=== PATIENT | male | born 1985 | race Caucasian/White ===

== ENCOUNTER 2018-04-07 15:52 | Emergency (ER) | payer BC, SELFPAY ==
[2018-04-07 15:53] VITALS: BP 144/89; PULSE 98; RESP 18; TEMP 36.7; O2SAT 99; BMI 44.6
--- NOTE | 2018-04-07 16:26 | ED.DCSUM_ITS ---
- ER Visit Summary Date of Service: 04/07/18 Chief Complaint: Right ear abscess History of Present Illness: The patient is a 32 M who has an abscess behind the right ear. Is been there for 4 days. 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 He denies fevers. He has no history of this in the past. Physical Examination: Vital signs reviewed. HEENT exam reveals a 1 cm abscess behind the top of the right ear. He has no mastoid tenderness. There is fluctuance with this abscess. The pinna itself is normal. Test Results: None performed Emergency Department Course and Treatment: She had incision and drainage. 2 cc of lidocaine was used to anesthetize the area. A cruciate incision was made over the dome of the abscess. He had a small amount of purulence. I did probe for loculations. I will place him on antibiotics and he will follow-up with his PCP. Treatment Plan: [] Disposition: Discharge Impression: Right ear abscess Incision and drainage by ED physician This note was generated with [employer] dictation software. It may contain incorrect words, spelling, and punctuation that were not noted in review of the chart prior to signing ED Disposition - Plan for ED Patient: Chief Complaint: Abscess Referrals: Care Physician,No Primary [Primary Care Provider] -
--- NOTE | 2018-04-07 16:29 | ED.DEP ---
ED Disposition - Plan for ED Patient: Disposition: Home or Assisted Living Chief Complaint: Abscess Instructions: ED Abscess IandD Prescriptions: Smz/Tmp Ds [Bactrim Ds] 1 tab PO BID #14 tab Referrals: Care Physician,No Primary [Primary Care Provider] -
[2018-04-07] MEDS: Smz/Tmp Ds Tablet 1 TABLET PO (16:52)
[2018-04-07 17:01] VITALS: BP 137/66; PULSE 71; RESP 15; O2SAT 98
--- OUTSIDE RECORDS SUMMARY | 2018-07-12 07:24 | XMS RPT_ITS ---
:1985 Author Organization [facility] Care Team Providers Name Role Phone Primay Care Physicia, No Primary Care Unavailable Gama You Attending Unavailable CINDY, DAYAN MOHAMUD Attending Unavailable CINDY, DAYAN Attending Unavailable PROBLEMS PROBLEMS DATE TYPE CONDITION / ATTENDING STATUS SOURCE CODE 04/10/2018 Active Cutaneous CINDY, Active [facility] abscess of head [facility] (any part, Repository except face) / L02.811(ICD-10) 04/10/2018 Admitting Unknown / CINDY, Active [place] [facility] diagnosis UNK(Unknown) [facility] Repository PROCEDURES PROCEDURES No Procedure Records FoundRESULTS RESULTS ED PROV NOTE Observed: 04/10/2018 Status: COMPLETED Source: [place] 5:03 AM [facility] OTHER CAMPUS REPOSITORY HNO ID: [id number] Author: Dayan White DO Service: Emergency Medicine Author Type: Physician Type: ED Provider Notes Filed: 04/10/2018 5:56 AM Note Text: ED Provider Note Patient Name: Malorie Foreman SERVICE DATE: 04/10/18 History Patient presents with: Cyst: behind the right ear since Tuesday. Tuesday went to ED for I AND D. placed on antibiotic but states it is not working HPI Patient is a 32 yo male complaining of an abscess behind his R ear x 1 week. He states he sometimes get these, but it progressed throughout the week, saw someone at [facility] who did and IANDD and placed patient on bactrim 2 days ago. Patient states the pain is worse, swelling worse and that he feels like the abscess has returned. Pain is a constant throbbing, worse with palpation. He denies fever/chills, neck pain, RICHARDSON or other complaints. 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 - Psoriasis 06-16-12 on top of head and face PAST SURGICAL HISTORY Procedure Laterality Date - HERNIA REPAIR HX x2 (abdominal) FAMILY HISTORY Problem Relation Age of Onset - Hypertension Maternal Grandmother - Macular Degen Maternal Grandmother - Hypertension Maternal Grandfather - Macular Degen Maternal Grandfather - Cancer Maternal Grandfather - Cataract Paternal Grandmother - Diabetes Paternal Grandmother - Hypertension Paternal Grandmother - Diabetes Paternal Grandfather - Hypertension Paternal Grandfather - Cancer Paternal Grandfather - Strabismus Brother Social History Social History Main Topics - Smoking status: Never Smoker - Smokeless tobacco: Not on file - Alcohol use Yes Comment: 3x yearly - Drug use: Unknown - Sexual activity: Not on file ALLERGIES Allergen Reactions - Adhesive Tape (Rea* Unknown Review of Systems Constitutional: Negative for chills and fever. HENT: Negative for congestion, ear pain, nosebleeds, sore throat, trouble swallowing and voice change. Eyes: Negative for pain, redness and visual disturbance. Respiratory: Negative for cough and shortness of breath. Cardiovascular: Negative for chest pain and palpitations. Gastrointestinal: Negative for abdominal distention, abdominal pain, diarrhea, nausea and vomiting. Genitourinary: Negative for dysuria and hematuria. Musculoskeletal: Negative for back pain and neck pain. Skin: Negative for rash. Neurological: Negative for syncope and headaches. Hematological: Does not bruise/bleed easily. All other systems reviewed and are negative. Physical Exam BP 147/98 Pulse 104 Temp (Src) 96.4 (Temporal Artery) Resp 18 Ht 6' 6 (1.98m) Wt 380 lb (172.4kg) SpO2 98% BMI 43.92 kg/(m2). Physical Exam Constitutional: He is oriented to person, place, and time. He appears well-nourished. No distress. HENT: Head: Normocephalic and atraumatic. Right Ear: External ear normal. Left Ear: External ear normal. Nose: Nose normal. Mouth/Throat: Oropharynx is clear and moist. Eyes: Pupils are equal, round, and reactive to light. Conjunctivae and EOM are normal. Neck: Normal range of motion. Neck supple. No JVD present. No tracheal deviation present. Cardiovascular: Normal rate, regular rhythm, normal heart sounds and intact distal pulses. Exam reveals no gallop and no friction rub. No murmur heard. Pulmonary/Chest: Effort normal and breath sounds normal. No respiratory distress. He has no wheezes. He has no rales. Musculoskeletal: Normal range of motion. He exhibits no edema. Lymphadenopathy: He has no cervical adenopathy. Neurological: He is alert and oriented to person, place, and time. No cranial nerve deficit or sensory deficit. Skin: Skin is warm and dry. Capillary refill takes less than 2 seconds. No rash noted. He is not diaphoretic. There is erythema. There is a 1 cm abscess on the posterior superior auricular area with minimal surrounding cellulitis and induration. No streaking. Nursing note and vitals reviewed. Diagnostic Testing ED Labs Ordered and Reviewed - No data to display INCISION/DRAINAGE Date/Time: 04/10/2018 5:06 AM Performed by: DAYAN WHITE Authorized by: DAYAN WHITE Consent: Consent obtained: Verbal Consent given by: Patient Risks discussed: Bleeding, incomplete drainage, damage to other organs, infection and pain Alternatives discussed: No treatment and delayed treatment Location: Type: Abscess Size: 1 Location: Head Head location: Scalp Pre-procedure details: Skin preparation: Betadine Anesthesia (see MAR for exact dosages): Anesthesia method: Local infiltration Local anesthetic: Lidocaine 1% WITH epi Procedure type: Complexity: Simple Procedure details: Needle aspiration: no Incision types: Stab incision Incision depth: Submucosal Scalpel blade: 11 Wound management: Probed and deloculated, irrigated with saline and extensive cleaning Drainage: Purulent Drainage amount: Scant Wound treatment: Wound left open Packing materials: None Post-procedure details: Patient tolerance of procedure: Tolerated well, no immediate complications ED Course / Clinical Impression Clinical Impressions as of Apr 10 503 Cutaneous abscess of head excluding face Patient in no distress, nontoxic appearing. Treated with doxycycline for better coverage and motrin for pain. IANDD without complication with return of pus. Too small for packing, but thoroughly irrigated. We will switch him to doxycycline and instructed him to take motrin as directed and f/u with pcp in a few days. Advised to return to the ED for anything new or worse. MDM / Disposition / Plan MDM The patient was DISCHARGED: Counseled patient regarding suspected diagnosis AND need for follow-up. Discharged home with verbal and written instructions. They were instructed to return as needed for persistent or worsening symptoms or any new concerns. Condition at time of disposition: stable SIGNATURE: DO Dayan Rizo DO 04/10/18 0556 EMERGENCY DEPARTMENT Observed: 04/07/2018 Status: F Source: [place] SUMMARY 4:30 PM REPOSITORY [facility] [place] Medical Records Department [address] [place] [address] Emergency Department Summary 04/07/18 1625 MR#: [id number] Acct: [id number] Name: MALORIE FOREMAN II Rep #: [id number] : 1985 32 From: Gama You MD PCP: Care Physician, No Primary Status: PRE ER ADDENDUM by Gama You MD on 04/07/18 at 1630 I do not feel this represents mastoiditis as he has no tenderness over the mastoid area. This abscess is more superior to this area. 04/07/18 1630 Date Gama You MD cc: No Primary Care Physician * Signed - ER Visit Summary Date of Service: 04/07/18 Chief Complaint: Right ear abscess History of Present Illness: The patient is a 32 M who has an abscess behind the right ear. Is been there for 4 days. He squeezed some pus out of it 2 days ago but it [employer]. He denies fevers. He has no history of this in the past. Physical Examination: Vital signs reviewed. HEENT exam reveals a 1 cm abscess behind the top of the right ear. He has no mastoid tenderness. There is fluctuance with this abscess. The pinna itself is normal. Test Results: None performed Emergency Department Course and Treatment: She had incision and drainage. 2 cc of lidocaine was used to anesthetize the area. A cruciate incision was made over the dome of the abscess. He had a small amount of purulence. I did probe for loculations. I will place him on antibiotics and he will follow-up with his PCP. Treatment Plan: [] Disposition: Discharge Impression: Right ear abscess Incision and drainage by ED physician This note was generated with [employer] dictation software. It may contain incorrect words, spelling, and punctuation that were not noted in review of the chart prior to signing ED Disposition - Plan for ED Patient: Chief Complaint: Abscess Referrals: Care Physician,No Primary [Primary Care Provider] - What to do if you have Problems For any increased pain, shortness of breath, bleeding, nausea or vomiting, chest pain, or any unexpected problems, contact your Primary Care Provider. Call [facility] ([phone]) or report to the closest Emergency Room. Call 911 if necessary. 04/07/18 1626 <Electronically signed by Gama You MD> Date Gama You MD Cosigner Signature (If Indicated): Date CC: No Primary Care Physician DISCHARGE INSTRUCTION Observed: 04/07/2018 Status: F Source: [place] 4:29 PM REPOSITORY [facility] Medical Records Department [address] [place] [address] Discharge Instruction 04/07/18 1629 MR#: [id number] Acct: [id number] Name: MALORIE FOREMAN II Rep #: [id number] : 1985 32 From: Gama You MD PCP: Antonio Physician, No Primary Status: PRE ER ED Disposition - Plan for ED Patient: Disposition: Home or Assisted Living Chief Complaint: Abscess Instructions: ED Abscess IandD Prescriptions: Smz/Tmp Ds [Bactrim Ds] 1 tab PO BID #14 tab Referrals: Care Physician,No Primary [Primary Care Provider] - What to do if you have Problems For any increased pain, shortness of breath, bleeding, nausea or vomiting, chest pain, or any unexpected problems, contact your Primary Care Provider. Call [facility] ([phone]) or report to the closest Emergency Room. Call 911 if necessary. 04/07/18 1629 <Electronically signed by Gama You MD> Date Gama You MD Cosigner Signature (If Indicated): Date CC: No Primary Care Physician ALLERGIES ALLERGIES DATE TYPE / CODE NAME / CODE REACTION SEVERITY SOURCE 04/07/2018 Drug adhesive/[id number] Unknown Unknown [facility] Allergy/416 3245(RXNORM) [facility] 196195(SNOM Repository ED CT) 03/16/2011 Chemical/42 ADHESIVE TAPE UNKNOWN [facility] [id number]([facility]) Repository /[id number] ADHESIVE TAPE [place] [address]ository ENCOUNTERS ENCOUNTERS ADMIT/DISCHARGE ACCOUNT NUMBER ADMITTING ENCOUNTER LOCATION SOURCE CLASS 04/10/2018/04/10/20 [id number] Emergency [address] Repository 04/10/2018/04/10/20 [id number] [address] g:AKEDBRoom: EDBed: 03 04/07/2018/04/07/20 [id number] Emergency [address] ing:ED Repository PAYERS PAYERS ENCOUNTER GUARANTOR PAYER SUBSCRIBER SOURCE 04/10/2018 MAL[place]IE [place] Primary [facility] [place] [facility]:BLUE CARD FEKETEDOB: [facility] [id number] S PPOPolicy Number: [id number] [address] [id number] [address], Date: [place] [address]Taw: () 04/07/2018 MALORIE FOREMAN Primary MALORIE FOREMAN [facility] [id number] [facility] Insurance:ANTHEMPolic IIDOB: [facility] ROWENA y Number: [id number] [address], [id number] Repository [place] [address]Lje: Date:[id number] [id number], [place] () [address]JD: 04/07/2018 Secondary NOT GIVENUNK Leonardo Insurance:SELF PAY Community [facility] Number: Effective Repository Date:2018-04-07
== END 2018-04-07 17:02 | disposition home or self-care (01) ==
LOC: ED 16:56
PROVIDERS: Emergency Provider Emergency Medicine
DX: H60.01 Abscess of right external ear (principal)
CPT/HCPCS: 69000; 99284

== ENCOUNTER 2018-07-14 09:56 | Emergency (ER) | payer OTHER, SELFPAY ==
[2018-07-14 09:57] VITALS: BP 144/88; PULSE 100; RESP 18; TEMP 36.6; O2SAT 97; BMI 45.2
--- NOTE | 2018-07-14 10:10 | RAD_ITS ---
STUDY: X-RAY - LEFT ELBOW REASON FOR EXAM: Male, 32 years old. Trauma. Elbow pain TECHNIQUE: 3 view(s) of the elbow. COMPARISON: None. FINDINGS: Normal visualized humerus, radius and ulna. Normal radiocapitellar and ulnotrochlear articulations. The soft tissue structures are unremarkable. RAD/Elbow min 3 Views IMPRESSION: Normal x-ray examination of the elbow. Electronically Signed: Bro Oreilly, at 10:43 EDT Tel , Service support ,
--- NOTE | 2018-07-14 10:10 | ED.VISSUMM ---
- ER Visit Summary Date of Service: 07/14/18 Chief Complaint: Left elbow pain History of Present Illness: The patient is a 32 M [id number] presents for evaluation left elbow pain occurred while at work yesterday at 1:30 PM. 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 Pain worse with movement. Tingling mid forearm last night Tylenol was taken with last dose at midnight. No previous similar symptoms. No history of gastric ulcers or kidney problems. There is no direct falls or injuries. Sent by work for evaluation. Physical Examination: General: Alert and oriented ?3, no acute distress HEENT: Normocephalic, atraumatic. Moist mucosa membranes Neck: supple, nontender. Cardiovascular: Regular rate and rhythm, no murmurs Respiratory: Normal breath sounds, symmetric, no distress Abdomen: Soft, nontender, nondistended Extremities: Left upper extremity: No shoulder pain. There is tenderness elbow at the radial head, patient can extend to approximately 150 degrees before pain. There is no swelling of the joint. No deformities. No wrist tenderness. Neurovascular intact distally. Neuro: no focal neurological deficits. Test Results: Left elbow: No acute process Emergency Department Course and Treatment: Patient exam with his placement of elbow and cannot fully extend with pain at rehab concerns for nursemaid's elbow however mechanism was not similar. I discussed with patient reduction of bedside C there is improvement range of motion, he verbally consent. This was performed there was a pop noted at the radial head during the extension mechanism. He did have improved range of motion. He is sent for x-rays reviewed by myself shows no dislocation or fractures. Motrin ice was given. Reevaluation range of motion improve however still had tenderness over the radial head. Discussed nursemaid's elbow with tendinitis, symptoms nearly 24 hours with likely inflammation. He is given appropriate work restrictions and follow-up with [facility] [employer]. He will continue Motrin [id number] for the next 2 days. Alex wrap provided. Rice therapy. All questions answered. Treatment Plan: [] Disposition: Discharge Impression: 1. Left nursemaid's elbow 2. Left elbow tendinitis This note was generated with [employer] software. It may contain incorrect words, spelling, and punctuation that were not noted in review of the chart prior to signing ED Disposition - Plan for ED Patient: Disposition: Home or Assisted Living Diagnosis: Nursemaid's elbow, left elbow, initial encounter, Elbow tendinitis Instructions: ED Subluxation Radial Head Referrals: Care Physician,No Primary [Primary Care Provider] - Corporate,Care [GROUP OF PHYSICIANS] - 3-5 Days
[2018-07-14] MEDS: Ibuprofen 600 MG Tablet PO (10:22)
== END 2018-07-14 11:19 | disposition home or self-care (01) ==
PROVIDERS: Emergency Provider Emergency Medicine
DX: S53.032A Nursemaid's elbow, left elbow, initial encounter (principal); M77.9 Enthesopathy, unspecified; X50.0XXA Overexertion from strenuous movement or load, initial encounter; Y93.89 Activity, other specified; Y92.89 Other specified places as the place of occurrence of the external cause; Y99.0 Civilian activity done for income or pay
CPT/HCPCS: 24600; 73080; 99282

== ENCOUNTER → 2023-01-21 | Outpatient (CLI) | payer OTHER, SELFPAY ==
[2023-01-21 13:29] LABS: Squamous Epithelial Cells - UA 0 SEEN /hpf (0-5)
[2023-01-21 15:07] LABS: Absolute Lymphocyte Count 1.87 X10^3/uL (0.83-4.51); Absolute Neutrophil Count 4.4 X10^3/uL (2.0-7.7); Basophil# 0.03 X10^3/uL; Basophil% 0.4 % (0-1); Eosinophil# 0.11 X10^3/uL; Eosinophils% 1.6 % (0-5); Hematocrit 44.9 % (40-54); Hemoglobin 14.8 g/dL (13.0-16.5); Lymphocyte # 1.87 X10^3/ul (0.83-4.51); Lymphocyte % 27.5 % (19-41); Mean Corpuscular Hgb 27.5 pg (27.0-32.0); Mean Corpuscular Volume 83.5 fL (80-94); Mean Platelet Vol. 9.2 fl (6.2-12.0); Monocyte# 0.34 X10^3/uL; NRBC Flagged by Analyzer 0 % (0-5); Neutrophil # 4.43 X10^3/uL (2.7-7.7); Neutrophil % 65.1 % (47-70); Platelet Count 185 K/mm3 (150-450); RBC Distribution Width CV 12.6 % (11.6-14.6); RBC Distribution Width SD 37.7 fl (35.1-43.9); Red Blood Count 5.38 M/mm3 (4.6-6.2); White Blood Count 6.8 K/mm3 (4.4-11.0)
[2023-01-21 15:16] LABS: Color, Urine Yellow (Yellow); Glucose, Dipstick Normal (Normal); Ketone-Dipstick 5 mg/dl (Negative); Leukocyte Esterase-Dipstick 100 /ul (Negative); Nitrite-Dipstick Negative (Negative); Occult Blood-Urine Negative /ul (Negative); Protein-Dipstick Negative (Negative); Specific Gravity, Urine 1.025 (1.002-1.030); Urine Bilirubin Dipstick Negative (Negative); Urine Clarity Sl. Cloudy (Clear); Urine Urobilinogen Normal (Normal)
[2023-01-21 15:32] LABS: Vitamin B12 654 pg/mL (211-911)
[2023-01-21 15:39] LABS: Hemoglobin A1c 7.3 % (3.8-5.6)
[2023-01-21 15:46] LABS: Bacteria RARE /hpf (None Seen); Mucous, Urine RARE /hpf (<or=2+); Red Blood Cells-Urine 0-5 SEEN /hpf (0-5); White Blood Cells 25-50 SEEN /hpf (0-5)
[2023-01-21 15:47] LABS: ALB/GLOB Ratio 1.2 RATIO (0.9-2.4); AST(SGOT) 36 U/L (15-37); Alanine Aminotransfer ALT/SGPT 90 U/L (16-61); Albumin, Serum 3.8 g/dL (3.2-5.0); Alkaline Phosphatase 109 U/L (45-117); Anion Gap 4 (5-15); BUN 12 mg/dL (7-18); BUN/Creat Ratio 13.5 RATIO (10-20); Calcium,Total 8.8 mg/dL (8.5-10.1); Chloride 107 mmol/L (98-107); Cholesterol 130 mg/dL (200); Creatinine, Serum 0.89 mg/dL (0.70-1.30); EST Glomerular Filtration Rate 103 mL/min (>60); Est Glom Filt Rate - Afr Amer 125 mL/min (>60); Globulin 3.3 g/dL (2.2-4.2); Glucose 133 mg/dL (74-106); High Density Lipoprotein 36 mg/dL; Magnesium 2.4 mg/dL (1.6-2.6); Potassium 3.7 mmol/L (3.5-5.1); Protein, Total 7.1 g/dL (6.4-8.2); Sodium Level 138 mmol/L (136-145); Thyroid Stim Hormone (TSH) 1.59 uIU/mL (0.358-3.74); Triglycerides 124 mg/dL; Very Low Density Lipoprotein 25 mg/dL (5-40)
[2023-01-26 17:07] LABS: VITAMIN B6 4.3 ug/L (3.4-65.2); Vitamin B1, Thiamine 147.3 nmol/L (66.5-200.0)
== END | disposition home or self-care (01) ==
PROVIDERS: PCP Family Medicine; Referring Provider Family Medicine; Visit Provider Family Medicine
DX: R03.0 Elevated blood-pressure reading, without diagnosis of hypertension (principal); E66.01 Morbid (severe) obesity due to excess calories; R63.1 Polydipsia
CPT/HCPCS: 80053; 80061; 81001; 82607; 83036; 83735; 84207; 84425; 84443; 85025

== ENCOUNTER → 2023-04-28 | Outpatient (CLI) | payer OTHER, SELFPAY ==
--- OUTSIDE RECORDS SUMMARY | 2023-04-28 17:21 | XMS RPT_ITS | CCD ---
Author Name Unknown Address [address] [place] [address] Organization [facility] Care Team Providers Care Dials Inspector Name Role Phone Ryder Garcia Unavailable Unavailable Unavailable [facility] Primary Care Provider Unav ailable MARLENE CUADRA Attending Unavailable [facility], [employer] Primary Care Unavailable MARLENE CUADRA Attending Unavailable Allergies Allergy Classification Reported Allergen(s) Allergy Type Date of Onset Reaction(s) Facility (2 sources) Adhesive Tape Drug Intolerance 1 Hives Rash [facility] (1 source) Adhesive Tape; Translations: [ADHESIVE TAPE (ROSINS)] Propensity to adverse reactions (disorder) 1 [facility] Other [facility] Medications Current Medications Medication Drug Class(es) Dates Sig (Normalized) Sig (Original) azithromycin 250 mg oral tablet (2 sources) Macrolide Antimicrobial Start: 08-24-2022 End: 08-29-2022 take 1 tablet by mouth once daily azithromycin (Zithromax Z-Tom) 250 MG tablet Indications: Upper respiratory tract infection, unspecified type Take 1 tablet (250 mg) by mouth daily for 5 days. 5 tablet 0 08/24/2022 08/29/2022 Active Completed/Discontinued Medications Medication Drug Class(es) Dates Sig (Normalized) Sig (Original) 1 ml dexamethasone phosphate 4 mg/ml injection (2 sources) Corticosteroid Start: 12-14-2022 End: 12-14-2022 dexAMETHasone (Decadron) injection 10 mg Pseudoephedrine-APAP- DM (DAYQUIL PO) (1 source) End: 12-14-2022 Pseudoephedrine-APAP -DM (DAYQUIL PO) Take by mouth. 0 12/14/2022 Discontinued (Ineffective) Problems Active Problems Problem Classification Problem Date Documented Da te Episodic/Chronic Immunizations and screening for infectious disease (1 source) Contact with or exposure to other viral diseases; Translations: [Close exposure to COVID-19 virus] 12-14-2022 Episodic Other upper respiratory infections (4 sources) Upper respiratory infection; Translations: [Acute upper respiratory infection, unspecified] Onset: 12-14-2022 Episodic Unclassified (1 source) Contact with and (suspected) exposure to covid-19; Translations: [Contact with and (suspected) exposure to covid-19] Onset: 12-14-2022 Past or Other Problems Problem Classification Problem Date Documented Da te Episodic/Chronic Unclassified (1 source) Contact with and (suspected) exposure to covid-19; Translations: [Contact with and (suspected) exposure to covid-19] Onset: 12-14-2022 Results Test Name Value Interpretation Reference Range Facil ity Vital Signs Date Time Vital Sign Value Performing Clinician Faci lity 12-14-2022 11:19-0400 Body height 195.6 cm [employer]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 Phone: [employer] 12-14-2022 11:19-0400 Body mass index (BMI) [Ratio] 46.48 kg/m2 MarleneTrot Phone: [employer] 12-14-2022 11:19-0400 Body temperature 97.81 [degF] MarleneTrot Phone: [employer] 12-14-2022 11:19-0400 Body weight 177.81 kg MarleneTrot Phone: [employer] 12-14-2022 11:19-0400 Diastolic blood pressure 88 mm[Hg] MarleneTrot Phone: [employer] 12-14-2022 11:19-0400 Heart rate 107 /min MarleneTrot Phone: [employer] 12-14-2022 11:19-0400 SaO2% (BldA) [Mass fraction] 98 % [employer] Phone: [employer] 12-14-2022 11:19-0400 Systolic blood pressure 129 mm[Hg] MarleneeHarmony DO Work Phone: [employer] 08-24-2022 14:18-0400 Body height 190.5 cm MarleneeHarmony DO Work Phone: [employer] 08-24-2022 14:18-0400 Body temperature 98.1 [degF] MarleneeHarmony DO Work Phone: [employer] 08-24-2022 14:18-0400 Diastolic blood pressure 87 mm[Hg] MarleneeHarmony DO Work Phone: [employer] 08-24-2022 14:18-0400 Heart rate 102 /min MarleneeHarmony DO Work Phone: [employer] 08-24-2022 14:18-0400 Respiratory rate 18 /min MarleneeHarmony DO Work Phone: [employer] 08-24-2022 14:18-0400 SaO2% (BldA) [Mass fraction] 98 % MarleneeHarmony DO Work Phone: [employer] 08-24-2022 14:18-0400 Systolic blood pressure 145 mm[Hg] MarleneeHarmony DO [facility] Encounters Encounter Date Encounter Type Care Provider Facility Start: 03-15-2023 Emergency department patient visit Facility:[facility] Start: 12-14-2022 End: 12-14-2022 ambulatory [facility] Start: 12-14-2022 End: 12-14-2022 Office outpatient visit 15 minutes [employer] DO Work Phone: [facility] Procedures Date Procedure Procedure Detail Performing Clinician Start: 12-14-2022 Iaadiadoo streptococ cus group a [employer] DO Work Phone: Start: 08-24-2022 Iaadiadoo streptococ cus group a [employer] DO Work Phone: Start: 05-24-2019 Throat culture Plan of Treatment Date Care Activity Detail Author Start: 11-10-2037 Zoster Vaccines (1 of 2) Zoster Vacc dre (1 of 2) [facility] Start: 12-24-2022 Influenza vaccination [facility] Start: 11-10-2006 DTaP/Tdap/Td Vaccine s (1 - Tdap) DTaP/Tdap/Td Vaccines (1 - Tdap) [facility] Start: 11-10-2005 Hepatitis C screening Hepatitis C Sc reening [facility] Start: 1999 Depression Screening Depression Scre ening [facility] Start: 11-10-1988 MMR Vaccines (1 of 1 - Standard series) MMR Vaccines (1 of 1 - Standard series) [facility] Start: 11-10-1988 Varicella vaccination Varicell a Vaccines (1 of 2 - 2-dose childhood series) [facility] Start: 05-13-1988 COVID-19 Vaccine (#1) COVID-19 Vacci ne (#1) [facility] Start: 1987 Hepatitis B Vaccines (1 of 3 - 3-dose series) Hepatitis B Vaccines (1 of 3 - 3-dose series) [facility] Start: 1987 HIV screening HIV Screening [facility] Start: 1987 Lipid panel Lipid Panel [facility] SARS-CoV-2, Flu A/B, and RSV Combo SARS-CoV-2, Flu A/B, and RSV Combo Microbiology Routine URI with cough and congestion Ordered: 12/14/2022 [facility] Work Phone: Immunizations Immunization Date Immunization Notes Care Provider Gaurang moseley 05-24-2012 influenza virus vacc ine, unspecified formulation Marlene Cuadra DO Work Phone: [facility] Payers Date Payer Category Payer Private Health Insurance [id number] 2020 Private Health Insurance KORY CORDERO [id number] 2020-Present [address] [place] [id number] Commercial [id number] 2020 Private Health Insurance [id number] 2019 Unknown [id number] Self-pay Social History Date Type Detail Facility Start: 08-24-2022 [facility] Start: 08-24-2022 Tobacco use and exposure Smokeless tobacco non-user [facility] Start: 08-24-2022 End: 12-14-2022 Alcohol intake Current drinker of alcohol (finding) [facility] Start: 1987 Sex Assigned At Not on file [facility] Start: 08-14-2022 End: 12-14-2022 Exposure to SARS-CoV-2 (event) Not sure [facility] Start: 12-14-2022 History of Social function [facility] Start: 12-14-2022 Tobacco use panel [facility] NEGATED: Highlighted rowStart: NINF History of tobacco use Passive smoker [facility] Clinical Notes 03-03-2021 to 12-14-2022 Marlene Cuadra, - 12/14/2022 11:40 AM EDTPatient InstructionsAttachmentsAddendum Note - Marlene Cuadra DO - 12/14/2022 11:40 AM EDSelvin Kwok MA - 08/24/2022 1:50 PM EDTAttachments Note Date & Type Note Facility 12-14-2022 History of Presen t illness Narrative Chief Complaint Patient presents with URI Last Tuesday started to have itchy throat, was sluggish, reports that sat was burning up no temp taken, chills last night, upper chest congestion, nasal congestion, trouble sleeping due to symptoms . At home covid test sat was negative No LMP for male patient. 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 SURGERY Right 01/2013 [employer] FOREIGN BODY REMOVAL Right 3rd Digit - beebee Family History Problem Relation Name Age of Onset Lung cancer Maternal Grandfather Cancer Paternal Grandmother Social History Socioeconomic History Marital status: Single Tobacco Use Smoking status: Never Passive exposure: Never Smokeless tobacco: Never Vaping Use Vaping Use: Never used Substance and Sexual Activity Alcohol use: Yes Drug use: Never Allergies: Allergies Allergen Reactions Adhesive [Tape] Hives and Rash No Plastic tape -Removes his skin Medications: Current Outpatient Medications on File Prior to Visit Medication Sig Dispense Refill [DISCONTINUED] [id number] (DAYQUIL PO) Take by mouth. No current facility-administered medications on file prior to visit. HPI: URI Presenting symptoms: congestion, cough, fever, rhinorrhea and sore throat Not feeling well x1 week Started with a scratchy throat - thought it was from the grass Tuesday cousin told patient that he was sick Got fever on Tuesday Nasty cough, not able to sleep Nose started to drain Throat feels like it has glass in it Nausea but no vomiting or diarrhea Took dayquil yesterday Did home covid test on Tuesday - neg ROS: Review of Systems Constitutional: Positive for chills and fever. HENT: Positive for congestion, rhinorrhea and sore throat. Respiratory: Positive for cough. Gastrointestinal: Positive for nausea. exam: BP 129/88 Pulse 107 Temp 36.6 C (97.8 F) (Infrared) Ht 6' 5 (1.956 m) Wt (!) 392 lb (178 kg) SpO2 98% BMI 46.48 kg/m Physical Exam Vitals reviewed. Constitutional: General: He is not in acute distress. Appearance: Normal appearance. He is not ill-appearing, toxic-appearing or diaphoretic. HENT: Head: Normocephalic and atraumatic. Right Ear: Tympanic membrane and ear canal normal. Left Ear: Tympanic membrane and ear canal normal. Nose: Congestion and rhinorrhea present. Mouth/Throat: Mouth: Mucous membranes are moist. Pharynx: Oropharynx is clear. No oropharyngeal exudate or posterior oropharyngeal erythema. Eyes: Conjunctiva/sclera: Conjunctivae normal. Cardiovascular: Rate and Rhythm: Normal rate and regular rhythm. Pulses: Normal pulses. Heart sounds: Normal heart sounds. No murmur heard. No friction rub. No gallop. Pulmonary: Effort: No respiratory distress. Breath sounds: Normal breath sounds. No wheezing, rhonchi or rales. Comments: Good air movement throughout all lung reyes Able to speak clearly and in complete sentences without evidence of distress or dyspnea Frequent dry cough noted throughout encounter Musculoskeletal: Cervical back: Normal range of motion and neck supple. Skin: General: Skin is warm. Capillary Refill: Capillary refill takes less than 2 seconds. Neurological: Mental Status: He is alert and oriented to person, place, and time. Assessment and Plan: Malorie was seen today for uri. Diagnoses and all orders for this visit: URI with cough and congestion (Primary) - brompheniramine-pseudoephedrine- DM 30-2-10 MG/5ML syrup; Take 5 mL by mouth 3 times daily as needed for cough or congestion for up to 10 days. - fluticasone (Flonase) 50 MCG/ACT nasal spray; Administer 1 spray into each nostril daily for 14 days. Shake gently. Before first use, prime pump. After use, clean tip and replace cap. - AMB POC RAPID STREP A - SARS-CoV-2, Flu A/B, and RSV Combo - dexAMETHasone (Decadron) injection 10 mg - Streptococcus, Group A Culture ([facility]) Close exposure to COVID-19 virus Patient with URI symptoms that started 7 days ago. Patient with known exposure to COVID from a family member. Rapid strep neg. Culture sent. Discussed with patient that symptoms are likely attributed to a viral URI -likely COVID given exposure. Viral swab collected today for flu/COVID/RSV. Encouraged supportive treatment including increased hydration, cough drops, honey, tea, warm salt water gargles, and tylenol or motrin as needed. CDC quarantine guidelines discussed with patient. Patient to follow up with PCP if symptoms do not improve. Discussed with patient should he develop chest pain, shortness of breath or difficulty breathing, unable to drink fluids and maintain oral hydration, or increasing fatigue or lethargy - please be evaluated in the emergency room as soon as possible -patient voiced understanding and is agreeable. documented in this encounter [facility] 12-14-2022 Instructions Marlene Cuadra DO - 12/14/2022 11:40 AM EDT If you develop chest pain, shortness of breath or difficulty breathing, unable to drink fluids and maintain oral hydration, or increasing fatigue or lethargy - please be evaluated in the emergency room as soon as possible Discussed with patient that symptoms are likely attributed to a viral URI - possibly covid. Encouraged supportive treatment including increased hydration, cough drops, honey, tea, warm salt water gargles, and tylenol or motrin as needed. Patient to follow up with PCP if symptoms do not improve. In the event that your covid testing is positive - please quarantine according to CDC guidelines. At lease 5 days until you are fever free without medications. Wear mask for an additional 5 days. The following attachments cannot be sent through Care Everywhere.Viral Upper Respiratory Infection Discharge Instructions, Adult ([place])documented in this encounter [facility] 12-14-2022 Miscellaneous Notes Addended by: MARLENE CUADRA on: 12/14/2022 01:21 PM Modules accepted: Orders documented in this encounter [facility] 12-14-2022 Note Addended by: MARLENE PEREZ on: 12/14/2022 01:21 PM Modules accepted: Orders [facility] 08-24-2022 History of Presen t illness Narrative c Chief Complaint Patient presents with Sore Throat Pt here today w/complaints of pharyngitis x 4 days. Pt has productive cough w/green sputum. Pt has increased chest congestion/head congestion with complaints of a headache. No LMP for male patient. 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 No current facility-administered medications on file prior to visit. HPI: Sore Throat Associated symptoms include coughing. Pertinent negatives include no congestion. Last Tuesday, daughter had softball practice Last Tuesday started to get a sore throat Worse on Seemed to be going away Tuesday woke up with cough and dry throat Coughs up mucus first thing in the morning but not rest of day Clearing throat a lot Coughing so hard that he threw up Has a slight headache Not runny Throat hurt with coughing Had asthma as a kid, has not needed inhaler for many years Having a lot of post nasal drainage ROS: Review of Systems Constitutional: Negative for chills, fatigue and fever. HENT: Positive for sore throat. Negative for congestion, rhinorrhea, sinus pressure and sinus pain. Respiratory: Positive for cough. Negative for wheezing. exam: BP (!) 145/87 Pulse 102 Temp 36.7 C (98.1 F) (Tympanic) Resp 18 Ht 6' 3 (1.905 m) SpO2 98% Physical Exam Vitals reviewed. Constitutional: General: He is not in acute distress. Appearance: Normal appearance. He is not ill-appearing, toxic-appearing or diaphoretic. HENT: Head: Normocephalic and atraumatic. Right Ear: Tympanic membrane and ear canal normal. Left Ear: Tympanic membrane and ear canal normal. Nose: Congestion and rhinorrhea present. Mouth/Throat: Mouth: Mucous membranes are moist. Pharynx: Oropharynx is clear. No oropharyngeal exudate or posterior oropharyngeal erythema. Eyes: Conjunctiva/sclera: Conjunctivae normal. Cardiovascular: Rate and Rhythm: Normal rate and regular rhythm. Pulses: Normal pulses. Heart sounds: Normal heart sounds. No murmur heard. No friction rub. No gallop. Pulmonary: Effort: No respiratory distress. Breath sounds: Normal breath sounds. No wheezing, rhonchi or rales. Comments: Clear lung sounds throughout all lung reyes with good air movement Speaking clearly and in complete sentences without evidence of distress or dyspnea Frequent cough noted during encounter Musculoskeletal: Cervical back: Normal range of motion and neck supple. Skin: General: Skin is warm. Capillary Refill: Capillary refill takes less than 2 seconds. Neurological: Mental Status: He is alert and oriented to person, place, and time. Assessment and Plan: Malorie was seen today for sore throat. Diagnoses and all orders for this visit: Upper respiratory tract infection, unspecified type (Primary) - Streptococcus, Group A Culture ([facility]) - AMB POC RAPID STREP A - brompheniramine-pseudoephedrine- DM 30-2-10 MG/5ML syrup; Take 5 mL by mouth 3 times daily as needed for cough or congestion for up to 10 days. - Discontinue: azithromycin (Zithromax) 500 MG tablet; Take 1 tablet (500 mg) by mouth daily for 5 days. - azithromycin (Zithromax Z-Tom) 250 MG tablet; Take 1 tablet (250 mg) by mouth daily for 5 days. Patient presents for URI symptoms x7 days -most notable sore throat and cough. Patient reports green phlegm first thing in the morning. He denies any associated congestion, SOB or difficulty breathing. Rapid strep neg. Throat exam neg for tonsillar redness, swelling or erythema. Will send strep culture. Lung sounds clear with good air movement. Will cover patient with azithromycin for atypical infection. Rx also sent for Bromfed. encouraged supportive treatment including increased hydration, cough drops, honey, tea, warm salt water gargles, and tylenol or motrin as needed. Discussed with patient that should he develop chest pain, shortness of breath or difficulty breathing, unable to drink fluids and maintain oral hydration, or increasing fatigue or lethargy - please be evaluated in the emergency room as soon as possible - patient voiced understanding and is agreeable documented in this encounter [facility] 08-24-2022 Instructions Marlene Cuadra DO - 08/24/2022 1:50 PM EDT Encouraged supportive treatment including increased hydration, cough drops, honey, tea, warm salt water gargles, and tylenol or motrin as needed. Patient to follow up with PCP if symptoms do not improve. If you develop chest pain, shortness of breath or difficulty breathing, unable to drink fluids and maintain oral hydration, or increasing fatigue or lethargy - please be evaluated in the emergency room as soon as possible The following attachments cannot be sent through Care Everywhere.Bacterial Upper Respiratory Infection Discharge Instructions, Adult ([place])documented in this encounter [facility] 04-30-2021 Note HNO ID: [id number] Author: CECELIA Cruz Service: ? Author Type: Occupational Therapist Type: Progress Notes Filed: 08/13/2021 1:54 PM Note Text: 08/13/2021 REHABILITATION AND SPORTS THERAPY OCCUPATIONAL THERAPY DISCONTINUANCE OF CARE Plan of Care Period: Start of Care Date: 04/30/21 Last Visit Date: 04/30/2021 Therapy Program: Patient did not return for follow up care as planned. Please refer to last visit note for interventions provided for this episode of care. Assessment: Unable to formally assess goal achievement. Reason for Discontinuation of Care: Patient has not returned to therapy or scheduled additional follow-up appointments. CECELIA Cruz Episode Visit Count: 1 Therapist That Will Oversee The Plan Of Care: Kayode Anderson Start of Care Date: 04/30/21 Onset Date: 02/18/21 Patient Identified by Name and Date of : Yes [facility] REHABILITATION AND SPORTS THERAPY OCCUPATIONAL THERAPY EVALUATION PLAN OF CARE: Assessment: Malorie Foreman presents with the diagnosis of s/p crush injury. He presents with impairments of motion scar and edema. He may benefit from skilled occupational therapy services to improve function. Prognosis: Good Good due to: current objective clinical presentation Goals for Episode of Care created on 04/30/21 through 07/03/21 Patient will report a good understanding of diagnosis and OT recommendations for progression of program. Patient will demonstrate independence with ongoing home recommendations/exercise program throughout therapy plan of care. Patient will increase AROM of Left finger to DIP flexion to WNL in order to be able to improve function for moderate to heavy functional tasks and work tasks. Patient will increase Left music librarian strength by 15#, so that patient will be able to improve function for moderate to heavy functional tasks and work tasks. Patient will report a good understanding of edema control, scar / wound management throughout therapy plan of care to promote non-adherent / non-tender soft tissue. Patient Goals: to increase motion and strength Planned Interventions, Frequency, and Duration: Current Frequency: 1x every other week Duration: 8 weeks Total Number of Visits Planned: 4 Planned Treatment Interventions: Therapeutic exercise (58025);Manual therapy (80999);Self-group home management ([id number]);Fluidotherapy (14752) PLAN FOR NEXT VISIT: assess motion add strengthening Patient demonstrates good understanding of plan of care and treatment. The above goals and plan of care were discussed and agreed upon by patient/family. 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 5 points is clinically meaningfully difference Percentiles provide an indication of how the patient's score ranks in relation to the general population. Higher percentile rankings indicate better function/quality of life. 50th percentile is the average of the general population and indicates half of respondents had a worse score. T-scores: mean of general population = 50. 5 points is clinically meaningfully difference Percentiles provide an indication of how the patient's score ranks in relation to the general population. Higher percentile rankings indicate better function/quality of life. 50th percentile is the average of the general population and indicates half of respondents had a worse score. OBJECTIVE MEASURES WITH LEVEL OF FUNCTION: Hand Skin / Wound: Scar Scar: Non-tender;Mild adherance Edema Location: left finger Edema Description: Mild Edema Measurements: Digits Edema - Digits: Middle Finger R Middle Finger P2 (cm): 6.9 cm R Middle Finger DIP Joint (cm): 6.2 cm R Middle Finger P3 (cm): 5.5 cm L Middle Finger P2 (cm): 6.7 cm L Middle Finger DIP Joint (cm): 6.2 cm L Middle Finger P3 (cm): 6 cm Left Hand AROM: Middle Finger Strength: Medical Educator Position 2;Pinch Meter Sensation: Denies tingling or numbness Hand Strength R Medical Educator Position 2 (lbs): 123 lbs L Medical Educator Position 2 (lbs): 88 lbs R Lateral Pinch (lbs): 25 lbs (more content not included)... [facility] 03-03-2021 Note HNO ID: [id number] Author: Angie Ann PA-C Service: ? Author Type: Physician Channel Lip Stiffener Insoles Type: Progress Notes Filed: 03/03/2021 10:29 AM Note Text: Angie Ann PA-C Department of Orthopaedics [facility] [address] [address] Dept: [phone] March 03, 2021 CHIEF COMPLAINT: New, Pain, and Swelling of the Left Hand Mr. Malorie Foreman is a 35 year old male who presents with pain and swelling of his left middle finger after his hand was crushed by a large steel bar at work. Injury occurred on February 18. Patient states he was moving a bar of metal when another bar slipped crushing the digit. Pain today is a 3 out of 10 aching especially along the ulnar border of the digit. He is having a lot of stiffness in the digit and some difficulty with making a fist. 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 This is [facility]. ASSESSMENT: S67.10XD Crushing injury of finger, subsequent encounter (primary encounter diagnosis) PLAN: He has a tuft fracture and is subungual hematoma. We discussed that he can continue working on gentle range of motion of the digit. Offered to get him into some occupational therapy if he continues to struggle with motion. Mr. Malorie Foreman was advised as to contrast therapies and/or to take analgesics/anti-inflammatories as needed and all contraindications were reviewed. OBJECTIVE: Mr. Malorie Foreman is a pleasant 35 year old in no apparent distress. Gen:There were no vitals taken for this visit. nl development, obese, no deformities ENT: Normocephalic, normal hearing, moist mucosa CV: Pulses:Radial= 2+ and symmetric, capillary refill < 2 secs, no peripheral edema/varicosities Skin: no rash, bruising or lesions. Good turgor. Psych: cooperative and appropriate, alert and oriented x 3, good mood and affect. Musculoskeletal: Left middle digit with tenderness to palpation, there is sensitivity to light touch over the ulnar border of the digit. Mild but appropriate edema of the digit. Patient has a resolving subungual hematoma, nail is not lifted from the nail bed. Patient has full and active range of motion at the MCP, PIP and DIP joint with subjective stiffness. Hypersensitivity along the ulnar border of the digit, sensation is intact. Imaging: * * *Final Report* * * ? DATE OF EXAM: Mar 03 2021 8:23AM ? BRANDON [id number] - XR DIGIT 3V FRONTAL/LAT/OBL LT / ? PROCEDURE REASON: M79.645-Pain in finger of left hand * * * * Physician Interpretation * * * * ? LEFT third digit ? EXAM DATE/TIME: 03/03/2021 8:23 AM ? HISTORY: 35 years old Clinical information: Pain in finger of left hand FOLLOW UP FRACTURE TECHNIQUE: Images: XR DIGIT 3V FRONTAL/LAT/OBL LT Comparison: 02/18/2021 ? RESULT: ? Findings: There is been noted be a fracture of the distal end of the distal phalanx third digit. Similar appearance to previous study. IMPRESSION IMPRESSION: Fracture distal end distal phalanx third digit is again noted ? Sales Service Coordinator: JOSE Transcribe Date/Time: Mar 03 2021 9:24A ? Dictated by : SILVIO JEAN DO ? This examination was interpreted and the report reviewed and electronically signed by: SILVIO JEAN DO on Mar 03 2021 9:26AM EST ? ? Supporting Subjective Information Below: Past Surgical History: PAST SURGICAL HISTORY Procedure Laterality Date - HERNIA REPAIR HX x2 (abdominal) Medications: Current Outpatient Medications Medication Sig - lactobacillus rhamnosus (CULTURELLE) 10 billion cell capsule TAKE 1 CAPSULE BY MOUTH THREE TIMES DAILY WITH MEALS FOR 13 DAYS. No current facility-administered medications for this visit. Allergies: Adhesive Tape (Rosins) ROS: General (negative for fatigue, malaise, weight loss/gain) HEENT (negative for headache, earache, recent vision changes, sinus pain, sore throat) Respiratory (no recent shortness of breath, hemoptysis) CV (negative for chest tightness, palpitations) Musculoskeletal (see HPI) Psych (no depression, anxiety) This note was partially generated using [employer] voice recognition system, and there may be some incorrect words, spellings, and punctuation that were not noted in checking the note before saving. Angie Ann PA-C [facility] 03-03-2021 Note HNO ID: [id number] Author: ELIGIO Perdue Service: Radiology Author Type: Technologist Type: Progress Notes Filed: 03/03/2021 8:28 AM Note Text: Radiology Service Progress Note PATIENT NAME: Malorie Foreman DATE OF SERVICE: March 03, 2021 TIME: 8:28 AM PATIENT IDENTITY VERIFICATION COMPLETED USING TWO (2) IDENTIFIERS: Name and Date of confirmed by patient verbally. FALL SCREENING: Has the patient had 2 falls in the last year or 1 fall with injury or currently using an Ambulatory Assistive Device (Walker, Cane, Wheelchair, Crutches, etc.)? No PATIENT GENDER DATA: Male PATIENT RELEVANT IMPLANT DATA REVIEWED: Not Applicable RADIOLOGY DEPARTMENT: General X-ray: Exam(s) Completed: Upper Extremity X-Ray(s): Fingers/Thumb, left PERIPHERAL IV DATA: Not applicable SIGNED BY: ELIGIO Perdue March 03, 2021 8:28 AM [facility] URI with cough and congestion- Primary Close exposure to COVID-19 virus documented in this encounter [facility] Summary Purpose Family History No Family History Records FoundNo Family History Records FoundNo Family History Records FoundNo Family History Records FoundNo Family History Records FoundNo Family History Records Found Advance Directives No Advanced Directives Records FoundNo Advanced Directives Records FoundNo Advanced Directives Records FoundNo Advanced Directives Records FoundNo Advanced Directives Records FoundNo Advanced Directives Records Found Additional Source Comments (unrecognized sect ion and content) No Status Records FoundNo Status Records FoundNo Status Records FoundNo Status Records FoundNo Status Records FoundNo Status Records Found INFORMATION SOURCE (unrecogn ized section and content) DATE CREATED AUTHOR AUTHOR'S ORGANIZ ATION 01/20/2020 [facility] DATE CREATED AUTHOR AUTHOR'S ORGANIZ ATION 06/03/2021 [facility] DATE CREATED AUTHOR AUTHOR'S ORGANIZ ATION 08/15/2021 [facility] DATE CREATED AUTHOR AUTHOR'S ORGANIZ ATION 12/15/2022 [facility] DATE CREATED AUTHOR AUTHOR'S ORGANIZ ATION 03/16/2023 [facility] Reason for Visit (unrecogniz ed section and content) Reason Comments URI Last Tuesday started to have itchy throat, was sluggish, reports that sat was burning up no temp taken, chills last night, upper chest congestion, nasal congestion, trouble sleeping due to symptoms . At home covid test sat was negative Care Teams (unrecognized sec tion and content) FOR RECORDS PERTAINING TO PATIENTS WHO ARE OR HAVE BEEN ENROLLED IN A CHEMICAL DEPENDENCY/SUBSTANCEABUSE PROGRAM, SOME INFORMATION MAY BE OMITTED. This clinical summary was aggregated from multiple sources. Caution should be exercised in using it in the provision of clinical care. This summary normalizes information from multiple sources, and as a consequence, information in this document may materially change the coding, format and clinical context of patient data. In addition, data may be omitted in some cases. CLINICAL DECISIONS SHOULD BE BASED ON THE PRIMARY CLINICAL RECORDS. [employer] provides no warranty or guarantee of the accuracy or completeness of information in this document.
[2023-04-28 17:46] LABS: Absolute Neutrophil Count 4.4 X10^3/uL (2.0-7.7); Basophil# 0.04 X10^3/uL; Basophil% 0.6 % (0-1); Eosinophil# 0.15 X10^3/uL; Eosinophils% 2.3 % (0-5); Hematocrit 50.1 % (40-54); Hemoglobin 15.9 g/dL (13.0-16.5); Lymphocyte % 23.3 % (19-41); Mean Corp Hgb Conc 31.7 g/dL (32-36); Mean Corpuscular Hgb 26.7 pg (27.0-32.0); Mean Corpuscular Volume 84.1 fL (80-94); Mean Platelet Vol. 9.2 fl (6.2-12.0); Monocyte# 0.36 X10^3/uL; Monocyte% 5.6 % (0-10); NRBC Flagged by Analyzer 0 % (0-5); Neutrophil # 4.35 X10^3/uL (2.7-7.7); Neutrophil % 67.7 % (47-70); Platelet Count 213 K/mm3 (150-450); RBC Distribution Width CV 12.6 % (11.6-14.6); RBC Distribution Width SD 38.4 fl (35.1-43.9); Red Blood Count 5.96 M/mm3 (4.6-6.2); White Blood Count 6.4 K/mm3 (4.4-11.0)
[2023-04-28 18:11] LABS: Microalbumin,Random Urine 8.9 mg/L (NO RANGE EST.); Microalbumin:Creatinine Ratio 8.4 mg/g CRE (<30 mg/g CRE)
[2023-04-28 18:25] LABS: AST(SGOT) 26 U/L (15-37); Alanine Aminotransfer ALT/SGPT 60 U/L (16-61); Albumin, Serum 3.8 g/dL (3.2-5.0); Alkaline Phosphatase 85 U/L (45-117); Anion Gap 5 (5-15); BUN 13 mg/dL (7-18); BUN/Creat Ratio 16.8 RATIO (10-20); Calcium,Total 8.9 mg/dL (8.5-10.1); Chloride 108 mmol/L (98-107); Creatinine, Serum 0.77 mg/dL (0.70-1.30); EST Glomerular Filtration Rate 122 mL/min (>60); Est Glom Filt Rate - Afr Amer 147 mL/min (>60); Globulin 3.7 g/dL (2.2-4.2); Glucose 106 mg/dL (74-106); Potassium 4.1 mmol/L (3.5-5.1); Protein, Total 7.5 g/dL (6.4-8.2); Sodium Level 138 mmol/L (136-145)
== END | disposition home or self-care (01) ==
LOC: MFPLAB 14:10
PROVIDERS: PCP Family Medicine; Visit Provider Family Medicine
DX: E11.9 Type 2 diabetes mellitus without complications (principal)
CPT/HCPCS: 36415; 80053; 82043; 82570; 83036; 85025

== ENCOUNTER → 2023-06-24 | Outpatient (CLI) | payer OTHER, SELFPAY ==
--- NOTE | 2023-06-24 15:51 | RAD_ITS ---
INDICATION: infection- evaluate for osteo EXAMINATION/TECHNIQUE: X-RAY - LEFT FOOT XR Toes Min 2 Views COMPARISON: None. FINDINGS: No acute fracture or malalignment. No blastic or lytic lesions. No degenerative changes are seen. The soft tissues are unremarkable. RAD/Toe(s) Min 2 Views IMPRESSION: No erosive changes to suggest osteomyelitis. If high clinical concern, recommend three phase nuclear medicine bone scan. Electronically Signed: Napoleon Diaz MD at 16:46 EST ,
== END | disposition home or self-care (01) ==
LOC: MTRAD 15:51
PROVIDERS: PCP Family Medicine; Referring Provider Family Medicine; Visit Provider Family Medicine
DX: L03.039 Cellulitis of unspecified toe (principal)
CPT/HCPCS: 73660

== ENCOUNTER → 2024-06-12 | Outpatient (CLI) | payer BC, SELFPAY ==
[2024-06-12 18:20] LABS: Absolute Lymphocyte Count 2.33 X10^3/uL (0.83-4.51); Absolute Neutrophil Count 5.1 X10^3/uL (2.0-7.7); Basophil# 0.05 X10^3/uL; Basophil% 0.6 % (0-1); Eosinophil# 0.11 X10^3/uL; Eosinophils% 1.4 % (0-5); Hematocrit 45.9 % (40-54); Hemoglobin 15.2 g/dL (13.0-16.5); Lymphocyte # 2.33 X10^3/ul (0.83-4.51); Lymphocyte % 29.2 % (19-41); Mean Corp Hgb Conc 33.1 g/dL (32-36); Mean Corpuscular Hgb 27.5 pg (27.0-32.0); Mean Corpuscular Volume 83.2 fL (80-94); Mean Platelet Vol. 8.9 fl (6.2-12.0); Monocyte# 0.39 X10^3/uL; Monocyte% 4.9 % (0-10); NRBC Flagged by Analyzer 0 % (0-5); Neutrophil # 5.06 X10^3/uL (2.7-7.7); Neutrophil % 63.4 % (47-70); Platelet Count 247 K/mm3 (150-450); RBC Distribution Width CV 13.2 % (11.6-14.6); RBC Distribution Width SD 39.3 fl (35.1-43.9); Red Blood Count 5.52 M/mm3 (4.6-6.2)
[2024-06-12 18:57] LABS: ALB/GLOB Ratio 1.1 RATIO (0.9-2.4); AST(SGOT) 24 U/L (15-37); Alanine Aminotransfer ALT/SGPT 57 U/L (16-61); Albumin, Serum 3.8 g/dL (3.2-5.0); Alkaline Phosphatase 95 U/L (45-117); Anion Gap 9 (5-15); BUN 19 mg/dL (7-18); Calcium,Total 9.2 mg/dL (8.5-10.1); Chloride 106 mmol/L (98-107); Cholesterol 132 mg/dL (200); EST Glomerular Filtration Rate 101 mL/min (>60); Est Glom Filt Rate - Afr Amer 122 mL/min (>60); Globulin 3.5 g/dL (2.2-4.2); Glucose 104 mg/dL (74-106); High Density Lipoprotein 38 mg/dL; Potassium 3.9 mmol/L (3.5-5.1); Protein, Total 7.3 g/dL (6.4-8.2); Sodium Level 139 mmol/L (136-145); Triglycerides 157 mg/dL; Very Low Density Lipoprotein 31 mg/dL (5-40)
== END | disposition home or self-care (01) ==
LOC: MFPLAB 16:35
PROVIDERS: PCP Family Medicine; Referring Provider Family Medicine; Visit Provider Family Medicine
DX: E11.9 Type 2 diabetes mellitus without complications (principal)
CPT/HCPCS: 36415; 80053; 80061; 83036; 84443; 85025

== ENCOUNTER → 2024-08-07 | Outpatient (CLI) | payer BC, SELFPAY ==
--- NOTE | 2024-08-07 07:47 | ART_ITS ---
Reason For Study Reason For Study: PVD / Cold Feet Procedure A bilateral lower extremity continuous wave Doppler with analog waveform analysis,segmental pressures,and ankle brachial indexes with exercise. Left Segmental Pressures Left brachial= 138mmHg. Left posterior tibial artery = 181mmHg. Left dorsalis pedis artery = 180mmHg. Left digit = 143 mmHg. The left posterior tibial artery waveforms are triphasic. The left dorsalis pedis waveforms are triphasic. Right Segmental Pressures Right brachial= 142mmHg. Right posterior tibial artery = 170mmHg. Right dorsalis pedis artery = 166mmHg. Right digit = 159 mmHg. The right posterior tibial artery waveforms are triphasic. The right dorsalis pedis waveforms are triphasic. Indices The right ankle brachial index by the posterior tibial artery is 1.20. The right ankle brachial index by the dorsalis pedis is 1.17. The right digital-brachial index is 1.12. The right post exercise ankle brachial index is 1.26. The left ankle brachial index by the posterior tibial artery is 1.27. The left ankle brachial index by the dorsalis pedis is 1.27. The left digital-brachial index is 1.01. The left post exercise ankle brachial index is 1.15. VL/Lower Ext Art Exam w/ Exercise Interpretation Summary Right GRETCHEN 1.2, normal. TBI and Doppler/PVR waveforms of the right leg normal at rest. Right lower extremity exhibits normal response to exercise. Left GRETCHEN 1.27, normal. TBI and Doppler/PVR waveforms of the left leg normal at rest. Left lower extremity exhibits normal response to exercise. Ordering Physician: Rupesh Obando Referring Physician: RUPESH OBANDO MD Performed By: Hector Carrillo RVT
== END | disposition home or self-care (01) ==
LOC: CVS 07:44
PROVIDERS: PCP Family Medicine; Referring Provider Family Medicine; Visit Provider Family Medicine
DX: R20.8 Other disturbances of skin sensation (principal)
CPT/HCPCS: 93924

== ENCOUNTER → 2024-08-10 | Outpatient (CLI) | payer BC, SELFPAY ==
[2024-08-10 18:29] LABS: ALB/GLOB Ratio 1.6 RATIO (0.9-2.4); AST(SGOT) 31 U/L (<=37); Alanine Aminotransfer ALT/SGPT 53 U/L (<=46); Albumin, Serum 4.2 g/dL (3.5-5.0); Alkaline Phosphatase 104 U/L (40-129); Anion Gap 13 (5-15); BUN 13 mg/dL (4-19); BUN/Creat Ratio 11.9 RATIO (10-20); Carbon Dioxide 20.7 mmol/L (21.0-32.0); Chloride 104 mmol/L (98-108); Cholesterol 144 mg/dL (<=200); Creatinine, Serum 1.09 mg/dL (0.70-1.20); EST Glomerular Filtration Rate 90 (>60); Globulin 2.7 g/dL (2.2-4.2); Glucose 177 mg/dL (70-99); High Density Lipoprotein 31 mg/dL; Low Density Lipoprotein Calc. 67 mg/dL; Potassium 4.2 mmol/L (3.3-5.1); Protein, Total 6.9 g/dL (5.9-8.4); Sodium Level 138 mmol/L (133-145); Total Bilirubin 0.47 mg/dL (0.00-1.30); Triglycerides 234 mg/dL; Very Low Density Lipoprotein 47 mg/dL (5-40); cholesterol:hdl ratio screen 4.69
[2024-08-10 19:08] LABS: Hemoglobin A1c 6.7 % (<=5.6)
[2024-08-10 20:15] LABS: Microalbumin,Random Urine < 12.0 mg/L (NO RANGE EST.); Microalbumin:Creatinine Ratio UNABLE TO CALCULATE mg/g CRE
== END | disposition home or self-care (01) ==
LOC: MFPLAB 15:14
PROVIDERS: PCP Family Medicine; Referring Provider Family Medicine; Visit Provider Family Medicine
DX: E11.9 Type 2 diabetes mellitus without complications (principal)
CPT/HCPCS: 36415; 80053; 80061; 82043; 82570; 83036

== ENCOUNTER → 2024-11-16 | Outpatient (CLI) | payer BC, SELFPAY ==
[2024-11-16 12:35] LABS: Hematocrit 43.7 % (40-54); Hemoglobin 14.7 g/dL (13.0-16.5); Immature Granulocytes Count 0.030 X10^3/uL (0.0-0.0); Mean Corp Hgb Conc 33.6 g/dL (32-36); Mean Corpuscular Volume 81.5 fL (80-94); Mean Platelet Vol. 9.0 fl (6.2-12.0); NRBC Flagged by Analyzer 0 % (0-5); Platelet Count 189 K/mm3 (150-450); RBC Distribution Width CV 13.6 % (11.6-14.6); RBC Distribution Width SD 40.1 fl (35.1-43.9); Red Blood Count 5.36 M/mm3 (4.6-6.2); White Blood Count 5.1 K/mm3 (4.4-11.0)
[2024-11-16 13:26] LABS: AST(SGOT) 26 U/L (<=37); Alanine Aminotransfer ALT/SGPT 50 U/L (<=46); Albumin, Serum 4.2 g/dL (3.5-5.0); Alkaline Phosphatase 79 U/L (40-129); Anion Gap 12 (5-15); BUN 14 mg/dL (4-19); BUN/Creat Ratio 15.6 RATIO (10-20); Calcium,Total 9.0 mg/dL (7.6-11.0); Carbon Dioxide 21.0 mmol/L (21.0-32.0); Chloride 106 mmol/L (98-108); Cholesterol 111 mg/dL (<=200); Globulin 2.5 g/dL (2.2-4.2); Glucose 133 mg/dL (70-99); Low Density Lipoprotein Calc. 59 mg/dL; Potassium 3.9 mmol/L (3.3-5.1); Triglycerides 76 mg/dL; Very Low Density Lipoprotein 15 mg/dL (5-40); cholesterol:hdl ratio screen 3.05
--- OUTSIDE RECORDS SUMMARY | 2024-11-16 18:02 | XMS RPT_ITS | CCD ---
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 Role Phone Ryder Garcia Unavailable Unavailable Unavailable [facility] Primary Care Provider Unav ailable [facility], [facility] Primary Care Unavailable RIO MAJANO Attending Unavailable Rupesh Obando MD Primary Care Provider RUPESH OBANDO Primary Care Unavailable SUNDAY CRANE Referring Unavailable RUPESH OBANDO Primary Care Unavailable SUNDAY CRANE Referring Unavailable KADEEM SHAH Attending Unavailable KADEEM SHAH Admitting Unavailable RUPESH OBANDO Primary Care Unavailable RUPESH OBANDO Primary Care Unavailable DENISA AMEZCUA Attending UnavailRUPESH Dowd Primary Care Unavailable RUPESH OBANDO Primary Care Unavailable MELISSA JACOME Attending Unavailable Topher AMIN, Dr. Rupesh Rodriguez Primary Care Provider [phone] Dr. Rupesh Obando MD Attending Provider [phone] Dr. Rupesh Obando MD Referring Provider [phone] Dr. Tyrese Griffith MD Attending Provider [phone] Rupesh Obando Attending Unavailable Rupesh Obando Primary Care Unavailable Rupesh Obando Referring Unavailable Rupesh Obando Referring Unavailable Rupesh Obando Attending Unavailable Rupesh Obando Primary Care Unavailable Rupesh Obando Referring Unavailable Rupesh Obando Attending Unavailable Rupesh Obando Primary Care Unavailable Rupesh Obando Referring Unavailable Tyrese Griffith Attending Unavailable Rupesh Obando Primary Care Unavailable KADEEM SHAH Attending Unavailable RUPESH OBANDO Referring Unavailable RUPESH OBANDO Primary Care Unavailable PATRICIA PETERS Attending Unavailable RUPESH OBANDO Primary Care Unavailable KADEEM SHAH Referring Unavailable RUPESH OBANDO Primary Care Unavailable Allergies Allergy Classification Reported Allergen(s) Allergy Type Date of Onset Reaction(s) Facility (3 sources) Adhesive Tape Drug Intolerance 1 Hives, Rash [facility] (1 source) Wound Dressing Adhesive Drug Allergy 9 [facility] (3 sources) Adhesive Tape; Translations: [ADHESIVE TAPE (ROSINS)] Propensity to adverse reactions (disorder) 1 [facility] Other [facility] (1 source) Adhesive agent Drug allergy (disorder) 9 [facility] Medications Current Medications Medication Drug Class(es) Dates Sig (Normalized) Sig (Original) azithromycin 250 mg oral tablet (2 sources) Macrolide Antimicrobial Start: 08-24-2022 End: 08-29-2022 take 1 tablet by mouth once daily azithromycin (Zithromax Z-Tom) 250 MG tablet Indications: Upper respiratory tract infection, unspecified type Take 1 tablet (250 mg) by mouth daily for 5 days. 5 tablet 0 08/24/2022 08/29/2022 Active Start: 08-24-2022 End: 08-24-2022 take 1 tablet by mouth once daily azithromycin (Zithromax) 500 MG tablet Indications: Upper respiratory tract infection, unspecified type Take 1 tablet (500 mg) by mouth daily for 5 days. 5 tablet 0 08/24/2022 08/24/2022 Discontinued brompheniramine maleate 0.4 mg/ml / dextromethorphan hydrobromide 2 mg/ml / pseudoephedrine hydrochloride 6 mg/ml oral solution (2 sources) alpha-Adrenergic Agonist, Uncompetitive A-aosbqf-X-aspartate Receptor Antagonist, Sigma-1 Agonist Start: 12-14-2022 End: 12-24-2022 take 5 mL by mouth three times daily as needed for cough lncpospxaxyeqbu-pimaafgpbomkzdh-KC 30-2-10 MG/5ML syrup Indications: URI with cough and congestion Take 5 mL by mouth 3 times daily as needed for cough or congestion for up to 10 days. 150 mL 0 12/14/2022 12/24/2022 Active Start: 08-24-2022 End: 09-03-2022 take 5 mL by mouth three times daily as needed for cough bbqnctqkgluijae-dpwexlefylqpnia-DO 30-2- 10 MG/5ML syrup Indications: Upper respiratory tract infection, unspecified type Take 5 mL by mouth 3 times daily as needed for cough or congestion for up to 10 days. 150 mL 0 08/24/2022 09/03/2022 Active fluticasone propionate 0.05 mg/actuat metered dose nasal spray (2 sources) Corticosteroid Start: 12-14-2022 End: 12-28-2022 take 1 spray(s) nasal route once daily fluticasone (Flonase) 50 MCG/ACT nasal spray Indications: URI with cough and congestion Administer 1 spray into each nostril daily for 14 days. Shake gently. Before first use, prime pump. After use, clean tip and replace cap. 16 mL 12/14/2022 Active ibuprofen 600 mg oral tablet (1 source) Nonsteroidal Anti-inflammatory Drug Start: 11-17-2023 ibuprofen 600 MG tablet TAKE 1 TABLET EVERY 6 HOURS NEEDED FOR MILD TO MODERATE DISCOMFORT OR SWELLING 11/17/2023 Active lactobacillus rhamnosus gg [id number] unt oral capsule (4 sources) Start: 06-21-2019 take 1 capsule by mouth three times daily at mealtime lactobacillus rhamnosus (CULTURELLE) 10 billion cell capsule TAKE 1 CAPSULE BY MOUTH THREE TIMES DAILY WITH MEALS FOR 13 DAYS. 39 capsule 06/21/2019 Active metFORMIN hydrochloride 500 mg oral tablet (6 sources) Biguanide Start: 02-22-2023 take 2 tablets by mouth every twelve hours metFORMIN (GLUCOPHAGE) 500 mg tablet Take 2 tablets by mouth every 12 hours. 02/22/2023 Active Start: 02-22-2023 take 2 tablets by mo [facility] twice daily metFORMIN (Glucophage) 500 MG tablet Take 2 tablets by mouth 2 times daily. 02/22/2023 Active omeprazole 20 mg delayed release oral capsule (5 sources) Proton Pump Inhibitor Start: 06-12-2024 take 1 capsule by mouth once daily omeprazole (PRILOSEC) 20 mg capsule Take 20 mg by mouth once daily. 06/12/2024 Active sulfamethoxazole 800 mg / trimethoprim 160 mg oral tablet (3 sources) Dihydrofolate Reductase Inhibitor Antibacterial, Sulfonamide Antimicrobial Start: 04-07-2018 Sulfamethoxazol e-Trimethoprim 1 TABLET tablet Active 1 {tbl} PO TWICE A DAY April 07, 2018 1:00am Start: 04-07-2018 take 1 tablet by lamonte th twice daily Sulfamethoxazole-Trimethoprim Active 1 T ABLET PO TWICE A DAY April 07, 2018 12:00am Completed/Discontinued Medications Medication Drug Class(es) Dates Sig (Normalized) Sig (Original) 1 ml dexamethasone phosphate 4 mg/ml injection (2 sources) Corticosteroid Start: 12-14-2022 End: 12-14-2022 dexAMETHasone (Decadron) injection 10 mg Pseudoephedrine-APAP- DM (DAYQUIL PO) (1 source) End: 12-14-2022 Pseudoephedrine-APAP -DM (DAYQUIL PO) Take by mouth. 0 12/14/2022 Discontinued (Ineffective) Problems Active Problems Problem Classification Problem Date Documented Da te Episodic/Chronic Diabetes mellitus without complication (9 sources) Type 2 diabetes mellitus without complication; Translations: [Type 2 diabetes mellitus without complications] Onset: 5 06-21-2024 Chronic Esophageal disorders (8 sources) Gastroesophageal reflux disease; Translations: [Gastro-esophageal reflux disease without esophagitis] Onset: 5 06-21-2024 Chronic Immunity disorders (9 sources) Sarcoidosis; Translations: [Sarcoidosis, unspecified] Onset: 3 06-06-2024 Chronic Immunizations and screening for infectious disease (1 source) Contact with or exposure to other viral diseases; Translations: [Close exposure to COVID-19 virus] 12-14-2022 Episodic Joint disorders and dislocations; trauma-related (7 sources) Nursemaid's elbow, left elbow, initial encounter; Translations: [Nursemaid's elbow of left upper extremity, initial encounter] Onset: 5 07-17-2018 Episodic Nausea and vomiting (4 sources) Nausea and vomiting; Translations: [Nausea with vomiting, unspecified] Onset: 5 06-06-2024 Episodic Open wounds of extremities (1 source) Laceration without foreign body of right hand, initial encounter; Translations: [Laceration of right hand without foreign body, initial encounter] Onset: 5 Episodic Other connective tissue disease (4 sources) Tendinitis of elbow or forearm; Translations: [Other enthesopathies, not elsewhere classified] Onset: 5 07-15-2018 Episodic Other gastrointestinal disorders (1 source) Diarrhea, unspecified; Translations: [Nausea vomiting and diarrhea] Onset: 5 Episodic Other liver diseases (7 sources) Steatosis of liver; Translations: [Fatty (change of) liver, not elsewhere classified] Onset: 5 06-21-2024 Chronic Other liver diseases (2 sources) Fatty (change of) liver, not elsewhere classified; Translations: [Fatty liver] Onset: 5 Chronic Other lower respiratory disease (7 sources) H/O: asthma; Translations: [Personal history of other diseases of the respiratory system] Onset: 5 06-21-2024 Episodic Other lower respiratory disease (1 source) Personal history of other diseases of the respiratory system; Translations: [History of asthma] Onset: 5 Episodic Other nervous system disorders (1 source) Other disturbances of skin sensation; Translations: [Other disturbances of skin sensation] Onset: 5 Episodic Other nutritional; endocrine; and metabolic disorders (8 sources) Body mass index 40+ - severely obese; Translations: [Morbid (severe) obesity due to excess calories] Onset: 0 06-06-2024 Chronic Other nutritional; endocrine; and metabolic disorders (1 source) Morbid (severe) obesity due to excess calories; Translations: [Obesity, Class III, BMI 40-49.9 (morbid obesity) (HCC)] Onset: 0 Chronic Other upper respiratory infections (2 sources) Upper respiratory infection; Translations: [Acute upper respiratory infection, unspecified] Episodic Unclassified (1 source) Preprocedural examination done 06-21-2024 Past or Other Problems Problem Classification Problem Date Documented Date Episodic/Chronic Abdominal pain (13 sources) Abdominal pain; Translations: [Unspecified abdominal pain] Onset: 06-18-2019 06-06-2024 Episodic Biliary tract disease (10 sources) Biliary calculus; Translations: [Calculus of gallbladder without cholecystitis without obstruction] Onset: 06-21-2019 06-06-2024 Episodic Inflammation; infection of eye (except that caused by tuberculosis or sexually transmitteddisease) (12 sources) Iridocyclitis of left eye; Translations: [Unspecified iridocyclitis] Onset: 04-19-2012 06-06-2024 Episodic Intestinal infection (9 sources) Viral gastroenteritis; Translations: [Viral intestinal infection, unspecified] Onset: 06-21-2019 06-06-2024 Episodic Skin and subcutaneous tissue infections (1 source) Cellulitis of back [any part except buttock]; Translations: [Cellulitis of back except buttock] Onset: 10-13-2023 Episodic Results Test Name Value Interpretation Reference Range Facility Albumin DL <= 20 mg/L (U) [M ass/Vol]Ordered By: Rupesh Obando on 08-10-2024 Urine Random Microalbumin < 12.0 mg/L NO RANGE EST. [facility] Anion gap in Serum or Plasma Ordered By: Rupesh Obando on 08-10-2024 Anion gap [Moles/Vol] 13 mmol/L 5- [facility] BUN/creatinine ratioOrdered By: Rupesh Obando on 08-10-2024 Urea nitrogen/Creatinine [Mass ratio] 11.9 mg/mg - [facility] Bilirubin, totalOrdered By: Rupesh Obando on 08-10-2024 Bilirubin [Mass/Vol] 0.47 mg/dL 0.00-1.30 [facility] Calculated very low density lipoprotein (VLDL) cholesterol measurementOrdered By: Rupesh Obando on 08-10-2024 VLDL Cholesterol 47 mg/dL High 5-40 [facility] Carbon dioxide, total [Moles /volume] in Central venous bloodOrdered By: Rupesh Obando on 08-10-2024 CO2 [Moles/Vol] 20.7 mmol/L Low 21.0-32.0 [facility] Chloride assayOrdered By: Genie Obando on 08-10-2024 Chloride [Moles/Vol] 104 mmol/L 98-108 [facility] Comprehensive Metabolic Prof ilon 08-10-2024 Albumin [Mass/Vol] 4.2 g/dL Normal 3.5-5.0 [facility] Comment on above: Order Comment: Order Date: 08/10/24 Order Info: [id number] - CMP Order Info: [id number] - LIPID Performed By: #### L 500.5944, L501.9999, [id number] #### [facility] [address] [place], [address] Albumin/Globulin [Mass ratio] 1.6 {ratio} Normal 0.9-2.4 [facility] Comment on above: Order Comment: Order Date: 08/10/24 Order Info: [id number] - CMP Order Info: [id number] - LIPID Performed By: #### L 500.4100, [id number], [id number] #### [facility] [address] [place], [address] ALK PHOS 104 U/L Normal 40-129 [facility] Comment on above: Order Comment: Order Date: 08/10/24 Order Info: [id number] - CMP Order Info: [id number] - LIPID Performed By: #### L 500.4100, [id number], [id number] #### [facility] [address] [place], [address] ALT [Catalytic activity/Vol] 53 U/L High <=46 [facility] Comment on above: Order Comment: Order Date: 08/10/24 Order Info: [id number]- - CMP Order Info: [id number] - LIPID Performed By: #### L 500.4100, [id number], [id number] #### [facility] [address] [place], [address] AST [Catalytic activity/Vol] 31 U/L Normal <=37 [facility] Comment on above: Order Comment: Order Date: 08/10/24 Order Info: [id number] - CMP Order Info: [id number] - LIPID Performed By: #### L 500.4100, [id number], [id number] #### [facility] [address] [place], [address] Bilirubin [Mass/Vol] 0.47 mg/dL Normal 0.00-1.30 [facility] Comment on above: Order Comment: Order Date: 08/10/24 Order Info: [id number] - CMP Order Info: [id number] - LIPID Performed By: #### L 500.4100, [id number], [id number] #### [facility] [address] [place], [address] BUN/CRE 11.9 RATIO Normal 10-20 [facility] Comment on above: Order Comment: Order Date: 08/10/24 Order Info: [id number] - CMP Order Info: [id number] - LIPID Performed By: #### L 500.4100, [id number], [id number] #### [facility] [address] [place], [address] Calcium [Mass/Vol] 9.0 mg/dL Normal 7.6-11.0 [facility] Comment on above: Order Comment: Order Date: 08/10/24 Order Info: [id number]- - CMP Order Info: [id number] - LIPID Performed By: #### L 500.4100, [id number], [id number] #### [facility] [address] [place], [address] Chloride [Moles/Vol] 104 mmol/L Normal 98-108 [facility] Comment on above: Order Comment: Order Date: 08/10/24 Order Info: [id number] - CMP Order Info: [id number] - LIPID Performed By: #### L 500.4100, [id number], [id number] #### [facility] [address] [place], [address] CO2 [Moles/Vol] 20.7 mmol/L Low 21.0-32.0 [facility] Comment on above: Order Comment: Order Date: 08/10/24 Order Info: [id number] - CMP Order Info: [id number] - LIPID Performed By: #### L 500.4100, [id number], [id number] #### [facility] [address] [place], [address] Creatinine [Mass/Vol] 1.09 mg/dL Normal 0.70-1.20 [facility] Comment on above: Order Comment: Order Date: 08/10/24 Order Info: [id number] - CMP Order Info: [id number] - LIPID Performed By: #### L 500.4100, [id number], [id number] #### [facility] [address] [place], [address] GAP 13 Normal 5-15 [facility] Comment on above: Order Comment: Order Date: 08/10/24 Order Info: 07 - CMP Order Info: [id number] - LIPID Performed By: #### L 500.4100, [id number], [id number] #### [facility] [address] [place], [address] GFR/1.73 sq M.predicted among non-blacks MDRD (S/P/Bld) [Vol rate/Area] 90 mL/min/{1.73_m2} Normal >60 [facility] Comment on above: Order Comment: Order Date: 08/10/24 Order Info: 0786 - CMP Order Info: [id number] - LIPID Result Comment: mL/m in/1.73m2 CKD-EPI Creatinine Equation (2020) Performed By: #### L 500.4100, [id number], [id number] #### [facility] [address] [place], [address] Globulin (S) [Mass/Vol] 2.7 g/dL Normal 2.2-4.2 [facility] Comment on above: Order Comment: Order Date: 08/10/24 Order Info: 0786- - CMP Order Info: [id number] - LIPID Performed By: #### L 500.4100, [id number], [id number] #### [facility] [address] [place], [address] Glucose [Mass/Vol] 177 mg/dL High 70-99 [facility] Comment on above: Order Comment: Order Date: 08/10/24 Order Info: [id number] - CMP Order Info: [id number] - LIPID Performed By: #### L 500.4100, [id number], [id number] #### [facility] [address] [place], [address] Potassium [Moles/Vol] 4.2 mmol/L Normal 3.3-5.1 [facility] Comment on above: Order Comment: Order Date: 08/10/24 Order Info: 0786- - CMP Order Info: [id number] - LIPID Performed By: #### L 500.4100, [id number], [id number] #### [facility] [address] [place], [address] Sodium [Moles/Vol] 138 mmol/L Normal 133-145 [facility] Comment on above: Order Comment: Order Date: 08/10/24 Order Info: 0786- - CMP Order Info: [id number] - LIPID Performed By: #### L 500.4100, [id number], [id number] #### [facility] [address] [place], [address] T PROT 6.9 g/dL Normal 5.9-8.4 [facility] Comment on above: Order Comment: Order Date: 08/10/24 Order Info: [id number] - CMP Order Info: [id number] - LIPID Performed By: #### L 500.4100, [id number], [id number] #### [facility] [address] [place], [address] Urea nitrogen [Mass/Vol] 13 mg/dL Normal 4-19 [facility] Comment on above: Order Comment: Order Date: 08/10/24 Order Info: [id number] - CMP Order Info: [id number] - LIPID Performed By: #### L 500.4100, [id number], [id number] #### [facility] [address] [place], [address] Creatinine Unsp time (U) [Ma ss/Vol]Ordered By: Rupesh Obando on 08-10-2024 Creatinine (U) [Mass/Vol] 226.00 mg/dL 39.00-259.00 [facility] GFR/1.73 sq M.predicted nga g non-blacks MDRD (S/P/Bld) [Vol rate/Area]Ordered By: Rupesh Obando on 08-10-2024 Estimated GFR (MDRD) Non-Af Amer 90 >60 [facility] Comment on above: mL/min/1.73m2 CKD-EP I Creatinine Equation (2020) Hemoglobin A1con 08-10-2024 HbA1c (Bld) [Mass fraction] 6.7 % High <=5.6 [facility] Comment on above: Order Comment: Order Date: 08/10/24 Order Info: [id number] - A1C Result Comment: Norm al < 5.7 % Prediabetic 5.7 - 6.4 % Diabetic >or= 6.5 % Please note range changes. Performed By: #### L 500.4100, [id number], [id number] #### [facility] [address] [place], [place], [address] Hemoglobin A1c percentageOrd ered By: Rupesh Obando on 08-10-2024 HbA1c (Bld) [Mass fraction] 6.7 % High <5.7 [facility] Comment on above: Normal < 5.7 % Predi abetic 5.7 - 6.4 % Diabetic >or= 6.5 % Please note range changes. LDL calc ser/plasOrdered By: Rupesh Obando on 08-10-2024 LDL Cholesterol, Calculated 67 mg/dL [facility] Comment on above: Rfkjcxqvjj=743-993 m g/dL & Higher Ygbb=627 mg/dL or greater Laboratory - Chemistry and C hemistry - challengeOrdered By: Rupesh Obando on 08-10-2024 AST [Catalytic activity/Vol] 31 U/L <38 [facility] Lipid Profileon 08-10-2024 CHOL:HDL 4.69 Normal [facility] Comment on above: Order Comment: Order Date: 08/10/24 Order Info: [id number] - CMP Order Info: [id number] - LIPID Performed By: #### L 500.4100, [id number], [id number] #### [facility] [address] [place], [address] Cholesterol [Mass/Vol] 144 mg/dL Normal <=200 [facility] Comment on above: Order Comment: Order Date: 08/10/24 Order Info: [id number]- - CMP Order Info: [id number] - LIPID Result Comment: Chol esterol level, Desirable <200 mg/dL Borderline high cholesterol 200-239 mg/dL High cholesterol >=240 mg/dL Recommendations of the NCEP Adult Treatment Panel for the following risk-cutoff thresholds for the [place] population. Performed By: #### L 500.4100, L501.9985, [id number] #### [facility] [address] [place], [address] Cholesterol in HDL [Mass/Vol] 31 mg/dL Low [facility] Comment on above: Order Comment: Order Date: 08/10/24 Order Info: 0786- - [facility] Order Info: [id number] - LIPID Result Comment: Honey onal Cholesterol Education Program (NCEP) guidelines: <40 mg/dL: Low HDL-cholesterol (major risk factor for CHD) >= 60 mg/dL: High HDL-cholesterol (negative risk factor for CHD) HDL-cholesterol is affected by a number of factors, e.g. smoking, exercise, hormones, sex and age. Performed By: #### L 500.4100, L501.9985, [id number] #### [facility] [address] [place], [address] Cholesterol in LDL [Mass/Vol] 67 mg/dL Normal [facility] Comment on above: Order Comment: Order Date: 08/10/24 Order Info: [id number] - CMP Order Info: [id number] - LIPID Result Comment: Bord kpgxuc=338-757 mg/dL Higher Tbxt=974 mg/dL or greater Performed By: #### L 500.4100, L501.9985, [id number] #### [facility] [address] [place], [address] Cholesterol in VLDL [Mass/Vol] 47 mg/dL High 5-40 [facility] Comment on above: Order Comment: Order Date: 08/10/24 Order Info: [id number] - CMP Order Info: [id number] - LIPID Performed By: #### L 500.4100, [id number], [id number] #### [facility] [address] [place], [address] Triglyceride [Mass/Vol] 234 mg/dL High [facility] Comment on above: Order Comment: Order Date: 08/10/24 Order Info: [id number] - CMP Order Info: [id number] - LIPID Result Comment: The drugs N-Acetylcysteine and Metamizole may falsely depress this assay. Normal range: <150 mg/dL Borderline High: 150-199 mg/dL High: 200-499 mg/dL Very High: >500 mg/dL Performed By: #### L 500.4100, L501.9985, L500.4050 #### [facility] [address] [place], [address] Microalb:Creat Ratio,Random URon 08-10-2024 Creatinine [Mass/Vol] 226.00 mg/dL Normal 39.00-259.00 [facility] Comment on above: Order Comment: Order Date: 06/12/24 Order Info: [id number] - MIACRE Performed By: #### L 502.0250 #### [facility] [address] [place], [address] MALB:CREAT UNABLE TO CALCULATE Normal [facility] Comment on above: Order Comment: Order Date: 06/12/24 Order Info: [id number] - MIACRE Performed By: #### L 502.0250 #### [facility] [address] [place], [address] MICROALBUMIN,UR < 12.0 Normal NO RANGE EST. [facility] Comment on above: Order Comment: Order Date: 06/12/24 Order Info: [id number] - MIACRE Performed By: #### L 502.0250 #### [facility] [address] [place], [address] Microalbumin/creat ratio urO rdered By: Rupesh Obando on 08-10-2024 Urine Microalbumin/Creatinine Ratio UNABLE TO CALCULATE mg/g CRE [facility] Potassium (Unsp spec) [Mass/ Vol]Ordered By: Rupesh Obando on 08-10-2024 Potassium [Moles/Vol] 4.2 mmol/L 3.3-5.1 [facility] Screening total cholesterol/ high density lipoprotein (HDL) cholesterol ratioOrdered By: Rupesh Obando on 08-10-2024 Cholesterol.total/Genny sterol in HDL [Mass ratio] 4.69 {ratio} [facility] Serum creatinine measurement (mass/volume)Ordered By: Rupesh Obando on 08-10-2024 Creatinine [Mass/Vol] 1.09 mg/dL 0.70-1.20 [facility] Serum globulin measurementOr dered By: Rupesh Obando on 08-10-2024 Globulin (S) [Mass/Vol] 2.7 g/dL 2.2-4.2 [facility] Serum glucose measurement (m ass/volume)Ordered By: Rupesh Obando on 08-10-2024 Glucose [Mass/Vol] 177 mg/dL High 70-99 [facility] Serum or plasma alanine jiang otransferase (ALT) measurementOrdered By: Rupesh Obando on 08-10-2024 ALT [Catalytic activity/Vol] 53 U/L High <47 [facility] Serum or plasma albumin tamara urement (mass/volume)Ordered By: Rupesh Obando on 08-10-2024 Albumin [Mass/Vol] 4.2 g/dL 3.5-5.0 [facility] Serum or plasma albumin/glob ulin mass ratioOrdered By: Rupesh Obando on 08-10-2024 Albumin/Globulin [Mass ratio] 1.6 {ratio} 0.9-2.4 [facility] Serum or plasma alkaline aniket sphatase measurementOrdered By: Rupesh Obando on 08-10-2024 ALP [Catalytic activity/Vol] 104 U/L 40-129 [facility] Serum or plasma calcium tamara urement (mass/volume)Ordered By: Rupesh Obando on 08-10-2024 Calcium [Mass/Vol] 9.0 mg/dL 7.6-11.0 [facility] Serum or plasma cholesterol in HDL measurement (mass/volume)Ordered By: Rupesh Obando on 08-10-2024 Cholesterol in HDL [Mass/Vol] 31 mg/dL Low >40 [facility] Comment on above: National Cholesterol Education Program (NCEP) guidelines:<40 mg/dL: Low HDL-cholesterol (major risk factor for CHD)>= 60 mg/dL: High HDL-cholesterol (negative risk factor for CHD)HDL-cholesterol is affected by a number of factors, e.g. smoking, exercise, hormones, sex and age. Serum or plasma cholesterol measurement (mass/volume)Ordered By: Rupesh Obando on 08-10-2024 Cholesterol [Mass/Vol] 144 mg/dL <201 [facility] Comment on above: Cholesterol level, D esirable <200 mg/dLBorderline high cholesterol 200-239 mg/dLHigh cholesterol >=240 mg/dLRecommendations of the NCEP Adult Treatment Panel for the following risk-cutoff thresholds for the [place] population. Serum or plasma urea nitroge n measurement (mass/volume)Ordered By: Rupesh Obando on 08-10-2024 Urea nitrogen [Mass/Vol] 13 mg/dL 4-19 [facility] Sodium levelOrdered By: Rupesh Obando on 08-10-2024 Sodium [Moles/Vol] 138 mmol/L 133-145 [facility] Total proteinOrdered By: Johnny Obando on 08-10-2024 Protein [Mass/Vol] 6.9 g/dL 5.9-8.4 [facility] Triglycerides measurementOrd ered By: Rupesh Obando on 08-10-2024 Triglyceride [Mass/Vol] 234 mg/dL High <199 [facility] Comment on above: The drugs N-Acetylcy steine and Metamizole may falsely depress this assay. Normal range: <150 mg/dLBorderline High: 150-199 mg/dLHigh: 200-499 mg/dLVery High: >500 mg/dL Arterial study reportOrdered By: Tyrese Griffith on 08-07-2024 Noninvasive arteriosclerosis study report [facility] [address] [place] [address] Lower Ext Art Exam w/ Exercise 08/07/24 0803 MR#: [id number] Acct: [id number] Name: MALORIE FOLEY II Rep #:[id number] : 1985 38 From: Tyrese Stuart Attending Dr: Dr. Rupesh Obando MD Status: REG CLI Ordering Dr: Rupesh Obando MD Date: 08/07/24 Location: [facility] Sex: M C Admitted: Reason For Study Reason For Study: PVD / Cold Feet Procedure A bilateral lower extremity continuous wave Doppler with analog waveform analysis,segmental pressures,and ankle brachial indexes with exercise. Left Segmental Pressures Left brachial= 138mmHg. Left posterior tibial artery = 181mmHg. Left dorsalis pedis artery = 180mmHg. Left digit = 143 mmHg. The left posterior tibial artery waveforms are triphasic. The left dorsalis pedis waveforms are triphasic. Right Segmental Pressures Right brachial= 142mmHg. Right posterior tibial artery = 170mmHg. Right dorsalispedis artery = 166mmHg. Right digit = 159 mmHg. The right posterior tibial artery waveforms are triphasic. The right dorsalis pedis waveforms are triphasic. Indices The right ankle brachial index by the posterior tibial artery is 1.20. The rightankle brachial index by the dorsalis pedis is 1.17. The right digital-brachial index is 1.12. The right post exerciseankle brachial index is 1.26. The left ankle brachial index by the posterior tibial artery is 1.27. The left ankle brachial index by the dorsalis pedis is 1.27. The left digital-brachial index is 1.01. The left post exercise ankle brachial index is 1.15. VL/Lower Ext Art Exam w/ Exercise Interpretation Summary Right GRETCHEN 1.2, normal. TBI and Doppler/PVR waveforms of the right leg normal at rest. Right lower extremity exhibits normal response to exercise. Left GRETCHEN 1.27, normal. TBI and Doppler/PVR waveforms of the left leg normal at rest. Left lower extremity exhibits normal response to exercise. Ordering Physician: Rupesh Obando Referring Physician: RUPESH OBANDO MD Performed By: Hector Carrillo, T 08/07/241646 Date _ Tyrese Griffith MD CC: Dr. Rupesh Obando MD ~ Date Dictated: 08/07/24802 Date Transcribed: 08/07/241646 Bee Breeder: Signed [facility] Work Phone: Lower Ext Art Exam w/ Exerci sebastián 08-07-2024 Lower Ext Art Exam w/ Exercise [facility] [address] [place] [address]. [place] [address] Lower Ext Art Exam w/ Exercise 08/07/24802 MR#: [id number] Acct: [id number] Name: MALORIE FOLEY II Rep #: [id number] : 1985 38 From: Tyrese Griffith MD Attending Dr: Dr. Rupesh Obando MD Status[facility]: Rupesh Obando MD Date: 08/07/24 Location: [facility] Sex: M C Admitted: Reason For Study Reason For Study: PVD / Cold Feet Procedure A bilateral lower extremity continuous wave Doppler with analog waveform analysis,segmental pressures,and ankle brachial indexes with exercise. Left Segmental Pressures Left brachial= 138mmHg. Left posterior tibial artery = 181mmHg. Left dorsalis pedis artery = 180mmHg. Left digit = 143 mmHg. The left posterior tibial artery waveforms are triphasic. The left dorsalis pedis waveforms are triphasic. Right Segmental Pressures Right brachial= 142mmHg. Right posterior tibial artery = 170mmHg. Right dorsalis pedis artery = 166mmHg. Right digit = 159 mmHg. The right posterior tibial artery waveforms are triphasic. The right dorsalis pedis waveforms are triphasic. Indices The right ankle brachial index by the posterior tibial artery is 1.20. The right ankle brachial index by the dorsalis pedis is 1.17. The right digital-brachial index is 1.12. The right post exercise ankle brachial index is 1.26. The left ankle brachial index by the posterior tibial artery is 1.27. The left ankle brachial index by the dorsalis pedis is 1.27. The left digital-brachial index is 1.01. The left post exercise ankle brachial index is 1.15. VL/Lower Ext Art Exam w/ Exercise Interpretation Summary Right GRETCHEN 1.2, normal. TBI and Doppler/PVR waveforms of the right leg normal at rest. Right lower extremity exhibits normal response to exercise. Left GRETCHEN 1.27, normal. TBI and Doppler/PVR waveforms of the left leg normal at rest. Left lower extremity exhibits normal response to exercise. Ordering Physician: Rupesh Obando Referring Physician: RUPESH OBANDO MD Performed By: Hector Carrillo, T 08/07/241646 Date Tyrese Griffith MD CC: Dr. Rupesh Obando MD Date Dictated: 08/07/24802 Date Transcribed: 08/07/241646 Bee Breeder: Signed [facility] ED NOTEon 07-28-2024 ED NOTE HNO ID: [id number] Author: LULÚ MATOS RN Service: Emergency Medicine Author Type: Registered Nurse Type: ED Notes Filed: 07/28/2024 00:07 Note Text: Pt d/c home by staff - wound dressed and wrapped - pt and family states understanding of d/c, f/u and wound care instructions - nausea has improved - pt ambulatory without difficulty - no s/sx of distress noted [facility] ALLIED HEALTHon 07-27-2024 ALLIED HEALTH HNO ID: [id number] Author: VALERIY PALACIOS RT(R) Service: ? Author Type: Technologist Type: Allied Health Filed: 07/27/2024 20:51 Note Text: Radiology Service Progress Note PATIENT NAME: Malorie Foley DATE OF SERVICE: July 27, 2024 TIME: 8:51 PM PATIENT IDENTITY VERIFICATION COMPLETED USING TWO (2) IDENTIFIERS: Name and Date of confirmed by patient verbally. FALL SCREENING: Has the patient had 2 falls in the last year or 1 fall with injury or currently using an Ambulatory Assistive Device (Walker, Cane, Wheelchair, Crutches, etc.)? No PATIENT GENDER DATA: Assigned male at PATIENT RELEVANT IMPLANT DATA REVIEWED: Not Applicable PATIENT PRESENTS WITH AN IMPLANTABLE OR ATTACHED BIOCHEMICAL DEVELOPMENT ENGINEER: No RADIOLOGY DEPARTMENT: General X-ray: Exam(s) Completed: Upper Extremity X-Ray(s): Hand, right PERIPHERAL IV DATA: Not applicable SIGNED BY: RT Edu(R) July 27, 2024 8:51 PM [facility] ED NOTEon 07-27-2024 ED NOTE HNO ID: [id number] Author: LUTHER MCKEON RN Service: Emergency Medicine Author Type: Registered Nurse Type: ED Notes Filed: 07/27/2024 21:12 Note Text: Cut palm of right hand on metal appliance, dressed in triage, bleeding controlled, [facility] ED PROV NOTEon 07-27-2024 ED PROV NOTE HNO ID: [id number] Author: MELISSA JACOME MD Service: Emergency Medicine Author Type: Physician Type: ED Provider Notes Filed: 07/28/2024 00:09 Note Text: Attending Note CC: laceration HPI:38 year old right-handed male presents to the emergency department for right hand laceration. He reports about 7:30 PM this evening he was helping to move a dryer and he cut his right hand on a piece of tin. Denies any numbness tingling or weakness of the extremity. No other injuries. Last tetanus vaccine was May 2023 History obtained from Patient, chart review Physical Exam General appearance: Well-developed male lying in bed in no acute distress. Psychiatric: Alert and Oriented x 3, conversational. Affect : normal Skin: Warm, dry, laceration over the palmar surface of the right hand at the base of the third digit. There is some exposed fat, no tendons or bones visualized. Bleeding is controlled Upper extremities: Distal pulses 2/4. Capillary refills less than 5 seconds. No edema, cyanosis, or clubbing. There is a laceration on the palmar surface of the right hand at the base of the third digit. Bleeding is controlled. FDS FDP were isolated and intact to the third digit. Extensor tendon is intact to the third digit. Neurological: Cranial nerves II through XII grossly intact, moves all extremities equally. Sensation is equal intact to all digits of the right hand. Motor is equal and intact to all digits of the right hand. ED course: I personally performed a history and physical examination the patient and discussed management with the resident physician/PA/TAPE LIBRARIAN. I reviewed the resident/PA/TAPE LIBRARIAN's note and agree with documented findings and plan of care, unless otherwise listed above. I supervised procedures performed by resident physician/PA/TAPE LIBRARIAN. X-ray of the right hand was obtained reveals no evidence of foreign body, no fracture or dislocation. Laceration was repaired with sutures. Hand was visibly soiled, we did attempt to clean hand but will place patient on prophylactic antibiotics. His tetanus vaccine is up-to-date. His hand is neurovascularly intact. Given follow-up with PCP, as well as hand surgery if needed. Did discuss possibility of retained foreign body. MELISSA JACOME 07/28/24 0009 [facility] ED PROV NOTE HNO ID: [id number] Author: MELISSA JACOME MD Service: Emergency Medicine Author Type: Physician Type: ED Provider Notes Filed: 08/01/2024 12:26 Note Text: ED Provider Note Patient Name: Malorie Foley : 1985 SERVICE DATE: 07/27/24 History HPI The patient is a 38-year-old male who presents to the ED with complaint of right hand laceration. Patient reports around 730 he was moving a dryer and he cut his hand on a piece of tin. Denies any numbness, paresthesias, or weakness to the extremity. No other injuries. His last tetanus was last year in May. Not on any blood thinners or antiplatelets. 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 Psoriasis 06/16/2012 on top of head and face PAST SURGICAL HISTORY Procedure Laterality Date HERNIA REPAIR HX x2 (abdominal) 2008 AND 2010 PAST SURGICAL HISTORY OF wisdom teeth removal REMOVAL GALLBLADDER 06/29/2024 FAMILY HISTORY Problem Relation Age of Onset Hypertension Father Ischemic Heart Disease Father Obesity Father Strabismus Brother Hypertension Maternal Grandmother Macular Degen Maternal Grandmother DVT Maternal Grandmother Hypertension Maternal Grandfather Macular Degen Maternal Grandfather Cancer Maternal Grandfather states blood clot traveled to brain Cataract Paternal Grandmother Diabetes Paternal Grandmother Hypertension Paternal Grandmother Diabetes Paternal Grandfather Hypertension Paternal Grandfather Cancer Paternal Grandfather Anesthesia Problems No Family History Clotting Disorder No Family History Social History Tobacco Use Smoking status: Never Smokeless tobacco: Never Vaping Use Vaping status: Never Used Substance and Sexual Activity Alcohol use: Yes Comment: Occasional, Maybe 6 beers in 6 months Drug use: Never Sexual activity: Yes ALLERGIES Allergen Reactions Adhesive Tape (Rea* Unknown Review of Systems All other systems reviewed and are negative. Physical Exam Vitals [07/27/241999] BP Pulse Temp Temp src Resp SpO2 Weight Height 148/95 86 36.4 ?C (97.5 ?F) -- 14 98 % (!) 172.4 kg (380 lb) 1.981 m (6' 6") Physical Exam: Gen: Alert, well developed, well nourished, not in acute distress Cardiovascular: RRR, no MRG, 2+ radial/DP/PT pulses Respiratory: Clear to auscultation bilaterally Abdomen: Soft, non tender, no guarding or rebound, good bowel sounds in all 4 quadrants Neuro: AxOX4, no focal neurological deficits, sensation intact to all digits of the right hand, motor is equal and intact all digits of the right hand Musculoskeletal: Right hand-there is a laceration on the palmar surface around the TP joint extending into the third digit approximately, bleeding is controlled, FDS and FDP were isolated intact to 3rdDigit. Extensor tendon is intact third digit. Diagnostic Testing ED Labs Ordered and Reviewed - No data to display LAC REPAIR Date/Time: 07/28/2024 12:17 AM Performed by: Reginald Velasco DO Authorized by: Melissa Jacome MD Risks discussed: Infection, need for additional repair and poor wound healing Laceration details: Location: Hand Hand location: R palm Length (cm): 4 Repair type: Repair type: Simple Pre-procedure details: Preparation: Imaging obtained to evaluate for foreign bodies Exploration: Hemostasis achieved with: Direct pressure Wound exploration: wound explored through full range of motion and entire depth of wound probed and visualized Contaminated: yes Treatment: Area cleansed with: Saline Amount of cleaning: Standard Irrigation solution: Sterile saline Irrigation method: Pressure wash Skin repair: Repair method: Sutures Suture size: 4-0 Suture material: Nylon Suture technique: Simple interrupted Number of sutures: 10 Approximation: Approximation: Close Post-procedure details: Dressing: Antibiotic ointment and bulky dressing Patient tolerance of procedure: Tolerated well, no immediate complications ED Course / Clinical Impression Clinical Impressions as of 07/28/24 0011 Laceration of right hand without foreign body, initial encounter MDM / Disposition / Plan This is a 38-year-old male who presented to the ED with complaint of right hand laceration. X-ray of the hand was obtained, there were no evidence of foreign body, no fracture or dislocation. Laceration was repaired with sutures, see procedure note above. Hand was very startled, we attempted to clean the hand well and thoroughly irrigated the wound, but we will place patient on prophylactic antibiotics. Patient given prescription of Keflex. His tetanus is up-to-date. His hand is neurovascularly intact. PCP follow-up and hand surgery follow-up provided. Advised that patient needs to have his sutures removed in 10 to 14 days. Suture precautions discussed. Strict retu (more content not included)... [facility] XR HAND 3V PA/LAT/OBL RTon 0 4-04-2025 XR HAND 3V PA/LAT/OBL RT * * *Final Report* * * DATE OF EXAM: Jul 27 2024 9:14PM [id number] [id number] - XR HAND 3V PA/LAT/OBL RT / PROCEDURE REASON: Trauma * * * * Physician Interpretation * * * * EXAMINATION: XR HAND 3V PA/LAT/OBL RT CLINICAL HISTORY: Trauma Technique: XR HAND 3V PA/LAT/OBL RT -- RIGHT with 3 views on 3 images Comparison: 05/26/2023 RESULT: No acute fracture or osseous lesions are identified. The joint spaces are preserved. There is diffuse soft tissue swelling predominantly overlying the index, long and ring fingers. There is associated soft tissue gas compatible with patient's history of laceration. Punctate radiopaque density along the radial aspect of the index metacarpal head is unchanged since prior study likely at the level of the skin. IMPRESSION: Soft tissue swelling and gas compatible with patient's history of laceration. Bee Breeder: PSCB Transcribe Date/Time: Jul 27 2024 10:31P Dictated by : KYLER RAUSCH MD This examination was interpreted and the report reviewed and electronically signed by: KYLER RAUSCH MD on Jul 27 2024 10:35PM EST [id number] [facility] CNOVon 07-13-2024 CNOV Office Visit (GENSWS ) MALORIE FOLEY ([id number]) 1985 M Date Time Provider Department 07/13/24 3:30 PM PATRICIA PETERS GENALS During your visit today, we recorded the following information about you: Temperature 97.9 degrees Patricia Peters APRN.GENESIS 07/13/2024 3:39 PM Signed SUBJECTIVE: Malorie Foley presents for follow up of his laparoscopic cholecystectomy on 06/29/24. He tolerated the procedure well and was discharged home. Patient complaints: incisional pain -pain at the umbilical incision with bending over or sitting up right in a chair -notes his stools have changed from multiple soft stools a day >4 to 2 softer stools a day He denies abdominal pain, nausea, vomiting, diarrhea, fever, chills, jaundice , and dark urine He denies food intolerance. -notes he is eating what he used to but in smaller portions- not hamburgers though which are his favorite. PHYSICAL EXAMINATION: Temp 36.6 ?C (97.9 ?F) (Temporal) General Appearance: Well developed, No acute distress Patient does not appear icteric. Abdomen: Abdomen soft, non-distended Incision: no drainage, no erythema, no swelling, no ecchymosis, and no tenderness IMPRESSION: Post op course: Normal PLAN: Post-op patient instructions were reviewed with the patient. Low fat diet encouraged. I have explained to Mr. Malorie Foley that he may return to normal activity with the following restrictions: no lifting, pushing, pulling > 20lbs for 2 more weeks. I have encouraged him to contact me at any time with any questions or concerns that may arise. Follow up: PRN- If continued incisional pain should follow up with Dr. Shah. Patricia Peters APRN.CONDUIT REAMER OPERATOR Allergies As of Date: 07/13/2024 Noted Allergy Reaction ADHESIVE TAPE (ROSINS) 03/16/2011 16 - Unknown Date Reviewed: 07/13/2024 Reviewed by: Patricia Peters APRN.CONDUIT REAMER OPERATOR - Fully Assessed Reason for Visit: Follow Up [171] Primary Visit Diagnosis:Calculus of gallbladder with cholecystitis without biliary obstruction, unspecified cholecystitis acuity [K80.10] Prescriptions as of 07/13/2024 - omeprazole (PRILOSEC) 20 mg capsule Take 20 mg by mouth once daily. - metFORMIN (GLUCOPHAGE) 500 mg tablet Take 2 tablets by mouth every 12 hours. - lactobacillus rhamnosus (CULTURELLE) 10 billion cell capsule TAKE 1 CAPSULE BY MOUTH THREE TIMES DAILY WITH MEALS FOR 13 DAYS. 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 Uveitis [H20.9] 04/19/2012 Sarcoidosis [D86.9] 04/28/2012 Right upper quadrant abdominal pain [R10.11] 06/18/2019 Abdominal pain [R10.9] 06/18/2019 Obesity, Class III, BMI >= 40 [E66.01] 06/19/2019 Clostridium difficile colitis [A04.72] 06/21/2019 Cholelithiasis [K80.20] 06/21/2019 GERD (gastroesophageal reflux disease) [K21.9] 06/21/2024 Fatty liver [K76.0] 06/21/2024 History of asthma [Z87.09] 06/21/2024 Type 2 diabetes mellitus without complication, *06/21/2024 Encounter Status:Closed by PATRICIA PETERS on 07/13/24 [facility] ANES POSTPROC EVALon 025 ANES POSTPROC EVAL HNO ID: [id number] Author: LISSY FRANKLIN MD Service: Anesthesiology Author Type: Anesthesiologist Type: Anesthesia Postprocedure Evaluation Filed: 06/29/2024 13:40 Note Text: POST ANESTHESIA EVALUATION NOTE : 1985 Procedure Summary Date: 06/29/24 [facility] / [facility] Anesthesia Start: 1103 Anesthesia Stop: 1308 Procedure: LAPAROSCOPIC CHOLECYSTECTOMY POSSIBLE OPEN (Abdomen) Diagnosis: Calculus of gallbladder with cholecystitis without biliary obstruction, unspecified cholecystitis acuity (Calculus of gallbladder with cholecystitis without biliary obstruction, unspecified cholecystitis acuity [K80.10]) Surgeons: Kadeem Shah MD Responsible Provider: Lissy Franklin MD Anesthesia Type: general ASA Status: 3 Anesthesia Type: general Airway Type: ETT Last Vitals Vitals Value Taken Time BP 127/82 06/29/24 1330 Temp 36.2 ?C (97.2 ?F) 06/29/24 1305 Pulse 91 06/29/24 1338 Resp 18 06/29/24 1338 SpO2 95 % 06/29/24 1338 Vitals shown include unfiled device data. Post Anesthesia Patient Status Patient Evaluation: PACU. PACU/ICU Patient Condition: stable. Anticipated Disposition: phase 2 then home. Neurological Status: sleepy but arousable. Pulmonary Status: breathing comfortably on room air Airway Control: returned to baseline unsupported. Cardiovascular Status: stable. Pain Management: clinically adequate - multimodal analgesia pain management approach Postoperative Hydration: acceptable. Intraoperative Events: no significant anesthesia events Post Operative Nausea/Vomiting Status: no significant post operative nausea or vomiting Recommendation: continue current plan of care. Anesthesia Observations No Documentation SIGNATURE: Lissy Franklin MD PATIENT NAME: Malorie Foley DATE: June 29, 2024 TIME: 1:40 PM CSN: [id number] [facility] ANES PRE-OPon 06-29-2024 ANES PRE-OP HNO ID: [id number] Author: LISSY FRANKLIN MD Service: Anesthesiology Author Type: Anesthesiologist Type: Anesthesia Preprocedure Evaluation Filed: 06/29/2024 10:28 Note Text: ANESTHESIOLOGY DAY OF SURGERY NOTE : 1985 Procedure Information Date/Time: 06/29/24 1130 Procedure: LAPAROSCOPIC CHOLECYSTECTOMY POSSIBLE OPEN (Abdomen) [facility]: [facility] Surgeons: Kadeem Shah MD Estimated body mass index is 44.95 kg/m? as calculated from the following: Height as of this encounter: 198.1 cm (6' 6"). Weight as of this encounter: 176.4 kg (389 lb). Most recent hematocrit and potassium results: Hematocrit 47.7 06/06/2024 Potassium 4.0 06/06/2024 Relevant Problems ENDO (+) Type 2 diabetes mellitus without complication, without long-term current use of insulin (HCC) GI (+) GERD (gastroesophageal reflux disease) -RENAL (+) Fatty liver NEURO-PSYCH (+) History of asthma I - PHYSICAL EVALUATION AIRWAY Patient intubated: No. Tracheostomy tube not present Mallampati: II. TM distance: >3 FB. Neck ROM: full ROM without neurological symptoms. Mouth opening: adequate. Short neck: no. Thick neck: no Gaspar present: yes DENTAL Dental findings: teeth intact. Additional exam findings: yes. CARDIOVASCULAR Rhythm: regular Rate: normal PULMONARY Breath sounds clear to auscultation. ABDOMINAL Obese: obesity present. II - ANESTHESIA PLAN ASA Score: 3 Anesthetic Plan: general Airway type: ETT The patient is not a current smoker. NPO Status: adequate Beta Alla Monitoring Plan Monitoring plan: Standard ASA. Post Procedure Analgesic Plan Postoperative analgesic plan: parenteral or oral opioids and multimodal analgesia. Informed Consent Anesthetic risks, benefits, alternatives, personnel and consent discussed: yes. Patient / Responsible Alliance Party agrees to proceed: yes Patient / Surrogate agrees to blood products: yes DNR status not reviewed with patient and/or family prior to surgery. Significant changes in the patient condition since the History and Physical, not otherwise documented in primary service progress note: no. Potential Anesthesia issues that may suggest increased risk of complications or contraindication to planned procedure: none. Vitals Value Taken Time BP 137/82 06/29/24 1009 Pulse 80 06/29/24 1009 Resp 20 06/29/24 1009 Temp 36.5 ?C (97.7 ?F) 06/29/24 1009 SpO2 98 % 06/29/24 1009 Facility-Administered Medications as of 06/29/2024 Medication Dose Route Frequency lidocaine (PF) 10 mg/mL (1 %) 1-2 mg injection (XYLOCAINE) 0.1-0.2 mL INTRADERMAL PRN lactated ringers iv infusion 5-30 mL/hr INTRAVENOUS CONTINUOUS NaCl 0.9% iv flush bag 20 mL INTRAVENOUS PRN ceFAZolin 3 g in D5W 100 mL (ANCEF) 3 g INTRAVENOUS Pre-Op Once [COMPLETED] acetaminophen 1,000 mg tab(s) (TYLENOL) 1,000 mg ORAL Pre-Op Once [COMPLETED] famotidine 20 mg injection (PEPCID) 20 mg INTRAVENOUS ONCE [COMPLETED] promethazine 12.5 mg tab(s) (PHENERGAN) 12.5 mg ORAL Pre-Op Once scopolamine (delivers 1 mg over 3 days) 1 Patch (TRANSDERM-SCOP) 1 Patch TRANSDERMAL q 72 HR And [START ON 07/02/2024] scopolamine - REMOVE PATCH OTHER q 72 HR And scopolamine - VERIFY patch OTHER q 8 H lactated ringers iv infusion 5-30 mL/hr INTRAVENOUS CONTINUOUS ipratropium-albuterol 3 mL nebulizer solution (DUONEB) 3 mL INHALATION ONCE Outpatient Medications as of 06/29/2024 Medication Sig omeprazole (PRILOSEC) 20 mg capsule Take 20 mg by mouth once daily. metFORMIN (GLUCOPHAGE) 500 mg tablet Take 2 tablets by mouth every 12 hours. lactobacillus rhamnosus (CULTURELLE) 10 billion cell capsule TAKE 1 CAPSULE BY MOUTH THREE TIMES DAILY WITH MEALS FOR 13 DAYS. I have interviewed and examined the patient. I have reviewed the medical record and/or the pre-anesthesia evaluation, pertinent labs, and test results. This contains updated information obtained within 48 hours of Surgery/Procedure. SIGNATURE: Lissy Franklin MD PATIENT NAME: Malorie Foley DATE: June 29, 2024 TIME: 10:27 AM CSN: [id number] [facility] HISTORY PHYSICALon HISTORY PHYSICAL HNO ID: [id number] Author: KADEEM SHAH MD Service: General Surgery Author Type: Physician Type: H&P Filed: 06/29/2024 10:09 Note Text: HISTORY AND PHYSICAL Malorie Foley 1985 REFERRING PHYSICIAN: Rupesh Obando MD CHIEF COMPLAINT: Consult (Gall bladder) HPI: Malorie is a 38 year old male with a complaint of right upper quadrant pain. The patient has had symptoms of right upper quadrant pain for few weeks. The symptoms have maintained, over the past few weeks. The pain does radiate to the back. Food does aggravate his symptoms. Alleviating factors include: none. The patient was seen by the emergency room physician ago. Malorie underwent an ultrasound. These tests demonstrated cholelithiasis. The patient is referred for evaluation and treatment. The patient is being seen by me today at the request of Dr. Rupesh Obando MD, MD for my opinion and advice regarding Calculus of gallbladder with cholecystitis without biliary obstruction, unspecified cholecystitis acuity (primary encounter diagnosis). 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 metFORMIN (GLUCOPHAGE) 500 mg tablet Take 2 tablets by mouth every 12 hours. lactobacillus rhamnosus (CULTURELLE) 10 billion cell capsule TAKE 1 CAPSULE BY MOUTH THREE TIMES DAILY WITH MEALS FOR 13 DAYS. 39 capsule 0 No current facility-administered medications for this visit. ALLERGIES: Adhesive Tape (Rosins) PERSONAL HISTORY: SOCIAL HISTORY Social History Tobacco Use Smoking status: Never Smokeless tobacco: Never Vaping Use Vaping status: Never Used Substance Use Topics Alcohol use: Yes Comment: Occasional, Maybe 6 beers in 6 months Drug use: Never FAMILY HISTORY: FAMILY HISTORY FAMILY HISTORY Problem Relation Age of Onset Hypertension Father Ischemic Heart Disease Father Obesity Father Strabismus Brother Hypertension Maternal Grandmother Macular Degen Maternal Grandmother DVT Maternal Grandmother Hypertension Maternal Grandfather Macular Degen Maternal Grandfather Cancer Maternal Grandfather states blood clot traveled to brain Cataract Paternal Grandmother Diabetes Paternal Grandmother Hypertension Paternal Grandmother Diabetes Paternal Grandfather Hypertension Paternal Grandfather Cancer Paternal Grandfather Anesthesia Problems No Family History Clotting Disorder No Family History REVIEW OF SYMPTOMS: The review of systems data was entered by the nurse and reviewed by me There are no exam notes on file for this visit. PHYSICAL EXAMINATION: General: The patient is 38 year old male, well nourished, well hydrated in no acute distress. The patient is oriented to time, place, and person. VITALS: Blood pressure 130/84, pulse 113, temperature 36.1 ?C (97 ?F), height 198.1 cm (6' 6"), weight (!) 176.6 kg (389 lb 6.4 oz), SpO2 97%. Body mass index is 45 kg/m?. HEENT: Normal cephalic, ataumatic, pupils are equally round, sclera are anicteric, mucous membranes are moist, oropharynx is clear. Neck has no masses, asymmetry or lymphadenopathy. Thyroid is unremarkable. Respiratory: Clear to auscultation and percussion. Normal respiratory excursion and pattern. Cardiac: Examination is regular rate and rhythm. Abdominal exam: Normoactive bowel sounds, Soft, tender in the right upper quadrant negative Celeste's sign, with no palpable masses. No hepatosplenomegaly. No palpable hernias. Rectal exam: exam deferred Extremities: no clubbing, cyanosis or edema. No adenopathy. Other: LABORATORY VALUES: As Noted RADIOLOGIC STUDIES: As Noted Above Assessment IMPRESSION: Calculus of gallbladder with cholecystitis without biliary obstruction, unspecified cholecystitis acuity (primary encounter diagnosis) PLAN: My plan is to perform a laparoscopic cholecystectomy with intraoperative choleangiogram. The planned surgical procedure was discussed extensively with the patient. The risks, benefits, anticipated outcomes and possible complications were mentioned. My staff has also explained the procedure in understandable terms and the patient was given the option to take printed material concerning the planned procedure. The patient had the opportunity to ask questions concerning the planned procedure. The patient freely consents to the planned procedure. Planned Procedure: LAPAROSCOPIC CHOLECYSTECTOMY WITHOU (more content not included)... [facility] OPERATIVE NOon 06-29-2024 OPERATIVE NO HNO ID: [id number] Author: KADEEM SHAH MD Service: General Surgery Author Type: Physician Type: Operative Report Filed: 06/29/2024 12:57 Note Text: OPERATIVE/PROCEDURE REPORT LOG ID: [id number] SURGERY/PROCEDURE DATE: 06/29/2024 INCISION/PROCEDURE START TIME: 11:29 AM INCISION CLOSE/PROCEDURE END TIME: 12:47 PM SURGEON(S)/PROCEDURALIS T(S) AND TIMBER MANAGEMENT ASSISTANT(S): Surgeons and Role: * Kadeem Shah MD - Primary Physician Chief Unit Forester: Nasrin Jaime PA-C SURGERY/PROCEDURE(S): Laparoscopic cholecystectomy ANESTHESIA: General SURGERY/PROCEDURE DETAILS: Patient brought in the operating room. Placed in supine position. Under excellent general anesthetic the abdomen was sterilely prepped and draped in usual fashion. Local was injected in the right upper quadrant. Incision was made Visiport was used to gain access to the intra-abdominal cavity which was able to be done without injury to underlying structures. Inferior to this 1 I placed another #5 trocar I then used the son incision and took down significant amount of adhesions from the anterior abdominal wall. I then placed the patient in the head up and rotated to the left position a subxiphoid #5 trocars placed inferior to this another #5 trocar was placed and then inferior and slightly to the right side a 10/12 trocar was placed. All these under direct visualization without injury to underlying structures. Fundus of the gallbladder was grasped retracted in cephalad direction infundibulum was grasped and retracted laterally. I dissected out the cystic duct placed hemoclips proximally and distally and ligated the duct. Identified the cystic artery placed hemoclips proximally and distally and ligated the artery. I deliver the gallbladder from the gallbladder bed with use of electrocautery I had good my stasis. Placed a specimen a specimen bag and delivered it through the 10/12 trocar without difficulty. I reinflated the abdomen I used electrocautery on the liver bed for good my stasis. I placed powdered Surgicel into the liver bed good and the stasis was noted. I remove the trocars under direct visualization good my stasis was noted. I closed the fascia of the 10/12 trocar with 3 interrupted sutures of 0 Vicryl. Skin incisions were closed with subtalar stitches of 4-0 Monocryl. Dermabond was applied sterile dressings were applied and the patient tolerated the procedure well. Nasrin Jaime PA-C was my assistant professor of history. She assisted with retraction, visualization and performed skin closure. No additional surgeons or qualified residents were available. PRE-OP/PRE-PROCEDURE DIAGNOSIS: Calculus of the gallbladder with right upper quadrant abdominal pain POST-OP/POST-PROCEDURE DIAGNOSIS: Same as Preop ESTIMATED BLOOD LOSS: < 20 mls SPECIMENS: Gallbladder IMPLANTABLE DEVICES: NONE DRAINS: None COMPLICATIONS: None CLOSURE TECHNIQUE: Primary PARTICIPATION IN SURGERY/PROCEDURE: I/primary surgeon/proceduralist performed the procedure with assistance. SIGNATURE: Kadeem Shah III, MD PATIENT NAME: Malorie Foley DATE: June 29, 2024 TIME: 12:29 PM [facility] Pathology biopsy report Mervin (Tiss)on 06-29-2024 AP DISCLAIMER [facility] Comment on above: Order Comment: Speci men Type: TISSUE SPECIMEN Ordering Facility: [facility] Address: [address] [place], [place] [address] Result Comment: Marisol Caicedo Test (LDT) Disclaimer: Performance characteristics of immunohistochemical, immunofluorescent, and chromogenic in-situ hybridization tests have been determined by the performing laboratory within [facility]'s Malorie Vasquez Pathology and Laboratory Medicine Department ([facility], [facility], [facility], [facility], [facility], [facility], or [facility]) in a manner consistent with CLIA requirements. One or more of these tests may not have been cleared or approved by the FDA. [facility] is regulated under CLIA as qualified to perform high-complexity testing. These tests are used for clinical purposes. These should not be regarded as investigational or for research. Positive and negative controls stain appropriately. Performed By: #### 6 6121-5 #### [facility] CLIA [id number] [address] [place] [address] [place] CASE REPORT Normal [facility] Comment on above: Order Comment: Speci men Type: TISSUE SPECIMEN Ordering Facility: [facility] Address: [address] [place] [address] Result Comment: Surg ical Pathology Report Case: [id number] Authorizing Provider: Kadeem Shah MD Collected: 06/29/2024 11:20 AM Ordering Location: [facility] Surgery Received: 06/29/2024 01:55 PM Pathologist: Maikel Crowell MD Specimen: Gallbladder Performed By: #### 6 6121-5 #### [facility] CLIA [id number] [address] [place] [address] [place] CLINICAL HISTORY [facility] Comment on above: Order Comment: Speci men Type: TISSUE SPECIMEN Ordering Facility: [facility] Address: [address] [place] [address] Result Comment: Pre- op diagnosis: Calculus of gallbladder with cholecystitis without biliary obstruction, unspecified cholecystitis acuity [K80.10] Performed By: #### 6 6121-5 #### [facility] CLIA [id number] [address] [place] [address] [place] FINAL DIAGNOSIS [facility] Comment on above: Order Comment: Speci men Type: TISSUE SPECIMEN Ordering Facility: [facility] Address: [address] [place] [address] Result Comment: A. G allbladder, cholecystectomy: - Chronic cholecystitis with cholelithiasis. at 1120 EDT Performed By: #### 6 6121-5 #### [facility] CLIA [id number] [address] [place] [address] [place] FINAL PERFORMING LAB Normal [facility] Comment on above: Order Comment: Speci men Type: TISSUE SPECIMEN Ordering Facility: [facility] Address: [address] [place] [address] Result Comment: Diag nostic interpretation performed at: [facility], [address] [place] [address], [place] [address] CLIA# [id number] [employer] Supervisor: Al Leyva MD Performed By: #### 6 6121-5 #### [facility] CLIA [id number] [address] [place] [address] STATES OF [facility] GROSS DESCRIPTION A. Gallbladder Normal [facility] Comment on above: Order Comment: Speci men Type: TISSUE SPECIMEN Ordering Facility: [facility] Address: [address] [place] [address] Result Comment: Rece ived in formalin labeled "gallbladder" is a 10.1 x 5.8 x 4.2 cm intact gallbladder with a yellow-owens serosa. The average wall thickness is 0.2 cm. The lumen contains yellow-green bile and multiple green choleliths measuring up to 2.4 cm. The mucosa is owens, granular with diffuse yellow stippling. The cystic duct margin is patent. No periductal lymph node is identified. Care Assistant sections submitted labeled A1. LG June 29, 2024 4:31 PM Gross examination performed at [facility], [address] [place] [address] Performed By: #### 6 6121-5 #### [facility] CLIA [id number] [address] [place] [address] OF [facility] [place] 06-27-2024 GENESISN Telephone (LOLIS) MALORIE FOLEY ([id number]) 1985 M Date Time Provider Department 06/27/24 KADEEM SHAH During your visit today, we recorded the following information about you: Charity Conner RN 06/27/2024 11:52 AM Addendum FMLA paper work received from [employer] Filled out and signed by Provider. Reviewed with patient. He said DR Shah told him there is a chance his surgery may have to be open due to his H/O multiple hernia repairs. he was advised to be out after surgery for 2 to 8 weeks. Malorie does a lot of heavy work and lifting on his job. RTW without restrictions 08/27/24. Patient would like this completed and sent to his employer today. Helped him make a post op appt with Ivory Peters for 07/13/24. If his RTW dates change we agreed to adjust his FMLA as needed if he is cleared to return to work sooner. Faxed to [employer]. Confirmation received. Records sent to be scanned to chart. Encounter closed. Allergies As of Date: 06/27/2024 Noted Allergy Reaction ADHESIVE TAPE (ROSINS) 03/16/2011 16 - Unknown Date Reviewed: 06/25/2024 Reviewed by: Jerilyn Madrid RN - Fully Assessed Reason for Visit: FMLA Paperwork [6035] Prescriptions as of 06/28/2024 - omeprazole (PRILOSEC) 20 mg capsule Take 20 mg by mouth once daily. - metFORMIN (GLUCOPHAGE) 500 mg tablet Take 2 tablets by mouth every 12 hours. - lactobacillus rhamnosus (CULTURELLE) 10 billion cell capsule TAKE 1 CAPSULE BY MOUTH THREE TIMES DAILY WITH MEALS FOR 13 DAYS. 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 Uveitis [H20.9] 04/19/2012 Sarcoidosis [D86.9] 04/28/2012 Right upper quadrant abdominal pain [R10.11] 06/18/2019 Abdominal pain [R10.9] 06/18/2019 Obesity, Class III, BMI >= 40 [E66.01] 06/19/2019 Clostridium difficile colitis [A04.72] 06/21/2019 Cholelithiasis [K80.20] 06/21/2019 GERD (gastroesophageal reflux disease) [K21.9] 06/21/2024 Fatty liver [K76.0] 06/21/2024 History of asthma [Z87.09] 06/21/2024 Type 2 diabetes mellitus without complication, *06/21/2024 Encounter Status:Closed by CHARITY CONNER on 06/28/24 [facility] CONFIRM BLOOD TYPEon 025 ABO O [facility] Comment on above: Order Comment: Ayde byers Type: BLOOD SPECIMEN Ordering Facility: [facility] Address: [address] [place] [address] Performed By: #### C ONABO #### [facility] CLIA [id number] [address] OF [facility] Rh Nom (Bld) Positive [facility] Comment on above: Order Comment: Ayde byers Type: BLOOD SPECIMEN Ordering Facility: [facility] Address: [address] [place] [address] Performed By: #### C ONABO #### [facility] CLIA [id number] [address] ECG COMPLETEon 06-22-2024 ECG COMPLETE Ventricular Rate : 8 8 BPM Atrial Rate : 88 BPM P-R Interval : 154 ms QRS Duration : 80 ms Q-T Interval : 368 ms QTC Calculation(Bazett) : 445 ms Calculated P [place] : 51 degrees Calculated R [place] : 29 degrees Calculated T [place] : 39 degrees NORMAL SINUS RHYTHM NORMAL ECG NO PREVIOUS ECGS AVAILABLE Confirmed by SHEILA REYES MD ([id number]) on 06/22/2024 3:03:17 PM NAME : MALORIE FOLEY PID : [id number] : 1985 Gender : Male Race : ORD : [id number] Procedure Date : Jun 22 2024 13:18:48 Edit Date : Jun 22 2024 15:03:20 Diagnosis: NORMAL SINUS RHYTHM NORMAL ECG NO PREVIOUS ECGS AVAILABLE Confirmed by SHEILA REYES MD ([id number]) on 06/22/2024 3:03:17 PM Test Reason : HCS Location : 10 : [facility]/ Overread By : SEHILA REYES MD Edited By : SHEILA REYES MD Referred By : SUNDAY CRANE Acquired by : KORY [facility] HbA1c (Bld)on 06-22-2024 Average glucose Estimated from glycated hemoglobin (Bld) [Mass/Vol] 151 mg/dL [facility] Comment on above: Order Comment: Speci men Type: BLOOD SPECIMEN Ordering Facility: [facility] Address: [address] [place] [address] Result Comment: eAG: (Estimated average glucose) is a calculated value from HgbA1c and is senior outside sales representative of the average blood glucose level in the last 2-3 month period. Performed By: #### 5 5454-3 #### [facility] CLIA [id number] [address] [place] [address] [place] HbA1c (Bld) [Mass fraction] 6.9 % High 4.3-5.[address] [facility] Comment on above: Order Comment: Speci men Type: BLOOD SPECIMEN Ordering Facility: [facility] Address: [address] [place] [address] Result Comment: Amer [place] Diabetes Association guidelines indicate that patients with HgbA1c in the range 5.7-6.4% are at increased risk for development of diabetes, and intervention by lifestyle modification may be beneficial. HgbA1c greater or equal to 6.5% is considered diagnostic of diabetes. Performed By: #### 5 5454-3 #### [facility] CLIA [id number] [address] [place] [address] [place] TYPE AND SCREEN,30 DAYon ABO O [facility] Comment on above: Order Comment: Speci men Type: BLOOD SPECIMEN Ordering Facility: [facility] Address: [address] [place] [address] Performed By: #### T SCR30 #### [facility] CLIA [id number] [address] [place] Rh Nom (Bld) Positive [facility] Comment on above: Order Comment: Speci men Type: BLOOD SPECIMEN Ordering Facility: [facility] Address: [address] [place] [address] Performed By: #### T SCR30 #### [facility] CLIA [id number] [address] [place] [address] [place] HISTORY PHYSICALon HISTORY PHYSICAL HNO ID: [id number] Author: SUNDAY CRANE PA-C Service: ? Author Type: Physician Chief Unit Forester Type: H&P Filed: 06/25/2024 12:35 Note Text: [facility] HISTORY AND PHYSICAL EXAMINATION SERVICE DATE: 06/21/2024 SERVICE TIME: 12:35 PM PRIMARY CARE PHYSICIAN: Rupesh Obando MD, MD Assessment Patient has the following medical conditions which may affect jack-operative course: GERD (gastroesophageal reflux disease) Assessment: States is well controlled with omeprazole and denies any recent exacerbations Follows with PCP Fatty liver Assessment: Following with PCP Most recent LFTs from 06/06/2024: Alk phos [address] 34 ALT 58 (H) Denies any ascites or jaundice History of asthma Assessment: as a child and young adult No need for inhaler in recent years Denies any exacerbations Type 2 diabetes mellitus without complication, without long-term current use of insulin (HCC) Assessment: Follows with PCP Is on metformin Most recent A1c was "just under 7" per pt on Tuesday Obesity, Class III, BMI >= 40 Assessment: Body mass index is 44.95 kg/m?. Sarcoidosis Assessment: states affected his eyes; almost lost complete vision; was placed on Humira, had 3 doses and woke up one morning and complete vision returned, no limitations or need for medication since Denies any other known organ involvement MET level of 8.0 ANESTHESIA FINDINGS: Intubation History: No history of difficult intubation. No abnormal airway history Significant Anesthesia Considerations: none Airway History: No prior airway or anesthetic complication noted upon chart review. Maternal grandmother had a DVT. Patient denies prior recommendation to be tested for a predisposition to a bleeding or clotting disorder. has been difficult to sedate in the past. took 3 doses of medications for him to count backwards from 10-0 and finally was sedated with the third injection of medication. Denied any delayed emergence. No history of difficult airway No abnormal airway history Daniels Activity Status Index: METS: Walk indoors, such as around the house (1.75 METs) Do light work around the house, such as dusting or washing dishes (2.70 METs) Take care of self; that is eating, dressing, bathing, using the toilet (2.75 METs) Walk a block or two on level ground (2.75 METs) Do moderate work around the house, such as vacuuming, sweeping floors, or carrying in groceries (3.50 METs) Do yardwork, such as raking leaves, weeding, or pushing a power mower (4.50 METs) Have sexual relations (5.25 METs) Climb a flight of stairs or walk up a hill (5.50 METs) Participate in moderate recreational activites, such as golf, bowling, dancing, doubles tennis, or throwing a baseball or football (6.00 METs) Participate in strenuous sport, such as swimming, singles tennis, football, basketball, or skiing (7.50 METs) Do heavy work around the house, such as scrubbing floors, lifting or moving heavy furniture (8.00 METs) 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 Clinical Frailty Scale: 2. Well STOP-Bang Score: BMI greater than 35 kg/m2 Has a large neck Male patient Denies snoring loudly Denies feeling tired, fatigued, or sleepy during the daytime Has not been observed to stop breathing or choking/gasping during sleep Denies having high blood pressure Patient 50 years old or younger STOP-Bang Score: 3 [id number] Score: Age: <65 Sex: male CHF history: No Hypertension history: No Stroke/TIA/thromboembol ism history: No Vascular disease history: No Diabetes history: Yes [id number] Score: 1 I - PHYSICAL EVALUATION AIRWAY Patient intubated: No. Tracheostomy tube not present Mallampati: I. TM distance: >3 FB. Neck ROM: full ROM without neurological symptoms. Mouth opening: adequate. Short neck: no. Thick neck: no Gaspar present: yes Lip Bite Test: I Microretrognathia/Micro nagthia/Recessed Chin: No DENTAL Dental findings: teeth intact. Additional comments: Denies any chipped or broken teeth. Denies any dental pain or infections. . II - ANESTHESIA PLAN Anesthetic Plan: other Anesthetic plan additional comments: *PACC/TCI - anesthesia choice. Beta Alla Monitoring Plan Post Procedure Analgesic Plan Prepared for Surgery: optimally prepared for surgery. Labs and EKG - to be completed at [place] on 06/22 ADDENDUM: June 25, 2024 : 12:34 PM Labs and final EKG reviewed. A1c is 6.9. CONSULTS: Patient does not require consults for optimization at this time Planned Anesthetic: other anesthesia choice The Following Tests/Procedures Have Been Initiated: Orders Placed This Encounter Hemoglobin A1C Standing Status: Future Number of Occurrences: 1 Expected Date: 06/21/2024 Expiration Date: 09/20/2024 (more content not included)... Normal [facility] CNPNon 06-20-2024 CNPN Telephone ([employer]) MALORIE FOLEY ([id number]) 1985 M Date Time Provider Department 06/20/24 KADEEM SHAH GENALS During your visit today, we recorded the following information about you: Mamadou Headley 06/20/2024 12:43 PM Signed 06-29-2024 Lap [place]enny with double time and visiport Mamadou Headley Allergies As of Date: 06/20/2024 Noted Allergy Reaction ADHESIVE TAPE (ROSINS) 03/16/2011 16 - Unknown Date Reviewed: 06/19/2024 Reviewed by: Kiana Baker, DARLEEN - Fully Assessed Reason for Visit: 06-29-2024 Lap [place]enny [Other] Prescriptions as of 07/18/2024 - omeprazole (PRILOSEC) 20 mg capsule Take 20 mg by mouth once daily. - metFORMIN (GLUCOPHAGE) 500 mg tablet Take 2 tablets by mouth every 12 hours. - lactobacillus rhamnosus (CULTURELLE) 10 billion cell capsule TAKE 1 CAPSULE BY MOUTH THREE TIMES DAILY WITH MEALS FOR 13 DAYS. 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 Uveitis [H20.9] 04/19/2012 Sarcoidosis [D86.9] 04/28/2012 Right upper quadrant abdominal pain [R10.11] 06/18/2019 Abdominal pain [R10.9] 06/18/2019 Obesity, Class III, BMI >= 40 [E66.01] 06/19/2019 Clostridium difficile colitis [A04.72] 06/21/2019 Cholelithiasis [K80.20] 06/21/2019 Encounter Status:Closed by MAMADOU HEADLEY on 07/18/24 [facility] CNOVon 06-19-2024 CNOV Office Visit (GENSWS ) OGMALORIE ([id number]) 1985 Date Time Provider Department 06/19/24 4:00 PM KADEEM SHAH During your visit today, we recorded the following information about you: Temperature Pulse Blood pressure Weight 97 degrees 113/minute 130/84 176.6 kg Height 1.981 m Kadeem Shah MD 06/26/2024 12:22 PM Signed HISTORY AND PHYSICAL Malorie Madrid Og 1985 REFERRING PHYSICIAN: Rupesh Obando MD CHIEF COMPLAINT: Consult (Gall bladder) HPI: Malorie is a 38 year old male with a complaint of right upper quadrant pain. The patient has had symptoms of right upper quadrant pain for few weeks. The symptoms have maintained, over the past few weeks. The pain does radiate to the back. Food does aggravate his symptoms. Alleviating factors include: none. The patient was seen by the emergency room physician ago. Malorie underwent an ultrasound. These tests demonstrated cholelithiasis. The patient is referred for evaluation and treatment. The patient is being seen by me today at the request of Dr. Rupesh Obando MD, MD for my opinion and advice regarding Calculus of gallbladder with cholecystitis without biliary obstruction, unspecified cholecystitis acuity (primary encounter diagnosis). 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 metFORMIN (GLUCOPHAGE) 500 mg tablet Take 2 tablets by mouth every 12 hours. lactobacillus rhamnosus (CULTURELLE) 10 billion cell capsule TAKE 1 CAPSULE BY MOUTH THREE TIMES DAILY WITH MEALS FOR 13 DAYS. 39 capsule 0 No current facility-administered medications for this visit. ALLERGIES: Adhesive Tape (Rosins) PERSONAL HISTORY: Social History Tobacco Use Smoking status: Never Smokeless tobacco: Never Vaping Use Vaping status: Never Used Substance Use Topics Alcohol use: Yes Comment: Occasional, Maybe 6 beers in 6 months Drug use: Never FAMILY HISTORY: FAMILY HISTORY Problem Relation Age of Onset Hypertension Father Ischemic Heart Disease Father Obesity Father Strabismus Brother Hypertension Maternal Grandmother Macular Degen Maternal Grandmother DVT Maternal Grandmother Hypertension Maternal Grandfather Macular Degen Maternal Grandfather Cancer Maternal Grandfather states blood clot traveled to brain Cataract Paternal Grandmother Diabetes Paternal Grandmother Hypertension Paternal Grandmother Diabetes Paternal Grandfather Hypertension Paternal Grandfather Cancer Paternal Grandfather Anesthesia Problems No Family History Clotting Disorder No Family History REVIEW OF SYMPTOMS: The review of systems data was entered by the nurse and reviewed by me There are no exam notes on file for this visit. PHYSICAL EXAMINATION: General: The patient is 38 year old male, well nourished, well hydrated in no acute distress. The patient is oriented to time, place, and person. VITALS: Blood pressure 130/84, pulse 113, temperature 36.1 ?C (97 ?F), height 198.1 cm (6' 6"), weight (!) 176.6 kg (389 lb 6.4 oz), SpO2 97%. Body mass index is 45 kg/m?. HEENT: Normal cephalic, ataumatic, pupils are equally round, sclera are anicteric, mucous membranes are moist, oropharynx is clear. Neck has no masses, asymmetry or lymphadenopathy. Thyroid is unremarkable. Respiratory: Clear to auscultation and percussion. Normal respiratory excursion and pattern. Cardiac: Examination is regular rate and rhythm. Abdominal exam: Normoactive bowel sounds, Soft, tender in the right upper quadrant negative Celeste's sign, with no palpable masses. No hepatosplenomegaly. No palpable hernias. Rectal exam: exam deferred Extremities: no clubbing, cyanosis or edema. No adenopathy. Other: LABORATORY VALUES: As Noted RADIOLOGIC STUDIES: As Noted Above Assessment IMPRESSION: Calculus of gallbladder with cholecystitis without biliary obstruction, unspecified cholecystitis acuity (primary encounter diagnosis) PLAN: My plan is to perform a laparoscopic cholecystectomy with intraoperative choleangiogram. The planned surgical procedure was discussed extensively with the patient. The risks, benefits, anticipated outcomes and possible complications were mentioned. My staff has also explained the procedure in understandable terms and the patient was given the option to take printed material concerning the planned procedure. The p (more content not included)... Normal [facility] Absolute neutrophil countOrd ered By: Rupesh Obando on 06-12-2024 Neutrophils (Bld) [#/Vol] 5.1 10*3/uL 2.0-7.7 [facility] Albumin to globulin ratioOrd ered By: Rupesh Obando on 06-12-2024 Albumin/Globulin [Mass ratio] 1.1 {ratio} 0.9-2.4 [facility] Basophil percentageOrdered B y: Rupesh Obando on 06-12-2024 Basophils/100 WBC (Bld) 0.6 % 0-1 [facility] Bilirubin, totalOrdered By: Rupesh Obando on 06-12-2024 Bilirubin [Mass/Vol] 0.40 mg/dL 0.20-1.00 [facility] Comment on above: For patients on eltr ombopag therapy, use of Dimension [place] TBIL is not recommended. Blood urea nitrogen (BUN)/cr eatinine ratioOrdered By: Rupesh Obando on 06-12-2024 Urea nitrogen/Creatinine [Mass ratio] 21.0 mg/mg High 10-20 [facility] CBC W/Diff, Automatedon 05-26 Absolute Lymph 2.33 X10 3/uL Normal 0.83-4.51 [facility] Comment on above: Order Comment: Order Date: 06/12/24 Order Info: 0184-1 - CBCD Performed By: #### L 500.4100, L100.0100, L501.9520, L501.9985, L500.4050 #### [facility] [address] [place], [address] Absolute Neut 5.1 X10 3/uL Normal 2.0-7.7 [facility] Comment on above: Order Comment: Order Date: 06/12/24 Order Info: 018- - CBCD Performed By: #### L 500.4100, L100.0100, L501.9520, L501.9985, L500.4050 #### [facility] [address] [place], [address] Basophils/100 WBC (Bld) 0.6 % Normal 0-1 [facility] Comment on above: Order Comment: Order Date: 06/12/24 Order Info: 018- - CBCD Performed By: #### L 500.4100, L100.0100, L501.9520, L501.9985, L500.4050 #### [facility] [address] [place], [address] Eosinophils/100 WBC (Bld) 1.4 % Normal 0-5 [facility] Comment on above: Order Comment: Order Date: 06/12/24 Order Info: 018- - CBCD Performed By: #### L 500.4100, L100.0100, L501.9520, L501.9985, L500.4050 #### [facility] [address] [place], [address] Erythrocyte distribution width (RBC) [Ratio] 13.2 % Normal 11.6-14.6 [facility] Comment on above: Order Comment: Order Date: 06/12/24 Order Info: 018- - CBCD Performed By: #### L 500.4100, L100.0100, L501.9520, L501.9985, L500.4050 #### [facility] [address] [place], [address] Hematocrit (Bld) [Volume fraction] 45.9 % Normal 40-54 [facility] Comment on above: Order Comment: Order Date: 06/12/24 Order Info: 0184-1 - CBCD Performed By: #### L 500.4100, L100.0100, L501.9520, L501.9985, L500.4050 #### [facility] [address] [place], [address] Hemoglobin (Bld) [Mass/Vol] 15.2 g/dL Normal 13.0-16.5 [facility] Comment on above: Order Comment: Order Date: 06/12/24 Order Info: 0184-1 - CBCD Performed By: #### L 500.4100, L100.0100, L501.9520, L501.9985, L500.4050 #### [facility] [address] [place], [address] IG% 0.500 Normal 0.0-0.9 [facility] Comment on above: Order Comment: Order Date: 06/12/24 Order Info: 0184-1 - CBCD Result Comment: IG% - Immature Granulocytes (promyelocytes, myelocytes and metamyelocytes) > 1% indicates that a LEFT SHIFT is Present. Performed By: #### L 500.4100, L100.0100, L501.9520, L501.9985, L500.4050 #### [facility] [address] [place], [address] Lymphocytes/100 WBC (Bld) 29.2 % Normal 19-41 [facility] Comment on above: Order Comment: Order Date: 06/12/24 Order Info: 0184-1 - CBCD Performed By: #### L 500.4100, L100.0100, L501.9520, L501.9985, L500.4050 #### [facility] [address] [place], [address] MCH (RBC) [Entitic mass] 27.5 pg Normal 27.0-32.0 [facility] Comment on above: Order Comment: Order Date: 06/12/24 Order Info: 0184-1 - CBCD Performed By: #### L 500.4100, L100.0100, L501.9520, L501.9985, L500.4050 #### [facility] [address] [place], [address] MCHC (RBC) [Mass/Vol] 33.1 g/dL Normal 32-36 [facility] Comment on above: Order Comment: Order Date: 06/12/24 Order Info: 0184-1 - CBCD Performed By: #### L 500.4100, L100.0100, L501.9520, L501.9985, L500.4050 #### [facility] [address] [place], [address] MCV (RBC) [Entitic vol] 83.2 fL Normal 80-94 [facility] Comment on above: Order Comment: Order Date: 06/12/24 Order Info: 018- - CBCD Performed By: #### L 500.4100, L100.0100, L501.9520, L501.9985, L500.4050 #### [facility] [address] [facility] [address] [place], [address] Monocytes/100 WBC (Bld) 4.9 % Normal 0-10 [facility] Comment on above: Order Comment: Order Date: 06/12/24 Order Info: 0184-1 - CBCD Performed By: #### L 500.4100, L100.0100, L501.9520, L501.9985, L500.4050 #### [facility] [address] [place], [address] Neutrophils/100 WBC (Bld) 63.4 % Normal 47-70 [facility] Comment on above: Order Comment: Order Date: 06/12/24 Order Info: 0184-1 - CBCD Performed By: #### L 500.4100, L100.0100, L501.9520, L501.9985, L500.4050 #### [facility] [address] [place], [address] Nucleated RBC (Bld) [#/Vol] 0 10*3/uL Normal 0-5 [facility] Comment on above: Order Comment: Order Date: 06/12/24 Order Info: 0184- - CBCD Performed By: #### L 500.4100, L100.0100, L501.9520, L501.9985, L500.4050 #### [facility] [address] [place], [address] Platelet mean volume (Bld) [Entitic vol] 8.9 fL Normal 6.2-12.0 [facility] Comment on above: Order Comment: Order Date: 06/12/24 Order Info: 0184- - CBCD Performed By: #### L 500.4100, L100.0100, L501.9520, L501.9985, L500.4050 #### [facility] [address] [place], [address] Platelets (Bld) [#/Vol] 247 10*3/uL Normal 150-450 [facility] Comment on above: Order Comment: Order Date: 06/12/24 Order Info: 0184- - CBCD Performed By: #### L 500.4100, L100.0100, L501.9520, L501.9985, L500.4050 #### [facility] [address] [place], [address] RBC (Bld) [#/Vol] 5.52 10*6/uL Normal 4.6-6.2 [facility] Comment on above: Order Comment: Order Date: 06/12/24 Order Info: 0184- - CBCD Performed By: #### L 500.4100, L100.0100, L501.9520, L501.9985, L500.4050 #### [facility] [address] [place], [address] RDW SD 39.3 fl Normal 35.1-43.9 [facility] Comment on above: Order Comment: Order Date: 06/12/24 Order Info: 0184-1 - CBCD Performed By: #### L 500.4100, L100.0100, L501.9520, L501.9985, L500.4050 #### [facility] [address] [place], [address] WBC (Bld) [#/Vol] 8.0 10*3/uL Normal 4.4-11.0 [facility] Comment on above: Order Comment: Order Date: 06/12/24 Order Info: 0184-1 - CBCD Performed By: #### L 500.4100, L100.0100, L501.9520, L501.9985, L500.4050 #### [facility] [address] [place], [address] Carbon dioxide measurementOr dered By: Rupesh Obando on 06-12-2024 CO2 [Moles/Vol] 24.0 mmol/L 21.0-32.0 [facility] Chloride measurementOrdered By: Rupesh Obando on 06-12-2024 Chloride [Moles/Vol] 106 mmol/L 98-107 [facility] Comprehensive Metabolic Prof ilon 06-12-2024 Albumin [Mass/Vol] 3.8 g/dL Normal 3.2-5.0 [facility] Comment on above: Order Comment: Order Date: 06/12/24 Order Info: 0786-1 - CMP Order Info: [id number] - LIPID Order Info: 3016-3 - TSH Performed By: #### L 500.4100, L100.0100, L501.9520, L501.9985, L500.4050 #### [facility] [address] [place], [address] Albumin/Globulin [Mass ratio] 1.1 {ratio} Normal 0.9-2.4 [facility] Comment on above: Order Comment: Order Date: 06/12/24 Order Info: 785-04 - CMP Order Info: - LIPID Order Info: 3015-06 - TSH Performed By: #### L 500.4100, L100.0100, L501.9520, L501.9985, L500.4050 #### [facility] [address] [place], [address] ALK P 95 U/L Normal 45-117 [facility] Comment on above: Order Comment: Order Date: 06/12/24 Order Info: 785-04 - CMP Order Info: - LIPID Order Info: 3015-06 - TSH Performed By: #### L 500.4100, L100.0100, L501.9520, L501.9985, L500.4050 #### [facility] [address] [place], [address] ALT [Catalytic activity/Vol] 57 U/L Normal 16-61 [facility] Comment on above: Order Comment: Order Date: 06/12/24 Order Info: 785-04 - CMP Order Info: - LIPID Order Info: 3015-06 - TSH Performed By: #### L 500.4100, L100.0100, L501.9520, L501.9985, L500.4050 #### [facility] [address] [place], [address] AST [Catalytic activity/Vol] 24 U/L Normal 15-37 [facility] Comment on above: Order Comment: Order Date: 06/12/24 Order Info: 0786 - CMP Order Info: [id number] - LIPID Order Info: 3015-06 - TSH Performed By: #### L 500.4100, L100.0100, L501.9520, L501.9985, L500.4050 #### [facility] [address] [place], [address] Bilirubin [Mass/Vol] 0.40 mg/dL Normal 0.20-1.00 [facility] Comment on above: Order Comment: Order Date: 06/12/24 Order Info: 785- - CMP Order Info: - LIPID Order Info: 3015-06 - TSH Result Comment: For patients on eltrombopag therapy, use of Dimension [place] TBIL is not recommended. Performed By: #### L 500.4100, L100.0100, L501.9520, L501.9985, L500.4050 #### [facility] [address] [place], [address] BUN/CRE 21.0 RATIO High 10-20 [facility] Comment on above: Order Comment: Order Date: 06/12/24 Order Info: 785-04 - CMP Order Info: - LIPID Order Info: 3015-06 - TSH Performed By: #### L 500.4100, L100.0100, L501.9520, L501.9985, L500.4050 #### [facility] [address] [place], [address] CA,Total 9.2 mg/dL Normal 8.5-10.1 [facility] Comment on above: Order Comment: Order Date: 06/12/24 Order Info: 07 - CMP Order Info: - LIPID Order Info: 3015-06 - TSH Performed By: #### L 500.4100, L100.0100, L501.9520, L501.9985, L500.4050 #### [facility] [address] [place], [address] Chloride [Moles/Vol] 106 mmol/L Normal 98-107 [facility] Comment on above: Order Comment: Order Date: 06/12/24 Order Info: 0786 - CMP Order Info: [id number] - LIPID Order Info: 3015-06 - TSH Performed By: #### L 500.4100, L100.0100, L501.9520, L501.9985, L500.4050 #### [facility] [address] [place], [address] CO2 [Moles/Vol] 24.0 mmol/L Normal 21.0-32.0 [facility] Comment on above: Order Comment: Order Date: 06/12/24 Order Info: 86-1 - CMP Order Info: [id number] - LIPID Order Info: 3015-3 - TSH Performed By: #### L 500.4100, L100.0100, L501.9520, L501.9985, L500.4050 #### [facility] [address] [place], [address] Creatinine [Mass/Vol] 0.90 mg/dL Normal 0.70-1.30 [facility] Comment on above: Order Comment: Order Date: 06/12/24 Order Info: 785-04 - CMP Order Info: - LIPID Order Info: 3 - TSH Result Comment: The validity of the calculated GFR GFRAA in patients over 70 years has not been determined. Clinical correlation is essential. Performed By: #### L 500.4100, L100.0100, L501.9520, L501.9985, L500.4050 #### [facility] [address] [place], [address] EST GFR - AA 122 mL/min Normal >60 [facility] Comment on above: Order Comment: Order Date: 06/12/24 Order Info: 785- - CMP Order Info: [id number] - LIPID Order Info: 3016-3 - TSH Result Comment: Afri can Israeli GFR Calc Performed By: #### L 500.4100, L100.0100, L501.9520, L501.9985, L500.4050 #### [facility] [address] [place], [address] GAP 9 Normal 5-15 [facility] Comment on above: Order Comment: Order Date: 06/12/24 Order Info: 785- - CMP Order Info: [id number] - LIPID Order Info: 3015-06 - TSH Performed By: #### L 500.4100, L100.0100, L501.9520, L501.9985, L500.4050 #### [facility] [address] [place], [address] GFR/1.73 sq M.predicted among non-blacks MDRD (S/P/Bld) [Vol rate/Area] 101 mL/min/{1.73_m2} Normal >60 [facility] Comment on above: Order Comment: Order Date: 06/12/24 Order Info: 07 - CMP Order Info: - LIPID Order Info: [id number] - TSH Result Comment: Non- GFR Calc Performed By: #### L 500.4100, L100.0100, L501.9520, L501.9985, L500.4050 #### [facility] [address] [place], [address] Globulin (S) [Mass/Vol] 3.5 g/dL Normal 2.2-4.2 [facility] Comment on above: Order Comment: Order Date: 06/12/24 Order Info: 0786 - CMP Order Info: - LIPID Order Info: 3015-06 - TSH Performed By: #### L 500.4100, L100.0100, L501.9520, L501.9985, L500.4050 #### [facility] [address] [place], [address] Glucose [Mass/Vol] 104 mg/dL Normal 74-106 [facility] Comment on above: Order Comment: Order Date: 06/12/24 Order Info: 0786 - CMP Order Info: - LIPID Order Info: 3015-06 - TSH Result Comment: Fast ing Glucose result from 100 to 125 mg/dL suggests IMPAIRED HOMEOSTASIS per A.D.A. criteria. Performed By: #### L 500.4100, L100.0100, L501.9520, L501.9985, L500.4050 #### [facility] [address] [place], [address] Potassium [Moles/Vol] 3.9 mmol/L Normal 3.5-5.1 [facility] Comment on above: Order Comment: Order Date: 06/12/24 Order Info: 785- - CMP Order Info: - LIPID Order Info: 3 - TSH Performed By: #### L 500.4100, L100.0100, L501.9520, L501.9985, L500.4050 #### [facility] [address] [place], [address] Sodium [Moles/Vol] 139 mmol/L Normal 136-145 [facility] Comment on above: Order Comment: Order Date: 06/12/24 Order Info: 785-04 - CMP Order Info: - LIPID Order Info: 3 - TSH Performed By: #### L 500.4100, L100.0100, L501.9520, L501.9985, L500.4050 #### [facility] [address] [place], [address] T PROT 7.3 g/dL Normal 6.4-8.2 [facility] Comment on above: Order Comment: Order Date: 06/12/24 Order Info: 785-04 - CMP Order Info: - LIPID Order Info: 3 - TSH Performed By: #### L 500.4100, L100.0100, L501.9520, L501.9985, L500.4050 #### [facility] [address] [place], [address] Urea nitrogen [Mass/Vol] 19 mg/dL High 7-18 [facility] Comment on above: Order Comment: Order Date: 06/12/24 Order Info: 785-04 - CMP Order Info: - LIPID Order Info: 3 - TSH Performed By: #### L 500.4100, L100.0100, L501.9513, L501.9901, L500.4050 #### [facility] [place], [address] Eosinophil percentageOrdered By: Rupesh Obando on 06-12-2024 Eosinophils/100 WBC (Bld) 1.4 % 0-5 [facility] Erythrocyte distribution wid th (RBC) [Ratio]Ordered By: Rupesh Obando on 06-12-2024 Erythrocyte distribution width (RBC) [Entitic vol] 39.3 fL 35.1-43.9 [facility] Erythrocyte distribution wid th ratioOrdered By: Rupesh Obando on 06-12-2024 Erythrocyte distribution width (RBC) [Ratio] 13.2 % 11.6-14.6 [facility] Estimated glomerular filtrat ion rate (GFR) AmericanOrdered By: Rupesh Obando on 06-12-2024 Estimated GFR (MDRD) Amer 122 mL/min >60 [facility] Comment on above: GFR Calc Glomerular filtration rate ( GFR) estimationOrdered By: Rupesh Obando on 06-12-2024 Estimated GFR (MDRD) Non-Af Amer 101 mL/min >60 [facility] Comment on above: Non- GFR Calc Glucose measurementOrdered B y: Rupesh Obando on 06-12-2024 Glucose [Mass/Vol] 104 mg/dL 74-106 [facility] Comment on above: Fasting Glucose resu lt from 100 to 125 mg/dL suggests IMPAIRED HOMEOSTASIS per A.D.A. criteria. Hematocrit Auto (Bld) [Volum e fraction]Ordered By: Rupesh Obando on 06-12-2024 Hematocrit (Bld) [Volume fraction] 45.9 % 40-54 [facility] Hemoglobin A1con 06-12-2024 HbA1c (Bld) [Mass fraction] 7.0 % High 3.8-5.6 [facility] Comment on above: Order Comment: Order Date: 06/12/24 Order Info: [id number] - A1C Result Comment: Norm al < 5.7 % Prediabetic 5.7 - 6.4 % Diabetic >or= 6.5 % Please note range changes. Performed By: #### L 500.4100, L100.0100, L501.9595, L501.9951, L500.4050 #### [facility] [address], [address] Hemoglobin A1c percentageOrd ered By: Rupesh Obando on 06-12-2024 HbA1c (Bld) [Mass fraction] 7.0 % High 3.8-5.6 [facility] Comment on above: Normal < 5.7 % Predi abetic 5.7 - 6.4 % Diabetic >or= 6.5 % Please note range changes. Hemoglobin measurementOrdere d By: Rupesh Obando on 06-12-2024 Hemoglobin (Bld) [Mass/Vol] 15.2 g/dL 13.0-16.5 [facility] High density lipoprotein (HD L) measurementOrdered By: Rupesh Obando on 06-12-2024 Cholesterol in HDL [Mass/Vol] 38 mg/dL Low >40 [facility] Comment on above: The drugs N-Acetylcy steine and Metamizole may falsely depress this assay. Reference Range HDL <40 mg/dL Low HDL Cholesterol HDL >or= 60 mg/dL High HDL Cholesterol Immature granulocytes/100 WB C Auto (Bld)Ordered By: Rupesh Obando on 06-12-2024 Immature granulocytes/100 WBC (Bld) 0.500 % 0.0-0.9 [facility] Comment on above: IG% - Immature Granu locytes (promyelocytes, myelocytes and metamyelocytes) > 1% indicates that a LEFT SHIFT is Present. Laboratory - Chemistry and C hemistry - challengeOrdered By: Rupesh Obando on 06-12-2024 AST [Catalytic activity/Vol] 24 U/L 15-37 [facility] Lipid Profileon 06-12-2024 Cholesterol [Mass/Vol] 132 mg/dL Normal 200 [facility] Comment on above: Order Comment: Order Date: 06/12/24 Order Info: 0786-1 - CMP Order Info: [id number] - LIPID Order Info: [id number] - TSH Result Comment: <200 mg/dL Desirable 200-240 mg/dL Borderline >240 mg/dL High Risk Performed By: #### L 500.4100, L100.0100, L501.9520, L501.9985, L500.4050 #### [facility] [address] [place], [address] Cholesterol in HDL [Mass/Vol] 38 mg/dL Low [facility] Comment on above: Order Comment: Order Date: 06/12/24 Order Info: 0786-1 - CMP Order Info: [id number] - LIPID Order Info: [id number] - TSH Result Comment: The drugs N-Acetylcysteine and Metamizole may falsely depress this assay. Reference Range HDL <40 mg/dL Low HDL Cholesterol HDL >or= 60 mg/dL High HDL Cholesterol Performed By: #### L 500.4100, L100.0100, L501.9520, L501.9985, L500.4050 #### [facility] [address] [place], [address] Cholesterol in LDL [Mass/Vol] 63 mg/dL Normal 0-130 [facility] Comment on above: Order Comment: Order Date: 06/12/24 Order Info: 07 - CMP Order Info: [id number] - LIPID Order Info: 3 - TSH Performed By: #### L 500.4100, L100.0100, L501.9520, L501.9985, L500.4050 #### [facility] [address] [place], [address] Cholesterol in VLDL [Mass/Vol] 31 mg/dL Normal 5-40 [facility] Comment on above: Order Comment: Order Date: 06/12/24 Order Info: 0786 - CMP Order Info: [id number] - LIPID Order Info: [id number] - TSH Performed By: #### L 500.4100, L100.0100, L501.9520, L501.9985, L500.4050 #### [facility] [address] [place], [address] Triglyceride [Mass/Vol] 157 mg/dL Normal [facility] Comment on above: Order Comment: Order Date: 06/12/24 Order Info: 0786-1 - CMP Order Info: [id number] - LIPID Order Info: [id number] - TSH Result Comment: The drugs N-Acetylcysteine and Metamizole may falsely depress this assay. Serum Triglycerides Reference Interval Normal <150 mg/dL Borderline high 150 - 199 mg/dL High 200 - 499 mg/dL Very High > or = 500 mg/dL Performed By: #### L 500.4100, L100.0100, L501.9520, L501.9985, L500.4050 #### [facility] [address] [place], [place], [id number] Low density lipoprotein (LDL ) cholesterol measurementOrdered By: Rupesh Obando on 06-12-2024 Cholesterol in LDL [Mass/Vol] 63 mg/dL 0-130 [facility] Lymphocytes Auto (Unsp spec) [#/Vol]Ordered By: Rupesh Obando on 06-12-2024 Lymphocytes (Bld) [#/Vol] 2.33 10*3/uL 0.83-4.51 [facility] Lymphocytes/100 WBC Auto (Un sp spec)Ordered By: Rupesh Obando on 06-12-2024 Lymphocytes/100 WBC (Bld) 29.2 % 19-41 [facility] MCV (mean corpuscular volume ) determinationOrdered By: Rupesh Obando on 06-12-2024 MCV (RBC) [Entitic vol] 83.2 fL 80-94 [facility] Mean corpuscular hemoglobin (MCH) determinationOrdered By: Rupesh Obando on 06-12-2024 MCH (RBC) [Entitic mass] 27.5 pg 27.0-32.0 [facility] Mean corpuscular hemoglobin concentration (MCHC) determinationOrdered By: Rupesh Obando on 06-12-2024 MCHC (RBC) [Mass/Vol] 33.1 g/dL 32-36 [facility] Mean platelet volume determi nationOrdered By: Rupesh Obando on 06-12-2024 Platelet mean volume (Bld) [Entitic vol] 8.9 fL 6.2-12.0 [facility] Monocyte percentageOrdered B y: Rupesh Obando on 06-12-2024 Monocytes/100 WBC (Bld) 4.9 % 0-10 [facility] Neutrophil percentageOrdered By: Rupesh Obando on 06-12-2024 Neutrophils/100 WBC (Bld) 63.4 % 47-70 [facility] Nucleated red blood cell per centageOrdered By: Rupesh Obando on 06-12-2024 Nucleated RBC/100 WBC (Bld) [Ratio] 0 % 0-5 [facility] Platelet countOrdered By: Genie Obando on 06-12-2024 Platelets (Bld) [#/Vol] 247 10*3/uL 150-450 [facility] Potassium measurementOrdered By: Rupesh Obando on 06-12-2024 Potassium [Moles/Vol] 3.9 mmol/L 3.5-5.1 [facility] RBC Auto (Bld) [#/Vol]Ordere d By: Rupesh Obando on 06-12-2024 RBC (Bld) [#/Vol] 5.52 10*6/uL 4.6-6.2 [facility] Serum anion gap measurementO rdered By: Rupesh Obando on 06-12-2024 Anion gap [Moles/Vol] 9 mmol/L 5-15 [facility] Serum globulin measurementOr dered By: Rupesh Obando on 06-12-2024 Globulin (S) [Mass/Vol] 3.5 g/dL 2.2-4.2 [facility] Serum or plasma alanine jiang otransferase (ALT) measurementOrdered By: Rupesh Obando on 06-12-2024 ALT [Catalytic activity/Vol] 57 U/L 16-61 [facility] Serum or plasma albumin tamara urement (mass/volume)Ordered By: Rupesh Obando on 06-12-2024 Albumin [Mass/Vol] 3.8 g/dL 3.2-5.0 [facility] Serum or plasma alkaline naiket sphatase measurementOrdered By: Rupesh Obando on 06-12-2024 ALP [Catalytic activity/Vol] 95 U/L 45-117 [facility] Serum or plasma calcium tamara urement (mass/volume)Ordered By: Rupesh Obando on 06-12-2024 Calcium [Mass/Vol] 9.2 mg/dL 8.5-10.1 [facility] Serum or plasma cholesterol measurement (mass/volume)Ordered By: Rupesh Obando on 06-12-2024 Cholesterol [Mass/Vol] 132 mg/dL <200 [facility] Comment on above: <200 mg/dL Desirable 200-240 mg/dL Borderline >240 mg/dL High Risk Serum or plasma creatinine m easurement (mass/volume)Ordered By: Rupesh Obando on 06-12-2024 Creatinine [Mass/Vol] 0.90 mg/dL 0.70-1.30 [facility] Comment on above: The validity of the calculated GFR & GFRAA in patients over 70 years has not been determined. Clinical correlation is essential. Serum or plasma urea nitroge n measurement (mass/volume)Ordered By: Rupesh Obando on 06-12-2024 Urea nitrogen [Mass/Vol] 19 mg/dL High 7-18 [facility] Sodium levelOrdered By: Rupesh Obando on 06-12-2024 Sodium [Moles/Vol] 139 mmol/L 136-145 [facility] TSH QnOrdered By: Rupesh bryan on 06-12-2024 Thyroid Stimulating Hormone (TSH) 3.490 uIU/mL 0.358-3.740 [facility] Thyroid Stim Hormone (TSH)on 06-12-2024 TSH 3.490 uIU/mL Normal 0.358-3.740 [facility] Comment on above: Order Comment: Order Date: 06/12/24 Order Info: 0786-1 - CMP Order Info: [id number] - LIPID Order Info: [id number] - TSH Performed By: #### L 500.4100, L100.0100, L501.9583, L501.9974, L500.4050 #### [facility] [address] [place], [address] Total proteinOrdered By: Johnny Obando on 06-12-2024 Protein [Mass/Vol] 7.3 g/dL 6.4-8.2 [facility] Triglycerides measurementOrd ered By: Rupesh Obando on 06-12-2024 Triglyceride [Mass/Vol] 157 mg/dL <199 [facility] Comment on above: The drugs N-Acetylcy steine and Metamizole may falsely depress this assay.Serum Triglycerides Reference Interval Normal <150 mg/dL Borderline high 150 - 199 mg/dL High 200 - 499 mg/dL Very High > or = 500 mg/dL Very low density lipoprotein (VLDL) cholesterol measurementOrdered By: Rupesh Obando on 06-12-2024 VLDL Cholesterol 31 mg/dL 5-40 [facility] White blood cell (WBC) count Ordered By: Rupesh Obando on 06-12-2024 WBC (Bld) [#/Vol] 8.0 10*3/uL 4.4-11.0 [facility] ALLIED HEALTHon 06-06-2024 ALLIED HEALTH HNO ID: [id number] Author: FLORENCE MACKENZIE RT(R) Service: Radiology Author Type: Technologist Type: [facility] Filed: 06/06/2024 13:54 Note Text: Radiology Service Progress Note PATIENT NAME: Malorie Foley DATE OF SERVICE: June 06, 2024 TIME: 1:54 PM PATIENT IDENTITY VERIFICATION COMPLETED USING TWO (2) IDENTIFIERS: Name and Date of confirmed by patient verbally. FALL SCREENING: Has the patient had 2 falls in the last year or 1 fall with injury or currently using an Ambulatory Assistive Device (Walker, Cane, Wheelchair, Crutches, etc.)? Emergency Room Patient: Screened in ED PATIENT GENDER DATA: Assigned male at PATIENT RELEVANT IMPLANT DATA REVIEWED: Not Applicable PATIENT PRESENTS WITH AN IMPLANTABLE OR ATTACHED BIOCHEMICAL DEVELOPMENT ENGINEER: No RADIOLOGY DEPARTMENT: Ultrasound PERIPHERAL IV DATA: Not applicable SIGNED BY: RT Galina(R) June 06, 2024 1:54 PM Normal [facility] ALLIED HEALTH HNO ID: [id number] Author: JOSE MADRID RT(R) Service: Radiology Author Type: Technologist Type: [facility] Filed: 06/06/2024 13:04 Note Text: Radiology Service Progress Note DATE OF SERVICE: June 06, 2024 TIME: 1:03 PM PATIENT IDENTITY VERIFICATION COMPLETED USING TWO (2) STANDARD IDENTIFIERS: Name and Date of confirmed by patient verbally and Name and Date of confirmed by identification band. FALL SCREENING: Has the patient had 2 falls in the last year or 1 fall with injury or currently using an Ambulatory Assistive Device (Walker, Cane, Wheelchair, Crutches, etc.)? Emergency Room Patient: Screened in ED PATIENT GENDER DATA: Assigned male at PATIENT RELEVANT IMPLANT DATA REVIEWED: Not Applicable PATIENT PRESENTS WITH AN IMPLANTABLE OR ATTACHED BIOCHEMICAL DEVELOPMENT ENGINEER: No ALLERGIES: Reviewed and unchanged CONTRAST ALLERGY: NO. EXAM: CT -CONTRAST INDUCED NEPHROPATHY RISK FACTORS: Diabetic: No and Yes. Current medication(s): Metformin. Patient currently has insulin pump?: No. CREATININE: Creatinine Date Value Ref Range Status 06/06/2024 0.92 0.73 - 1.22 mg/dL Final Comment: Use of this assay is not recommended for patients undergoing treatment with phenindione, due to the potential for falsely depressed results. 06/21/2019 0.80 0.73 - 1.22 mg/dL Final 06/20/2019 0.85 0.73 - 1.22 mg/dL Final Estimated Glomerular Filtration Rate Date Value Ref Range Status 06/06/2024 111 >=60 mL/min/1.73m? Final Comment: Estimated Glomerular Filtration Rate (eGFR) is calculated using the 2020 CKD-EPI creatinine equation. This equation utilizes serum creatinine, sex, and age as parameters. The creatinine assay has traceable calibration to isotope dilution-mass spectrometry. Refer to KDIGO guidelines for clinical interpretation. In patients with unstable renal function, e.g. those with acute kidney injury, the eGFR may not accurately reflect actual GFR. eGFR- Date Value Ref Range Status 06/21/2019 >60 Final P.O.C.T. RESULTS: POC done: Yes, See Lab Tab June 06, 2024 TREATMENT: N/A PERIPHERAL IV DATA: Inpatient - refer to [facility] documentation RADIOLOGY DEPARTMENT: CT; Exam(s) Completed: Abdomen/Pelvis SIGNATURE: RT Samson(R) PATIENT NAME: Mlaorie Foley DATE: June 06, 2024 TIME: 1:03 PM Normal [facility] AMB POC COVID-19 COVon 06-06 Interpretation and review of laboratory results Normal [facility] SARS-CoV-2 (COVID-19) RNA WENDY+non-probe Ql (Nph) Negative Negative [facility] AMB POC RAPID INFLUENZA DNA/ RNAon 06-06-2024 Inflenza A Ag Negative [facility] h Influenza B Ag Negative [facility] th Interpretation and review of laboratory results Normal [facility] CBC W Auto Differential pane l (Bld)on 06-06-2024 Basophils (Bld) [#/Vol] 10*3/uL Normal <0.11 [facility] Comment on above: Order Comment: Speci men Type: BLOOD SPECIMENOrdering Facility: [facility] Address: [address] [place] [address] Performed By: #### 5 7021-8 ####[facility] LABCLIA [id number] [place] [address] [place] Basophils/100 WBC (Bld) 0.5 % Normal A [facility] Comment on above: Order Comment: Speci men Type: BLOOD SPECIMENOrdering Facility: [facility] Address: [address] [place] [address] Performed By: #### 5 7021-8 ####[facility] LABCLIA [id number] [place] [address] [facility] [place] Differential cell count method Nom (Bld) Auto Normal [facility] Comment on above: Order Comment: Speci men Type: BLOOD SPECIMENOrdering Facility: [facility] Address: [address] [place] [address] Performed By: #### 5 7021-8 ####[facility] LABCLIA [id number] [place] [address] [place] Eosinophils (Bld) [#/Vol] 0.06 10*3/uL Normal <0.46 [facility] Comment on above: Order Comment: Speci men Type: BLOOD SPECIMENOrdering Facility: [facility] Address: [address] [place] [address] Performed By: #### 5 7021-8 ####[facility] LABCLIA [id number] [place] [address] [place] Eosinophils/100 WBC (Bld) 1.5 % Normal [facility] Comment on above: Order Comment: Speci men Type: BLOOD SPECIMENOrdering Facility: [facility] Address: [address] [place] [address] Performed By: #### 5 7021-8 ####[facility] LABCLIA [id number] [place] [address] [place] Erythrocyte distribution width (RBC) [Ratio] 12.8 % Normal 11.5-15.0 [facility] Comment on above: Order Comment: Speci men Type: BLOOD SPECIMENOrdering Facility: [facility] Address: [address] [place] [address] Performed By: #### 5 7021-8 ####[facility] LABCLIA [id number] [place] [address] [place] Hematocrit (Bld) [Volume fraction] 47.7 % Normal 39.0-51.0 [facility] Comment on above: Order Comment: Speci men Type: BLOOD SPECIMENOrdering Facility: [facility] Address: [address] [place] [address] Performed By: #### 5 7021-8 ####[facility] LABCLIA [id number] [place] [address] [place] Hemoglobin (Bld) [Mass/Vol] 16.0 g/dL Normal 13.0-17.0 [facility] Comment on above: Order Comment: Speci men Type: BLOOD SPECIMENOrdering Facility: [facility] Address: [address] [place] [address] Performed By: #### 5 7021-8 ####[facility]CLIA [id number] [place] [address] [place] Immature granulocytes (Bld) [#/Vol] 10*3/uL Normal <0.10 [facility] Comment on above: Order Comment: Speci men Type: BLOOD SPECIMENOrdering Facility: [facility] Address: [address] [place] [address] Performed By: #### 5 7021-8 ####[facility]CLIA [id number] [place] [address] [place] Immature granulocytes/100 WBC (Bld) 0.5 % Normal [facility] Comment on above: Order Comment: Speci men Type: BLOOD SPECIMENOrdering Facility: [facility] Address: [address] [place] [address] Performed By: #### 5 7021-8 ####[facility] LABCLIA [id number] [place] [address] [place] Lymphocytes (Bld) [#/Vol] 1.04 10*3/uL Normal 1.00-4.00 [facility] Comment on above: Order Comment: Speci men Type: BLOOD SPECIMENOrdering Facility: [facility] Address: [address] [place] [address] Performed By: #### 5 7021-8 ####[facility] LABCLIA [id number] [place] [address] [facility] [place] Lymphocytes/100 WBC (Bld) 26.5 % Normal [facility] Comment on above: Order Comment: Speci men Type: BLOOD SPECIMENOrdering Facility: [facility] Address: [address] [place] [address] Performed By: #### 5 7021-8 ####[facility] LABCLIA [id number] [place] [address] [place] MCH (RBC) [Entitic mass] 27.8 pg Normal 26.0-34.0 [facility] Comment on above: Order Comment: Speci men Type: BLOOD SPECIMENOrdering Facility: [facility] Address: [address] [place] [address] Performed By: #### 5 7021-8 ####[facility] LABCLIA [id number] [place] [address] [place] MCHC (RBC) [Mass/Vol] 33.5 g/dL Normal 30.5-36.0 [facility] Comment on above: Order Comment: Speci men Type: BLOOD SPECIMENOrdering Facility: [facility] Address: [address] [place] [address] Performed By: #### 5 7021-8 ####[facility] LABCLIA [id number] [place] [address] [place] MCV (RBC) [Entitic vol] 82.8 fL Normal 80.0-100.0 A [facility] Comment on above: Order Comment: Speci men Type: BLOOD SPECIMENOrdering Facility: [facility] Address: [address] [place] [address] Performed By: #### 5 7021-8 ####[facility] LABCLIA [id number] [place] [address] [place] Monocytes (Bld) [#/Vol] 0.42 10*3/uL Normal <0.87 [facility] Comment on above: Order Comment: Speci men Type: BLOOD SPECIMENOrdering Facility: [facility] Address: [address] [place] [address] Performed By: #### 5 7021-8 ####[facility] LABCLIA [id number] [place] [address] [place] Monocytes/100 WBC (Bld) 10.7 % Normal A [facility] Comment on above: Order Comment: Speci men Type: BLOOD SPECIMENOrdering Facility: [facility] Address: [address] [place] [address] Performed By: #### 5 7021-8 ####[facility] LABCLIA [id number] [place] [address] [place] Neutrophils (Bld) [#/Vol] 2.36 10*3/uL Normal 1.45-7.50 [facility] Comment on above: Order Comment: Speci men Type: BLOOD SPECIMENOrdering Facility: [facility] Address: [address] [place] [address] Performed By: #### 5 7021-8 ####[facility] LABCLIA [id number] [place] [address] [place] Neutrophils/100 WBC (Bld) 60.3 % Normal [facility] Comment on above: Order Comment: Speci men Type: BLOOD SPECIMENOrdering Facility: [facility] Address: [address] [place] [address] Performed By: #### 5 7021-8 ####[facility] LABCLIA [id number] [place] [address] [place] Nucleated RBC (Bld) [#/Vol] Normal [facility] Comment on above: Order Comment: Speci men Type: BLOOD SPECIMENOrdering Facility: [facility] Address: [address] [place] [address] Performed By: #### 5 7021-8 ####[facility] LABCLIA [id number] [place] [address] [place] Nucleated RBC/100 WBC (Bld) [Ratio] Normal [facility] Comment on above: Order Comment: Speci men Type: BLOOD SPECIMENOrdering Facility: [facility] Address: [address] [place] [address] Performed By: #### 5 7021-8 ####[facility] LABCLIA [id number] [place] [address] [place] Platelet mean volume (Bld) [Entitic vol] 8.1 fL Low 9.0-12.7 [facility] Comment on above: Order Comment: Speci men Type: BLOOD SPECIMENOrdering Facility: [facility] Address: [address] [place] [address] Performed By: #### 5 7021-8 ####[facility] LABCLIA [id number] [place] [address] [place] Platelets (Bld) [#/Vol] 141 10*3/uL Low 150-400 [facility] Comment on above: Order Comment: Speci men Type: BLOOD SPECIMENOrdering Facility: [facility] Address: [address] [place] [address] Performed By: #### 5 7021-8 ####[facility] LABCLIA [id number] [place] [address] [place] RBC (Bld) [#/Vol] 5.76 10*6/uL Normal 4.20-6.00 [facility] Comment on above: Order Comment: Speci men Type: BLOOD SPECIMENOrdering Facility: [facility] Address: [address] [place], [place] [address] Performed By: #### 5 7021-8 ####[facility] LABCLIA [id number] [place] [address] [place] WBC (Bld) [#/Vol] 3.92 10*3/uL Normal 3.70-11.00 [facility] Comment on above: Order Comment: Speci men Type: BLOOD SPECIMENOrdering Facility: [facility] Address: [address] [place], [place] [address] Performed By: #### 5 7021-8 ####[facility] LABCLIA [id number] [place] [address] [place] ABD/PEL W IVCONon 025 CT ABD/PEL W IVCON * * *Final Report* * * DATE OF EXAM: Jun 06 2024 1:05PM [facility] 0530 - CT ABD/PEL W IVCON / PROCEDURE REASON: Abdominal pain, acute, nonlocalized * * * * Physician Interpretation * * * * EXAMINATION: CT ABDOMEN AND PELVIS WITH IV CONTRAST CLINICAL HISTORY: Right-sided abdominal pain TECHNIQUE: CT of the abdomen and pelvis was performed using standard technique, scanning from just above the dome of the diaphragm to the symphysis pubis. MQ: CTAP_3 Contrast: IV: 100 ml of Omnipaque 350 CT Radiation dose: Integrated Dose-length product (DLP) for this visit = 2405 mGy*cm. CT Dose Reduction Employed: Automated exposure control (AEC) COMPARISON: 06/15/2019 RESULT: Liver: Hepatic steatosis. No mass. Biliary: No bile duct dilation. Cholelithiasis. Spleen: Stable splenomegaly measuring up to 15.5 cm. No mass. Pancreas: No mass or duct dilation. Adrenals: No mass. Kidneys: There are 3 small approximately 3 mm nonobstructing calculi lower pole left kidney. Subcentimeter hypodensity lateral mid left kidney is too small to characterize but unchanged and likely benign. No hydronephrosis. GI tract: No dilation or wall thickening. Normal appendix. Lymph nodes: No abdominal or pelvic lymphadenopathy. Mesentery/Peritoneum: No ascites or mass. Retroperitoneum: No mass. Vasculature: - Abdominal aorta and iliac arteries: No aneurysm. - Celiac and SMA: Patent without stenosis. - Portal venous system (SMV, splenic vein, portal vein and branches): Patent. - Hepatic veins: Patent. Pelvis: No mass, ascites or fluid collection. Bones/Soft Tissues: There has been prior ventral hernia repair with mesh. Lower thorax: Unremarkable. Localizer images: No additional findings. IMPRESSION: 1. Hepatic steatosis. 2. Cholelithiasis without CT evidence of acute cholecystitis. 3. Stable splenomegaly. 4. Left-sided nephrolithiasis. No hydronephrosis. 5. Normal appendix. Bee Breeder: PSCB Transcribe Date/Time: Jun 06 2024 1:11P Dictated by : TYREE HARMON MD This examination was interpreted and the report reviewed and electronically signed by: TYREE HARMON MD on Jun 06 2024 1:23PM EST [id number] Normal [facility] Comprehensive metabolic 2000 panelon 06-06-2024 Albumin [Mass/Vol] 4.4 g/dL Normal 3.9-4.9 [facility] Comment on above: Order Comment: Speci men Type: BLOOD SPECIMENOrdering Facility: [facility] Address: [address] [place] [address] Performed By: #### 2 4323-8, 3040-3 ####[facility] LABCLIA [id number] [place] [address] [place] ALP [Catalytic activity/Vol] 78 U/L Normal 38-113 [facility] Comment on above: Order Comment: Speci men Type: BLOOD SPECIMENOrdering Facility: [facility] Address: [address] [place] [address] Performed By: #### 2 4323-8, 3040-3 ####[facility] LABCLIA [id number] [place] [address] [place] ALT [Catalytic activity/Vol] 58 U/L High 10-54 [facility] Comment on above: Order Comment: Speci men Type: BLOOD SPECIMENOrdering Facility: [facility] Address: [address] [place] [address] Performed By: #### 2 4323-8, 0-3 ####[facility] LABCLIA [id number] [place] [address] [place] Anion gap [Moles/Vol] 8 mmol/L Normal 8-15 [facility] Comment on above: Order Comment: Speci men Type: BLOOD SPECIMENOrdering Facility: [facility] Address: [address] [place] [address] Performed By: #### 2 4323-8, 3039-3 ####[facility] LABCLIA [id number] [place] [address] [place] AST [Catalytic activity/Vol] 34 U/L Normal 14-40 [facility] Comment on above: Order Comment: Speci men Type: BLOOD SPECIMENOrdering Facility: [facility] Address: [address] [place] [address] Performed By: #### 2 43238, 3039-3 ####[facility] LABCLIA [id number] [place] [address] [place] Bilirubin [Mass/Vol] 0.9 mg/dL Normal 0.2-1.3 [facility] Comment on above: Order Comment: Speci men Type: BLOOD SPECIMENOrdering Facility: [facility] Address: [address] [place] [address] Result Comment: Use of this assay is not recommended for patients undergoing treatment with eltrombopag due to the potential for falsely elevated results. Performed By: #### 2 4323-8, 3039-3 ####[facility] LABCLIA [id number] [place] [address] [place] Calcium [Mass/Vol] 9.1 mg/dL Normal 8.5-10.2 [facility] Comment on above: Order Comment: Speci men Type: BLOOD SPECIMENOrdering Facility: [facility] Address: [facility] [place] [id number] Performed By: #### 2 4323-8, 3039-3 ####[facility] LABCLIA [id number] [place] [address] [place] Chloride [Moles/Vol] 106 mmol/L Normal 98-107 [facility] Comment on above: Order Comment: Speci men Type: BLOOD SPECIMENOrdering Facility: [facility] Address: [address] [place] [address] Performed By: #### 2 4323-8, 3040-3 ####[facility] LABCLIA [id number] [place] [address] [place] [facility] CO2 [Moles/Vol] 25 mmol/L Normal 22-30 [facility] Comment on above: Order Comment: Speci men Type: BLOOD SPECIMENOrdering Facility: [facility] Address: [address] [place] [address] Performed By: #### 2 4323-8, 3040-3 ####[facility] LABCLIA [id number] [place] [address] [facility] Creatinine [Mass/Vol] 0.92 mg/dL Normal 0.73-1.22 [facility] Comment on above: Order Comment: Speci men Type: BLOOD SPECIMENOrdering Facility: [facility] Address: [address] [place] [address] Result Comment: Use of this assay is not recommended for patients undergoing treatment with phenindione, due to the potential for falsely depressed results. Performed By: #### 2 4323-8, 3040-3 ####[facility] LABCLIA [id number] [place] [address] [facility] Creatinine and Glomerular filtration rate.predicted panel (S/P/Bld) 111 mL/min/1.73m??? Normal >=60 [facility] Comment on above: Order Comment: Speci men Type: BLOOD SPECIMENOrdering Facility: [facility] Address: [address] [place] [address] Result Comment: Maria A mated Glomerular Filtration Rate (eGFR) is calculated using the 2020 CKD-EPI creatinine equation. This equation utilizes serum creatinine, sex, and age as parameters. The creatinine assay has traceable calibration to isotope dilution-mass spectrometry. Refer to KDIGO guidelines for clinical interpretation. In patients with unstable renal function, e.g. those with acute kidney injury, the eGFR may not accurately reflect actual GFR. Performed By: #### 2 4323-8, 3039-3 ####[facility] LABCLIA [id number] [place] [address] [place] Glucose [Mass/Vol] 121 mg/dL High 74-99 [facility] Comment on above: Order Comment: Ayde byers Type: BLOOD SPECIMENOrdering Facility: [facility] Address: [address] [place] [address] Result Comment: The [place] Diabetes Association (ADA) provides guidance for cutoff values for fasting glucose and random glucose. The ADA defines fasting as no caloric intake for at least 8 hours. Fasting plasma glucose results between 100 to 125 mg/dL indicate increased risk for diabetes (prediabetes). Fasting plasma glucose results greater than or equal to 126 mg/dL meet the criteria for diagnosis of diabetes. In the absence of unequivocal hyperglycemia, results should be confirmed by repeat testing. In a patient with classic symptoms of hyperglycemia or hyperglycemic crisis, random plasma glucose results greater than or equal to 200 mg/dL meet the criteria for diagnosis of diabetes. Reference: Standards of Medical Care in Diabetes 2016, [place] Diabetes Association. Diabetes Care. 2016.39(Suppl 1). Performed By: #### 2 4323-8, 3 ####[facility] LABCLIA [id number] [place] [address] [place] Potassium [Moles/Vol] 4.0 mmol/L Normal 3.7-5.1 [facility] Comment on above: Order Comment: Ayde byers Type: BLOOD SPECIMENOrdering Facility: [facility] Address: [address] [place] [address] Performed By: #### 2 4323-8, 3039-3 ####[facility] LABCLIA [id number] [place] [address] [place] Protein [Mass/Vol] 7.1 g/dL Normal 6.3-8.0 [facility] Comment on above: Order Comment: Ayde byers Type: BLOOD SPECIMENOrdering Facility: [facility] Address: [address] [place], [place] [address] Performed By: #### 2 4323-8, 3040-3 ####[facility] LABCLIA [id number] [place] [address] [place] Sodium [Moles/Vol] 139 mmol/L Normal 136-144 [facility] Comment on above: Order Comment: Speci men Type: BLOOD SPECIMENOrdering Facility: [facility] Address: [address] [place] [address] Performed By: #### 2 4323-8, 3040-3 ####[facility] LABCLIA [id number] [place] [address] [place] Urea nitrogen [Mass/Vol] 11 mg/dL Normal 9-24 [facility] Comment on above: Order Comment: Speci men Type: BLOOD SPECIMENOrdering Facility: [facility] Address: [address] [place] [address] Performed By: #### 2 4323-8, 3040-3 ####[facility] LABCLIA [id number] [place] [address] [place] ED NOTEon 06-06-2024 ED NOTE HNO ID: [id number] Author: TORI ZAVALA RN Service: Emergency Medicine Author Type: Registered Nurse Type: ED Notes Filed: 06/06/2024 15:52 Note Text: Pt discharged from ED. Rn reviewed discharge, follow up instructions, and when to return to ED. Pt verbalizes understanding and denies any further questions or concerns. [facility] ED NOTE HNO ID: [id number] Author: TORI ZAVALA RN Service: Emergency Medicine Author Type: Registered Nurse Type: ED Notes Filed: 06/06/2024 14:36 Note Text: Pt provided with clemente namrata, crackers, and pretzels for PO challenge. [facility] ED NOTE HNO ID: [id number] Author: LENNIE HOWE RN Service: Nursing Author Type: Registered Nurse Type: ED Notes Filed: 06/06/2024 11:27 Note Text: Patient presents to the ED that started with N/V on Tuesday. He has had a fever and now progressed with diarrhea too. He c/o right sided abd pain. He was sent from [facility] and was tested for COVID19 and influenza, for which he is negative. Normal [facility] ED PROV NOTEon 06-06-2024 ED PROV NOTE HNO ID: [id number] Author: DENISA AMEZCUA MD Service: Emergency Medicine Author Type: Physician Type: ED Provider Notes Filed: 06/06/2024 16:06 Note Text: Attending Note I have personally performed a face to face assessment of the patient and have reviewed the SHANTELL note. I performed a substantive portion of the visit including all aspects of the following. My alatorre findings include: HPI: 38 year old MALE past medical history of C. difficile and gallstones presents for right upper quadrant pain. Said this feels different from C. difficile. He reports diarrhea he said his pain is worse with eating. Denies any shortness of breath no chest pain. Symptoms started on Tuesday when he ate Chipotle and was vomiting after that. Denies any recent antibiotics no recent travel. Vitals BP 139/96 Pulse (!) 92 Temp 36 ?C (96.8 ?F) (Temporal) Resp 18 Wt (!) 173.3 kg (382 lb) SpO2 99% BMI 43.03 kg/m? Gen NAD Calm verbal obese Neuro NCAT PERRLA no focal neuro deficits GARCÍA CVS RRR Pulm CTAB Abd Soft right upper quadrant tenderness without rebound or guarding negative Celeste sign ND +BS Ext no c/e Medical decision making: Vomiting diarrhea and abdominal pain. C. difficile history in 2019. I did a chart review. He was admitted for abdominal pain gallstones and had persistent diarrhea and had stool studies came back positive for C. difficile. Unclear with that etiology was. This time no recent antibiotics. Denisa Amezcua MD 12:45 PM June 06, 2024 Right upper quadrant pain he had a CT scan of the abdomen and pelvis and then we added on the right upper quadrant ultrasound that shows cholelithiasis without evidence of cholecystitis. Therefore biliary colic. Counseled the patient on diet changes. Outpatient surgery referral. DENISA AMEZCUA 06/06/24 1606 Normal [facility] ED PROV NOTE HNO ID: [id number] Author: DENISA AMEZCUA MD Service: Emergency Medicine Author Type: Physician Type: ED Provider Notes Filed: 06/09/2024 15:21 Note Text: ED Provider Note Patient Name: Malorie Foley : 1985 SERVICE DATE: 06/06/24 History Patient presents with: Nausea AND Vomiting Diarrhea Abdominal Pain Fever HPI 38-year-old presents for nausea vomiting diarrhea abdominal pain and fever. Went to the urgent care sent him over for further evaluation does have a history of C. difficile. Concern for the possibility of C. difficile has not been on any new antibiotics no recent travel. He did have chipotle few days ago. Ended up eating chicken noodle soup and since that time started having diarrhea symptoms. Denies any chest pain shortness of breath no other concerns. 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 Psoriasis 06/16/2012 on top of head and face PAST SURGICAL HISTORY Procedure Laterality Date HERNIA REPAIR HX x2 (abdominal) FAMILY HISTORY Problem Relation Age of Onset Hypertension Maternal Grandmother Macular Degen Maternal Grandmother DVT Maternal Grandmother Hypertension Maternal Grandfather Macular Degen Maternal Grandfather Cancer Maternal Grandfather Cataract Paternal Grandmother Diabetes Paternal Grandmother Hypertension Paternal Grandmother Diabetes Paternal Grandfather Hypertension Paternal Grandfather Cancer Paternal Grandfather Strabismus Brother Social History Tobacco Use Smoking status: Never Smokeless tobacco: Never Vaping Use Vaping status: Never Used Substance and Sexual Activity Alcohol use: Yes Comment: 3x yearly Drug use: Never Sexual activity: Yes ALLERGIES Allergen Reactions Adhesive Tape (Rea* Unknown Review of Systems Physical Exam Vitals [06/06/24 1127] BP Pulse Temp Temp src Resp SpO2 Weight Height 132/90 (!) 95 36 ?C (96.8 ?F) Temporal 16 98 % (!) 173.3 kg (382 lb) -- Physical Exam Vitals and nursing note reviewed. Constitutional: General: He is not in acute distress. Appearance: He is normal weight. He is not ill-appearing or toxic-appearing. HENT: Head: Normocephalic. Nose: Nose normal. Mouth/Throat: Mouth: Mucous membranes are moist. Eyes: Pupils: Pupils are equal, round, and reactive to light. Cardiovascular: Rate and Rhythm: Normal rate and regular rhythm. Heart sounds: Normal heart sounds. Pulmonary: Effort: Pulmonary effort is normal. No respiratory distress. Breath sounds: No wheezing, rhonchi or rales. Abdominal: General: Abdomen is flat. Bowel sounds are normal. There is no distension. Palpations: Abdomen is soft. There is no mass. Tenderness: There is abdominal tenderness in the right upper quadrant, epigastric area and periumbilical area. There is no guarding or rebound. Negative signs include Celeste's sign and McBurney's sign. Musculoskeletal: General: No deformity. Normal range of motion. Cervical back: Normal range of motion. No rigidity or tenderness. Skin: General: Skin is warm and dry. Capillary Refill: Capillary refill takes less than 2 seconds. Neurological: General: No focal deficit present. Mental Status: He is alert and oriented to person, place, and time. Cranial Nerves: No cranial nerve deficit. Psychiatric: Mood and Affect: Mood normal. Diagnostic Testing ED Labs Ordered and Reviewed - No data to display Procedures ED Course / Clinical Impression ED Course as of 06/07/24 0949 Trip Rangel's Documentation TueJun 06, 2024 1542 Passed po challenge no bowel movements follow up with surgery return for worsening symptoms. Others' Documentation TueJun 06, 2024 1243 Saw patient. RUQ ttp. Hx gallstones. Labs mild elev ast. Plan for CT then maybe RUQ US [MS] 1359 CT ABD/PEL W IVCON gallstones [MS] 1415 US ABD RIGHT UPPER QUADRANT gallstones [MS] ED Course User Index [MS] Denisa Amezcua MD Clinical Impressions as of 06/07/24 0949 Fatty liver Calculus of gallbladder without cholecystitis without obstruction Generalized abdominal pain Nausea vomiting and diarrhea MDM / Disposition / Plan Differential Diagnoses - biliary colic is more likely for the following reason(s): cholelithiasis noted, consistent with imaging - gastroenteritis - pancreatitis is less likely for the following reason(s): lacking evidence on imaging and blood work, no evidence on imaging and laboratory studies not suggestive - cholecystitis is less likely for the following reason(s): not evident on imaging, no evidence on imaging - colitis is less likely for the following reason(s): no evidence on imaging and laboratory studies not suggestive - obstruction is less likely for the following reason(s): no evidence on imaging Management Radiology Reports US ABD RIGHT UPPER QUADRANT Final Result IMPRESSION: 1. Cholelithiasis without so (more content not included)... Normal [facility] Lipase SerPl-cCncon 06-06-19 25 Lipase [Catalytic activity/Vol] 7 U/L Low 16-61 [facility] Comment on above: Order Comment: Speci men Type: BLOOD SPECIMENOrdering Facility: [facility] Address: [facility] [place] [address] Performed By: #### 2 4323-8, 3040-3 ####[facility] LABCLIA [id number] [place] [address] [facility] Office Visiton 06-06-2024 Follow-up visit [id number] Nikolas Foley rt 1985 M Date Provider Department Center 06/06/2024 [id number] MAJANO [facility] None Family History Problem Relation Age of Onset Lung cancer Maternal Grandfather Cancer Paternal Grandmother Family Status - Relation Status Age at Mother Father Alive Brother Alive Maternal Grandmother Maternal Grandfather Paternal Grandmother Paternal Grandfather Daughter Alive Level of Service:35172 SD OFFICE/OUTPATIENT ESTABLISHED MDM 10 MIN Reason for Visit and Comments: URI [115] - Fever Tuesday night /vomiting Tuesday /diarrhea since Tuesday night not been able to eat anything Normal [facility] Progress Noteon 06-06-2024 Progress Note Subjective: Patient: Malorie Foley is a 38 y.o. male Patient presents urgent care today with concerns for decreased appetite, fatigue, fever, chills, abdominal pain, nausea, vomiting, diarrhea, headaches x 4 days. Patient states he ate Chipotle on Tuesday and then began getting sick. Patient states family ate chipotle as well and nobody else at home is sick. Patient declines any recent antibiotic use or recent out of the country travel. Patient declines any blood in stool or emesis. Patient complaining of central and right upper quadrant abdominal pain 6 out of 10 and cramping. Patient states symptoms are worse after eating. Patient vital signs within normal limits. Patient is able to speak in full complete sentences today in office and manage secretions appropriately. Patient is not in acute distress. Review of Systems Constitutional: Positive for appetite change, fatigue and fever. Negative for chills. HENT: Negative for congestion, ear discharge, ear pain, rhinorrhea, sinus pressure, sinus pain, sore throat and trouble swallowing. Respiratory: Negative for cough, choking, shortness of breath and wheezing. Cardiovascular: Negative for chest pain and palpitations. Gastrointestinal: Positive for abdominal pain, diarrhea, nausea and vomiting. Negative for abdominal distention and blood in stool. Neurological: Positive for headaches. Negative for dizziness, syncope, weakness and light-headedness. Allergies Allergen Reactions Adhesive [Tape] Hives and Rash No Plastic tape -Removes his skin Wound Dressing Adhesive Current Outpatient Medications on File Prior to Visit Medication Sig Dispense Refill ibuprofen 600 MG tablet TAKE 1 TABLET EVERY 6 HOURS NEEDED FOR MILD TO MODERATE DISCOMFORT OR SWELLING metFORMIN (Glucophage) 500 MG tablet Take 2 tablets by mouth 2 times daily. OneTouch Ultra Test test strip 1 (ONE) STRIP DAILY EVERY MORNING, TEST BLOOD SUGAR EVERY MORNING VIA FINGERSTICK fluticasone (Flonase) 50 MCG/ACT nasal spray Administer 1 spray into each nostril daily for 14 days. Shake gently. Before first use, prime pump. After use, clean tip and replace cap. 16 mL 0 No current facility-administered medications on file prior to visit. Past Medical History: Diagnosis Date Hx of Clostridium difficile infection Social History Tobacco Use Smoking status: Never Passive exposure: Never Smokeless tobacco: Never Substance Use Topics Alcohol use: Yes Objective: BP 121/88 Pulse 92 Temp 36.6 ?C (97.9 ?F) Resp 18 Ht 6' 5" (1.956 m) Wt (!) 392 lb (178 kg) SpO2 97% BMI 46.48 kg/m? Physical Exam Vitals and nursing note reviewed. Constitutional: General: He is awake. He is not in acute distress. Appearance: Normal appearance. He is normal weight. He is not ill-appearing or toxic-appearing. Cardiovascular: Rate and Rhythm: Normal rate and regular rhythm. Pulmonary: Effort: Pulmonary effort is normal. Breath sounds: Normal breath sounds. Abdominal: General: Abdomen is flat. Bowel sounds are normal. There is no distension. Palpations: Abdomen is soft. There is no mass. Tenderness: There is abdominal tenderness in the right upper quadrant and epigastric area. There is no guarding or rebound. Negative signs include Celeste's sign, Rovsing's sign, McBurney's sign, psoas sign and obturator sign. Hernia: No hernia is present. Musculoskeletal: General: Normal range of motion. Skin: General: Skin is warm and dry. Neurological: General: No focal deficit present. Mental Status: He is alert and oriented to person, place, and time. Mental status is at baseline. Psychiatric: Mood and Affect: Mood normal. Behavior: Behavior normal. Behavior is cooperative. Thought Content: Thought content normal. Judgment: Judgment normal. Assessment 1. Nausea and vomiting, unspecified vomiting type 2. Viral gastroenteritis Plan Diagnoses and all orders for this visit: Nausea and vomiting, unspecified vomiting type - AMB POC COVID-19 COV - AMB POC RAPID INFLUENZA DNA/RNA Viral gastroenteritis Due to patient symptoms and clinical evaluation of COVID influenza test was performed in office. COVID and influenza test negative. Educated patient that due to right upper quadrant pain and not able to keep any foods or liquids down over the past 4 days I believe patient would be better evaluated in the emergency room. Educated patient differentials include viral gastroenteritis versus norovirus force cholecystitis first appendicitis. Patient states they will proceed to [facility]. Patient would like to drive private vehicle which I believe is reasonable and appropriate at this time as patient is not in acute distress. I educated patient to side puller and call 911 if symptoms worsen in route to the ER. Patient understands and agreeable to treatment plan. Rio Majano NP 06/06/24 11:27 AM If symptoms do not improve, worsen, or new sym (more content not included)... Normal [facility] Progress Note Patient/Parent consented to all provider testing [facility] US ABD RIGHT UPPER QUADRANTo n 06-06-2024 US ABD RIGHT UPPER QUADRANT * * *Final Report* * * DATE OF EXAM: Jun 06 2024 1:53PM AWU 1032 - US ABD RIGHT UPPER QUADRANT / PROCEDURE REASON: Abn liver function tests (LFTs) * * * * Physician Interpretation * * * * EXAMINATION: RIGHT UPPER QUADRANT ULTRASOUND CLINICAL HISTORY: Abnormal liver function tests TECHNIQUE: Sonography of the right upper quadrant was performed. Images were obtained and stored in a permanent archive. MQ: [id number] COMPARISON: CT abdomen/pelvis 06/06/2024 RESULT: Pancreas: Normal sonographic appearance. Portions obscured: tail Liver: Echotexture: Normal, homogeneous. Echogenicity: Increased Surface contour: Smooth Lesions: None. Biliary: No intrahepatic biliary duct dilation. CBD: 0.6 cm at the hilum. Gallbladder: Normal caliber -Contents: Cholelithiasis -Wall: Normal -Other: No pericholecystic fluid. Right Kidney: No hydronephrosis. Ascites: None. IMPRESSION: 1. Cholelithiasis without sonographic evidence of acute cholecystitis. No biliary dilation. 2. Hepatic steatosis. Bee Breeder: PSCPTS Physicians Transcribe Date/Time: Jun 06 2024 2:00P Dictated by : TYREE HARMON MD This examination was interpreted and the report reviewed and electronically signed by: TYREE HARMON MD on Jun 06 2024 2:05PM EST [id number] Normal [facility] Urinalysis complete panel (U )on 06-06-2024 Bilirubin Ql (U) Negative Normal Negative [facility] Comment on above: Order Comment: Speci men Type: URINE SPECIMENOrdering Facility: [facility] Address: [address] [place] [address] Performed By: #### 2 4356-8 ####[facility] LABCLIA [id number] [place] [address] [place] Clarity (Unsp spec) Clear Normal Clear [facility] Comment on above: Order Comment: Speci men Type: URINE SPECIMENOrdering Facility: [facility] Address: [address] [place] [address] Performed By: #### 2 4356-8 ####[facility] LABCLIA [id number] [place] [address] [place] Color (U) Yellow Normal Yellow [facility] Comment on above: Order Comment: Speci men Type: URINE SPECIMENOrdering Facility: [facility] Address: [address] [place] [address] Performed By: #### 2 4356-8 ####[facility] LABCLIA [id number] [place] [address] [place] Epithelial cells LM.HPF (Urine sed) [#/Area] Moderate Normal [facility] Comment on above: Order Comment: Speci men Type: URINE SPECIMENOrdering Facility: [facility] Address: [address] [place] [address] Performed By: #### 2 4356-8 ####[facility] LABCLIA [id number] [place] [address] [place] Glucose Test strip (U) [Mass/Vol] Negative Normal Negative [facility] Comment on above: Order Comment: Speci men Type: URINE SPECIMENOrdering Facility: [facility] Address: [address] [place] [address] Performed By: #### 2 4356-8 ####[facility] LABCLIA [id number] [place] [address] [place] Hemoglobin Ql (U) Negative Normal Negative [facility] Comment on above: Order Comment: Speci men Type: URINE SPECIMENOrdering Facility: [facility] Address: [address] [place] [address] Performed By: #### 2 4356-8 ####[facility] LABCLIA [id number] [place] [address] [place] Ketones Ql (U) Negative Normal Negative [facility] Comment on above: Order Comment: Speci men Type: URINE SPECIMENOrdering Facility: [facility] Address: [address] [place] [address] Performed By: #### 2 4356-8 ####[facility] LABCLIA [id number] [place] [address] [place] Leukocyte esterase Test strip Ql (U) Trace Abnormal Negative [facility] Comment on above: Order Comment: Speci men Type: URINE SPECIMENOrdering Facility: [facility] Address: [address] [place] [address] Performed By: #### 2 4356-8 ####[facility] LABCLIA [id number] [place] [address] [place] Nitrite Ql (U) Negative Normal Negative [facility] Comment on above: Order Comment: Speci men Type: URINE SPECIMENOrdering Facility: [facility] Address: [address] [place] [address] Performed By: #### 2 4356-8 ####[facility] LABCLIA [id number] [place] [address] [place] pH (U) 6.0 [pH] Normal 5.0-8.0 [facility] Comment on above: Order Comment: Speci men Type: URINE SPECIMENOrdering Facility: [facility] Address: [address] [place] [address] Performed By: #### 2 4356-8 ####[facility] LABCLIA [id number] [place] [address] [place] Protein (U) [Mass/Vol] Trace Abnormal Negative [facility] Comment on above: Order Comment: Speci men Type: URINE SPECIMENOrdering Facility: [facility] Address: [address] [place] [address] Performed By: #### 2 4356-8 ####[facility] LABCLIA [id number] [place] [address] [place] RBC LM.HPF (Urine sed) [#/Area] 3-5 /HPF Abnormal 0-3 /HPF [facility] Comment on above: Order Comment: Speci men Type: URINE SPECIMENOrdering Facility: [facility] Address: [address] [place] [address] Performed By: #### 2 4356-8 ####[facility] LABCLIA [id number] [place] [address] [place] Specific gravity (U) [Rel density] >=1.030 High 1.005-1.030 [facility] Comment on above: Order Comment: Speci men Type: URINE SPECIMENOrdering Facility: [facility] Address: [address] [place] [address] Performed By: #### 2 4356-8 ####[facility] LABCLIA [id number] [place] [address] [facility] Urobilinogen Ql (U) 1.0 EU/dL Normal 0.2-1.0 EU/dL [facility] Comment on above: Order Comment: Speci men Type: URINE SPECIMENOrdering Facility: [facility] Address: [address] [place] [address] Performed By: #### 2 4356-8 ####[facility] LABCLIA [id number] [place] [id number] [facility] WBC LM.HPF (Urine sed) [#/Area] 6-10 /HPF Abnormal 0-5 /HPF [facility] Comment on above: Order Comment: Speci men Type: URINE SPECIMENOrdering Facility: [facility] Address: [address] [place] [address] Performed By: #### 2 4356-8 ####[facility] LABCLIA [id number] [place] [address] [facility] ED NOTEon 10-13-2023 ED NOTE HNO ID: [id number] Author: SARAH DAO, DARLEEN Service: Emergency Medicine Author Type: Registered Nurse Type: ED Notes Filed: 10/13/2023 17:58 Note Text: Discharge and follow up instructions given. Return precautions reviewed. Patient verbalized understanding. Patient denies need for wc. Patient ambulated out of the ER at this time in no distress. Normal [facility] ED PROV NOTEon 10-13-2023 ED PROV NOTE HNO ID: [id number] Author: KADEN SON PA-C Service: Emergency Medicine Author Type: Physician Chief Unit Forester Type: ED Provider Notes Filed: 10/13/2023 18:00 Note Text: ED Provider Note Patient Name: Malorie Foley : 1985 SERVICE DATE: 10/13/23 History Patient presents with: Abscess Cellulitis: Patient ambulatory to triage with complaints of abscess on upper back for 9 days. Concerns for bug bite. Endorses green drainage. Denies fevers chills nausea vomiting Patient is a 37-year-old male with history of diabetes coming in today with concerns for wound to his back which he first noticed a little over a week ago. Denies known bite. Patient states he did scratch/pick it and since then developed a scab with a small amount of redness around it. He had his significant other tried to squeeze it and she was able to express some green discharge from it. He denies any fever, chills, nausea, vomiting. He overall feels well. States he went to urgent care who directed him here for concerns with brown recluse bite. 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 Psoriasis 06/16/2012 on top of head and face PAST SURGICAL HISTORY Procedure Laterality Date HERNIA REPAIR HX x2 (abdominal) FAMILY HISTORY Problem Relation Age of Onset Hypertension Maternal Grandmother Macular Degen Maternal Grandmother DVT Maternal Grandmother Hypertension Maternal Grandfather Macular Degen Maternal Grandfather Cancer Maternal Grandfather Cataract Paternal Grandmother Diabetes Paternal Grandmother Hypertension Paternal Grandmother Diabetes Paternal Grandfather Hypertension Paternal Grandfather Cancer Paternal Grandfather Strabismus Brother Social History Tobacco Use Smoking status: Never Smokeless tobacco: Never Vaping Use Vaping Use: Never used Substance and Sexual Activity Alcohol use: Yes Comment: 3x yearly Drug use: Never Sexual activity: Yes ALLERGIES Allergen Reactions Adhesive Tape (Rea* Unknown Review of Systems Constitutional: Negative for appetite change, chills, fatigue and fever. HENT: Negative. Eyes: Negative. Respiratory: Negative for shortness of breath. Cardiovascular: Negative for chest pain. Gastrointestinal: Negative for nausea and vomiting. Endocrine: Negative. Genitourinary: Negative. Musculoskeletal: Negative for arthralgias and myalgias. Skin: Positive for wound. Negative for color change and pallor. Allergic/Immunologic: Negative for immunocompromised state. Neurological: Negative for weakness and numbness. Hematological: Does not bruise/bleed easily. Psychiatric/Behavioral: Negative for agitation and confusion. The patient is not nervous/anxious. Physical Exam Vitals [10/13/23 1703] BP Pulse Temp Temp src Resp SpO2 Weight Height 152/94 86 36.4 ?C (97.6 ?F) -- 16 98 % (!) 169.6 kg (374 lb) -- Physical Exam Vitals and nursing note reviewed. Constitutional: General: He is not in acute distress. Appearance: Normal appearance. He is not ill-appearing or diaphoretic. HENT: Head: Normocephalic and atraumatic. Eyes: Extraocular Movements: Extraocular movements intact. Pupils: Pupils are equal, round, and reactive to light. Cardiovascular: Rate and Rhythm: Normal rate and regular rhythm. Pulmonary: Effort: Pulmonary effort is normal. No respiratory distress. Breath sounds: Normal breath sounds. No wheezing or rhonchi. Skin: General: Skin is warm and dry. Capillary Refill: Capillary refill takes less than 2 seconds. Neurological: General: No focal deficit present. Mental Status: He is alert and oriented to person, place, and time. Psychiatric: Mood and Affect: Mood normal. Behavior: Behavior normal. Diagnostic Testing ED Labs Ordered and Reviewed - No data to display Procedures ED Course / Clinical Impression Clinical Impressions as of 10/13/23 1748 Cellulitis of back except buttock MDM / Disposition / Plan Vital signs, triage records and medical records were reviewed. Nursing notes were reviewed and incorporated. ED Course: Pt presents with concerns for wound to his upper back. Upon arrival, patient's vital signs are stable. He is afebrile. He is ambulatory. On exam, he is well-appearing in no acute distress. Heart with regular rate and rhythm. Lungs clear to auscultation bilaterally. Skin exam reveals a wound to the upper back. There is no fluctuance or active drainage. I do not see any indications of abscess to warrant incision and drainage. There is no necrosis. There is no streaking or crepitus to suggest lymphangitis or necrotizing fasciitis. There is small amount of surrounding erythema consistent with probable cellulitis. Donot see any signs or symptoms concerning for brown recluse bite. He has no systemic symptoms. There is no ulceration or necrosis noted to the wound. We will start doxycycline as well as Keflex. F (more content not included)... Normal [facility] Absolute lymphocyte countOrd ered By: Rupesh Obando on 04-28-2023 Lymphocytes Auto (Unsp spec) [#/Vol] 1.50 10*3/uL 0.83-4.51 [facility] Basophil percentageOrdered B y: Rupesh De Leonconstanza on 04-28-2023 Basophils/100 WBC (Bld) 0.6 % 0-1 [facility] Bilirubin [Mass/Vol] 0.80 mg/dL 0.20-1.00 [facility] Comment on above: For patients on eltr ombopag therapy, use of Dimension [place] TBIL is not recommended. Chloride [Moles/Vol] 108 mmol/L 98-107 [facility] Eosinophils/100 WBC (Bld) 2.3 % 0-5 [facility] Glucose [Mass/Vol] 106 mg/dL 74-106 [facility] Comment on above: Fasting Glucose resu lt from 100 to 125 mg/dL suggests IMPAIRED HOMEOSTASIS per A.D.A. criteria. Neutrophils (Bld) [#/Vol] 4.4 10*3/uL 2.0-7.7 [facility] Neutrophils/100 WBC (Bld) 67.7 % 47-70 [facility] Potassium [Moles/Vol] 4.1 mmol/L 3.5-5.1 [facility] Protein [Mass/Vol] 7.5 g/dL 6.4-8.2 [facility] Sodium [Moles/Vol] 138 mmol/L 136-145 [facility] WBC (Bld) [#/Vol] 6.4 10*3/uL 4.4-11.0 [facility] Blood erythrocytes count (nu mber/volume)Ordered By: Rupesh Obando on 04-28-2023 RBC (Bld) [#/Vol] 5.96 10*6/uL 4.6-6.2 [facility] Blood hemoglobin measurement (mass/volume)Ordered By: Rupesh Obando on 04-28-2023 Hemoglobin (Bld) [Mass/Vol] 15.9 g/dL 13.0-16.5 [facility] Blood lymphocytes/100 leukoc ytesOrdered By: Rupesh Obando on 04-28-2023 Lymphocytes/100 WBC (Bld) 23.3 % 19-41 [facility] Blood monocytes/100 leukocyt esOrdered By: Rupesh Obando on 04-28-2023 Monocytes/100 WBC (Bld) 5.6 % 0-10 [facility] Blood platelet mean volumeOr dered By: Rupesh Obando on 04-28-2023 Platelet mean volume (Bld) [Entitic vol] 9.2 fL 6.2-12.0 [facility] Determination of erythrocyte mean corpuscular volume (MCV)Ordered By: Rupesh Obando on 04-28-2023 MCV (RBC) [Entitic vol] 84.1 fL 80-94 [facility] Hematocrit Auto (Bld) [Volum e fraction]Ordered By: Rupesh Obando on 04-28-2023 Hematocrit (Bld) [Volume fraction] 50.1 % 40-54 [facility] - Chemistry and C hemistry - challengeOrdered By: Rupesh Obando on 04-28-2023 ALP [Catalytic activity/Vol] 85 U/L 45-117 [facility] ALT [Catalytic activity/Vol] 60 U/L 16-61 [facility] CO2 [Moles/Vol] 25.0 mmol/L 21.0-32.0 [facility] Globulin (S) [Mass/Vol] 3.7 g/dL 2.2-4.2 [facility] Urea nitrogen/Creatinine [Mass ratio] 16.8 mg/mg 10-20 [facility] - Hematology and Cell countsOrdered By: Rupesh Obando on 04-28-2023 Erythrocyte distribution width (RBC) [Entitic vol] 38.4 fL 35.1-43.9 [facility] Erythrocyte distribution width (RBC) [Ratio] 12.6 % 11.6-14.6 [facility] Immature granulocytes/100 WBC (Bld) 0.500 % 0.0-0.9 [facility] Comment on above: IG% - Immature Granu locytes (promyelocytes, myelocytes and metamyelocytes) > 1% indicates that a LEFT SHIFT is Present. MCH (RBC) [Entitic mass] 26.7 pg 27.0-32.0 [facility] Nucleated RBC/100 WBC (Bld) [Ratio] 0 % 0-5 [facility] MCHC Auto (RBC) [Mass/Vol]Or dered By: Rupesh Obando on 04-28-2023 MCHC (RBC) [Mass/Vol] 31.7 g/dL 32-36 [facility] No Panel InformationOrdered By: Rupesh Obando on 04-28-2023 Estimated GFR (MDRD) Amer 147 mL/min >60 [facility] Comment on above: GFR Calc Estimated GFR (MDRD) Non-Af Amer 122 mL/min >60 [facility] Comment on above: Non- GFR Calc Urine Microalbumin/Creatinine Ratio 8.4 mg/g CRE <30 [facility] Platelets bldOrdered By: Johnny Obando on 04-28-2023 Platelets (Bld) [#/Vol] 213 10*3/uL 150-450 [facility] Serum or plasma albumin tamara urement (mass/volume)Ordered By: Rupesh Obando on 04-28-2023 Albumin [Mass/Vol] 3.8 g/dL 3.2-5.0 [facility] Serum or plasma albumin/glob ulin mass ratioOrdered By: Rupesh Obando on 04-28-2023 Albumin/Globulin [Mass ratio] 1.0 {ratio} 0.9-2.4 [facility] Serum or plasma calcium tamara urement (mass/volume)Ordered By: Rupesh Obando on 04-28-2023 Calcium [Mass/Vol] 8.9 mg/dL 8.5-10.1 [facility] Serum or plasma creatinine m easurement (mass/volume)Ordered By: Rupesh Obando on 04-28-2023 Creatinine [Mass/Vol] 0.77 mg/dL 0.70-1.30 [facility] Comment on above: The validity of the calculated GFR & GFRAA in patients over 70 years has not been determined. Clinical correlation is essential. Serum or plasma urea nitroge n measurement (mass/volume)Ordered By: Rupesh Obando on 04-28-2023 Urea nitrogen [Mass/Vol] 13 mg/dL 7-18 [facility] Thin prep Papanicolaou smear with manual screeningOrdered By: Rupesh Obando on 04-28-2023 Thin prep Papanicolaou smear with manual screening 26 U/L 15-37 [facility] Thin prep Papanicolaou smear with manual screening 5 5-15 [facility] Thin prep Papanicolaou smear with manual screening 8.9 mg/L NO RANGE EST. [facility] Urine creatinine measurement (mass/volume)Ordered By: Rupesh Obando on 04-28-2023 Creatinine (U) [Mass/Vol] 105.00 mg/dL NO RANGE EST. [facility] Whole blood hemoglobin A1c/t otal hemoglobin ratio (mass fraction)Ordered By: Rupesh Obando on 04-28-2023 HbA1c (Bld) [Mass fraction] 6.0 % 3.8-5.6 [facility] Comment on above: Normal < 5.7 % Predi abetic 5.7 - 6.4 % Diabetic >or= 6.5 % Please note range changes. Absolute lymphocyte countOrd ered By: Rupesh Obando on 01-21-2023 Lymphocytes Auto (Unsp spec) [#/Vol] 1.87 10*3/uL 0.83-4.51 [facility] Basophil percentageOrdered B y: Rupesh Obando on 01-21-2023 Basophil percentage 25-50 SEEN /hpf 0-5 [facility] Basophils/100 WBC (Bld) 0.4 % 0-1 [facility] Bilirubin [Mass/Vol] 0.90 mg/dL 0.20-1.00 [facility] Comment on above: For patients on eltr ombopag therapy, use of Dimension [place] TBIL is not recommended. Chloride [Moles/Vol] 107 mmol/L 98-107 [facility] Cholesterol [Mass/Vol] 130 mg/dL <200 [facility] Comment on above: <200 mg/dL Desirable 200-240 mg/dL Borderline >240 mg/dL High Risk Eosinophils/100 WBC (Bld) 1.6 % 0-5 [facility] Glucose [Mass/Vol] 133 mg/dL 74-106 [facility] Comment on above: Fasting Glucose resu lt greater than or equal to 126 mg/dL suggests DIABETES MELLITUS per A.D.A. criteria. Neutrophils (Bld) [#/Vol] 4.4 10*3/uL 2.0-7.7 [facility] Neutrophils/100 WBC (Bld) 65.1 % 47-70 [facility] Potassium [Moles/Vol] 3.7 mmol/L 3.5-5.1 [facility] Protein [Mass/Vol] 7.1 g/dL 6.4-8.2 [facility] Sodium [Moles/Vol] 138 mmol/L 136-145 [facility] Triglyceride [Mass/Vol] 124 mg/dL <199 [facility] Comment on above: The drugs N-Acetylcy steine and Metamizole may falsely depress this assay.Serum Triglycerides Reference Interval Normal <150 mg/dL Borderline high 150 - 199 mg/dL High 200 - 499 mg/dL Very High > or = 500 mg/dL WBC (Bld) [#/Vol] 6.8 10*3/uL 4.4-11.0 [facility] Bilirubin Test strip Ql (U)O rdered By: Rupesh Obando on 01-21-2023 Bilirubin Ql (U) Negative Negative [facility] Blood erythrocytes count (nu mber/volume)Ordered By: Rupesh Obando on 01-21-2023 RBC (Bld) [#/Vol] 5.38 10*6/uL 4.6-6.2 [facility] Blood hemoglobin measurement (mass/volume)Ordered By: Rupesh Obando on 01-21-2023 Hemoglobin (Bld) [Mass/Vol] 14.8 g/dL 13.0-16.5 [facility] Blood lymphocytes/100 leukoc ytesOrdered By: Rupesh Obando on 01-21-2023 Lymphocytes/100 WBC (Bld) 27.5 % 19-41 [facility] Blood monocytes/100 leukocyt esOrdered By: Rupesh Obando on 01-21-2023 Monocytes/100 WBC (Bld) 5.0 % 0-10 [facility] Blood platelet mean volumeOr dered By: Rupesh Obando on 01-21-2023 Platelet mean volume (Bld) [Entitic vol] 9.2 fL 6.2-12.0 [facility] Determination of erythrocyte mean corpuscular volume (MCV)Ordered By: Rupesh Obando on 01-21-2023 MCV (RBC) [Entitic vol] 83.5 fL 80-94 [facility] Hematocrit Auto (Bld) [Volum e fraction]Ordered By: Rupesh Obando on 01-21-2023 Hematocrit (Bld) [Volume fraction] 44.9 % 40-54 [facility] Ketones Test strip Ql (U)Ord ered By: Rupesh Obando on 01-21-2023 Ketones Ql (U) 5 mg/dl Negative [facility] - Chemistry and C hemistry - challengeOrdered By: Rupesh Obando on 01-21-2023 ALP [Catalytic activity/Vol] 109 U/L 45-117 [facility] ALT [Catalytic activity/Vol] 90 U/L 16-61 [facility] CO2 [Moles/Vol] 27.0 mmol/L 21.0-32.0 [facility] Cobalamin (Vitamin B12) [Mass/Vol] 654 pg/mL 211-911 [facility] Globulin (S) [Mass/Vol] 3.3 g/dL 2.2-4.2 [facility] Magnesium [Mass/Vol] 2.4 mg/dL 1.6-2.6 [facility] Urea nitrogen/Creatinine [Mass ratio] 13.5 mg/mg 10-20 [facility] - Hematology and Cell countsOrdered By: Rupesh Obando on 01-21-2023 Erythrocyte distribution width (RBC) [Entitic vol] 37.7 fL 35.1-43.9 [facility] Erythrocyte distribution width (RBC) [Ratio] 12.6 % 11.6-14.6 [facility] Immature granulocytes/100 WBC (Bld) 0.400 % 0.0-0.9 [facility] Comment on above: IG% - Immature Granu locytes (promyelocytes, myelocytes and metamyelocytes) > 1% indicates that a LEFT SHIFT is Present. MCH (RBC) [Entitic mass] 27.5 pg 27.0-32.0 [facility] Nucleated RBC/100 WBC (Bld) [Ratio] 0 % 0-5 [facility] MCHC Auto (RBC) [Mass/Vol]Or dered By: Rupesh Obando on 01-21-2023 MCHC (RBC) [Mass/Vol] 33.0 g/dL 32-36 [facility] Mucus LM Ql (Urine sed)Order ed By: Rupesh Obando on 01-21-2023 Mucus Ql (Urine sed) RARE /hpf [facility] Nitrite Test strip Ql (U)Ord ered By: Rupesh Obando on 01-21-2023 Nitrite Ql (U) Negative Negative [facility] No Panel InformationOrdered By: Rupesh Obando on 01-21-2023 Estimated GFR (MDRD) Amer 125 mL/min >60 [facility] Comment on above: GFR Calc Estimated GFR (MDRD) Non-Af Amer 103 mL/min >60 [facility] Comment on above: Non- GFR Calc Thyroid Stimulating Hormone (TSH) 1.59 uIU/mL 0.358-3.74 [facility] Vitamin B6 Level 4.3 ug/L 3.4-65.2 [facility] Comment on above: Deficiency: <3.4 Mar ginal: 3.4 - 5.1 Adequate: >5.1 Whole Blood Vitamin B1 Level 147.3 nmol/L 66.5-200.0 [facility] Comment on above: Performed at: - [facility] [address] [id number] Director: Amanda Gonzales MD, Phone: [phone] Platelets bldOrdered By: Johnny Obando on 01-21-2023 Platelets (Bld) [#/Vol] 185 10*3/uL 150-450 [facility] Protein Test strip Ql (U)Ord ered By: Rupesh Obando on 01-21-2023 Protein Ql (U) Negative Negative [facility] Serum or plasma albumin tamara urement (mass/volume)Ordered By: Rupesh Obando on 01-21-2023 Albumin [Mass/Vol] 3.8 g/dL 3.2-5.0 [facility] Serum or plasma albumin/glob ulin mass ratioOrdered By: Rupesh Obando on 01-21-2023 Albumin/Globulin [Mass ratio] 1.2 {ratio} 0.9-2.4 [facility] Serum or plasma calcium tamara urement (mass/volume)Ordered By: Rupesh Obando on 01-21-2023 Calcium [Mass/Vol] 8.8 mg/dL 8.5-10.1 [facility] Serum or plasma cholesterol in HDL measurement (mass/volume)Ordered By: Rupesh Obando on 01-21-2023 Cholesterol in HDL [Mass/Vol] 36 mg/dL >40 [facility] Comment on above: The drugs N-Acetylcy steine and Metamizole may falsely depress this assay. Reference Range HDL <40 mg/dL Low HDL Cholesterol HDL >or= 60 mg/dL High HDL Cholesterol Serum or plasma cholesterol in VLDL measurement (mass/volume)Ordered By: Rupesh Obando on 01-21-2023 Cholesterol in VLDL [Mass/Vol] 25 mg/dL 5-40 [facility] Serum or plasma creatinine m easurement (mass/volume)Ordered By: Rupesh Obando on 01-21-2023 Creatinine [Mass/Vol] 0.89 mg/dL 0.70-1.30 [facility] Comment on above: The validity of the calculated GFR & GFRAA in patients over 70 years has not been determined. Clinical correlation is essential. Serum or plasma low density lipoprotein (LDL) cholesterol measurement (mass/volume)Ordered By: Rupesh Obando on 01-21-2023 Cholesterol in LDL [Mass/Vol] 69 mg/dL 0-130 [facility] Serum or plasma urea nitroge n measurement (mass/volume)Ordered By: Rupesh Obando on 01-21-2023 Urea nitrogen [Mass/Vol] 12 mg/dL 7-18 [facility] Squamous epithelial cells de tection in urine sediment by light microscopyOrdered By: Rupesh Obando on 01-21-2023 Epithelial cells.squamous LM Ql (Urine sed) 0 SEEN /hpf 0-5 [facility] Thin prep Papanicolaou smear with manual screeningOrdered By: Rupesh Obando on 01-21-2023 Thin prep Papanicolaou smear with manual screening 36 U/L 15-37 [facility] Thin prep Papanicolaou smear with manual screening 4 5-15 [facility] Urine blood detectionOrdered By: Rupesh Obando on 01-21-2023 RBC Ql (U) Negative Negative [facility] RBC Ql (U) 0-5 SEEN /hpf 0-5 [facility] Urine clarityOrdered By: Johnny Obando on 01-21-2023 Clarity (U) Sl. Cloudy Clear [facility] Urine color determinationOrd ered By: Rupesh Obando on 01-21-2023 Color (U) Yellow Yellow [facility] Urine glucose detectionOrder ed By: Rupesh Obando on 01-21-2023 Glucose Ql (U) Normal mg/dl Normal [facility] Urine leukocyte esterase det ection by dipstickOrdered By: Rupesh Obando on 01-21-2023 Leukocyte esterase Test strip Ql (U) 100 /ul Negative [facility] Urine pHOrdered By: Rupesh apodaca on 01-21-2023 pH (U) 5.0 [pH] 5.0 - 8.0 [facility] Urine sediment bacteria coun t by microscopy (number/high power field)Ordered By: Rupesh Obando on 01-21-2023 Bacteria LM.HPF (Urine sed) [#/Area] RARE /hpf None Seen [facility] Urine specific gravity measu rementOrdered By: Rupesh Obando on 01-21-2023 Specific gravity (U) [Rel density] 1.025 1.002-1.030 [facility] Urobilinogen Auto test strip Ql (U)Ordered By: Rupesh Obando on 01-21-2023 Urobilinogen Ql (U) Normal mg/dl Normal [facility] Whole blood hemoglobin A1c/t otal hemoglobin ratio (mass fraction)Ordered By: Rupesh Obando on 01-21-2023 HbA1c (Bld) [Mass fraction] 7.3 % 3.8-5.6 [facility] Comment on above: Normal < 5.7 % Predi abetic 5.7 - 6.4 % Diabetic >or= 6.5 % Please note range changes. AMB POC RAPID STREP AOrdered By: Holly Vásquez on 12-14-2022 S. pyogenes Ag Ql (Throat) Negative Negative, None Detected [facility] AMB POC RAPID STREP Aon 05-0 Interpretation and review of laboratory results Normal [facility] S. pyogenes Ag Ql (Throat) Negative Negative, None Detected [facility] CT ABD/PEL W IVCONon 020 CT ABD/PEL W IVCON * * *Final Report* * * DATE OF EXAM: Jun 15 2019 7:30PM [facility] 0530 - CT ABD/PEL W IVCON / PROCEDURE REASON: Abd pain, unspecified * * * * Physician Interpretation * * * * EXAM TITLE:CT ABD/PEL W IVCON DATE:06/15/2019 COMPARISON: Right upper quadrant ultrasound performed earlier today, prior CT abdomen and pelvis dated 02/24/2011 CLINICAL INDICATION/HISTORY: Right upper quadrant pain and diarrhea. TECHNIQUE: CT examination of the abdomen and pelvis performed with IV contrast. Sagittal and coronal reconstruction images were generated. CT Radiation dose: Integrated Dose-length product (DLP) for this visit = 3032 mGy*cm. CT Dose Reduction Employed: Automated exposure control (AEC) IV contrast: 150 mL Omnipaque 300 FINDINGS: ABDOMINAL FINDINGS: Minor regions of linear scarring or atelectasis at the lung bases. Moderate fatty infiltration of the liver. Biliary ductal dilatation. As seen on the ultrasound examination, there are multiple layering gallstones within the dependent gallbladder. The spleen is enlarged, extending over a craniocaudal length of 15.5 cm. Normal pancreas. The adrenal glands appear normal as does the right kidney. There is a couple of tiny calculi at the left lower pole in addition to a nonspecific 4 mm hypodensity at the lateral mid kidney on axial image 60 of series 2. The appendix is normal. There is no bowel dilatation or wall thickening. The abdominal vasculature is patent. There are small lymph nodes along the gastrohepatic ligament and peripancreatic regions. Numerous small retroperitoneal nodes are unchanged. There are also numerous small mesenteric nodes identified, most pronounced within the right lower quadrant. Here, there is also very slight fat stranding and the findings could be indicative of mesenteric adenitis. No acute bony abnormality. PELVIC FINDINGS: No pelvic mass, free fluid or lymphadenopathy. There are a couple of small nonspecific pelvic nodes. No acute bony abnormality. IMPRESSION: 1. Very minimal fat stranding with adjacent small nodes are present within the right lower quadrant as can be seen with a mild mesenteric adenitis. 2. Cholelithiasis without findings of acute cholecystitis. 3. Fatty liver. 4. Splenomegaly. 5. There are a couple of tiny left lower pole renal calculi in addition to a nonspecific 4 mm hypodensity at the mid kidney. Bee Breeder: [facility] Transcribe Date/Time: Jun 15 2019 7:55P Dictated by : JUSTICE CLEMENTE MD This examination was interpreted and the report reviewed and electronically signed by: JUSTICE CLEMENTE MD on Jun 15 2019 8:10PM EST Normal [facility] Comprehensive Panelon 2019 Albumin [Mass/Vol] 3.7 g/dL Normal 3.4-5.0 [facility] Comment on above: Performed By: #### M P14 #### [address] [address] ALP [Catalytic activity/Vol] 69 U/L Normal 46-116 [facility] Comment on above: Performed By: #### M P14 #### [facility] [address] [place] [address] ALT-SGPT Blood 53 U/L Normal 12-78 [facility] Comment on above: Performed By: #### M P14 #### [facility] [address] [place] [address] Anion gap [Moles/Vol] 16 mmol/L Normal 8-16 [facility] Comment on above: Performed By: #### M P14 #### [facility] [address] [place] [address] AST-SGOT Blood 23 U/L Normal 15-46 [facility] Comment on above: Performed By: #### M P14 #### [facility] [address] [place] [address] Bilirubin Ql (U) 0.7 mg/dL Normal 0.2-1.0 [facility] Comment on above: Performed By: #### M P14 #### [place] [address] Calcium [Mass/Vol] 8.9 mg/dL Normal 8.5-10.1 [facility] Comment on above: Performed By: #### M P14 #### [facility] [address] [place] [address] Chloride [Moles/Vol] 104 mmol/L Normal 98-107 [facility] Comment on above: Performed By: #### M P14 #### [place] [address] CO2 Blood 28 mEq/L Normal 21-32 [facility] Comment on above: Performed By: #### M P14 #### [facility] [address] [place] [address] Creatinine [Mass/Vol] 0.93 mg/dL Normal 0.67-1.17 [facility] Comment on above: Result Comment: Use of this assay is not recommended for patients undergoing treatment with phenindione, due to the potential for falsely depressed results. Performed By: #### M P14 #### [place] [address] Glucose [Mass/Vol] 96 mg/dL Normal 70-99 [facility] Comment on above: Performed By: #### M P14 #### [facility] [address] [place] [address] Potassium [Moles/Vol] 3.6 mmol/L Normal 3.5-5.1 [facility] Comment on above: Performed By: #### M P14 #### [facility] [address] [place] [address] Protein [Mass/Vol] 7.3 g/dL Normal 6.4-8.2 [facility] Comment on above: Performed By: #### M P14 #### [facility] [address] [place] [address] Sodium [Moles/Vol] 144 mmol/L Normal 136-145 [facility] Comment on above: Performed By: #### M P14 #### [place] [address] Urea nitrogen [Mass/Vol] 12 mg/dL Normal 7-18 [facility] Comment on above: Performed By: #### M P14 #### [facility] [address] [place] [address] Hemogram/Diffon 06-15-2019 Abs. Baso 0.02 thou/cmm Normal 0.00-0.08 [facility] Comment on above: Performed By: #### N CBCD #### [place] [address] Abs. Dimmit 0.55 thou/cmm Normal 0.19-0.80 [facility] Comment on above: Performed By: #### N CBCD #### [place] [address] Abs. Neut (ANC) 6.79 thou/cmm Normal 1.35-7.21 [facility] Comment on above: Performed By: #### N CBCD #### [place] [address] Basophils/100 WBC (Bld) 0.2 % Normal [facility] Comment on above: Performed By: #### N CBCD #### [place] [address] Eosinophils (Bld) [#/Vol] 0.12 thou/cmm Normal 0.00-0.36 [facility] Comment on above: Performed By: #### N CBCD #### [facility] [address] [place], [place] [address] Eosinophils/100 WBC (Bld) 1.4 % Normal [facility] Comment on above: Performed By: #### N CBCD #### [facility] [address] [place] [address] Erythrocyte distribution width (RBC) [Ratio] 13.4 % Normal 11.8-14.5 [facility] Comment on above: Performed By: #### N CBCD #### [facility] [address] [place] [address] Hematocrit (Bld) [Volume fraction] 46.1 % Normal 39.6-50.7 [facility] Comment on above: Performed By: #### N CBCD #### [place] [address] Hemoglobin (Bld) [Mass/Vol] 15.7 g/dL Normal 13.2-17.4 [facility] Comment on above: Performed By: #### N CBCD #### [place] [address] Lymphocytes (Bld) [#/Vol] 1.39 thou/cmm Normal 0.68-2.93 [facility] Comment on above: Performed By: #### N CBCD #### [place] [address] Lymphocytes/100 WBC (Bld) 15.6 % Normal [facility] Comment on above: Performed By: #### N CBCD #### [place] [address] MCH (RBC) [Entitic mass] 27.8 pg Normal 27.4-32.8 [facility] Comment on above: Performed By: #### N CBCD #### [place] [address] MCHC (RBC) [Mass/Vol] 34.1 % Normal 31.9-35.6 [facility] Comment on above: Performed By: #### N CBCD #### [facility] [address] [place] [address] MCV (RBC) [Entitic vol] 81.7 fL Low 81.8-95.6 [facility] Comment on above: Performed By: #### N CBCD #### [facility] [address] [place] [address] Monocytes/100 WBC (Bld) 6.2 % Normal A [facility] Comment on above: Performed By: #### N CBCD #### [facility] [address] [place] [address] Platelet mean volume (Bld) [Entitic vol] 8.6 fL Low 8.8-12.1 [facility] Comment on above: Performed By: #### N CBCD #### [place] [address] Platelets (Bld) [#/Vol] 246 thou/cmm Normal 150-370 [facility] Comment on above: Performed By: #### N CBCD #### [place] [address] RBC (Bld) [#/Vol] 5.64 mil/cmm Normal 4.22-5.80 [facility] Comment on above: Performed By: #### N CBCD #### [place] [address] Seg Neutrophil 76.6 % Normal [facility] Comment on above: Performed By: #### N CBCD #### [place] [address] WBC (Bld) [#/Vol] 8.9 thou/cmm Normal 4.4-9.7 [facility] Comment on above: Performed By: #### N CBCD #### [place] [address] Lipase Bloodon 06-15-2019 Lipase Blood 59 U/L Low 73-393 [facility] Comment on above: Performed By: #### M FLU #### [place] [id number] MDRD eGFRon 06-15-2019 GFR/1.73 sq M predicted among non-blacks MDRD (S/P/Bld) [Vol rate/Area] mL/min/{1.73_m2} Normal >60mL/min/1. 73m2 [facility] Comment on above: Result Comment: If t he patient is , multiply the result by 1.210. Performed By: #### M GFR #### [facility] [address] [place], [place] [address] US ABD RIGHT UPPER QUADRANTo n 06-15-2019 US ABD RIGHT UPPER QUADRANT * * *Final Report* * * DATE OF EXAM: Jun 15 2019 6:02PM AWU 1032 - US ABD RIGHT UPPER QUADRANT / PROCEDURE REASON: RUQ abdominal pain * * * * Physician Interpretation * * * * EXAMINATION: RIGHT UPPER QUADRANT ULTRASOUND CLINICAL HISTORY: Abdominal pain, vomiting TECHNIQUE: Sonography of the right upper quadrant was performed. Images were obtained and stored in a permanent archive. MQ: URUQ_2 COMPARISON: None. RESULT: Pancreas: Obscured by bowel gas. Portions obscured: Entire pancreas Liver: Echotexture: Normal, homogeneous. Echogenicity: Increased and difficult to penetrate. Surface contour: Smooth. The liver appears enlarged, measuring approximately 28 x 17 cm. Lesions: None. Biliary: No intrahepatic biliary duct dilation. CBD: 0.5 cm at the hilum. Gallbladder: Numerous shadowing layering gallstones. No sonographic Celeste sign, although the patient is medicated. No bladder wall thickening. Right Kidney: No hydronephrosis. Ascites: None. IMPRESSION: 1. Cholelithiasis. 2. Enlarged, fatty infiltrated liver is difficult to penetrate. 3. Nonvisualization of the pancreas. Bee Breeder: [facility] Transcribe Date/Time: Jun 15 2019 6:15P Dictated by : JUSTICE CLEMENTE MD This examination was interpreted and the report reviewed and electronically signed by: JUSTICE CLEMENTE MD on Jun 15 2019 6:17PM EST Normal [facility] Urinalysis Routineon 020 Appearance (U) CLEAR Normal [facility] Comment on above: Performed By: #### M FLU #### [facility] [address] [place] [address] Color (U) YELLOW Normal [facility] Comment on above: Performed By: #### M FLU #### [facility] [address] [place] [address] Ep Cells Urine 2-5 Normal 0-5 [facility] Comment on above: Performed By: #### M FLU #### [place] [address] RBC LM.HPF (Urine sed) [#/Area] 0-3 Normal 0-3 [facility] Comment on above: Performed By: #### M FLU #### [facility] [address] [place] [address] WBC LM.HPF (Urine sed) [#/Area] 2-5 Normal 0-5 [facility] Comment on above: Performed By: #### M FLU #### [place] [address] Bilirubin Urine Negative Normal Negative [facility] Comment on above: Performed By: #### M FLU #### [place] [address] Glucose Ql (U) Negative Normal Negative [facility] Comment on above: Performed By: #### M FLU #### [place] [address] Hemoglobin,Urine Negative Normal Negative [facility] Comment on above: Performed By: #### M FLU #### [place] [address] Ketone Urine 40 mg/dL Abnormal Negative [facility] Comment on above: Performed By: #### M FLU #### [place] [address] Leukocytes Esterase Negative Normal Negative [facility] Comment on above: Performed By: #### M FLU #### [place] [address] Nitrites Urine Negative Normal Negative [facility] Comment on above: Performed By: #### M FLU #### [place] [address] pH (U) 5.0 [pH] Normal 5.0-8.0 [facility] Comment on above: Performed By: #### M FLU #### [facility] [address] [place] [address] Protein (U) [Mass/Vol] Negative Normal Negative [facility] Comment on above: Performed By: #### M FLU #### [facility] [address] [place] [address] Specific [place], Ur >=1.030 Normal 1.005-1.030 [facility] Comment on above: Performed By: #### M FLU #### [facility] [address] [place] [address] Urobilinogen,Ur 0.2 EU/dL Normal 0.2-1.0 [facility] Comment on above: Performed By: #### M FLU #### [place] [address] Comprehensive Panelon 2019 Albumin [Mass/Vol] 3.8 g/dL Normal 3.4-5.0 [facility] Comment on above: Performed By: #### M P14 #### [place] [address] ALP [Catalytic activity/Vol] 80 U/L Normal 46-116 [facility] Comment on above: Performed By: #### M P14 #### [place] [address] ALT-SGPT Blood 45 U/L Normal 12-78 [facility] Comment on above: Performed By: #### M P14 #### [place] [address] Anion gap [Moles/Vol] 16 mmol/L Normal 8-16 [facility] Comment on above: Performed By: #### M P14 #### [place] [address] AST-SGOT Blood 19 U/L Normal 15-46 [facility] Comment on above: Performed By: #### M P14 #### [place] [address] Bilirubin Ql (U) 0.7 mg/dL Normal 0.2-1.0 [facility] Comment on above: Performed By: #### M P14 #### [facility] [address] [place], [place] [address] Calcium [Mass/Vol] 8.9 mg/dL Normal 8.5-10.1 [facility] Comment on above: Performed By: #### M P14 #### [facility] [address] [place], [place] [address] Chloride [Moles/Vol] 105 mmol/L Normal 98-107 [facility] Comment on above: Performed By: #### M P14 #### [facility] [address] [place], [place] [address] CO2 Blood 24 mEq/L Normal 21-32 [facility] Comment on above: Performed By: #### M P14 #### [facility] [address] [place] [address] Creatinine [Mass/Vol] 0.90 mg/dL Normal 0.67-1.17 [facility] Comment on above: Result Comment: Use of this assay is not recommended for patients undergoing treatment with phenindione, due to the potential for falsely depressed results. Performed By: #### M P14 #### [facility] [address] [place] [address] Glucose [Mass/Vol] 148 mg/dL High 70-99 [facility] Comment on above: Performed By: #### M P14 #### [facility] [address] [place], [place] [address] Potassium [Moles/Vol] 4.0 mmol/L Normal 3.5-5.1 [facility] Comment on above: Performed By: #### M P14 #### [facility] [address] [place], [place] [address] Protein [Mass/Vol] 7.5 g/dL Normal 6.4-8.2 [facility] Comment on above: Performed By: #### M P14 #### [facility] [address] [place] [address] Sodium [Moles/Vol] 141 mmol/L Normal 136-145 [facility] Comment on above: Performed By: #### M P14 #### [facility] [address] [place] [address] Urea nitrogen [Mass/Vol] 14 mg/dL Normal 7-18 [facility] Comment on above: Performed By: #### M P14 #### [facility] [address] [place] [address] Hemogram/Diffon 06-01-2019 Abs. Baso 0.03 thou/cmm Normal 0.00-0.08 [facility] Comment on above: Performed By: #### N CBCD #### [facility] [address] [place] [address] Abs. Dimmit 0.66 thou/cmm Normal 0.19-0.80 [facility] Comment on above: Performed By: #### N CBCD #### [place] [address] Abs. Neut (ANC) 8.73 thou/cmm High 1.35-7.21 [facility] Comment on above: Performed By: #### N CBCD #### [place] [address] Basophils/100 WBC (Bld) 0.3 % Normal [facility] Comment on above: Performed By: #### N CBCD #### [place] [address] Eosinophils (Bld) [#/Vol] 0.12 thou/cmm Normal 0.00-0.36 [facility] Comment on above: Performed By: #### N CBCD #### [place] [address] Eosinophils/100 WBC (Bld) 1.1 % Normal [facility] Comment on above: Performed By: #### N CBCD #### [place] [address] Erythrocyte distribution width (RBC) [Ratio] 13.2 % Normal 11.8-14.5 [facility] Comment on above: Performed By: #### N CBCD #### [place] [address] Hematocrit (Bld) [Volume fraction] 45.5 % Normal 39.6-50.7 [facility] Comment on above: Performed By: #### N CBCD #### [facility] [address] [place] [address] Hemoglobin (Bld) [Mass/Vol] 15.8 g/dL Normal 13.2-17.4 [facility] Comment on above: Performed By: #### N CBCD #### [facility] [address] [place] [address] Lymphocytes (Bld) [#/Vol] 1.33 thou/cmm Normal 0.68-2.93 [facility] Comment on above: Performed By: #### N CBCD #### [place] [address] Lymphocytes/100 WBC (Bld) 12.2 % Normal [facility] Comment on above: Performed By: #### N CBCD #### [place] [address] MCH (RBC) [Entitic mass] 27.6 pg Normal 27.4-32.8 [facility] Comment on above: Performed By: #### N CBCD #### [place] [address] MCHC (RBC) [Mass/Vol] 34.7 % Normal 31.9-35.6 [facility] Comment on above: Performed By: #### N CBCD #### [place] [address] MCV (RBC) [Entitic vol] 79.5 fL Low 81.8-95.6 [facility] Comment on above: Performed By: #### N CBCD #### [place] [address] Monocytes/100 WBC (Bld) 6.1 % Normal [facility] Comment on above: Performed By: #### N CBCD #### [place] [address] Platelet mean volume (Bld) [Entitic vol] 8.4 fL Low 8.8-12.1 [facility] Comment on above: Performed By: #### N CBCD #### [facility] [address] [place] [address] Platelets (Bld) [#/Vol] 240 thou/cmm Normal 150-370 [facility] Comment on above: Performed By: #### N CBCD #### [facility] [address] [place] [address] RBC (Bld) [#/Vol] 5.72 mil/cmm Normal 4.22-5.80 [facility] Comment on above: Performed By: #### N CBCD #### [place] [address] Seg Neutrophil 80.3 % Normal [facility] Comment on above: Performed By: #### N CBCD #### [place] [address] WBC (Bld) [#/Vol] 10.9 thou/cmm High 4.4-9.7 [facility] Comment on above: Performed By: #### N CBCD #### [place] [address] Lipase Bloodon 06-01-2019 Lipase Blood 67 U/L Low 73-393 [facility] Comment on above: Performed By: #### M LIP #### [place] [address] MDRD eGFRon 06-01-2019 GFR/1.73 sq M predicted among non-blacks MDRD (S/P/Bld) [Vol rate/Area] mL/min/{1.73_m2} Normal >60mL/min/1. 73m2 [facility] Comment on above: Result Comment: If t he patient is , multiply the result by 1.210. Performed By: #### M GFR #### [place] [address] Influenza A and B by PCRon 0 05-24-2019 Influenza A by PCR Negative Normal Negative [facility] Comment on above: Performed By: #### M FLU #### [place] [address] Influenza B by PCR Negative Normal Negative [facility] Comment on above: Performed By: #### M FLU #### [facility] [address] [place], [place] [address] Strep A by PCRon 05-24-2019 Strep A by PCR Negative Normal Negative [facility] Comment on above: Performed By: #### M SPCR #### [facility] [address] [place], [place] [address] [facility] Admit Date: 11/05/16 /Age: 07 1985//M ED Physician: Ryder Garcia DO Med Rec #: [id number] - Physician AddendumAddendum:Diagno sis acute left otalgia 11/20/16 [id number]: 11/20/16 0023T: 11/20/16 0023Addendum ID# 2 AD DENDUMAddendum- Physician AddendumAddendum:This correction is to address medical records voice recognition software errorover the last weekthe patient has had right ear pressureThis dictation was generated by voicerecTeachable. Although all attempts are made to edit the dictation for accuracy,there may be errorsin the immunochemist that are not intended. 11/20/16 [id number]: 11/20/16 0022T: 11/20/16 0022Addendum ID# 1 Hi story Of Present Illness- GeneralGeneral Complaints: EarsTime Seen by Provider: 11/05/16 12:46HPI:Last week the patient is felt the right ear without vertigo or severe pain. Hefeels pressure inthe ear. He presents questioning the possibility of room and impaction. He'shad this before andhas been told he he's had ear infections. There's been no trauma and ortinnitus or dizzinessPast Medical HistoryPrevious Medical History: NoPast Surgical History: YesPast Surgical History: Hernia RepairAllergiesNo Known Allergies Allergy (Verified 11/05/16 12:23)Home MedicationsNK [NK] 11/05/16- Psychosocial HistoryHx Alcohol Use: Yes - rarelyHx Substance Use: NoSmoking Status: Never smokerFeels Threatened In Home Enviroment: NoFeels Threatened In a Relationship: NoFall Risk: NoHx Physical Abuse: No- Vaccination HistoryImmunizations Up to Date: YesReview Of SystemsAll Other Systems: Other - Limited review obtainConstitutional: Reports: No Symptoms ReportedEENT: Reports: See HPIRespiratory: Reports: No Symptoms ReportedCardiac (ROS): Reports: No Symptoms ReportedMusculoskeletal : Reports: No Symptoms ReportedSkin: Reports: No Symptoms ReportedNeurological/Ps ych: Reports: No Symptoms ReportedPhysical ExamGeneral Appearance: Yes:: No Acute Distress, AlertENT: Yes:: Other - is right middle ear effusion with mild tympanic erythema.Canal itself is clearof infection or cerumen or trauma. No adenopathy notedNeck: Yes:: Normal InspectionSkin: Color Normal, No RashDepartureInitial Vital SignsTemp Pulse Resp BP Pulse Ox 97 F L 68 16 145/107 98 11/05/16 12:20 11/05/16 12:20 11/05/16 12:20 11/05/16 12:20 11/05/16 12:20Last Set of Vital SignsTemp Pulse Resp BP Pulse Ox 97 F L 68 16 145/107 98 11/05/16 12:20 11/05/16 12:20 11/05/16 12:20 11/05/16 12:20 11/05/16 12:20Impression:I did discuss the patient's condition. Amoxicillin was prescribed to cover forinfection althoughalso discussed eustachian tube dysfunction. I did advise outpatient followupwith primary care.[facility] referral given. Return if worse in any way.Disposition: HOME/SELF CARE ROUTINECondition: Stable 11/05/16 [id number]: 11/05/16 1322T: 11/05/16 1322Job #: [id number]: Normal [facility] Vital Signs Date Time Vital Sign Value Performing Clinician Faci lity 07-13-2024 15:02-0400 Body temperature 97.9 [degF] Patricia Peters YESSI Work Phone: [facility] 06-21-2024 13:25-0500 Body height 198.1 cm Pacc 2 Work Phone: [facility] 06-21-2024 13:25-0500 Body mass index (BMI) [Ratio] 44.95 kg/m2 Pacc 2 Work Phone: [facility] 06-21-2024 13:25-0500 Body weight 176.45 kg Pacc 2 Work Phone: [facility] 06-21-2024 13:25-0500 Heart rate 92 /min Pacc 2 Work Phone: [facility] 06-21-2024 13:25-0500 Respiratory rate 18 /min Pacc 2 Work Phone: [facility] 06-19-2024 15:33-0500 Body height 198.1 cm Kadeem Shah MD Work Phone: [facility] 06-19-2024 15:33-0500 Body mass index (BMI) [Ratio] 45 kg/m2 Kadeem Shah MD Work Phone: [facility] 06-19-2024 15:33-0500 Body temperature 97 [degF] Kadeem Shah MD Work Phone: [facility] 06-19-2024 15:33-0500 Body weight 176.63 kg Kadeem Shah MD Work Phone: [facility] 06-19-2024 15:33-0500 Diastolic blood pressure 84 mm[Hg] Kadeem Shah MD Work Phone: [facility] 06-19-2024 15:33-0500 Heart rate 113 /min Kadeem Shah MD Work Phone: [facility] 06-19-2024 15:33-0500 SaO2% (BldA) [Mass fraction] 97 % Kadeem Shah MD Work Phone: [facility] 06-19-2024 15:33-0500 Systolic blood pressure 130 mm[Hg] Kadeem Shah MD Work Phone: [facility] 06-06-2024 10:23-0500 Diastolic blood pressure 88 mm[Hg] Rio Majano [employer] Work Phone: [employer] 06-06-2024 10:23-0500 Heart rate 92 /min Rio Majano [employer]IAN Work Phone: [employer] 06-06-2024 10:23-0500 Systolic blood pressure 121 mm[Hg] Rio Majano [employer] LIBRARIAN Work Phone: [employer] 06-06-2024 10:16-0500 Body height 195.6 cm Rio Majano [employer] LIBRARIAN Work Phone: [employer] 06-06-2024 10:16-0500 Body mass index (BMI) [Ratio] 46.48 kg/m2 Rio Majano [employer]ARIAN Work Phone: [employer] 06-06-2024 10:16-0500 Body temperature 97.9 [degF] Rio Majano [employer]RARIAN Work Phone: [employer] 06-06-2024 10:16-0500 Body weight 177.81 kg Rio Majano [employer]ARIAN Work Phone: [employer] 06-06-2024 10:16-0500 Respiratory rate 18 /min Rio Majano [employer] Work Phone: [employer] 06-06-2024 10:16-0500 SaO2% (BldA) [Mass fraction] 97 % Rio Majano [employer] Work Phone: [employer] 12-14-2022 11:19-0400 Body height 195.6 cm Agnesestrella Cuadra DO Work Phone: [employer] 12-14-2022 11:19-0400 Body mass index (BMI) [Ratio] 46.48 kg/m2 Agnes Cuadra DO Work Phone: [employer] 12-14-2022 11:19-0400 Body temperature 97.81 [degF] Agnes Cuadra DO Work Phone: [employer] 12-14-2022 11:19-0400 Body weight 177.81 kg Agnes Cuadra DO Work Phone: [employer] 12-14-2022 11:19-0400 Diastolic blood pressure 88 mm[Hg] Agnes Cuadra DO Work Phone: [employer] 12-14-2022 11:19-0400 Heart rate 107 /min Agnes Cuadra DO Work Phone: [employer] 12-14-2022 11:19-0400 SaO2% (BldA) [Mass fraction] 98 % Agnes Cuadra DO Work Phone: [employer] 12-14-2022 11:19-0400 Systolic blood pressure 129 mm[Hg] Agnes Cuadra DO Work Phone: [employer] 08-24-2022 14:18-0400 Body height 190.5 cm Agnes Cuadra DO Work Phone: [employer] 08-24-2022 14:18-0400 Body temperature 98.1 [degF] Agnes Cuadra DO Work Phone: [employer] 08-24-2022 14:18-0400 Diastolic blood pressure 87 mm[Hg] Agnes Cuadra DO Work Phone: [employer] 08-24-2022 14:18-0400 Heart rate 102 /min Agnes Cuadra DO Work Phone: [employer] 08-24-2022 14:18-0400 Respiratory rate 18 /min Agnes Cuadra DO Work Phone: [employer] 08-24-2022 14:18-0400 SaO2% (BldA) [Mass fraction] 98 % Agnes Cuadra DO Work Phone: [employer] 08-24-2022 14:18-0400 Systolic blood pressure 145 mm[Hg] Agnes Cuadra DO Work Phone: [facility] [employer] Encounters Encounter Date Encounter Type Care Provider Facility Start: 08-10-2024 End: 08-10-[address] Rupesh Obando MD Work Phone: [facility] Work Phone: Start: 08-10-2024 End: 08-10-[address] Rupesh Obando MD -Laboratory, [facility] Start: 08-10-2024 End: 08-10-2024 ambulatory Rupesh Obando Facility:[facility] Start: 08-07-2024 Non-patient / Non-visit Dr. Tyrese bermudez MD -[facility] Start: 08-07-2024 End: 08-07-[address] Rupesh Obando MD Work Phone: [facility] Work Phone: Start: 08-07-2024 End: 08-07-[address] Rupesh Obando MD -Cardiovascular Services Work Phone: Start: 08-07-2024 End: 08-07-2024 ambulatory Rupesh Obando Facility:[facility] Start: 07-27-2024 End: 07-28-2024 Emergency department patient visit RUPESH OBANDO Facility:[facility] Start: 07-13-2024 End: 07-13-2024 ambulatory PATRICIA PETERS Facility:[facility] Start: 07-13-2024 End: 07-13-2024 Patient encounter procedure Patricia Peters VOCAL MUSIC INSTRUCTOR.CONDUIT REAMER OPERATOR Work Phone: General Surgery Comment on above: Calculus of gallblad jose with cholecystitis without biliary obstruction, unspecified cholecystitis acuity (Primary Dx) Start: 06-29-2024 End: 06-29-2024 ambulatory KADEEM SHAH Facility:[facility] Start: 06-27-2024 End: 06-28-2024 Telephone encounter Kadeem Shah MD Work Phone: General Surgery Comment on above: FMLA Paperwork Start: 06-22-2024 End: 06-22-2024 ambulatory RUPESH OBANDO Facility:[facility] Start: 06-22-2024 Encounter for other preprocedural examination RUPESH [facility] Start: 06-21-2024 End: 06-21-2024 Admission to establishment [facility] [place] [employer] Work Phone: Pre Anesthesia Start: 06-21-2024 End: 06-21-[address] [facility] [place] [employer] Work Phone: Pre Anesthesia Comment on above: Pre-op evaluation (P rimary Dx); Gastroesophageal reflux disease, unspecified whether esophagitis present; Fatty liver; History of asthma; Type 2 diabetes mellitus without complication, without long-term current use of insulin (HCC); Obesity, Class III, BMI >= 40; Sarcoidosis Start: 06-21-2024 End: 06-21-2024 Evaluation and management of inpatient KADEEM SHAH Facility:[facility] Start: 06-21-2024 End: 06-21-[address] [facility] Work Phone: [facility] Start: 06-20-2024 End: 07-18-2024 Telephone encounter Kadeem Shah MD Work Phone: General Surgery Comment on above: 06-29-2024 Lap Genny Start: 06-19-2024 End: 06-19-2024 ambulatory KADEEM SHAH Facility:[facility] Start: 06-19-2024 End: 06-19-2024 Patient encounter procedure Kadeem Shah MD Work Phone: General Surgery Comment on above: Calculus of gallblad jose with cholecystitis without biliary obstruction, unspecified cholecystitis acuity (Primary Dx) Start: 06-12-2024 End: 06-12-[address] Rupesh Obando MD -Laboratory, [facility] Start: 06-12-2024 End: 06-12-2024 ambulatory Rupesh Obando Facility:[facility] Start: 06-06-2024 End: 06-06-2024 Emergency department patient visit RUPESH OBADNO Facility:[facility] Start: 06-06-2024 End: 06-06-2024 Office outpatient visit 10 minutes Rio Majano NP Work Phone: [facility] Comment on above: Nausea and vomiting, unspecified vomiting type (Primary Dx); Viral gastroenteritis Start: 06-06-2024 End: 06-06-2024 ambulatory [facility] Start: 10-13-2023 End: 10-13-2023 Emergency department patient visit RUPESH Michael OBANDO Facility:[facility] Start: 04-28-2023 End: 04-28-2023 ambulatory [facility] Work Phone: Start: 04-28-2023 End: 04-28-2023 Patient encounter procedure [facility] Start: 01-21-2023 End: 01-21-[address] [facility] Work Phone: Start: 12-14-2022 End: 12-14-2022 Office outpatient visit 15 minutes Agnes Narciso DonCuadra DO Work Phone: [facility] Comment on above: URI with cough and c ongestion (Primary Dx); Close exposure to COVID-19 virus Start: 08-24-2022 End: 08-24-2022 Office outpatient new 30 minutes Agnes Narciso Cuadra DO Work Phone: [facility] Comment on above: Upper respiratory tr act infection, unspecified type (Primary Dx) Start: 11-05-2016 End: 11-05-2016 Emergency department patient visit Ryder Garcia Facility:[facility] Procedures Date Procedure Procedure Detail Performing Clinician Start: 06-22-2024 Antibody screen RUPESH GODINEZ Comment on above: Order Comment: Speci men Type: BLOOD SPECIMEN Ordering Facility: [facility] Address: [address] [place] [id number] Performed By: #### T [id number] #### [facility] [id number] [address] [place] [address] [place] Start: 06-06-2024 Sars-cov-2 detection by dna/rna Rio Majano TAPE LIBRARIAN Work Phone: Start: 06-06-2024 Infectious agent dna /rna influenza 1st 2 types Rio Majano TAPE LIBRARIAN Work Phone: Start: 12-14-2022 [facility] streptococ cus group a Agnes Cuadra DO Work Phone: Start: 08-24-2022 [facility] streptococ cus group a Agnes Cuadra DO Work Phone: Start: 05-24-2019 Throat culture Comment on above: Performed By: #### C THRT #### [place] [address] Plan of Treatment Date Care Activity Detail Author Start: 11-10-2062 RSV Immunization for Adults (1 - 1-dose 75+ series) RSV Immunization for Adults (1 - 1-dose 75+ series) [facility] Start: 11-10-2037 Zoster Vaccines (1 of 2) Zoster Vacc dre (1 of 2) [facility] Start: 05-26-2033 DTaP/Tdap/Td Vaccine s (2 - Td or Tdap) DTaP/Tdap/Td Vaccines (2 - Td or Tdap) [facility] Start: 05-26-2033 Urine microalbumin profile DTaP,Tdap,Td Vaccine (2 - Td or Tdap) [facility] Start: 12-20-2024 Hemoglobin A1c measurement HbA1C [facility] Start: 07-13-2024 End: 07-13-2024 Patient encounter procedure 07/13/2024 3:30 PM EDT Office Visit General Surgery [address] [place], [place] [id number] Patricia Peters APRN.CONDUIT REAMER OPERATOR [address] [place] [address] Post Op Lap Genny 06/28/24 General Surgery Comment on above: Post Op Lap Genny 06/28/24 Start: 06-29-2024 End: 06-29-2024 Admission to same day surgery center 06/29/2024 11:30 AM EST - 06/29/2024 2:20 PM EST Surgery [facility] Surgery [address] [place] [address] Kadeem Shah MD [address] [place], [place] [id number] LAPAROSCOPIC CHOLECYSTECTOMY POSSIBLE OPEN [facility] Surgery Comment on above: LAPAROSCOPIC CHOLECY STECTOMY POSSIBLE OPEN Start: 06-29-2024 End: 06-29-2024 Laparoscopy surg cholecystectomy LAPAROSCOPIC CHOLECYSTECTOMY POSSIBLE OPEN Calculus of gallbladder with cholecystitis without biliary obstruction, unspecified cholecystitis acuity 06/29/2024 11:30 AM EST ME OR Start: 06-29-2024 Subsequent hospital visit by physician 06/29/2024 11:30 AM EST Hospital Encounter [facility] Surgery [address] [place] [address] Kadeem Shah MD [address] [place] [address] Calculus of gallbladder with cholecystitis without biliary obstruction, unspecified cholecystitis acuity [K80.10] [facility] Surgery Comment on above: Calculus of gallblad jose with cholecystitis without biliary obstruction, unspecified cholecystitis acuity [K80.10] Start: 06-22-2024 End: 06-22-2024 Patient encounter procedure 06/22/2024 1:30 PM EST Office Visit Pre Anesthesia [address] [place] [address] [place], Ekg Pacc [address] [place] [address] EKG Pre Anesthesia Comment on above: EKG Start: 06-21-2024 End: 09-20-2024 CONFIRM BLOOD TYPE CONFIRM BLOOD TYPE Blood Bank Routine Gastroesophageal reflux disease, unspecified whether esophagitis present Fatty liver History of asthma Type 2 diabetes mellitus without complication, without long-term current use of insulin (HCC) Obesity, Class III, BMI >= 40 Sarcoidosis Pre-op evaluation Expected: 06/21/2024, Expires: 09/20/2024 [facility] Work Phone: Comment on above: Expected: 06/21/2024 , Expires: 09/20/2024 Start: 06-21-2024 End: 09-20-2024 Hemoglobin A1c in Blood HEMOGLOBIN A1C Lab Routine Gastroesophageal reflux disease, unspecified whether esophagitis present Fatty liver History of asthma Type 2 diabetes mellitus without complication, without long-term current use of insulin (HCC) Obesity, Class III, BMI >= 40 Sarcoidosis Pre-op evaluation Expected: 06/21/2024, Expires: 09/20/2024 [facility] Comment on above: Expected: 06/21/2024 , Expires: 09/20/2024 Start: 06-21-2024 End: 09-20-2024 TYPE AND SCREEN,30 DAY TYPE AND SCREEN,30 DAY Blood Bank Routine Gastroesophageal reflux disease, unspecified whether esophagitis present Fatty liver History of asthma Type 2 diabetes mellitus without complication, without long-term current use of insulin (HCC) Obesity, Class III, BMI >= 40 Sarcoidosis Pre-op evaluation Expected: 06/21/2024, Expires: 09/20/2024 [facility] Comment on above: Expected: 06/21/2024 , Expires: 09/20/2024 Start: 12-25-2023 COVID-19 Vaccine ( season) COVID-19 Vaccine ( season) [facility] Start: 12-25-2023 Influenza vaccination Influenza Vacc ine (#1) [facility] Start: 12-24-2022 Influenza vaccination [facility] Start: 11-10-2022 Lipid panel Lipid Screening [facility] Start: 06-19-2013 Glaucoma screening Dilated Retinal E xam [facility] Start: 05-24-2013 Pneumococcal vaccination Pneum ococcal Vaccine (2 of 2 - PCV) [facility] Start: 05-24-2013 Pneumococcal Vaccine : Pediatrics (0 to 5 Years) and At-Risk Patients (6 to 49 Years) (2 of 2 - PCV) Pneumococcal Vaccine: Pediatrics (0 to 5 Years) and At-Risk Patients (6 to 49 Years) (2 of 2 - PCV) [facility] Start: 11-10-2006 DTaP/Tdap/Td Vaccine s (1 - Tdap) DTaP/Tdap/Td Vaccines (1 - Tdap) [facility] Start: 11-10-2005 Annual PCP Team Legal Research Analyst meenu Disease Visit Annual PCP Team Chronic Disease Visit [facility] Start: 11-10-2005 Anxiety Screening Anxiety Screening [facility] Start: 11-10-2005 Depression Screening Depression Scre ening [facility] Start: 11-10-2005 Diabetes: Estimated Glomerular Filtration Rate for Kidney Health Diabetes: Estimated Glomerular Filtration Rate for Kidney Health [facility] Start: 11-10-2005 Diabetes: Urine Albumin-Creatinine Ratio for Kidney Health Diabetes: Urine Albumin-Creatinine Ratio for Kidney Health [facility] Start: 11-10-2005 Hepatitis B surface antibody level LDL Cholesterol [facility] Start: 11-10-2005 Hepatitis C screening Hepatitis C Sc reening [facility] Start: 01-03-2001 Hepatitis B Vaccines (2 of 3 - 3-dose series) Hepatitis B Vaccines (2 of 3 - 3-dose series) [facility] Start: 11-10-2000 Varicella vaccination Varicell a Vaccines (1 of 2 - 13+ 2-dose series) [facility] Start: 1999 Depression Screening Depression Scre ening [facility] Start: 11-10-1997 Diabetic foot examination [facility] Start: 11-10-1997 Glaucoma screening Diabetes: R etinopathy Screening [facility] Start: 11-10-1997 Hepatitis B screening Urine Al bumin:Creatinine Ratio [facility] Start: 11-10-1997 Preventive dental service Diabetes: Dental Exam [facility] Start: 11-10-1992 Hemoglobin A1c measurement HbA1C [facility] Start: 11-10-1988 MMR Vaccines (1 of 1 - Standard series) MMR Vaccines (1 of 1 - Standard series) [facility] Start: 11-10-1988 Varicella vaccination Varicell a Vaccines (1 of 2 - 2-dose childhood series) [facility] Start: 05-13-1988 COVID-19 Vaccine (#1) COVID-19 Vacci ne (#1) [facility] Start: 1987 Hemoglobin A1c measurement Diabetes: Hemoglobin A1C [facility] Start: 1987 Hepatitis B Vaccines (1 of 3 - 3-dose series) Hepatitis B Vaccines (1 of 3 - 3-dose series) [facility] Start: 1987 HIV screening HIV Screening [facility] Start: 1987 Lipid panel Lipid Panel [facility] End: 06-21-2025 ECG COMPLETE ECG COMPLETE ECG Routine Gastroesophageal reflux disease, unspecified whether esophagitis present Fatty liver History of asthma Type 2 diabetes mellitus without complication, without long-term current use of insulin (HCC) Obesity, Class III, BMI >= 40 Sarcoidosis Pre-op evaluation 1 Occurrences starting 06/21/2024 until 06/21/2025 [facility] Comment on above: 1 Occurrences starti ng 06/21/2024 until 06/21/2025 SARS-CoV-2, Flu A/B, and RSV Combo SARS-CoV-2, Flu A/B, and RSV Combo Microbiology Routine URI with cough and congestion Ordered: 12/14/[address] [facility] [facility] [address] [facility] Work Phone: Comment on above: Ordered: 12/14/2022 STREPTOCOCCUS, GROUP A CULTURE ([facility]) Streptococcus, Group A Culture ([facility]) Lab Routine Upper respiratory tract infection, unspecified type Ordered: 08/24/[address] [facility] Work Phone: Comment on above: Ordered: 08/24/2022 STREPTOCOCCUS, GROUP A CULTURE ([facility]) Streptococcus, Group A Culture ([facility]) Lab Routine URI with cough and congestion Ordered: 12/14/[address] [facility] Comment on above: Ordered: 12/14/2022 Immunizations Immunization Date Immunization Notes Care Provider Gaurang moseley 05-26-2023 tetanus toxoid, redu mauro diphtheria toxoid, and acellular pertussis vaccine, adsorbed Pacc 2 Work Phone: [facility] 05-24-2012 pneumococcal polysaccharide vaccine, 23 valent Pacc 2 Work Phone: [facility] 05-24-2012 influenza virus vacc ine, unspecified formulation Agnes Cuadra DO Work Phone: [facility] 03-17-2011 influenza virus vacc ine, unspecified formulation Pacc 2 Work Phone: [facility] Payers Date Payer Category Payer Self-pay 2023 Liam [employer] [facility] Member Subscriber Plan / Payer (Effective 2023-Present) Name: Malorie Foley Relation to Subscriber: Self Name: Malorie Foley Payer ID: [id number] (NAIC) Type: PPO Address: [facility] [id number] [place] [id number] 2023 Liam Aviles Managed Care - [facility] [id number] 2023 Unknown [id number] 2023 Private Health Insurance [id number] 2020 Private Health Insurance KORY CORDERO [id number] 2020-Present [address] [place] [address] Commercial [id number] Private Health Insurance [employer] [address] [id number] Unknown ANTHEM [id number] Unknown SELF INS [facility] [id number] Unknown [id number] Unknown [id number] Unknown [id number] Social History Date Type Detail Facility Start: 07-26-2018 End: 08-24-2022 Tobacco smoking status NHIS Never smoked tobacco [facility] Start: 08-20-2018 End: 08-24-2022 Tobacco use and exposure Smokeless tobacco non-user [facility] Start: 08-24-2022 End: 06-19-2024 Alcohol intake Current drinker of alcohol (finding) [facility] Start: 1985 Sex Assigned At Not on file [facility] Start: 08-14-2022 End: 12-14-2022 Exposure to SARS-CoV-2 (event) Not sure [facility] Start: 12-14-2022 End: 06-07-2024 History of Social function [facility] Start: 12-14-2022 End: 06-07-2024 Tobacco use panel [facility] Start: 07-26-2018 Tobacco smoking status NHIS Unknown if ever smoked [facility] Start: 1985 Sex Assigned At Male [facility] Start: 11-23-2021 End: 08-16-2024 Sex Male (finding) [facility] How hard is it for you to pay for the very basics like food, housing, medical care, and heating Not hard at all [facility] (I/We) worried whether (my/our) food would run out before (I/we) got money to buy more. Never true [facility] Start: 06-21-2024 Alcohol Comment Maybe 6 beers in 6 months [facility] Start: 05-12-2012 Alcohol Comment 3x yearly [facility] Start: 06-25-2024 Alcohol Comment Occasional, Ma ybe 6 beers in 6 months [facility] NEGATED: Highlighted rowStart: NINF History of tobacco use Passive smoker [facility] Medical Equipment Procedure Code Equipment Code Equipment Origin al Text Equipment Identifier Dates 1 (ONE) STRIP DA ANU EVERY MORNING, TEST BLOOD SUGAR EVERY MORNING VIA FINGERSTICK Start: 08-27-2023 Kxc-Vs-X-Kind Implant - [id number]_[facility] Start: 03-16-2011 Comment on above: Description: [employer] x Absorbable Fixation Sysm Mesh Srg Pco Opt im 8x6in - [id number] Start: 03-16-2011 Comment on above: Description: mesh Functional Status Date Assessment Result Facility 06-21-2019 Are you deaf, or do you have serious difficulty hearing No 06/21/2019 2:45 PM Dano Palumbo APRN.GENESIS No [facility] Work Phone: 06-21-2019 Are you blind, or do you have serious difficulty seeing, even when wearing glasses No 06/21/2019 2:45 PM Dano Palumbo APRN.GENESIS No [facility] 06-21-2019 Do you have serious difficulty walking or climbing stairs No 06/21/2019 2:45 PM Dano Palumbo, MOSHE.GENESIS No [facility] 06-21-2019 Do you have difficul ty dressing or bathing No 06/21/2019 2:45 PM Dano Palumbo APRN.GENESIS No [facility] 06-21-2019 Because of a physica l, mental, or emotional condition, do you have difficulty doing errands alone such as visiting a physician's office or shopping No 06/21/2019 2:45 PM Dano Palumbo APRN.CONDUIT 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 [facility] Mental Status Date Assessment Result Facility 06-21-2019 Because of a physica l, mental, or emotional condition, do you have serious difficulty concentrating, remembering, or making decisions No 06/21/2019 2:45 PM Dano Palumbo APRN.GENESIS No [facility] Clinical Notes 08-24-2022 to 07-13-2024 Patricia Peters APRN.CONDUIT REAMER OPERATOR - 07/13/2024 3:30 PM EDTTelephone Encounter - Charity Conner RN - 06/27/2024 10:43 AM ESTTelephone Encounter - Charity Conner RN - 06/27/2024 10:43 AM ESTAttachments Note Date & Type Note Facility 07-13-2024 History of Presen t illness Narrative Images from the original note were not included. SUBJECTIVE: Malorie Foley presents for follow up of his laparoscopic cholecystectomy on 06/29/24. He tolerated the procedure well and was discharged home. Patient complaints: incisional pain -pain at the umbilical incision with bending over or sitting up right in a chair -notes his stools have changed from multiple soft stools a day >4 to 2 softer stools a day He denies abdominal pain, nausea, vomiting, diarrhea, fever, chills, jaundice , and dark urine He denies food intolerance. -notes he is eating what he used to but in smaller portions- not hamburgers though which are his favorite. PHYSICAL EXAMINATION: Temp 36.6 C (97.9 F) (Temporal) General Appearance: Well developed, No acute distress Patient does not appear icteric. Abdomen: Abdomen soft, non-distended Incision: no drainage, no erythema, no swelling, no ecchymosis, and no tenderness IMPRESSION: Post op course: Normal PLAN: Post-op patient instructions were reviewed with the patient. Low fat diet encouraged. I have explained to Mr. Malorie Foley that he may return to normal activity with the following restrictions: no lifting, pushing, pulling > 20lbs for 2 more weeks. I have encouraged him to contact me at any time with any questions or concerns that may arise. Follow up: PRN- If continued incisional pain should follow up with Dr. Shah. Patricia Peters APRN.GENESIS documented in this encounter [facility] 07-13-2024 Note HNO ID: [id number] Author: PATRICIA PETERS APRN.GENESIS Service: ? Author Type: Nurse Practitioner Type: Progress Notes Filed: 07/13/2024 15:39 Note Text: SUBJECTIVE: Malorie Foley presents for follow up of his laparoscopic cholecystectomy on 06/29/24. He tolerated the procedure well and was discharged home. Patient complaints: incisional pain -pain at the umbilical incision with bending over or sitting up right in a chair -notes his stools have changed from multiple soft stools a day >4 to 2 softer stools a day He denies abdominal pain, nausea, vomiting, diarrhea, fever, chills, jaundice , and dark urine He denies food intolerance. -notes he is eating what he used to but in smaller portions- not hamburgers though which are his favorite. PHYSICAL EXAMINATION: Temp 36.6 ?C (97.9 ?F) (Temporal) General Appearance: Well developed, No acute distress Patient does not appear icteric. Abdomen: Abdomen soft, non-distended Incision: no drainage, no erythema, no swelling, no ecchymosis, and no tenderness IMPRESSION: Post op course: Normal PLAN: Post-op patient instructions were reviewed with the patient. Low fat diet encouraged. I have explained to Mr. Malorie Foley that he may return to normal activity with the following restrictions: no lifting, pushing, pulling > 20lbs for 2 more weeks. I have encouraged him to contact me at any time with any questions or concerns that may arise. Follow up: PRN- If continued incisional pain should follow up with Dr. Shah. Patricia Peters APRN.CNP [facility] 06-29-2024 Note HNO ID: [id number] Author: BHUPENDRA FRANKS APRN.CRNA Service: Anesthesiology Author Type: Nurse Director Pharmaceutical Type: Anesthesia Procedure Notes Filed: 06/29/2024 11:31 Note Text: ANESTHESIOLOGY PROCEDURE NOTE Airway General Information Procedure Start Time/Medication Administration: 06/29/2024 11:11 AM Procedure End Time: 06/29/2024 11:13 AM Patient location during procedure: OR Timeout Performed Pre-procedure: timeout performed Consent Obtained: Yes Patient identity confirmed: arm band Staffing TRACK REPAIR LABORER: Bhupendra Franks APRN.TRACK REPAIR LABORER Performed by: TRACK REPAIR LABORER Indications and Patient Condition Indications for airway management: anesthesia Preoxygenated: yes anesthesia circuit Method: sleep Difficult Mask: No Final Airway Details Final airway type: endotracheal airway Final Endotracheal Airway: ETT Cuffed: yes Successful intubation technique: direct laryngoscopy Blade: Pepito Blade size: #4 ETT size (mm): 7.5 Measured from: teeth Measurement (cm): 23 Placement verified by: capnometry Cormack-Lehane Classification: grade IIa - partial view of glottis Number of attempts at approach: 1 Failed airway: no Unrecognized esophageal intubation: no Airway not difficult SIGNATURE: Bhupendra Franks APRN.CRNA PATIENT NAME: Malorie Foley DATE: June 29, 2024 TIME: 11:30 AM CSN: [id number] [facility] 06-29-2024 Note HNO ID: [id number] Author: [place] RN Service: Nursing Author Type: Registered Nurse Type: Nursing Progress Note Filed: 06/29/2024 10:13 Note Text: Other: pt ready for OR, call light in reach, family called to bedside [facility] 06-27-2024 Telephone encounter Note [place] paper work received from [employer] Filled out and signed by Provider. Reviewed with patient. He said DR Shah told him there is a chance his surgery may have to be open due to his H/O multiple hernia repairs. he was advised to be out after surgery for 2 to 8 weeks. Malorie does a lot of heavy work and lifting on his job. RTW without restrictions 08/27/24. Patient would like this completed and sent to his employer today. Helped him make a post op appt with Ivory Peters for 07/13/24. If his RTW dates change we agreed to adjust his FMLA as needed if he is cleared to return to work sooner. Faxed to [employer]. Confirmation received. Records sent to be scanned to chart. Encounter closed. [facility] 06-27-2024 Miscellaneous Notes FMLA paper work received from [employer] Filled out and signed by Provider. Reviewed with patient. He said DR Shah told him there is a chance his surgery may have to be open due to his H/O multiple hernia repairs. he was advised to be out after surgery for 2 to 8 weeks. Malorie does a lot of heavy work and lifting on his job. RTW without restrictions 08/27/24. Patient would like this completed and sent to his employer today. Helped him make a post op appt with Ivory Peters for 07/13/24. If his RTW dates change we agreed to adjust his FMLA as needed if he is cleared to return to work sooner. Faxed to [employer]. Confirmation received. Records sent to be scanned to chart. Encounter closed. documented in this encounter [facility] 06-26-2024 Note HNO ID: [id number] Author: KADEEM SHAH MD Service: ? Author Type: Physician Type: Progress Notes Filed: 06/26/2024 12:22 Note Text: HISTORY AND PHYSICAL Malorie Foley 1985 REFERRING PHYSICIAN: Rupesh Obando MD CHIEF COMPLAINT: Consult (Gall bladder) HPI: Malorie is a 38 year old male with a complaint of right upper quadrant pain. The patient has had symptoms of right upper quadrant pain for few weeks. The symptoms have maintained, over the past few weeks. The pain does radiate to the back. Food does aggravate his symptoms. Alleviating factors include: none. The patient was seen by the emergency room physician ago. Malorie underwent an ultrasound. These tests demonstrated cholelithiasis. The patient is referred for evaluation and treatment. The patient is being seen by me today at the request of Dr. Rupesh Obando MD, MD for my opinion and advice regarding Calculus of gallbladder with cholecystitis without biliary obstruction, unspecified cholecystitis acuity (primary encounter diagnosis). 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 metFORMIN (GLUCOPHAGE) 500 mg tablet Take 2 tablets by mouth every 12 hours. lactobacillus rhamnosus (CULTURELLE) 10 billion cell capsule TAKE 1 CAPSULE BY MOUTH THREE TIMES DAILY WITH MEALS FOR 13 DAYS. 39 capsule 0 No current facility-administered medications for this visit. ALLERGIES: Adhesive Tape (Rosins) PERSONAL HISTORY: Social History Tobacco Use Smoking status: Never Smokeless tobacco: Never Vaping Use Vaping status: Never Used Substance Use Topics Alcohol use: Yes Comment: Occasional, Maybe 6 beers in 6 months Drug use: Never FAMILY HISTORY: FAMILY HISTORY Problem Relation Age of Onset Hypertension Father Ischemic Heart Disease Father Obesity Father Strabismus Brother Hypertension Maternal Grandmother Macular Degen Maternal Grandmother DVT Maternal Grandmother Hypertension Maternal Grandfather Macular Degen Maternal Grandfather Cancer Maternal Grandfather states blood clot traveled to brain Cataract Paternal Grandmother Diabetes Paternal Grandmother Hypertension Paternal Grandmother Diabetes Paternal Grandfather Hypertension Paternal Grandfather Cancer Paternal Grandfather Anesthesia Problems No Family History Clotting Disorder No Family History REVIEW OF SYMPTOMS: The review of systems data was entered by the nurse and reviewed by me There are no exam notes on file for this visit. PHYSICAL EXAMINATION: General: The patient is 38 year old male, well nourished, well hydrated in no acute distress. The patient is oriented to time, place, and person. VITALS: Blood pressure 130/84, pulse 113, temperature 36.1 ?C (97 ?F), height 198.1 cm (6' 6"), weight (!) 176.6 kg (389 lb 6.4 oz), SpO2 97%. Body mass index is 45 kg/m?. HEENT: Normal cephalic, ataumatic, pupils are equally round, sclera are anicteric, mucous membranes are moist, oropharynx is clear. Neck has no masses, asymmetry or lymphadenopathy. Thyroid is unremarkable. Respiratory: Clear to auscultation and percussion. Normal respiratory excursion and pattern. Cardiac: Examination is regular rate and rhythm. Abdominal exam: Normoactive bowel sounds, Soft, tender in the right upper quadrant negative Celeste's sign, with no palpable masses. No hepatosplenomegaly. No palpable hernias. Rectal exam: exam deferred Extremities: no clubbing, cyanosis or edema. No adenopathy. Other: LABORATORY VALUES: As Noted RADIOLOGIC STUDIES: As Noted Above Assessment IMPRESSION: Calculus of gallbladder with cholecystitis without biliary obstruction, unspecified cholecystitis acuity (primary encounter diagnosis) PLAN: My plan is to perform a laparoscopic cholecystectomy with intraoperative choleangiogram. The planned surgical procedure was discussed extensively with the patient. The risks, benefits, anticipated outcomes and possible complications were mentioned. My staff has also explained the procedure in understandable terms and the patient was given the option to take printed material concerning the planned procedure. The patient had the opportunity to ask questions concerning the planned procedure. The patient freely consents to the planned procedure. Planned Procedure: LAPAROSCOPIC CHOLECYSTECTOMY WITHOUT INTRAOPERATIVE CHOLEANGIOGRAM - 50021-455 Planned antibiotic: Ancef 2gm IVPB urgent care nurse practitioner to OR SCDs ne (more content not included)... [facility] 06-26-2024 History of Presen t illness Narrative HISTORY AND PHYSICAL Malorie [place] Julimadeline 1985 REFERRING PHYSICIAN: Rupesh Obando MD CHIEF COMPLAINT: Consult (Gall bladder) HPI: Malorie is a 38 year old male with a complaint of right upper quadrant pain. The patient has had symptoms of right upper quadrant pain for few weeks. The symptoms have maintained, over the past few weeks. The pain does radiate to the back. Food does aggravate his symptoms. Alleviating factors include: none. The patient was seen by the emergency room physician ago. Malorie underwent an ultrasound. These tests demonstrated cholelithiasis. The patient is referred for evaluation and treatment. The patient is being seen by me today at the request of Dr. Rupesh Obando MD, MD for my opinion and advice regarding Calculus of gallbladder with cholecystitis without biliary obstruction, unspecified cholecystitis acuity (primary encounter diagnosis). 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 metFORMIN (GLUCOPHAGE) 500 mg tablet Take 2 tablets by mouth every 12 hours. lactobacillus rhamnosus (CULTURELLE) 10 billion cell capsule TAKE 1 CAPSULE BY MOUTH THREE TIMES DAILY WITH MEALS FOR 13 DAYS. 39 capsule 0 No current facility-administered medications for this visit. ALLERGIES: Adhesive Tape (Rosins) PERSONAL HISTORY: Social History Tobacco Use Smoking status: Never Smokeless tobacco: Never Vaping Use Vaping status: Never Used Substance Use Topics Alcohol use: Yes Comment: Occasional, Maybe 6 beers in 6 months Drug use: Never FAMILY HISTORY: FAMILY HISTORY Problem Relation Age of Onset Hypertension Father Ischemic Heart Disease Father Obesity Father Strabismus Brother Hypertension Maternal Grandmother Macular Degen Maternal Grandmother DVT Maternal Grandmother Hypertension Maternal Grandfather Macular Degen Maternal Grandfather Cancer Maternal Grandfather states blood clot traveled to brain Cataract Paternal Grandmother Diabetes Paternal Grandmother Hypertension Paternal Grandmother Diabetes Paternal Grandfather Hypertension Paternal Grandfather Cancer Paternal Grandfather Anesthesia Problems No Family History Clotting Disorder No Family History REVIEW OF SYMPTOMS: The review of systems data was entered by the nurse and reviewed by me There are no exam notes on file for this visit. PHYSICAL EXAMINATION: General: The patient is 38 year old male, well nourished, well hydrated in no acute distress. The patient is oriented to time, place, and person. VITALS: Blood pressure 130/84, pulse 113, temperature 36.1 C (97 F), height 198.1 cm (6' 6"), weight (!) 176.6 kg (389 lb 6.4 oz), SpO2 97%. Body mass index is 45 kg/m . HEENT: Normal cephalic, ataumatic, pupils are equally round, sclera are anicteric, mucous membranes are moist, oropharynx is clear. Neck has no masses, asymmetry or lymphadenopathy. Thyroid is unremarkable. Respiratory: Clear to auscultation and percussion. Normal respiratory excursion and pattern. Cardiac: Examination is regular rate and rhythm. Abdominal exam: Normoactive bowel sounds, Soft, tender in the right upper quadrant negative Celeste's sign, with no palpable masses. No hepatosplenomegaly. No palpable hernias. Rectal exam: exam deferred Extremities: no clubbing, cyanosis or edema. No adenopathy. Other: LABORATORY VALUES: As Noted RADIOLOGIC STUDIES: As Noted Above Assessment IMPRESSION: Calculus of gallbladder with cholecystitis without biliary obstruction, unspecified cholecystitis acuity (primary encounter diagnosis) PLAN: My plan is to perform a laparoscopic cholecystectomy with intraoperative choleangiogram. The planned surgical procedure was discussed extensively with the patient. The risks, benefits, anticipated outcomes and possible complications were mentioned. My staff has also explained the procedure in understandable terms and the patient was given the option to take printed material concerning the planned procedure. The patient had the opportunity to ask questions concerning the planned procedure. The patient freely consents to the planned procedure. Planned Procedure: LAPAROSCOPIC CHOLECYSTECTOMY WITHOUT INTRAOPERATIVE CHOLEANGIOGRAM - 78742-724 Planned antibiotic: Ancef 2gm IVPB urgent care nurse practitioner to OR SCDs needed - Yes Chief Unit Forester Needed - Yes Diagnoses: (K80.10) Calculus of gallbladder with cholecystitis without biliary obstruction, unspecified cholecystitis acuity (primary encounter diagnosis) A letter was sent to Dr. Rupesh Obando MD, MD indicating the above finding for this patient. Kadeem Shah III, MD documented in this encounter [facility] 06-21-2024 Instructions Sunday Crane PA-C - 06/21/2024 1:46 PM EST PATIENT PREOPERATIVE INSTRUCTIONS Kadeem Shah MD has scheduled you for your procedure at this surgery center: [facility]: [phone] -- [address] [facility] [address]. Arrival Time for Surgery: - The Surgery Center or hospital where you are having surgery will call the afternoon before surgery (or Tuesday for Tuesday surgery) with a scheduled arrival time. - If you have not heard by 4 pm, please contact the surgery center above. Please read below carefully for your personalized instructions. Dietary Restrictions: - No solid food after midnight. - You may have 12 ounces of clear liquids (water, clear juices such as apple juice or gatorade, carbonated beverages, clear tea, black coffee, jello) until 2 hours before scheduled arrival at facility. Medications: Unless instructed differently below, stay on all of your medications until your surgery. If you start any new medications after today's visit, please contact your surgeon. Pre-Surgery Med Instructions Medication Instructions omeprazole (PRILOSEC) 20 mg capsule Take the day of surgery with a small sip of water metFORMIN (GLUCOPHAGE) 500 mg tablet Do not take the day of surgery lactobacillus rhamnosus (CULTURELLE) 10 billion cell capsule Do not take the day of surgery If you take any medications for erectile dysfunction-Cialis (Tadalafil), Levitra, Staxyn (Vardenafil) Viagra (Sildenenafil please do not take these for 48 hours before surgery. If you start any new medications after today's visit, please contact the surgeon's office. Blood Thinning Medications: - Stop NSAIDS (Ibuprofen, Advil, Aleve, Motrin, Celebrex, Mobic, etc.) 7 days before surgery, as directed by your surgeon. - Stop Aspirin 7 days before surgery, as directed by your surgeon. - Stop herbals and dietary supplements 14 days before surgery. - You may take Tylenol (Acetaminophen) or any of your pain medications that do not contain aspirin or NSAIDS as needed. Important Reminders: - If you use CPAP/BIPAP, bring the machine with you to the surgery center. - Candy, mints, and tobacco products are NOT permitted the morning of surgery. - Hearing aids, dentures and glasses may be worn the morning of surgery. - NO jewelry, body piercings, makeup, hairpins or contacts are to be worn the day of surgery. If you develop symptoms such as a fever, cold, or flu, or have other changes to your health within TWO DAYS of scheduled surgery or the morning of surgery, please contact the surgery center above. Personal Belongings: -Please have photo ID and insurance cards. -If you do not have a copy of advance directives on file with us, please bring a copy with you on the day of surgery. - Leave ALL valuables and money at home or with family members. For Outpatient Procedures: - YOU MUST HAVE A RESPONSIBLE CATH LAB TECHNOLOGIST TAKE YOU HOME. A SALES AGENT BUSINESS SERVICES OR HAIRSPRING TRUING INSPECTOR CANNOT BE MADE A RESPONSIBLE CATH LAB TECHNOLOGIST. - We recommend that a responsible person stays with you overnight to take care of you. - You cannot stay in a hotel alone after outpatient surgery. You will not be permitted to have your surgery, if you do not have someone to take care of you. Please be aware that emergency situations arise, which may delay or change your surgical time. If this happens, we will notify you as soon as possible and regret any inconvenience. If you already have an Advance Directive, please fax a copy to [phone] or email to for it to be added to your chart. If you do not have an Advance Directive, you can find the appropriate form and more information at [email or web address]. We recommend that you complete the Advance Directive form found on the website and bring it with you the day of your surgery. It can be witnessed and scanned into your chart that day. Sunday Crane PA-C documented in this encounter [facility] 06-21-2024 History and physical note Images from the original note were not included. [facility] HISTORY AND PHYSICAL EXAMINATION SERVICE DATE: 06/21/2024 SERVICE TIME: 1:51 PM PRIMARY CARE PHYSICIAN: Rupesh Obando MD, MD Assessment Patient has the following medical conditions which may affect jack-operative course: GERD (gastroesophageal reflux disease) Assessment: is well controlled with omeprazole and denies any recent exacerbations Follows with PCP Fatty liver Assessment: Following with PCP Most recent LFTs from 06/06/2024: Alk phos [address] 34 ALT 58 (H) Denies any ascites or jaundice History of asthma Assessment: as a child and young adult No need for inhaler in recent years Denies any exacerbations Type 2 diabetes mellitus without complication, without long-term current use of insulin (HCC) Assessment: Follows with PCP Is on metformin Most recent A1c was "just under 7" per pt on Tuesday Obesity, Class III, BMI >= 40 Assessment: Body mass index is 44.95 kg/m . Sarcoidosis Assessment: states affected his eyes; almost lost complete vision; was placed on Humira, had 3 doses and woke up one morning and complete vision returned, no limitations or need for medication since Denies any other known organ involvement MET level of 8.0 ANESTHESIA FINDINGS: Intubation History: No history of difficult intubation. No abnormal airway history Significant Anesthesia Considerations: none Airway History: No prior airway or anesthetic complication noted upon chart review. Maternal grandmother had a DVT. Patient denies prior recommendation to be tested for a predisposition to a bleeding or clotting disorder. has been difficult to sedate in the past. took 3 doses of medications for him to count backwards from 10-0 and finally was sedated with the third injection of medication. Denied any delayed emergence. No history of difficult airway No abnormal airway history Daniels Activity Status Index: METS: Walk indoors, such as around the house (1.75 METs) Do light work around the house, such as dusting or washing dishes (2.70 METs) Take care of self; that is eating, dressing, bathing, using the toilet (2.75 METs) Walk a block or two on level ground (2.75 METs) Do moderate work around the house, such as vacuuming, sweeping floors, or carrying in groceries (3.50 METs) Do yardwork, such as raking leaves, weeding, or pushing a power mower (4.50 METs) Have sexual relations (5.25 METs) Climb a flight of stairs or walk up a hill (5.50 METs) Participate in moderate recreational activites, such as golf, bowling, dancing, doubles tennis, or throwing a baseball or football (6.00 METs) Participate in strenuous sport, such as swimming, singles tennis, football, basketball, or skiing (7.50 METs) Do heavy work around the house, such as scrubbing floors, lifting or moving heavy furniture (8.00 METs) 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 Clinical Frailty Scale: 2. Well STOP-Bang Score: BMI greater than 35 kg/m^2 Has a large neck Male patient Denies snoring loudly Denies feeling tired, fatigued, or sleepy during the daytime Has not been observed to stop breathing or choking/gasping during sleep Denies having high blood pressure Patient 50 years old or younger STOP-Bang Score: 3 [id number] Score: Age: <65 Sex: male CHF history: No Hypertension history: No Stroke/TIA/thromboembolism history: No Vascular disease history: No Diabetes history: Yes [id number] Score: 1 I - PHYSICAL EVALUATION AIRWAY Patient intubated: No. Tracheostomy tube not present Mallampati: I. TM distance: >3 FB. Neck ROM: full ROM without neurological symptoms. Mouth opening: adequate. Short neck: no. Thick neck: no Gaspar present: yes Lip Bite Test: I Microretrognathia/Micronagthia/ Recessed Chin: No DENTAL Dental findings: teeth intact. Additional comments: Denies any chipped or broken teeth. Denies any dental pain or infections. . II - ANESTHESIA PLAN Anesthetic Plan: other Anesthetic plan additional comments: *PACC/TCI - anesthesia choice. Beta Alla Monitoring Plan Post Procedure Analgesic Plan Prepared for Surgery: optimally prepared for surgery, pending [see comment]. Labs and EKG - to be completed at [place] on 06/22 CONSULTS: Patient does not require consults for optimization at this time Planned Anesthetic: other anesthesia choice The Following Tests/Procedures Have Been Initiated: Orders Placed This Encounter Hemoglobin A1C Standing Status: Future Expected Date: 06/21/2024 Expiration Date: 09/20/2024 Confirm Blood Type Standing Status: Future Expected Date: 06/21/2024 Expiration Date: 09/20/2024 Did Blood Bank direct you to place this order:: No - Presurgical Workflow Type and Screen, 30 day Standing Status: Future Expected Date: 06/21/2024 Expiration Date: 09/20/2024 Scheduling Instructions: A 30-day Type and Screen test has been ordered for you. This should be scheduled to be collected no earlier than 29 days before your scheduled procedure. If you receive blood products (red blood cells, platelets, plasma, cryoprecipitate) at any point before your procedure or are a female and become , please inform your provider. This test will be canceled, and a standard type and screen will need to be ordered to be collected within 3 days of your procedure. [facility] Planned Surgery or Procedure:: [place] Status of surgery/procedure:: Scheduled Date of surgery/procedure:: 06/29/2024 ECG COMPLETE Standing Status: Future Expiration Date: 06/21/2025 This is a virtual visit using [employer] video visit. It required patient-provider interaction for the medical decision making as documented below. REASON FOR VISIT: Malorie Foley is a 38 year old male who is scheduled for Procedure(s): LAPAROSCOPIC CHOLECYSTECTOMY POSSIBLE OPEN (N/A) at the request of Dr. Kadeem Shah for consultation. My final recommendation will be communicated back to the requesting physician by way of shared medical record or letter. Subjective The patient has the following: COVID-19 Immunization Status Current Care Gaps Covid-19 Vaccine ( season) Never done No completion, postpone, frequency change, or communication history exists for this topic. CHIEF COMPLAINT: Gallstones HPI: Patient is a 38 year old male presenting with gallstones. He notes abdominal pain and diarrhea over the last few years but has recently worsened. He has had more symptoms from his gallstones. Patient rates pain at 2/10 currently and at its worst pain is rated at 7/10 and is described as "like it is pulling". Pain will occasionally radiate to his shoulder. Pain is worse with eating particular foods. Patient denies any other specific radiating, alleviating or aggravating factors. This is a virtual visit. The visit was conducted using [employer] video visit. It required patient-provider interaction for the medical decision making as documented below. I have communicated my name and active licensure. The patient's identity and physical location were verified at the time of this visit. Either the patient or their legal senior outside sales representative has been informed of the risks and benefits of and alternatives to treatment through a remote evaluation and consents to proceed with the evaluation remotely. REVIEW OF SYSTEMS: General: No weight loss, malaise or fevers. Neurological: No history of TIA's, stroke, RESIDENTIAL LEASING MANAGER tumor, impaired sensorium, hemiplegia, paraplegia or quadraplegia. No neurological symptoms or problems. Respiratory: Positive for: asthma. Negative for: COPD, dyspnea, orthopnea, pneumonia within 6 weeks and URI < 2 weeks. Cardiovascular: No history of HTN requiring medication, no history of angina, CHF, SD, cardiac surgery or stents. Denies rest pain, gangrene or revascularization/amputation for PVD. No history of cardiovascular symptoms or problems. GI: See HPI. Positive for: GERD Negative for: abdominal pain, heartburn, nausea and vomiting. : No history of dysuria, frequency or incontinence, stones or chronic kidney disease. No difficulty urinating, nocturia > 1 time per night or hematuria. Endocrine: Positive for: diabetes mellitus. Negative for: hypothyroidism and steroid for chronic problem. Hematology: No history of bleeding or clotting disorder. Patient is not taking anti-coagulation or platelet medications. No history of hematological symptoms or problems. Oncology: No history of CA metastasis, chemo within 30 days, or radiotherapy within 90 days. No history of oncological symptoms or problems. Psych: No history of psychiatric symptoms or problems. Musculoskeletal: Negative for joint pain or swelling, back pain or muscle pain. Skin: Negative for lesions, rash and itching. Implanted Devices: No implanted devices. 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 Psoriasis 06/16/2012 on top of head and face PAST SURGICAL HISTORY Procedure Laterality Date HERNIA REPAIR HX x2 (abdominal) PAST SURGICAL HISTORY OF wisdom teeth removal FAMILY HISTORY Problem Relation Age of Onset Strabismus Brother Hypertension Maternal Grandmother Macular Degen Maternal Grandmother DVT Maternal Grandmother Hypertension Maternal Grandfather Macular Degen Maternal Grandfather Cancer Maternal Grandfather states blood clot traveled to brain Cataract Paternal Grandmother Diabetes Paternal Grandmother Hypertension Paternal Grandmother Diabetes Paternal Grandfather Hypertension Paternal Grandfather Cancer Paternal Grandfather Anesthesia Problems No Family History Clotting Disorder No Family History Social History Tobacco Use Smoking status: Never Smokeless tobacco: Never Vaping Use Vaping status: Never Used Substance Use Topics Alcohol use: Yes Comment: Maybe 6 beers in 6 months Drug use: Never Prior to Admission medications as of 06/21/24 1329 Medication Sig Last Dose Taking omeprazole (PRILOSEC) 20 mg capsule Take 20 mg by mouth once daily. Yes metFORMIN (GLUCOPHAGE) 500 mg tablet Take 2 tablets by mouth every 12 hours. Yes lactobacillus rhamnosus (CULTURELLE) 10 billion cell capsule TAKE 1 CAPSULE BY MOUTH THREE TIMES DAILY WITH MEALS FOR 13 DAYS. Yes No medication comments found. ALLERGIES Allergen Reactions Adhesive Tape (Rea* Unknown Objective PHYSICAL EXAM: (if completed, exam performed via video enabled technology) General: alert and oriented, healthy appearance and morbidly obese. Pertinent negatives noted - not distressed. Skin: normal color, no rash or lesions. HEENT: Head is normocephalic, no abnormality or lesion noted Eyes show no injection and visual acuity is grossly normal Ears note grossly normal hearing Nose exam notes external nose is normal without rhinorrhea Oropharynx exam notes moist mucous membranes with no noted tonsillar hypertrophy, erythema or edema Uvula is midline. . Cardiovascular: Patient palpated radial pulse, regular when counted aloud by patient. Capillary refill is less than 3 seconds in bilateral upper extremities. . Respiratory: Equal chest rise with normal respiratory effort . Abdomen: soft. Pertinent negatives noted - not distended and not tender. No pain upon palpation by patient . Extremities: no deformity, no edema or tenderness, no joint swelling or clubbing. Neurological: normal cognition and motor skills. Gait stated to be normal per patient . PAIN ASSESSMENT: VITALS: BP [130/84 on 06/19/2024 reviewed[ Pulse 92 Temp [no thermometer available - feeling well[ Resp 18 Ht 6' 6" (1.98m) Wt 389 lb (176.4kg) BMI 44.96 kg/(m^2). Diagnostic tests reviewed for today's visit: Lab Value Units Date High Low HB 16.0 g/dL 06/06/2024 17.0 13.0 HCT 47.7 % 06/06/2024 51.0 39.0 WBC 3.92 k/uL 06/06/2024 11.00 3.70 PLT 141 k/uL 06/06/2024 400 150 NA 139 mmol/L 06/06/2024 144 136 K 4.0 mmol/L 06/06/2024 5.1 3.7 GLUC 121 mg/dL 06/06/2024 99 74 BUN 11 mg/dL 06/06/2024 24 9 CREAT 0.92 mg/dL 06/06/2024 1.22 0.73 PTSEC No results within date range. INR No results within date range. APTT No results within date range. ALT 58 U/L 06/06/2024 54 10 AST 34 U/L 06/06/2024 40 14 TBILI 0.9 mg/dL 06/06/2024 1.3 0.2 TSH No results within date range. Lab Value Units Date High Low HCGQT No results within date range. UHCG No results within date range. HCG, BODY* No results within date range. Lab Value Units Date High Low ABORHD No results within date range. ABSCREEN No results within date range. No results found for: "HBA1C" No results found for this or any previous visit (from the past 8760 hours). No results found for this or any previous visit (from the past 15345 hours). Instructions Given to Patient: Instructions located in the after visit summary. Patient given verbal and written preop instructions and voices comprehension and compliance. SIGNATURE: Sunday Crane PA-C PATIENT NAME: Malorie Foley DATE: June 21, 2024 TIME: 1:16 PM PAGER/CONTACT #: [facility] 06-21-2024 History and physical note Images from the original note were not included. [facility] HISTORY AND PHYSICAL EXAMINATION SERVICE DATE: 06/21/2024 SERVICE TIME: 1:51 PM PRIMARY CARE PHYSICIAN: Rupesh Obando MD, MD Assessment Patient has the following medical conditions which may affect jack-operative course: GERD (gastroesophageal reflux disease) Assessment: States is well controlled with omeprazole and denies any recent exacerbations Follows with PCP Fatty liver Assessment: Following with PCP Most recent LFTs from 06/06/2024: Alk phos [address] 34 ALT 58 (H) Denies any ascites or jaundice History of asthma Assessment: as a child and young adult No need for inhaler in recent years Denies any exacerbations Type 2 diabetes mellitus without complication, without long-term current use of insulin (HCC) Assessment: Follows with PCP Is on metformin Most recent A1c was "just under 7" per pt on Tuesday Obesity, Class III, BMI >= 40 Assessment: Body mass index is 44.95 kg/m . Sarcoidosis Assessment: states affected his eyes; states almost lost complete vision; was placed on Humira, had 3 doses and woke up one morning and complete vision returned, no limitations or need for medication since Denies any other known organ involvement MET level of 8.0 ANESTHESIA FINDINGS: Intubation History: No history of difficult intubation. No abnormal airway history Significant Anesthesia Considerations: none Airway History: No prior airway or anesthetic complication noted upon chart review. Maternal grandmother had a DVT. Patient denies prior recommendation to be tested for a predisposition to a bleeding or clotting disorder. States has been difficult to sedate in the past. States took 3 doses of medications for him to count backwards from 10-0 and finally was sedated with the third injection of medication. Denied any delayed emergence. No history of difficult airway No abnormal airway history Daniels Activity Status Index: METS: Walk indoors, such as around the house (1.75 METs) Do light work around the house, such as dusting or washing dishes (2.70 METs) Take care of self; that is eating, dressing, bathing, using the toilet (2.75 METs) Walk a block or two on level ground (2.75 METs) Do moderate work around the house, such as vacuuming, sweeping floors, or carrying in groceries (3.50 METs) Do yardwork, such as raking leaves, weeding, or pushing a power mower (4.50 METs) Have sexual relations (5.25 METs) Climb a flight of stairs or walk up a hill (5.50 METs) Participate in moderate recreational activites, such as golf, bowling, dancing, doubles tennis, or throwing a baseball or football (6.00 METs) Participate in strenuous sport, such as swimming, singles tennis, football, basketball, or skiing (7.50 METs) Do heavy work around the house, such as scrubbing floors, lifting or moving heavy furniture (8.00 METs) 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 Clinical Frailty Scale: 2. Well STOP-Bang Score: BMI greater than 35 kg/m^2 Has a large neck Male patient Denies snoring loudly Denies feeling tired, fatigued, or sleepy during the daytime Has not been observed to stop breathing or choking/gasping during sleep Denies having high blood pressure Patient 50 years old or younger STOP-Bang Score: 3 [id number] Score: Age: <65 Sex: male CHF history: No Hypertension history: No Stroke/TIA/thromboembolism history: No Vascular disease history: No Diabetes history: Yes [id number] Score: 1 I - PHYSICAL EVALUATION AIRWAY Patient intubated: No. Tracheostomy tube not present Mallampati: I. TM distance: >3 FB. Neck ROM: full ROM without neurological symptoms. Mouth opening: adequate. Short neck: no. Thick neck: no Gaspar present: yes Lip Bite Test: I Microretrognathia/Micronagthia/ Recessed Chin: No DENTAL Dental findings: teeth intact. Additional comments: Denies any chipped or broken teeth. Denies any dental pain or infections. . II - ANESTHESIA PLAN Anesthetic Plan: other Anesthetic plan additional comments: *PACC/TCI - anesthesia choice. Beta Alla Monitoring Plan Post Procedure Analgesic Plan Prepared for Surgery: optimally prepared for surgery, pending [see comment]. Labs and EKG - to be completed at [place] on 06/22 CONSULTS: Patient does not require consults for optimization at this time Planned Anesthetic: other anesthesia choice The Following Tests/Procedures Have Been Initiated: Orders Placed This Encounter Hemoglobin A1C Standing Status: Future Expected Date: 06/21/2024 Expiration Date: 09/20/2024 Confirm Blood Type Standing Status: Future Expected Date: 06/21/2024 Expiration Date: 09/20/2024 Did Blood Bank direct you to place this order:: No - Presurgical Workflow Type and Screen, 30 day Standing Status: Future Expected Date: 06/21/2024 Expiration Date: 09/20/2024 Scheduling Instructions: A 30-day Type and Screen test has been ordered for you. This should be scheduled to be collected no earlier than 29 days before your scheduled procedure. If you receive blood products (red blood cells, platelets, plasma, cryoprecipitate) at any point before your procedure or are a female and become , please inform your provider. This test will be canceled, and a standard type and screen will need to be ordered to be collected within 3 days of your procedure. [facility] or Procedure:: Krystal Status of surgery/procedure:: Scheduled Date of surgery/procedure:: 06/29/2024 ECG COMPLETE Standing Status: Future Expiration Date: 06/21/2025 This is a virtual visit using [employer] video visit. It required patient-provider interaction for the medical decision making as documented below. REASON FOR VISIT: Malorie Foley is a 38 year old male who is scheduled for Procedure(s): LAPAROSCOPIC CHOLECYSTECTOMY POSSIBLE OPEN (N/A) at the request of Dr. Kadeem Shah for consultation. My final recommendation will be communicated back to the requesting physician by way of shared medical record or letter. Subjective The patient has the following: COVID-19 Immunization Status Current Care Gaps Covid-19 Vaccine ( season) Never done No completion, postpone, frequency change, or communication history exists for this topic. CHIEF COMPLAINT: Gallstones HPI: Patient is a 38 year old male presenting with gallstones. He notes abdominal pain and diarrhea over the last few years but has recently worsened. He has had more symptoms from his gallstones. Patient rates pain at 2/10 currently and at its worst pain is rated at 7/10 and is described as "like it is pulling". Pain will occasionally radiate to his shoulder. Pain is worse with eating particular foods. Patient denies any other specific radiating, alleviating or aggravating factors. This is a virtual visit. The visit was conducted using [employer] video visit. It required patient-provider interaction for the medical decision making as documented below. I have communicated my name and active licensure. The patient's identity and physical location were verified at the time of this visit. Either the patient or their legal senior outside sales representative has been informed of the risks and benefits of and alternatives to treatment through a remote evaluation and consents to proceed with the evaluation remotely. REVIEW OF SYSTEMS: General: No weight loss, malaise or fevers. Neurological: No history of TIA's, stroke, RESIDENTIAL LEASING MANAGER tumor, impaired sensorium, hemiplegia, paraplegia or quadraplegia. No neurological symptoms or problems. Respiratory: Positive for: asthma. Negative for: COPD, dyspnea, orthopnea, pneumonia within 6 weeks and URI < 2 weeks. Cardiovascular: No history of HTN requiring medication, no history of angina, CHF, SD, cardiac surgery or stents. Denies rest pain, gangrene or revascularization/amputation for PVD. No history of cardiovascular symptoms or problems. GI: See HPI. Positive for: GERD Negative for: abdominal pain, heartburn, nausea and vomiting. : No history of dysuria, frequency or incontinence, stones or chronic kidney disease. No difficulty urinating, nocturia > 1 time per night or hematuria. Endocrine: Positive for: diabetes mellitus. Negative for: hypothyroidism and steroid for chronic problem. Hematology: No history of bleeding or clotting disorder. Patient is not taking anti-coagulation or platelet medications. No history of hematological symptoms or problems. Oncology: No history of CA metastasis, chemo within 30 days, or radiotherapy within 90 days. No history of oncological symptoms or problems. Psych: No history of psychiatric symptoms or problems. Musculoskeletal: Negative for joint pain or swelling, back pain or muscle pain. Skin: Negative for lesions, rash and itching. Implanted Devices: No implanted devices. 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 Psoriasis 06/16/2012 on top of head and face PAST SURGICAL HISTORY Procedure Laterality Date HERNIA REPAIR HX x2 (abdominal) PAST SURGICAL HISTORY OF wisdom teeth removal FAMILY HISTORY Problem Relation Age of Onset Strabismus Brother Hypertension Maternal Grandmother Macular Degen Maternal Grandmother DVT Maternal Grandmother Hypertension Maternal Grandfather Macular Degen Maternal Grandfather Cancer Maternal Grandfather states blood clot traveled to brain Cataract Paternal Grandmother Diabetes Paternal Grandmother Hypertension Paternal Grandmother Diabetes Paternal Grandfather Hypertension Paternal Grandfather Cancer Paternal Grandfather Anesthesia Problems No Family History Clotting Disorder No Family History Social History Tobacco Use Smoking status: Never Smokeless tobacco: Never Vaping Use Vaping status: Never Used Substance Use Topics Alcohol use: Yes Comment: Maybe 6 beers in 6 months Drug use: Never Prior to Admission medications as of 06/21/24 1329 Medication Sig Last Dose Taking omeprazole (PRILOSEC) 20 mg capsule Take 20 mg by mouth once daily. Yes metFORMIN (GLUCOPHAGE) 500 mg tablet Take 2 tablets by mouth every 12 hours. Yes lactobacillus rhamnosus (CULTURELLE) 10 billion cell capsule TAKE 1 CAPSULE BY MOUTH THREE TIMES DAILY WITH MEALS FOR 13 DAYS. Yes No medication comments found. ALLERGIES Allergen Reactions Adhesive Tape (Rea* Unknown Objective PHYSICAL EXAM: (if completed, exam performed via video enabled technology) General: alert and oriented, healthy appearance and morbidly obese. Pertinent negatives noted - not distressed. Skin: normal color, no rash or lesions. HEENT: Head is normocephalic, no abnormality or lesion noted Eyes show no injection and visual acuity is grossly normal Ears note grossly normal hearing Nose exam notes external nose is normal without rhinorrhea Oropharynx exam notes moist mucous membranes with no noted tonsillar hypertrophy, erythema or edema Uvula is midline. . Cardiovascular: Patient palpated radial pulse, regular when counted aloud by patient. Capillary refill is less than 3 seconds in bilateral upper extremities. . Respiratory: Equal chest rise with normal respiratory effort . Abdomen: soft. Pertinent negatives noted - not distended and not tender. No pain upon palpation by patient . Extremities: no deformity, no edema or tenderness, no joint swelling or clubbing. Neurological: normal cognition and motor skills. Gait stated to be normal per patient . PAIN ASSESSMENT: VITALS: BP [130/84 on 06/19/2024 reviewed[ Pulse 92 Temp [no thermometer available - feeling well[ Resp 18 Ht 6' 6" (1.98m) Wt 389 lb (176.4kg) BMI 44.96 kg/(m^2). Diagnostic tests reviewed for today's visit: Lab Value Units Date High Low HB 16.0 g/dL 06/06/2024 17.0 13.0 HCT 47.7 % 06/06/2024 51.0 39.0 WBC 3.92 k/uL 06/06/2024 11.00 3.70 PLT 141 k/uL 06/06/2024 400 150 NA 139 mmol/L 06/06/2024 144 136 K 4.0 mmol/L 06/06/2024 5.1 3.7 GLUC 121 mg/dL 06/06/2024 99 74 BUN 11 mg/dL 06/06/2024 24 9 CREAT 0.92 mg/dL 06/06/2024 1.22 0.73 PTSEC No results within date range. INR No results within date range. APTT No results within date range. ALT 58 U/L 06/06/2024 54 10 AST 34 U/L 06/06/2024 40 14 TBILI 0.9 mg/dL 06/06/2024 1.3 0.2 TSH No results within date range. Lab Value Units Date High Low HCGQT No results within date range. UHCG No results within date range. HCG, BODY* No results within date range. Lab Value Units Date High Low ABORHD No results within date range. ABSCREEN No results within date range. No results found for: "HBA1C" No results found for this or any previous visit (from the past 8760 hours). No results found for this or any previous visit (from the past 41326 hours). Instructions Given to Patient: Instructions located in the after visit summary. Patient given verbal and written preop instructions and voices comprehension and compliance. SIGNATURE: Sunday Crane PA-C PATIENT NAME: Malorie Foley DATE: June 21, 2024 TIME: 1:16 PM PAGER/CONTACT #: documented in this encounter [facility] 06-20-2024 Telephone encounter Note 06-29-2024 Leonora Royal with double time and visiport Mamadou Headley [facility] 06-20-2024 Miscellaneous Notes 06-29-2024 Leonora Royal with double time and visiport Mamadou Headley documented in this encounter [facility] 06-06-2024 History of Presen t illness Narrative Patient/Parent consented to all provider testing Subjective: Patient: Malorie Foley is a 38 y.o. male Patient presents urgent care today with concerns for decreased appetite, fatigue, fever, chills, abdominal pain, nausea, vomiting, diarrhea, headaches x 4 days. Patient states he ate Chipotle on Tuesday and then began getting sick. Patient states family ate chipotle as well and nobody else at home is sick. Patient declines any recent antibiotic use or recent out of the country travel. Patient declines any blood in stool or emesis. Patient complaining of central and right upper quadrant abdominal pain 6 out of 10 and cramping. Patient states symptoms are worse after eating. Patient vital signs within normal limits. Patient is able to speak in full complete sentences today in office and manage secretions appropriately. Patient is not in acute distress. Review of Systems Constitutional: Positive for appetite change, fatigue and fever. Negative for chills. HENT: Negative for congestion, ear discharge, ear pain, rhinorrhea, sinus pressure, sinus pain, sore throat and trouble swallowing. Respiratory: Negative for cough, choking, shortness of breath and wheezing. Cardiovascular: Negative for chest pain and palpitations. Gastrointestinal: Positive for abdominal pain, diarrhea, nausea and vomiting. Negative for abdominal distention and blood in stool. Neurological: Positive for headaches. Negative for dizziness, syncope, weakness and light-headedness. Allergies Allergen Reactions Adhesive [Tape] Hives and Rash No Plastic tape -Removes his skin Wound Dressing Adhesive Current Outpatient Medications on File Prior to Visit Medication Sig Dispense Refill ibuprofen 600 MG tablet TAKE 1 TABLET EVERY 6 HOURS NEEDED FOR MILD TO MODERATE DISCOMFORT OR SWELLING metFORMIN (Glucophage) 500 MG tablet Take 2 tablets by mouth 2 times daily. OneTouch Ultra Test test strip 1 (ONE) STRIP DAILY EVERY MORNING, TEST BLOOD SUGAR EVERY MORNING VIA FINGERSTICK fluticasone (Flonase) 50 MCG/ACT nasal spray Administer 1 spray into each nostril daily for 14 days. Shake gently. Before first use, prime pump. After use, clean tip and replace cap. 16 mL 0 No current facility-administered medications on file prior to visit. Past Medical History: Diagnosis Date Hx of Clostridium difficile infection Social History Tobacco Use Smoking status: Never Passive exposure: Never Smokeless tobacco: Never Substance Use Topics Alcohol use: Yes Objective: BP 121/88 Pulse 92 Temp 36.6 C (97.9 F) Resp 18 Ht 6' 5" (1.956 m) Wt (!) 392 lb (178 kg) SpO2 97% BMI 46.48 kg/m Physical Exam Vitals and nursing note reviewed. Constitutional: General: He is awake. He is not in acute distress. Appearance: Normal appearance. He is normal weight. He is not ill-appearing or toxic-appearing. Cardiovascular: Rate and Rhythm: Normal rate and regular rhythm. Pulmonary: Effort: Pulmonary effort is normal. Breath sounds: Normal breath sounds. Abdominal: General: Abdomen is flat. Bowel sounds are normal. There is no distension. Palpations: Abdomen is soft. There is no mass. Tenderness: There is abdominal tenderness in the right upper quadrant and epigastric area. There is no guarding or rebound. Negative signs include Celeste's sign, Rovsing's sign, McBurney's sign, psoas sign and obturator sign. Hernia: No hernia is present. Musculoskeletal: General: Normal range of motion. Skin: General: Skin is warm and dry. Neurological: General: No focal deficit present. Mental Status: He is alert and oriented to person, place, and time. Mental status is at baseline. Psychiatric: Mood and Affect: Mood normal. Behavior: Behavior normal. Behavior is cooperative. Thought Content: Thought content normal. Judgment: Judgment normal. Assessment 1. Nausea and vomiting, unspecified vomiting type 2. Viral gastroenteritis Plan Diagnoses and all orders for this visit: Nausea and vomiting, unspecified vomiting type - AMB POC COVID-19 COV - AMB POC RAPID INFLUENZA DNA/RNA Viral gastroenteritis Due to patient symptoms and clinical evaluation of COVID influenza test was performed in office. COVID and influenza test negative. Educated patient that due to right upper quadrant pain and not able to keep any foods or liquids down over the past 4 days I believe patient would be better evaluated in the emergency room. Educated patient differentials include viral gastroenteritis versus norovirus force cholecystitis first appendicitis. Patient states they will proceed to [facility]. Patient would like to drive private vehicle which I believe is reasonable and appropriate at this time as patient is not in acute distress. I educated patient to side puller and call 911 if symptoms worsen in route to the ER. Patient understands and agreeable to treatment plan. Rio Majano NP 06/06/24 11:27 AM If symptoms do not improve, worsen, or new symptoms develop, see PCP for further evaluation. documented in this encounter [facility] 12-14-2022 History of Presen t illness Narrative [...] to Visit Medication Sig Dispense Refill [DISCONTINUED] Ivdsdprcqojsoje-CRXM-QI (DAYQUIL PO) Take by mouth. No current [...] 36.6 C (97.8 F) (Infrared) Ht 6' 5" (1.956 m) Wt (!) 392 lb (178 [...] URI with cough and congestion (Primary) - brompheniramine-pseudoephedrine -DM 30-2-10 MG/5ML syrup; Take 5 mL by [...] gargles, and tylenol or motrin as needed. [facility] quarantine guidelines discussed with patient. Patient to [...] and is agreeable. documented in this encounter [facility] 12-14-2022 Instructions Agnes Cuadra DO - 12/14/2022 11:40 AM EDT [...] Everywhere.Viral Upper Respiratory Infection Discharge Instructions, Adult (Uzbek)documented in this encounter [facility] 12-14-2022 Miscellaneous Notes Addended by: AGNES CUADRA on: 12/14/2022 01:21 PM Modules accepted: Orders documented in this encounter [facility] 12-14-2022 Note Addended by: AGNES PEREZ on: 12/14/2022 01:21 PM Modules accepted: Orders [facility] 08-24-2022 History of Presen t illness Narrative [...] (98.1 F) (Tympanic) Resp 18 Ht 6' 3" (1.905 m) SpO2 98% Physical Exam Vitals [...] - AMB POC RAPID STREP A - brompheniramine-pseudoephedrine -DM 30-2-10 MG/5ML syrup; Take 5 mL by [...] and is agreeable documented in this encounter [facility] 08-24-2022 Instructions Agnes Cuadra DO - 08/24/2022 1:50 PM EDT [...] Everywhere.Bacterial Upper Respiratory Infection Discharge Instructions, Adult (Uzbek)documented in this encounter [facility] Evaluation note Diagnosis Upper respiratory tract infection, unspecified type- Primary documented in this encounter [facility]* Diagnosis URI with cough and congestion- Primary Close exposure to COVID-19 virus documented in this encounter [facility] noteNo assessment information availableWCleveland Clinic [facility] Work Phone: Evaluation note* Diagnosis Nausea and vomiting, unspecified vomiting type- Primary Viral gastroenteritis Intestinal infection due to other organism, NEC documented in this encounter [facility] note* Diagnosis Pre-op evaluation- Primary Preoperative examination, unspecified Gastroesophageal reflux disease, unspecified whether esophagitis present Fatty liver Other chronic nonalcoholic liver disease History of asthma Personal history of other diseases of respiratory system Type 2 diabetes mellitus without complication, without long-term current use of insulin (HCC) Obesity, Class III, BMI >= 40 Morbid obesity Sarcoidosis Calculus of gallbladder with cholecystitis without biliary obstruction, unspecified cholecystitis acuity * Assessment & Plan Note - Sunday Crane PA-C - 06/21/2024 1:34 PM EST Associated Problem(s): Sarcoidosis Assessment: states affected his eyes; states almost lost complete vision; was placed on Humira, had3 doses and woke up one morning and complete vision returned, no limitations or need for medicationsince Denies any other known organ involvement MET level of 8.0 * Assessment & Plan Note - Sunday Crane PA-C - 06/21/2024 1:33 PM EST Associated Problem(s): Obesity, Class III, BMI >= 40 Assessment: Body mass index is 44.95 kg/m . * Assessment & Plan Note - Sunday Crane PA-C - 06/21/2024 1:33 PM EST Associated Problem(s): Type 2 diabetes mellitus without complication, without long-term current useof insulin (HCC) Assessment: Follows with PCP Is on metformin Most recent A1c was "just under 7" per pt on Tuesday * Assessment & Plan Note - Sunday Crane PA-C - 06/21/2024 1:32 PM EST Associated Problem(s): History of asthma Assessment: as a child and young adult No need for inhaler in recent years Denies any exacerbations * Assessment & Plan Note - Sunday Crane PA-C - 06/21/2024 1:32 PM EST Associated Problem(s): Fatty liver Assessment: Following with PCP Most recent LFTs from 06/06/2024: Alk phos [address] 34 ALT 58 (H) Denies any ascites or jaundice * Assessment & Plan Note - Sunday Crane PA-C - 06/21/2024 1:31 PM EST Associated Problem(s): GERD (gastroesophageal reflux disease) Assessment: States is well controlled with omeprazole and denies any recent exacerbations Follows with PCP documented in this encounter [facility] note* Diagnosis Calculus of gallbladder with cholecystitis without biliary obstruction, unspecified cholecystitis acuity- Primary Pre-op evaluation- Primary Preoperative examination, unspecified Gastroesophageal reflux disease, unspecified whether esophagitis present Fatty liver Other chronic nonalcoholic liver disease History of asthma Personal history of other diseases of respiratory system Type 2 diabetes mellitus without complication, without long-term current use of insulin (HCC) Obesity, Class III, BMI >= 40 Morbid obesity Sarcoidosis Calculus of gallbladder with cholecystitis without biliary obstruction, unspecified cholecystitis acuity documented in this encounter [facility] note* Diagnosis Pre-op evaluation- Primary Preoperative examination, unspecified Gastroesophageal reflux disease, unspecified whether esophagitis present Fatty liver Other chronic nonalcoholic liver disease History of asthma Personal history of other diseases of respiratory system Type 2 diabetes mellitus without complication, without long-term current use of insulin (HCC) Obesity, Class III, BMI >= 40 Morbid obesity Sarcoidosis Calculus of gallbladder with cholecystitis without biliary obstruction, unspecified cholecystitis acuity- Primary documented in this encounter [facility] for referral (narrative)No reason for referral information availableWCleveland Clinic Children[facility] Work Phone: Summary Purpose Family History No Family History Records FoundNo Family History Records FoundNo Family History Records FoundNo Family History Records FoundNo Family History Records FoundNo Family History Records FoundNo Family History Records Found Advance Directives No Advanced Directives Records Found Advance Directive Response Recorded Date/ Time Living Will No July 17, 2018 6:33am Power of Salesforce Developer Yes July 17 6:33am Chief Complaint and Reason for Visit Chief Complaint EORDER Chief Complaint Admit Date COLD EXTREMITIES August 07, 2024 7:4 3am Additional Source Comments (unrecognized sect ion and content) No Status Records FoundNo Status Records FoundNo Status Records FoundNo Status Records FoundNo Status Records FoundNo Status Records FoundNo Status Records Found INFORMATION SOURCE (unrecogn ized section and content) DATE CREATED AUTHOR 10/19/2017 [facility] DATE CREATED AUTHOR AUTHOR'S ORGANIZ ATION 01/20/2020 [facility] DATE CREATED AUTHOR AUTHOR'S ORGANIZ ATION 06/08/2024 [facility] DATE CREATED AUTHOR AUTHOR'S ORGANIZ ATION 07/05/2024 [facility] DATE CREATED AUTHOR AUTHOR'S ORGANIZ ATION 08/03/2024 [facility] DATE CREATED AUTHOR AUTHOR'S ORGANIZ ATION 08/18/2024 [facility] DATE CREATED AUTHOR AUTHOR'S ORGANIZ ATION 08/30/2024 [facility] Reason for Visit (unrecogniz ed section and content) Reason Comments Sore Throat Pt here today w/comp laints of pharyngitis x 4 days. Pt has productive cough w/green sputum. Pt has increased chest congestion/head congestion with complaints of a headache. Reason Comments URI Last Tuesday started to have itchy throat, was sluggish, reports that sat was burning up no temp taken, chills last night, upper chest congestion, nasal congestion, trouble sleeping due to symptoms . 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 Rupesh Obando MD Primary Care Provider Active Team Status: Inactive Member Role Status Dates Dr. Rupesh Obando MD Primary Care Pr ovider, Attending Provider, Referring Provider Active Team Status: Inactive Member Role Status Dates Dr. Rupesh Obando MD Primary Care Provider, Attend ing Provider Active [employer]ting Worker Relationship Specialty Start Date End Date [facility] [address] [place] [address] PCP - General 12/14/22 Wool Batting Worker Relationship Specialty Start Date End Date Rupesh Obando MD [address] [facility] [address] [place], [place] [address] PCP - General Family Medicine 05/26/23 Wool Batting Worker Relationship Specialty Start Date End Date Rupesh Obando MD [address] [place] [address] PCP - General Family Medicine 05/26/23 Wool Batting Worker Relationship Specialty Start Date End Date Rupesh Obando MD [address] [place] [address] PCP - General Family Medicine 05/26/23 Wool Batting Worker Relationship Specialty Start Date End Date Rupesh Obando MD [address] [place] [address] PCP - General Family Medicine 05/26/23 Wool Batting Worker Relationship Specialty Start Date End Date Rupesh Obando MD [address] [place] [address] PCP - General Family Medicine 05/26/23 Team Status: Active Member Role Status Dates Dr. Rupesh Obando MD Primary Care Provider Active Team Status: Inactive Member Role Status Dates Dr. Rupesh Obando MD Primary Care Provider Active Start: June 12, 2024 End: June 12, 2024 Dr. Rupesh Obando MD Attending Provider Active Start: June 12, 2024 End: June 12, 2024 Dr. Rupesh Obando MD Referring Provider Active Start: June 12, 2024 End: June 12, 2024 Team Status: Inactive Member Role Status Dates Dr. Rupesh Obando MD Primary Care Provider Active Start: August 07, 2024 End: August 07, 2024 Dr. Rupesh Obando MD Attending Provider Active Start: August 07, 2024 End: August 07, 2024 Dr. Rupesh Obando MD Referring Provider Active Start: August 07, 2024 End: August 07, 2024 Team Status: Active Member Role Status Dates Dr. Rupesh Obando MD Primary Care Provider Active Start: August 07, 2024 Dr. Tyrese Griffith MD Attending Provider Active S tart: August 07, 2024 Team Status: Active Member Role Status Dates Dr. Rupesh Obando MD Primary Care Provider Active Start: August 10, 2024 Dr. Rupesh Obando MD Attending Provider Active Start: August 10, 2024 Dr. Rupesh Obando MD Referring Provider Active Start: August 10, 2024 Team Status: Inactive Member Role Status Dates Dr. Rupesh Obando MD Primary Care Provider Active Start: August 10, 2024 End: August 10, 2024 Dr. Rupesh Obando MD Attending Provider Active Start: August 10, 2024 End: August 10, 2024 Dr. Rupesh Obando MD Referring Provider Active Start: August 10, 2024 End: August 10, 2024 Goals (unrecognized section and content) Goals may be documented in a n alternate sectionGoals may be documented in an alternate sectionGoals may be documented in an alternate section Source Comments (unrecognize d section and content) In the event this informatio n is protected by the Federal Confidentiality of Alcohol and Drug Abuse Patient Records regulations: The Federal rules restrict any use of the information to criminally investigate or prosecute any alcohol or drug abuse patient.[facility] the event this information is protected by the Federal Confidentiality of Alcohol and Drug Abuse Patient Records regulations: The Federal rules restrict any use of the information to criminally investigate or prosecute any alcohol or drug abuse patient.[facility] HospitalIn the event this information is protected by the Federal Confidentiality of Alcohol and Drug Abuse Patient Records regulations: The Federal rules restrict any use of the information to criminally investigate or prosecute any alcohol or drug abuse patient.[facility] Hospital[facility] the event this information is protected by the Federal Confidentiality of Alcohol and Drug Abuse Patient Records regulations: The Federal rules restrict any use of the information to criminally investigate or prosecute any alcohol or drug abuse patient.[facility] Hospital[facility] the event this information is protected by the Federal Confidentiality of Alcohol and Drug Abuse Patient Records regulations: The Federal rules restrict any use of the information to criminally investigate or prosecute any alcohol or drug abuse patient.[facility] FOR RECORDS PERTAINING TO PATIENTS WHO ARE [...] BE BASED ON THE PRIMARY CLINICAL RECORDS. [facility] [employer] [facility]. provides no warranty or guarantee of the accuracy or completeness of information in this document.
== END | disposition home or self-care (01) ==
LOC: MFPLAB 09:37
PROVIDERS: PCP Family Medicine; Referring Provider Family Medicine; Visit Provider Family Medicine
DX: E11.9 Type 2 diabetes mellitus without complications (principal)
CPT/HCPCS: 36415; 80053; 80061; 83036; 85025

== ENCOUNTER → 2025-01-18 | Outpatient (CLI) | payer BC, SELFPAY ==
[2025-01-18 18:47] LABS: Hematocrit 47.9 % (40-54); Hemoglobin 16.3 g/dL (13.0-16.5); Immature Granulocytes Count 0.030 X10^3/uL (0.0-0.0); Mean Corp Hgb Conc 34.0 g/dL (32-36); Mean Corpuscular Volume 81.5 fL (80-94); Mean Platelet Vol. 9.1 fl (6.2-12.0); NRBC Flagged by Analyzer 0 % (0-5); Platelet Count 212 K/mm3 (150-450); RBC Distribution Width CV 13.1 % (11.6-14.6); RBC Distribution Width SD 38.4 fl (35.1-43.9); Red Blood Count 5.88 M/mm3 (4.6-6.2); White Blood Count 7.8 K/mm3 (4.4-11.0)
[2025-01-18 19:21] LABS: AST(SGOT) 22 U/L (<=37); Alanine Aminotransfer ALT/SGPT 41 U/L (<=46); Albumin, Serum 4.4 g/dL (3.5-5.0); Alkaline Phosphatase 80 U/L (40-129); Anion Gap 14 (5-15); BUN 16 mg/dL (4-19); BUN/Creat Ratio 19.5 RATIO (10-20); Calcium,Total 9.1 mg/dL (7.6-11.0); Carbon Dioxide 19.0 mmol/L (21.0-32.0); Chloride 105 mmol/L (98-108); Globulin 2.7 g/dL (2.2-4.2); Glucose 92 mg/dL (70-99); Magnesium 2.3 mg/dL (1.5-2.2); Potassium 4.1 mmol/L (3.3-5.1)
== END | disposition home or self-care (01) ==
LOC: MFPLAB 16:53
PROVIDERS: PCP Family Medicine; Referring Provider Family Medicine; Visit Provider Family Medicine
DX: R00.0 Tachycardia, unspecified (principal)
CPT/HCPCS: 36415; 80053; 83735; 84439; 84443; 85025

== ENCOUNTER → 2025-02-25 | Outpatient (CLI) | payer BC, SELFPAY ==
--- NOTE | 2025-02-25 10:54 | ECHOD_ITS ---
Reason For Study ECHO/Echo Complete
== END | disposition home or self-care (01) ==
PROVIDERS: PCP Family Medicine; Referring Provider Family Medicine; Visit Provider Family Medicine
DX: R07.9 Chest pain, unspecified (principal); R00.0 Tachycardia, unspecified
CPT/HCPCS: 93306

== ENCOUNTER → 2025-04-05 | Outpatient (CLI) | payer BC, SELFPAY ==
--- NOTE | 2025-04-05 12:19 | CT_ITS ---
PROCEDURE: LIMITED CHEST CT CARDIAC ONLY 04/05/2025 REASON FOR EXAM: CHEST PAIN TECHNIQUE: Procedure Code: [id number] Modality: CT Procedure: LIMITED CHEST CT CARDIAC ONLY Coronal and Sagittal reconstruction series were provided. CONTRAST: Isovue-300 VOLUME: 100 35 mL One or more dose reduction techniques were used (e.g., Automated exposure control, adjustment of the mA and/or kV according to patient size, use of iterative reconstruction technique). RADIATION DOSE SUMMARY: CTDlvol: 35 mGy DLP: 2231 mGycm COMPARISON: None FINDINGS: No significant coronary artery calcification. The heart size is upper limits of normal. The visualized portions of the lungs are unremarkable. CT/Limited Chest CT Cardiac Only IMPRESSION: No coronary artery calcification. Reading Location: [id number]
[2025-04-05 12:34] VITALS: BP 146/80; PULSE 77; RESP 18; O2SAT 98; BMI 38.5
--- OUTSIDE RECORDS SUMMARY | 2025-04-05 12:36 | XMS RPT_ITS | CCD ---
Author Organization [facility] Care Team Providers Care Glue Sprayer Name Role Phone Ryder Garcia Unavailable Unavailable Unavailable Primary Care Provider [employer] [facility] Primary Care Provider Unav ailable [facility] Primary [facility] Unavailable RIO MAJANO Attending Unavailable Rupesh Obando MD Primary Care Provider RUPESH OBANDO Primary Care Unavailable DENISA AMEZCUA Attending UnavailRUPESH Dowd Primary Care Unavailable RUPESH OBANDO Primary Care Unavailable MELISSA JACOME Attending Unavailable Dr. Rupesh Obando MD Primary Care Provider Dr. Rupesh Obando MD Attending Provider [phone] Dr. Rupesh Obando MD Referring Provider Dr. Tyrese Griffith MD Attending Provider KADEEM SHAH Attending Unavailable RUPESH OBANDO Referring Unavailable RUPESH OBANDO Primary Care Unavailable PATRICIA PETERS Attending Unavailable RUPESH OBANDO Primary Care Unavailable KADEEM SHAH Referring Unavailable RUPESH OBANDO Primary Care Unavailable Dr. Rupesh Obando MD Primary Care Provider Dr. Rpuesh Obando MD Attending Provider Dr. Rupesh Obando MD Referring Provider [phone] RUPESH OBANDO Primary Care Unavailable SUNDAY CRANE Referring Unavailable SUNDAY CRNAE Referring Unavailable RUPESH OBANDO Primary Care Unavailable KADEEM SHAH Attending Unavailable KADEEM SHAH Admitting Unavailable RUPESH OBANDO Primary Care Unavailable RUPESH OBANDO Primary Care Unavailable Dr. Rupesh Obando MD Primary Care Physician Dr. Rupesh Obando MD Attending Physician Dr. Rupesh Obando MD Referring Provider [phone] Rupesh Obando Primary Care Unavailable Rupesh Obando Attending Unavailable Rupesh Obando Referring Unavailable Kennedy Taylor Consulting Unavailable Kennedy Taylor Attending Unavailable Kennedy Taylor Referring Unavailable SchRupesh apodaca Primary Care Unavailable SchRupesh apodaca Primary Care Unavailable SchRupesh apodaca Attending Unavailable Schconstanza, Rupesh Rodriguez Referring Unavailable SchRupesh apodaca Primary Care Unavailable SchRupesh apodaca Attending Unavailable Rupesh Obando Referring Unavailable SchRupesh apodaca Primary Care Unavailable SchRupesh apodaca Attending Unavailable Topher, Rupesh Rodriguez Referring Unavailable Schconstanza, Rupesh Rodriguez Primary Care Unavailable SchRupesh apodaca Attending Unavailable Rupesh Obando Referring Unavailable Kennedy Taylor Attending Unavailable Kennedy Taylor Referring Unavailable Rupesh Obando Primary Care Unavailable SchRupesh apodaca Primary Care Unavailable Kennedy Taylor Attending Unavailable Rupesh Obando Referring Unavailable Cecile Murguia Attending Unavailable Schconstanza, Rupesh Rodriguez Primary Care Unavailable Schconstanza, Rupesh Rodriguez Primary Care Unavailable Tyrese Griffith Attending Unavailable Rupesh Obando Referring Unavailable Schconstanza, Rupesh Rodriguez Primary Care Unavailable Rupesh Obando Attending Unavailable Rupesh Obando Referring Unavailable Allergies Allergy Classification Reported Allergen(s) Allergy Type Date of Onset Reaction(s) Facility (3 sources) Adhesive Tape Drug Intolerance 1 Hives, Rash [facility] (1 source) Wound Dressing Adhesive Drug Allergy 9 [facility] (3 sources) Adhesive Tape; Translations: [ADHESIVE TAPE (ROSINS)] Propensity to adverse reactions (disorder) 1 [facility] (1 source) Adhesive agent Drug allergy (disorder) 5 [facility] Medications Current Medications Medication [...] oral solution (2 sources) alpha-Adrenergic Agonist, Uncompetitive V-tndbbc-N-aspartate Receptor Antagonist, Sigma-1 Agonist Start: 12-14-2022 End: 12-24-2022 take 5 mL by mouth three times daily as needed for cough svhrnbjfrphogeb-iuiqxszdxtygant-AN 30-2-10 MG/5ML syrup Indications: URI with cough and congestion Take 5 mL by mouth 3 times daily as needed for cough or congestion for up to 10 days. 150 mL 0 12/14/2022 12/24/2022 Active Start: 08-24-2022 End: 09-03-2022 take 5 mL by mouth three times daily as needed for cough ihhbnvnlcgazpbb-uuhmouivfvghmfd-BP 30-2- 10 MG/5ML syrup Indications: Upper respiratory [...] OR SWELLING 11/17/2023 Active lactobacillus rhamnosus gg [id number] unt oral capsule (4 sources) Start: 06-21-2019 [...] Start: 02-22-2023 take 2 tablets by mo uth twice daily metFORMIN (Glucophage) 500 MG tablet Take 2 tablets by mouth 2 times daily. 02/22/2023 Active omeprazole 20 mg delayed release oral capsule (5 sources) Proton Pump Inhibitor Start: 06-12-2024 take 1 capsule by mouth once daily omeprazole (PRILOSEC) 20 mg capsule Take 20 mg by mouth once daily. 06/12/2024 Active sulfamethoxazole 800 mg / trimethoprim 160 mg oral tablet (5 sources) Dihydrofolate Reductase Inhibitor Antibacterial, Sulfonamide Antimicrobial Start: 04-07-2018 Start: 04-07-2018 take 1 tablet by lamonte twice daily Sulfamethoxazole-Trimethoprim Active 1 T ABLET [...] Classification Problem Date Documented Da te Episodic/Chronic Cardiac dysrhythmias (2 sources) Palpitations; Translations: [Tachycardia, unspecified] Onset: Episodic Conditions associated with dizziness or vertigo (1 source) Dizziness and giddiness; Translations: [Light headed] Onset: 5 Episodic Diabetes mellitus without complication (9 sources) Type [...] 12-14-2022 Episodic Joint disorders and dislocations; trauma-related (11 sources) Nursemaid's elbow, left elbow, initial encounter; Translations: [Nursemaid's elbow of left upper extremity, initial encounter] Onset: 5 07-17-2018 Episodic Nausea and vomiting (4 sources) Nausea and vomiting; Translations: [Nausea with vomiting, unspecified] Onset: 5 06-06-2024 Episodic Nonspecific chest pain (3 sources) Chest pain, unspecified; Translations: [Chest pain, unspecified type] Onset: 5 Episodic Open wounds of extremities (1 source) Laceration without foreign body of right hand, initial encounter; Translations: [Laceration of right hand without foreign body, initial encounter] Onset: 5 Episodic Other connective tissue disease (5 sources) Tendinitis of elbow or forearm; Translations: [Other enthesopathies, not elsewhere classified] Onset: 5 07-15-2018 Episodic Other connective tissue disease (1 source) Other enthesopathies, not elsewhere classified; Translations: [Tendinitis of elbow] 07-15-2018 Episodic Other gastrointestinal disorders (1 source) [...] respiratory system] Onset: 5 06-21-2024 Episodic Other nutritional; endocrine; and metabolic disorders [...] intestinal infection, unspecified] Onset: 06-21-2019 06-06-2024 Episodic Other lower respiratory disease (1 source) Personal history of other diseases of the respiratory system; Translations: [History of asthma] Onset: 06-21-2024 Episodic Other nervous system disorders (1 source) Other disturbances of skin sensation; Translations: [Other disturbances of skin sensation] Onset: 08-14-2024 Episodic Skin and subcutaneous tissue infections (1 source) Cellulitis of back [any part except buttock]; Translations: [Cellulitis of back except buttock] Onset: 10-13-2023 Episodic Results Test Name Value Interpretation Reference Range Facility [facility] 02-25-2025 Echo Complete [facility] [address] [place] [address] Echo Complete 02/25/25 1106 MR#: [id number] Acct: [id number] Name: MALORIE FOLEY II Rep #: [id number] : 1985 39 From: Cecile Murguia MD Attending Dr: Dr. Rupesh Obando MD Status: R [facility] Ordering Dr: Kennedy Taylor DO Date: 02/25/25 Location: CVS Sex: M C Admitted: Reason For Study Reason For Study: PALPITATIONS/ CP Procedure This was a 2D Doppler, Color Flow transthoracic echocardiogram. Myocardial strain analysis was performed in this exam to aid in the assessment of cardiac function. Exam performed in department. Left Ventricle Normal LV size. Mild assymetric septal hypertrophy. Septal bounce. Left ventricular systolic function is lower limits of normal. The estimated ejection fraction is 45-50 %. The global longitudinal strain = -15.9% (abnormal). Stage 1 diastolic dysfunction. Inferior and inferior septal hypokinesis. Right Ventricle Normal RV size. Normal systolic function. Atria The left and right atria are normal. Mitral Valve Normal mitral valve. Tricuspid Valve Normal tricuspid valve. Unable to estimate RV systolic pressure due to insufficient tricuspid regurgitant envelope. Aortic Valve Trisinus/trileaflet aortic valve. Pulmonic Valve Normal pulmonic valve. Trivial pulmonic valve insufficiency. Great Vessels Normal sized aortic root. Pericardium/Pleural No pericardial effusion. MMode/2D Measurements Calculations LVIDd: 4.8 cm IVSd: 1.2 cm LVOT diam: 2.4 cm LVIDs: 3.4 cm LVPWd: 1.0 cm LVOT area: 4.7 cm2 RVDd: 4.0 cm FS: 29.7 % asc Aorta Diam: 3.1 cm LAV(MOD-bp): 50.5 ml LVAd ap4: 29.2 cm2 LAV(MOD-bp) Indexed: 17.5 ml/m2 LVLd ap4: 8.2 cm LAV(MOD-sp2): 48.7 ml EDV(MOD-sp4): 87.3 ml LAV(MOD-sp4): 49.8 ml EDV(sp4-el): 88.6 ml LVAs ap4: 19.2 cm2 LVLs ap4: 7.0 cm ESV(MOD-sp4): 42.8 ml ESV(sp4-el): 44.7 ml EF(MOD-sp4): 51.0 % EF(sp4-el): 49.6 % LVAd ap2: 30.9 cm2 SV(MOD-sp4): 44.5 ml SV(MOD-sp2): 44.2 ml LVLd ap2: 9.1 cm SI(MOD-sp4): 15.4 ml/m2 SI(MOD-sp2): 15.4 ml/m2 EDV(MOD-sp2): 88.5 ml EDV(sp2-el): 89.2 ml LVAs ap2: 19.7 cm2 LVLs ap2: 7.8 cm ESV(MOD-sp2): 44.2 ml ESV(sp2-el): 42.5 ml EF(MOD-sp2): 50.0 % SV(sp4-el): 43.9 ml Ao sinus diam: 3.[address] Junction: 2.9 cm LA dimension(2D): 4.0 cm LA A4 area: 18.8 cm2 RA A4 area: 15.0 cm2 TAPSE: 1.7 cm Time Measurements MV dec time: 0.24 sec Doppler Measurements Calculations MV E max coby: 55.5 cm/sec Lat Peak E' Coby: 14.4 cm/sec Med Peak E' Coby: 8.5 cm/sec MV A max coby: 53.4 cm/sec E/E' lat: 3.8 E/E' med: 6.6 MV E/A: 1.0 MV dec slope: 234.1 cm/sec2 Ao V2 max: 109.0 cm/sec LV V1 max: 92.2 cm/sec Ao max P.8 mmHg LV V1 max P.4 mmHg Ao V2 mean: 85.2 cm/sec LV V1 mean P.3 mmHg Ao mean P.1 mmHg LV V1 mean: 74.3 cm/sec Ao V2 VTI: 20.2 cm LV V1 VTI: 17.2 cm AV (velocity ratio): 0.85 QUIQUE(I,D): 4.0 cm2 QUIQUE(V,D): 3.9 cm2 SV(LVOT): 79.9 ml PA V2 max: 95.4 cm/sec ECHO/Echo Complete Interpretation Summary The estimated ejection fraction is 45-50 %. Inferior and inferior septal hypokinesis. Left ventricular systolic function is lower limits of normal. Stage 1 diastolic dysfunction. Structually normal valves. Ordering Physician: Kennedy Taylor Referring Physician: Rupseh Obando Performed By: Christianne Menendez [facility] 02/25/251551 Date Cecile Murguia MD CC: Dr. Kennedy Taylor DO; Dr. Rupesh Obando MD Date Dictated: 02/25/25 110 Date Transcribed: 02/25/251551 Filament Tester: Signed Normal [facility] Cardiology Visit Reporton Cardiology Visit Report [facility] [address] [place] [address] OFFICE VISIT Date of Service: 02/14/25 MR#: [id number] Acct: [id number] Name: MALORIE FOLEY II Rep #: [id number] : 1985 Provider: Dr. Kennedy ernst DO Age/Sex: 39/M Location[place] [facility] Status: Signed HPI HPI History of Present Illness Details: Patient is a 39-year-old male who presents to cardiology clinic for evaluation of palpitations and chest pain. His past medical history includes palpitations, morbid obesity, type 2 diabetes he has a family medical history of obstructive coronary disease in his father. Patient has followed with at [facility], last in January 30, 2025. Patient had an event monitor ordered. However, it appears to fallen off and results are not available. He was supposed to also complete an echocardiogram and a stress test, scheduled for February 25. Patient has been prescribed Lopressor 25 mg twice daily. 10/2024 LDL: 59, triglycerides 76. ECG 12/2024 normal with no evidence of ischemia or infarction. Patient is seen today in clinic. He admits at least a 6-year history of intermittent chest pains. This is prompted ED visits in the past that were negative for cardiac pathology. He admits over the last several months he is beginning to have an increase in these chest pains. Prior to the last few months, he had long stretches of time where he did not feel these pains at all. He describes the pain as lasting a few seconds to a couple minutes, located in his left chest, happening both in exertion and at rest, and sometimes triggered with deep inhalation and exhalation. The pain is described as shooting or stabbing, and other times gripping. 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 Often times if he feels the pain, he will rest for a couple minutes and will go away but other times he has to put his stools down and take a break. Occasionally has some shortness of breath with this. This has been interfering with his work. He has had chest pain over the last couple months mostly every day, and occasionally multiple times per day. He feels his heart race with these chest pain episodes, and palpitations always accompany the pain. He does not or smoke drink and denies illicit drugs. Intake Vital Signs 02/14/25 08:43 Height 6 ft 6 in Weight: 350 lb BMI 40.4 BP 119/77 Blood Pressure Location Lt brachial Position Sitting Respiration 16 Pulse 81 Pulse Source NIBP Intake Visit Reasons: TACHYCARDIA (SCHINNER) Finish Mender Required: No Is patient in pain?: Yes (chest pain just left of sternum and behind ribs) Pain scale (1-10): 1 Allergies adhesive Allergy (Unknown, Verified 02/14/25 10:54) Itching Medications ???Medication ???Instructions ???Recorded ???Confirmed ???Type metformin 500 mg tablet 1,000 mg PO BID 02/12/25 02/14/25 History metoprolol tartrate 25 mg tablet 25 mg PO BID 02/12/25 02/14/25 His tory tirzepatide 12.5 mg/0.5 mL 12.5 mg subcut QWEEK 02/12/2501/24 History subcutaneous pen injector (Mounjaro) tizanidine 4 mg tablet 4 mg PO Q8 PRN 02/14/25 02/14/25 H istory Have you fallen in the past year?: No PFSH Medical History (Updated 02/14/25 @ 12:[address] Kennedy Taylor, DO) Palpitations Morbid obesity Type 2 diabetes mellitus without complication GERD (gastroesophageal reflux disease) Panuveitis of both eyes Psoriasis Surgical History (Updated 02/14/25 @ 10:59 by Zoila Harris) History of hernia repair History of cholecystectomy Family History (Updated 02/14/25 @ 11:02 by Zoila Harris) Father Diabetes Hypertension CAD (coronary artery disease) Maternal Grandfather Hypertension Macular degeneration Cancer Grandmother Diabetes Hypertension DVT (deep venous thrombosis) Macular degeneration Grandfather Hypertension Diabetes Cancer Social History (Updated 02/12/25 @ 13:52 by Zoila Harris) Smoking Status: Never smoker alcohol intake: current alcohol intake frequency: holidays/special occasions only substance use type: does not use caffeine: Yes (Stopped drinking 2 energy drinks daily. ) Type: tea ROS ROS Narrative 14 point review of systems reviewed and negative unless specified in HPI above Cardiology Exam Exam Narrative ???Gen: A Ox3, NAD ???HEENT: Normocephalic/Atraumati c, MMM ???Neck: Supple, no JVD ???Pulm: Normal work of breathing, CTA bilaterally with no wheezes or crackles ???CV: RRR, normal S1/S2, no m/r/g ???Abd: Soft, NT/ND ???Extr: Warm to touch, no LE edema, distal pulses intact and symmetric in upper and lower extremities ???Neuro: No gross focal deficits, normal speech ???Psych: Normal affect, answers questions appropriately Assessment and P (more content not included)... Normal [facility] Absolute lymphocyte countOrd ered By: Rupesh Obando on 01-18-2025 Lymphocytes Auto (Unsp spec) [#/Vol] 1.81 10*3/uL 0.83-4.51 [facility] Absolute neutrophil countOrd ered By: Rupesh Obando on 01-18-2025 Neutrophils (Bld) [#/Vol] 5.3 10*3/uL 2.0-7.7 [facility] Anion gap in Serum or Plasma Ordered By: Rupesh Obando on 01-18-2025 Anion gap [Moles/Vol] 14 mmol/L 5-15 [facility] Automated lymphocyte count a s percentage of total leukocytesOrdered By: Rupesh Obando on 01-18-2025 Lymphocytes/100 WBC Auto (Unsp spec) 23.1 % 19-41 [facility] BUN/creatinine ratioOrdered By: Rupesh Obando on 01-18-2025 Urea nitrogen/Creatinine [Mass ratio] 19.5 mg/mg 10-20 [facility] Basophil percentageOrdered B y: Rupesh Obando on 01-18-2025 Basophils/100 WBC (Bld) 0.6 % 0-1 [facility] [place] Bilirubin, totalOrdered By: Rupesh Obando on 01-18-2025 Bilirubin [Mass/Vol] 0.42 mg/dL 0.00-1.30 [facility] CBC W/Diff, Automatedon 12-25 Absolute Lymph 1.81 X10 3/uL Normal 0.83-4.51 [facility] Comment on above: Order Comment: Order Date: 01/18/25Order Info: 0184-1 - CBCD Performed By: #### L 500.4050, L501.5200, L501.9520, L506.0400, L100.0100 ####[facility] [address] [place], [address] Absolute Neut 5.3 X10 3/uL Normal 2.0-7.7 [facility] Comment on above: Order Comment: Order Date: 01/18/25Order Info: 0184-1 - CBCD Performed By: #### L 500.4050, L501.5200, L501.9520, L506.0400, L100.0100 ####[facility] [address] [place], [address] Basophils/100 WBC (Bld) 0.6 % Normal 0-1 [facility] Comment on above: Order Comment: Order Date: 01/18/25Order Info: 0184-1 - CBCD Performed By: #### L 500.4050, L501.5200, L501.9520, L506.0400, L100.0100 ####[facility] [address] [place], [address] Eosinophils/100 WBC (Bld) 1.8 % Normal 0-5 [facility] Comment on above: Order Comment: Order Date: 01/18/25Order Info: 0184-1 - CBCD Performed By: #### L 500.4050, L501.5200, L501.9520, L506.0400, L100.0100 ####[facility] [address] [place], [address] Erythrocyte distribution width (RBC) [Ratio] 13.1 % Normal 11.6-14.6 [facility] Comment on above: Order Comment: Order Date: 01/18/25Order Info: 0184-1 - CBCD Performed By: #### L 500.4050, L501.5200, L501.9520, L506.0400, L100.0100 ####[facility] [address] [place], [address] Hematocrit (Bld) [Volume fraction] 47.9 % Normal 40-54 [facility] Comment on above: Order Comment: Order Date: 01/18/25Order Info: 0184-1 - CBCD Performed By: #### L 500.4050, L501.5200, L501.9520, L506.0400, L100.0100 ####[facility] [address] [place], [address] Hemoglobin (Bld) [Mass/Vol] 16.3 g/dL Normal 13.0-16.5 [facility] Comment on above: Order Comment: Order Date: 01/18/25Order Info: 0184-1 - CBCD Performed By: #### L 500.4050, L501.5200, L501.9520, L506.0400, L100.0100 ####[facility] [address] [place], [address] IG% 0.400 Normal 0.0-0.9 [facility] Comment on above: Order Comment: Order Date: 01/18/25Order Info: 0184-1 - CBCD Result Comment: IG% - Immature Granulocytes (promyelocytes, myelocytes and metamyelocytes) > 1% indicates that a LEFT SHIFT is Present. Performed By: #### L 500.4050, L501.5200, L501.9520, L506.0400, L100.0100 ####[facility] [address] [place], [address] Lymphocytes/100 WBC (Bld) 23.1 % Normal 19-41 [facility] Comment on above: Order Comment: Order Date: 01/18/25Order Info: 0184-1 - CBCD Performed By: #### L 500.4050, L501.5200, L501.9520, L506.0400, L100.0100 ####[facility] [address] [place], [address] MCH (RBC) [Entitic mass] 27.7 pg Normal 27.0-32.0 [facility] Comment on above: Order Comment: Order Date: 01/18/25Order Info: 0184-1 - CBCD Performed By: #### L 500.4050, L501.5200, L501.9520, L506.0400, L100.0100 ####[facility] [address] [place], [address] MCHC (RBC) [Mass/Vol] 34.0 g/dL Normal 32-36 [facility] Comment on above: Order Comment: Order Date: 01/18/25Order Info: 0184-1 - CBCD Performed By: #### L 500.4050, L501.5200, L501.9520, L506.0400, L100.0100 ####[facility] [address] [place], [address] MCV (RBC) [Entitic vol] 81.5 fL Normal 80-94 [facility] Comment on above: Order Comment: Order Date: 01/18/25Order Info: 0184-1 - CBCD Performed By: #### L 500.4050, L501.5200, L501.9520, L506.0400, L100.0100 ####[facility] [address] [place], [address] Monocytes/100 WBC (Bld) 5.8 % Normal 0-10 [facility] Comment on above: Order Comment: Order Date: 01/18/25Order Info: 0184-1 - CBCD Performed By: #### L 500.4050, L501.5200, L501.9520, L506.0400, L100.0100 ####[facility] [address] [place], [address] Neutrophils/100 WBC (Bld) 68.3 % Normal 47-70 [facility] Comment on above: Order Comment: Order Date: 01/18/25Order Info: 0184-1 - CBCD Performed By: #### L 500.4050, L501.5200, L501.9520, L506.0400, L100.0100 ####[facility] [address] [place], [address] Nucleated RBC (Bld) [#/Vol] 0 10*3/uL Normal 0-5 [facility] Comment on above: Order Comment: Order Date: 01/18/25Order Info: 018- - CBCD Performed By: #### L 500.4050, L501.5200, L501.9520, L506.0400, L100.0100 ####[facility] [address] [place], [address] Platelet mean volume (Bld) [Entitic vol] 9.1 fL Normal 6.2-12.0 [facility] Comment on above: Order Comment: Order Date: 01/18/25Order Info: 0184- - CBCD Performed By: #### L 500.4050, L501.5200, L501.9520, L506.0400, L100.0100 ####[facility] [address] [place], [address] Platelets (Bld) [#/Vol] 212 10*3/uL Normal 150-450 [facility] Comment on above: Order Comment: Order Date: 01/18/25Order Info: 018-1 - CBCD Performed By: #### L 500.4050, L501.5200, L501.9520, L506.0400, L100.0100 ####[facility] [address] [place], [address] RBC (Bld) [#/Vol] 5.88 10*6/uL Normal 4.6-6.2 [facility] Comment on above: Order Comment: Order Date: 01/18/25Order Info: 0184-1 - CBCD Performed By: #### L 500.4050, L501.5200, L501.9520, L506.0400, L100.0100 ####[facility] [address] [place], [address] RDW SD 38.4 fl Normal 35.1-43.9 [facility] Comment on above: Order Comment: Order Date: 01/18/25Order Info: 018-1 - CBCD Performed By: #### L 500.4050, L501.5200, L501.9520, L506.0400, L100.0100 ####[facility] [address] [place], [address] WBC (Bld) [#/Vol] 7.8 10*3/uL Normal 4.4-11.[address] [facility] Comment on above: Order Comment: Order Date: 01/18/25Order Info: 018- - CBCD Performed By: #### L 500.4050, L501.5200, L501.9520, L506.0400, L100.0100 ####[facility] [address] [place] [place], [address] Carbon dioxide, total [Moles /volume] in Central venous bloodOrdered By: Rupesh Obando on 01-18-2025 CO2 [Moles/Vol] 19.0 mmol/L Low 21.0-32.0 [facility] Chloride assayOrdered By: Genie Obando on 01-18-2025 Chloride [Moles/Vol] 105 mmol/L 98-108 [facility] Comprehensive Metabolic Prof ilon 01-18-2025 Albumin [Mass/Vol] 4.4 g/dL Normal 3.5-5.[address] [facility] Comment on above: Order Comment: Order Date: 01/18/25Order Info: 0786-1 - CMPOrder Info: [id number] - MGOrder Info: 3016-3 - TSHOrder Info: 3024-7 - T4F Performed By: #### L 500.4050, L501.5200, L501.9520, L506.0400, L100.0100 ####[facility] [address] [place], [address] Albumin/Globulin [Mass ratio] 1.7 {ratio} Normal 0.9-2.4 [facility] Comment on above: Order Comment: Order Date: 01/18/25Order Info: 0786-1 - CMPOrder Info: [id number] - MGOrder Info: 3016-3 - TSHOrder Info: 3024-7 - T4F Performed By: #### L 500.4050, L501.5200, L501.9520, L506.0400, L100.0100 ####[facility] [address] [place], [address] ALK PHOS 80 U/L Normal 40-129 [facility] Comment on above: Order Comment: Order Date: 01/18/25Order Info: 07-1 - CMPOrder Info: [id number] - MGOrder Info: [id number] - TSHOrder Info: 3024-7 - T4F Performed By: #### L 500.4050, L501.5200, L501.9520, L506.0400, L100.0100 ####[facility] [address] [place], [address] ALT [Catalytic activity/Vol] 41 U/L Normal <=46 [facility] Comment on above: Order Comment: Order Date: 01/18/25Order Info: 0786-1 - CMPOrder Info: [id number] - MGOrder Info: 3016-3 - TSHOrder Info: 3024-7 - T4F Performed By: #### L 500.4050, L501.5200, L501.9520, L506.0400, L100.0100 ####[facility] [address] [place], [address] AST [Catalytic activity/Vol] 22 U/L Normal <=37 [facility] Comment on above: Order Comment: Order Date: 01/18/25Order Info: 0786-1 - CMPOrder Info: [id number] - MGOrder Info: 3015-3 - TSHOrder Info: 3024-7 - T4F Performed By: #### L 500.4050, L501.5200, L501.9520, L506.0400, L100.0100 ####[facility] [address] [place], [address] Bilirubin [Mass/Vol] 0.42 mg/dL Normal 0.00-1.30 [facility] Comment on above: Order Comment: Order Date: 01/18/25Order Info: 785-1 - CMPOrder Info: [id number] - MGOrder Info: 3 - TSHOrder Info: 3024-7 - T4F Performed By: #### L 500.4050, L501.5200, L501.9520, L506.0400, L100.0100 ####[facility] [address] [place], [address] BUN/CRE 19.5 RATIO Normal 10-20 [facility] Comment on above: Order Comment: Order Date: 01/18/25Order Info: 785-1 - CMPOrder Info: [id number] - MGOrder Info: 3 - TSHOrder Info: 3024-7 - T4F Performed By: #### L 500.4050, L501.5200, L501.9520, L506.0400, L100.0100 ####[facility] [address] [place], [address] Calcium [Mass/Vol] 9.1 mg/dL Normal 7.6-11.[address] [facility] Comment on above: Order Comment: Order Date: 01/18/25Order Info: 86-1 - CMPOrder Info: [id number] - MGOrder Info: 3016-3 - TSHOrder Info: 3024-7 - T4F Performed By: #### L 500.4050, L501.5200, L501.9520, L506.0400, L100.0100 ####[facility] [address] [place], [address] Chloride [Moles/Vol] 105 mmol/L Normal 98-108 [facility] Comment on above: Order Comment: Order Date: 01/18/25Order Info: 0786-1 - CMPOrder Info: [id number] - MGOrder Info: 3016-3 - TSHOrder Info: 3024-7 - T4F Performed By: #### L 500.4050, L501.5200, L501.9520, L506.0400, L100.0100 ####[facility] [address] [place], [address] CO2 [Moles/Vol] 19.0 mmol/L Low 21.0-32.0 [facility] Comment on above: Order Comment: Order Date: 01/18/25Order Info: 0786-1 - CMPOrder Info: [id number] - MGOrder Info: 3016-3 - TSHOrder Info: 3024-7 - T4F Performed By: #### L 500.4050, L501.5200, L501.9520, L506.0400, L100.0100 ####[facility] [address] [place], [address] Creatinine [Mass/Vol] 0.84 mg/dL Normal 0.70-1.20 [facility] Comment on above: Order Comment: Order Date: 01/18/25Order Info: 0786-1 - CMPOrder Info: [id number] - MGOrder Info: 3016-3 - TSHOrder Info: 3024-7 - T4F Performed By: #### L 500.4050, L501.5200, L501.9520, L506.0400, L100.0100 ####[facility] [address] [place], [address] GAP 14 Normal 5-15 [facility] Comment on above: Order Comment: Order Date: 01/18/25Order Info: 0786-1 - CMPOrder Info: [id number] - MGOrder Info: 3016-3 - TSHOrder Info: 3024-7 - T4F Performed By: #### L 500.4050, L501.5200, L501.9520, L506.0400, L100.0100 ####[facility] [address] [place], [address] GFR/1.73 sq M.predicted among non-blacks MDRD (S/P/Bld) [Vol rate/Area] 115 mL/min/{1.73_m2} Normal >60 [facility] Comment on above: Order Comment: Order Date: 01/18/25Order Info: 0786-1 - CMPOrder Info: [id number] - MGOrder Info: 3015-3 - TSHOrder Info: 3024-7 - T4F Result Comment: mL/m in/1.73m2 CKD-EPI Creatinine Equation (2020) Performed By: #### L 500.4050, L501.5200, L501.9520, L506.0400, L100.0100 ####[facility] [address] [place], [address] Globulin (S) [Mass/Vol] 2.7 g/dL Normal 2.2-4.2 [facility] Comment on above: Order Comment: Order Date: 01/18/25Order Info: 0786-1 - CMPOrder Info: [id number] - MGOrder Info: 3015-3 - TSHOrder Info: 3024-7 - T4F Performed By: #### L 500.4050, L501.5200, L501.9520, L506.0400, L100.0100 ####[facility] [address] [place], [address] Glucose [Mass/Vol] 92 mg/dL Normal 70-[address] [facility] Comment on above: Order Comment: Order Date: 01/18/25Order Info: 0786-1 - CMPOrder Info: [id number] - MGOrder Info: 6-3 - TSHOrder Info: 3024-7 - T4F Performed By: #### L 500.4050, L501.5200, L501.9520, L506.0400, L100.0100 ####[facility] [address] [place], [address] Potassium [Moles/Vol] 4.1 mmol/L Normal 3.3-5.1 [facility] Comment on above: Order Comment: Order Date: 01/18/25Order Info: 0786-1 - CMPOrder Info: [id number] - MGOrder Info: 3016-3 - TSHOrder Info: 3024-7 - T4F Performed By: #### L 500.4050, L501.5200, L501.9520, L506.0400, L100.0100 ####[facility] [address] [place], [address] Sodium [Moles/Vol] 138 mmol/L Normal 133-[address] [facility] Comment on above: Order Comment: Order Date: 01/18/25Order Info: 0786-1 - CMPOrder Info: [id number] - MGOrder Info: 3016-3 - TSHOrder Info: 3024-7 - T4F Performed By: #### L 500.4050, L501.5200, L501.9520, L506.0400, L100.0100 ####[facility] [address] [place], [address] T PROT 7.1 g/dL Normal 5.9-8.4 [facility] Comment on above: Order Comment: Order Date: 01/18/25Order Info: 0786-1 - CMPOrder Info: [id number] - MGOrder Info: 3016-3 - TSHOrder Info: 3024-7 - T4F Performed By: #### L 500.4050, L501.5200, L501.9520, L506.0400, L100.0100 ####[facility] [address] [place], [address] Urea nitrogen [Mass/Vol] 16 mg/dL Normal 4-19 [facility] Comment on above: Order Comment: Order Date: 01/18/25Order Info: 0786-1 - CMPOrder Info: [id number] - MGOrder Info: 3016-3 - TSHOrder Info: 3024-7 - T4F Performed By: #### L 500.4050, L501.5200, L501.9520, L506.0400, L100.0100 ####[facility] [address] [place], [address] Eosinophil percentageOrdered By: Rupesh Obando on 01-18-2025 Eosinophils/100 WBC (Bld) 1.8 % 0-5 [facility] Erythrocyte distribution wid th ratioOrdered By: Rupesh Obando on 01-18-2025 Erythrocyte distribution width (RBC) [Ratio] 13.1 % 11.6-14.6 [facility] Erythrocyte distribution wid th standard deviationOrdered By: Rupesh Obando on 01-18-2025 Erythrocyte distribution width (RBC) [Ratio] 38.4 fl 35.1-43.9 [facility] Glomerular filtration rate ( GFR) estimation/1.73 sq m using serum, plasma, or whole bOrdered By: Rupesh Obando on 01-18-2025 GFR/1.73 sq M.predicted among non-blacks MDRD (S/P/Bld) [Vol rate/Area] 115 mL/min/{1.73_m2} >60 [facility] Comment on above: mL/min/1.73m2 CKD-EP I Creatinine Equation (2020) Hematocrit Auto (Bld) [Volum e fraction]Ordered By: Rupesh Obando on 01-18-2025 Hematocrit (Bld) [Volume fraction] 47.9 % 40-54 [facility] Hemoglobin measurementOrdere d By: Rupesh Obando on 01-18-2025 Hemoglobin (Bld) [Mass/Vol] 16.3 g/dL 13.0-16.5 [facility] Immature granulocytes/100 WB C Auto (Bld)Ordered By: Rupesh Obando on 01-18-2025 Immature granulocytes/100 WBC (Bld) 0.400 % 0.0-0.9 [facility] Comment on above: IG% - Immature Granu locytes (promyelocytes, myelocytes and metamyelocytes) > 1% indicates that a LEFT SHIFT is Present. Laboratory - Chemistry and C hemistry - challengeOrdered By: Rupesh Obando on 01-18-2025 AST [Catalytic activity/Vol] 22 U/L <38 [facility] MCV (mean corpuscular volume ) determinationOrdered By: Rupesh Obando on 01-18-2025 MCV (RBC) [Entitic vol] 81.5 fL 80-94 [facility] Magnesiumon 01-18-2025 Magnesium [Mass/Vol] 2.3 mg/dL High 1.5-2.2 [facility] Comment on above: Order Comment: Order Date: 01/18/25Order Info: 0786-1 - CMPOrder Info: [id number] - MGOrder Info: 3016-3 - TSHOrder Info: 3024-7 - T4F Performed By: #### L 500.4050, L501.5200, L501.9520, L506.0400, L100.0100 ####[facility] [address] [place], [address] Magnesium measurement (mass/ volume)Ordered By: Rupesh Obando on 01-18-2025 Magnesium (Unsp spec) [Mass/Vol] 2.3 mg/dL High 1.5-2.2 [facility] Mean corpuscular hemoglobin (MCH) determinationOrdered By: Rupesh Obando on 01-18-2025 MCH (RBC) [Entitic mass] 27.7 pg 27.0-32.0 [facility] Mean corpuscular hemoglobin concentration (MCHC) determinationOrdered By: Rupesh Obando on 01-18-2025 MCHC (RBC) [Mass/Vol] 34.0 g/dL 32-36 [facility] Mean platelet volume determi nationOrdered By: Rupesh bOando on 01-18-2025 Platelet mean volume (Bld) [Entitic vol] 9.1 fL 6.2-12.0 [facility] Monocyte percentageOrdered B y: Rupesh Obando on 01-18-2025 Monocytes/100 WBC (Bld) 5.8 % 0-10 [facility] Neutrophil percentageOrdered By: Rupesh Obando on 01-18-2025 Neutrophils/100 WBC (Bld) 68.3 % 47-70 [facility] Nucleated red blood cell per centageOrdered By: Rupesh Obando on 01-18-2025 Nucleated RBC/100 WBC (Bld) [Ratio] 0 % 0-5 [facility] Platelet countOrdered By: Genie Obando on 01-18-2025 Platelets (Bld) [#/Vol] 212 10*3/uL 150-450 [facility] Potassium measurement (mass/ volume)Ordered By: Rupesh Obando on 01-18-2025 Potassium (Unsp spec) [Mass/Vol] 4.1 mmol/L 3.3-5.1 [facility] RBC Auto (Bld) [#/Vol]Ordere d By: Rupesh Obando on 01-18-2025 RBC (Bld) [#/Vol] 5.88 10*6/uL 4.6-6.2 [facility] Serum creatinine measurement (mass/volume)Ordered By: Rupesh Obando on 01-18-2025 Creatinine [Mass/Vol] 0.84 mg/dL 0.70-1.20 [facility] Serum globulin measurementOr dered By: Rupesh Obando on 01-18-2025 Globulin (S) [Mass/Vol] 2.7 g/dL 2.2-4.2 [facility] Serum glucose measurement (m ass/volume)Ordered By: Rupesh Obando on 01-18-2025 Glucose [Mass/Vol] 92 mg/dL 70-[address] [facility] Serum or plasma alanine jiang otransferase (ALT) measurementOrdered By: Rupesh Obando on 01-18-2025 ALT [Catalytic activity/Vol] 41 U/L <47 [facility] Serum or plasma albumin tamara urement (mass/volume)Ordered By: Rupesh Obando on 01-18-2025 Albumin [Mass/Vol] 4.4 g/dL 3.5-5.[address] [facility] Serum or plasma albumin/glob ulin mass ratioOrdered By: Rupesh Obando on 01-18-2025 Albumin/Globulin [Mass ratio] 1.7 {ratio} 0.9-2.4 [facility] Serum or plasma alkaline aniket sphatase measurementOrdered By: Rupesh Obando on 01-18-2025 ALP [Catalytic activity/Vol] 80 U/L 40-129 [facility] Serum or plasma calcium tamara urement (mass/volume)Ordered By: Rupesh Obando on 01-18-2025 Calcium [Mass/Vol] 9.1 mg/dL 7.6-11.[address] [facility] Serum or plasma urea nitroge n measurement (mass/volume)Ordered By: Rupesh Obando on 01-18-2025 Urea nitrogen [Mass/Vol] 16 mg/dL 4-19 [facility] Sodium levelOrdered By: Rupesh Obando on 01-18-2025 Sodium [Moles/Vol] 138 mmol/L 133-[address] [facility] T4 Free Directon 01-18-2025 T4 FREE DIRECT 1.20 ng/dL Normal 0.76-1.46 [facility] Comment on above: Order Comment: Order Date: 01/18/25Order Info: 0786-1 - CMPOrder Info: [id number] - MGOrder Info: 3016-3 - TSHOrder Info: 3024-7 - T4F Performed By: #### L 500.4050, L501.5200, L501.9520, L506.0400, L100.0100 ####[facility] [address] [place], [address] T4 freeOrdered By: Rupesh jain on 01-18-2025 Free T4 [Mass/Vol] 1.20 ng/dL 0.76-1.[address] [facility] TSH DL <= 0.005 mIU/L QnOrde red By: Rupesh Obando on 01-18-2025 TSH Qn 3.410 uIU/mL 0.300-4.200 [facility] Thyroid Stim Hormone (TSH)on 01-18-2025 TSH 3.410 uIU/mL Normal 0.300-4.200 [facility] Comment on above: Order Comment: Order Date: 01/18/25Order Info: 0786-1 - CMPOrder Info: [id number] - MGOrder Info: 3016-3 - TSHOrder Info: 3024-7 - T4F Performed By: #### L 500.4050, L501.5200, L501.9520, L506.0400, L100.0100 ####[facility] [address] [place], [address] Total proteinOrdered By: Johnny Obando on 01-18-2025 Protein [Mass/Vol] 7.1 g/dL 5.9-8.[address] [facility] White blood cell (WBC) count Ordered By: Rupesh Obando on 01-18-2025 WBC (Bld) [#/Vol] 7.8 10*3/uL 4.4-11.[address] [facility] ALLIED HEALTHon 01-15-2025 ALLIED HEALTH HNO ID: [id number] Author: BRANDT LIEBERMAN CT Service: Radiology Author Type: Technologist Type: Allied Health Filed: 01/15/2025 16:11 Note Text: Radiology Service Progress Note PATIENT NAME: Malorie Foley DATE OF SERVICE: January 15, 2025 TIME: 4:11 PM PATIENT IDENTITY VERIFICATION COMPLETED USING TWO [...] PATIENT PRESENTS WITH AN IMPLANTABLE OR ATTACHED METAL MACHINIST: No RADIOLOGY DEPARTMENT: General X-ray: Exam(s) Completed: Chest X-Ray PERIPHERAL IV DATA: Not applicable SIGNED BY: ELIGIO Boss January 15, 2025 4:11 PM Normal [facility] CBC W Auto Differential pane l (Bld)on 01-15-2025 Basophils (Bld) [#/Vol] 0.03 10*3/uL Normal <0.11 [facility] Comment on above: Order Comment: Speci men Type: BLOOD SPECIMENOrdering Facility: [facility] Address: [address] [place] [address] Performed By: #### 5 7021-8 ####[facility] LABORATORYCLIA [id number] [place] [address] [place] Basophils/100 WBC (Bld) 0.5 % Normal [facility] Comment on above: Order Comment: Speci men Type: BLOOD SPECIMENOrdering Facility: [facility] Address: [address] [place] [address] Performed By: #### 5 7021-8 ####[facility] LABORATORYCLIA [id number] [place] [address] [place] Differential cell count method Nom (Bld) Auto Normal [facility] Comment on above: Order Comment: Speci men Type: BLOOD SPECIMENOrdering Facility: [facility] Address: [address] [place] [address] Performed By: #### 5 7021-8 ####[facility] LABORATORYCLIA [id number] [place] [address] [place] Eosinophils (Bld) [#/Vol] 0.07 10*3/uL Normal <0.46 [facility] Comment on above: Order Comment: Speci men Type: BLOOD SPECIMENOrdering Facility: [facility] Address: [address] [place] [address] Performed By: #### 5 7021-8 ####[facility] LABORATORYCLIA [id number] [address] [place] Eosinophils/100 WBC (Bld) 1.1 % Normal [facility] Comment on above: Order Comment: Speci men Type: BLOOD SPECIMENOrdering Facility: [facility] Address: [address] [place] [address] Performed By: #### 5 7021-8 ####[facility] LABORATORYCLIA [id number] [place] [address] [place] Erythrocyte distribution width (RBC) [Ratio] 13.5 % Normal 11.5-15.0 [facility] Comment on above: Order Comment: Speci men Type: BLOOD SPECIMENOrdering Facility: [facility] Address: [address] [place] [address] Performed By: #### 5 7021-8 ####[facility] LABORATORYCLIA [id number] [place] [address] [place] Hematocrit (Bld) [Volume fraction] 45.0 % Normal 39.0-51.0 [facility] Comment on above: Order Comment: Speci men Type: BLOOD SPECIMENOrdering Facility: [facility] Address: [address] [place] [address] Performed By: #### 5 7021-8 ####[facility] LABORATORYCLIA [id number] [place] [address] [place] Hemoglobin (Bld) [Mass/Vol] 14.9 g/dL Normal 13.0-17.0 [facility] Comment on above: Order Comment: Speci men Type: BLOOD SPECIMENOrdering Facility: [facility] Address: [address] [place] [address] Performed By: #### 5 7021-8 ####[facility] LABORATORYCLIA [id number] [place] [address] [place] Immature granulocytes (Bld) [#/Vol] 0.03 10*3/uL Normal <0.10 [facility] Comment on above: Order Comment: Speci men Type: BLOOD SPECIMENOrdering Facility: [facility] Address: [address] [place] [address] Performed By: #### 5 7021-8 ####[facility] LABORATORYCLIA [id number] [place] [address] [place] Immature granulocytes/100 WBC (Bld) 0.5 % Normal [facility] Comment on above: Order Comment: Speci men Type: BLOOD SPECIMENOrdering Facility: [facility] Address: [address] [place] [address] Performed By: #### 5 7021-8 ####[facility] LABORATORYCLIA [id number] [place] [address] [place] Lymphocytes (Bld) [#/Vol] 1.63 10*3/uL Normal 1.00-4.00 [facility] Comment on above: Order Comment: Speci men Type: BLOOD SPECIMENOrdering Facility: [facility] Address: [address] [place] [address] Performed By: #### 5 7021-8 ####[facility] LABORATORYCLIA [id number] [address] [place] Lymphocytes/100 WBC (Bld) 25.8 % Normal [facility] Comment on above: Order Comment: Speci men Type: BLOOD SPECIMENOrdering Facility: [facility] Address: [address] [place] [address] Performed By: #### 5 7021-8 ####[facility] LABORATORYCLIA [id number] [place] [address] [place] MCH (RBC) [Entitic mass] 27.4 pg Normal 26.0-34.0 [facility] Comment on above: Order Comment: Speci men Type: BLOOD SPECIMENOrdering Facility: [facility] Address: [address] [place] [address] Performed By: #### 5 7021-8 ####[facility] LABORATORYCLIA [id number] [place] [address] [place] MCHC (RBC) [Mass/Vol] 33.1 g/dL Normal 30.5-36.0 [facility] Comment on above: Order Comment: Speci men Type: BLOOD SPECIMENOrdering Facility: [facility] Address: [address] [place] [address] Performed By: #### 5 7021-8 ####[facility] LABORATORYCLIA [id number] [address] [place] [facility] MCV (RBC) [Entitic vol] 82.9 fL Normal 80.0-100.0 [facility] Comment on above: Order Comment: Speci men Type: BLOOD SPECIMENOrdering Facility: [facility] Address: [address] [place] [address] Performed By: #### 5 7021-8 ####[facility] LABORATORYCLIA [id number] [place] [address] [place] Monocytes (Bld) [#/Vol] 0.30 10*3/uL Normal <0.87 [facility] Comment on above: Order Comment: Speci men Type: BLOOD SPECIMENOrdering Facility: [facility] Address: [address] [place] [address] Performed By: #### 5 7021-8 ####[facility] LABORATORYCLIA [id number] [place] [address] [place] Monocytes/100 WBC (Bld) 4.7 % Normal [facility] Comment on above: Order Comment: Speci men Type: BLOOD SPECIMENOrdering Facility: [facility] Address: [address] [place] [address] Performed By: #### 5 7021-8 ####[facility] LABORATORYCLIA [id number] [place] [address] [place] Neutrophils (Bld) [#/Vol] 4.26 10*3/uL Normal 1.45-7.50 [facility] Comment on above: Order Comment: Speci men Type: BLOOD SPECIMENOrdering Facility: [facility] Address: [address] [place] [address] Performed By: #### 5 7021-8 ####[facility] LABORATORYCLIA [id number] [place] [address] [place] Neutrophils/100 WBC (Bld) 67.4 % Normal [facility] Comment on above: Order Comment: Speci men Type: BLOOD SPECIMENOrdering Facility: [facility] Address: [address] [place] [address] Performed By: #### 5 7021-8 ####[facility] LABORATORYCLIA [id number] [place] [address] [place] Nucleated RBC (Bld) [#/Vol] 10*3/uL Normal <0.01 [facility] Comment on above: Order Comment: Speci men Type: BLOOD SPECIMENOrdering Facility: [facility] Address: [address] [place] [address] Performed By: #### 5 7021-8 ####[facility] LABORATORYCLIA [id number] [place] [address] [place] Nucleated RBC/100 WBC (Bld) [Ratio] 0.0 /100 WBC Normal [facility] Comment on above: Order Comment: Speci men Type: BLOOD SPECIMENOrdering Facility: [facility] Address: [address] [place] [address] Performed By: #### 5 7021-8 ####[facility] LABORATORYCLIA [id number] [place] [address] [place] Platelet mean volume (Bld) [Entitic vol] 8.9 fL Low 9.0-12.7 [facility] Comment on above: Order Comment: Speci men Type: BLOOD SPECIMENOrdering Facility: [facility] Address: [address] [place] [address] Performed By: #### 5 7021-8 ####[facility] LABORATORYCLIA [id number] [place] [address] [place] Platelets (Bld) [#/Vol] 197 10*3/uL Normal 150-400 [facility] Comment on above: Order Comment: Speci men Type: BLOOD SPECIMENOrdering Facility: [facility] Address: [address] [place] [address] Performed By: #### 5 7021-8 ####[facility] LABORATORYCLIA [id number] [place] [address] [place] RBC (Bld) [#/Vol] 5.43 10*6/uL Normal 4.20-6.00 [facility] Comment on above: Order Comment: Speci men Type: BLOOD SPECIMENOrdering Facility: [facility] Address: [address] [place] [address] Performed By: #### 5 7021-8 ####[facility] LABORATORYCLIA [id number] [place] [address] [place] WBC (Bld) [#/Vol] 6.32 10*3/uL Normal 3.70-11.00 [facility] Comment on above: Order Comment: Speci men Type: BLOOD SPECIMENOrdering Facility: [facility] Address: [address] [place] [address] Performed By: #### 5 7021-8 ####[facility] LABORATORYCLIA [id number] [place] [id number] [facility] [place] Comprehensive metabolic 2000 panelon 01-15-2025 Albumin [Mass/Vol] 4.4 g/dL Normal 3.9-4.9 [facility] Comment on above: Order Comment: Speci men Type: BLOOD SPECIMEN Ordering Facility: [facility] Address: [address] [place] [address] [place] [address] Performed By: #### 2 4323-8, 07382-3, 92697-9, [id number] #### [facility] CLIA [id number] [address] [place] [address] [place] ALP [Catalytic activity/Vol] 86 U/L Normal 38-113 [facility] Comment on above: Order Comment: Speci men Type: BLOOD SPECIMEN Ordering Facility: [facility] Address: [address] [place] [address] Performed By: #### 2 4323-8, 14063-1, 54022-1, [id number] #### [facility] CLIA [id number] [address] [place] [address] [place] ALT [Catalytic activity/Vol] 36 U/L Normal 10-54 [facility] Comment on above: Order Comment: Speci men Type: BLOOD SPECIMEN Ordering Facility: [facility] Address: [address] [place] [address] Performed By: #### 2 4323-8, 24908-0, 93325-0, [id number] #### [facility] CLIA [id number] [address] [place] [address] [place] Anion gap [Moles/Vol] 11 mmol/L Normal 8-15 [facility] Comment on above: Order Comment: Speci men Type: BLOOD SPECIMEN Ordering Facility: [facility] Address: [address] [place] [address] Performed By: #### 2 4323-8, 85953-6, 34948-7, [id number] #### [facility] CLIA [id number] [address] [place] [address] [place] AST [Catalytic activity/Vol] 18 U/L Normal 14-40 [facility] Comment on above: Order Comment: Speci men Type: BLOOD SPECIMEN Ordering Facility: [facility] Address: [address] [place] [address] Performed By: #### 2 4323-8, 27224-2, 73189-2, [id number] #### [facility] CLIA [id number] [address] [place] [address] [place] Bilirubin [Mass/Vol] 0.4 mg/dL Normal 0.2-1.3 [facility] Comment on above: Order Comment: Speci men Type: BLOOD SPECIMEN Ordering Facility: [facility] Address: [address] [place] [address] Performed By: #### 2 4323-8, 32189-7, 85189-3, [id number] #### [facility] CLIA [id number] [address] [place] [address] [place] Calcium [Mass/Vol] 9.0 mg/dL Normal 8.5-10.2 [facility] Comment on above: Order Comment: Speci men Type: BLOOD SPECIMEN Ordering Facility: [facility] Address: [address] [place] [address] Performed By: #### 2 4323-8, 76675-3, 76431-3, [id number] #### [facility] CLIA [id number] [address] [place] [address] [place] Chloride [Moles/Vol] 107 mmol/L Normal 98-107 [facility] Comment on above: Order Comment: Speci men Type: BLOOD SPECIMEN Ordering Facility: [facility] Address: [address] [place] [address] Performed By: #### 2 4323-8, 34313-4, 54531-9, [id number] #### [facility] CLIA [id number] [address] [place] [address] [place] CO2 [Moles/Vol] 23 mmol/L Normal 22-30 [facility] Comment on above: Order Comment: Speci men Type: BLOOD SPECIMEN Ordering Facility: [facility] Address: [address] [place] [address] Performed By: #### 2 4323-8, 49965-2, 86781-1, [id number] #### [facility] CLIA [id number] [address] [place] [address] [place] Creatinine [Mass/Vol] 1.01 mg/dL Normal 0.73-1.22 [facility] Comment on above: Order Comment: Speci men Type: BLOOD SPECIMEN Ordering Facility: [facility] Address: [address] [place] [address] Performed By: #### 2 4323-8, 13581-2, 82932-3, [id number] #### [facility] CLIA [id number] [address] [place] eGFRcr SerPlBld CKD-EPI 2020 98 mL/min/1.73m??? Normal >=60 [facility] Comment on above: Order Comment: Ayde byres Type: BLOOD SPECIMEN Ordering Facility: [facility] Address: [address] [place] [address] Result Comment: Maria A mated Glomerular Filtration [...] actual GFR. Performed By: #### 2 4323-8, 14967-8, 45595-3, [id number] #### [facility] CLIA [id number] [address] STATES [facility] Glucose [Mass/Vol] 86 mg/dL Normal 74-99 [facility] Comment on above: Order Comment: Ayde byers Type: BLOOD SPECIMEN Ordering Facility: [facility] Address: [address] [place] [address] Result Comment: The [place] Diabetes Association (ADA) provides guidance for cutoff [...] Standards of Medical Care in Diabetes 2016, [place] Diabetes Association. Diabetes Care. 2016.39(Suppl 1). Performed By: #### 2 4323-8, 24686-2, 26900-0, [id number] #### [facility] CLIA [id number] [address] [place] [address] [place] Potassium [Moles/Vol] 3.8 mmol/L Normal 3.7-5.1 [facility] Comment on above: Order Comment: Speci men Type: BLOOD SPECIMEN Ordering Facility: [facility] Address: [address] [place] [address] Performed By: #### 2 4323-8, 04874-9, 41744-2, [id number] #### [facility] CLIA [id number] [address] [place] [address] [place] Protein [Mass/Vol] 7.2 g/dL Normal 6.3-8.0 [facility] Comment on above: Order Comment: Speci men Type: BLOOD SPECIMEN Ordering Facility: [facility] Address: [address] [place] [address] Performed By: #### 2 4323-8, 89845-5, 54436-4, [id number] #### [facility] CLIA [id number] [address] [place] [address] [place] Sodium [Moles/Vol] 141 mmol/L Normal 136-144 [facility] Comment on above: Order Comment: Speci men Type: BLOOD SPECIMEN Ordering Facility: [facility] Address: [address] [place] [address] Performed By: #### 2 4323-8, 25612-0, 44094-4, [id number] #### [facility] CLIA [id number] [address] [place] [address] [place] Urea nitrogen [Mass/Vol] 14 mg/dL Normal 9-24 [facility] Comment on above: Order Comment: Speci men Type: BLOOD SPECIMEN Ordering Facility: [facility] Address: [address] [place] [address] Performed By: #### 2 4323-8, 43117-1, 56028-3, [id number] #### [facility] CLIA [id number] [address] [place] [address] [place] D dimer FEU PPP-mCncon 01-15 Fibrin D-dimer FEU (PPP) [Mass/Vol] <190 Normal <500 [facility] Comment on above: Order Comment: Speci men Type: BLOOD SPECIMENOrdering Facility: [facility] Address: [address] [place] [id number] Performed By: #### 4 8065-7 ####[facility] [id number] [place] [address] [facility] ED NOTEon 01-15-2025 ED NOTE HNO ID: [id number] Author: TALISHA LA, RN Service: ? Author Type: Registered Nurse Type: ED Notes Filed: 01/15/2025 19:10 Note Text: Discharge instructions reviewed with patient via teachback. Pt verbalizes understanding. Pt awake and alert, respirations regular and unlabored. No further questions for this RN. [facility] ED NOTE HNO ID: [id number] Author: TALISHA LA RN Service: ? Author Type: Registered Nurse Type: ED Notes Filed: 01/15/2025 17:11 Note Text: Pt refusing covid swab [facility] ED PROV NOTEon 01-15-2025 ED PROV NOTE HNO ID: [id number] Author: SANDRITA HERNANDEZ PA-C Service: ? Author Type: Physician Corrugated Fastener Driver Type: ED Provider Notes Filed: 01/15/2025 19:05 Note Text: ED Provider Note Patient Name: Malorie Foley : 1985 SERVICE DATE: 01/15/25 History Patient presents with: Chest Pain: Presents to ED with a L sided chest pain that is non radiating for the past two days. Reports some lightheadedness Patient is a 39-year-old male past medical history of diabetes, GERD, obesity presenting emergency department today with complaints of chest pain. Patient endorses a left-sided chest pressure that has been waxing and waning in intensity. He reports pressure is intermittent, will last a few minutes before resolving. He reports pain is only located on the left side, does not radiate. He does not feel pain in his back. No sharp pains. No shortness of breath. Unsure of exacerbating factors. Patient notes that today while at work he was intermittently experiencing the left-sided chest pressure. He states that he bent over and felt lightheaded, a coworker lifted him and states he did not look well which prompted ED evaluation today. Patient does state that yesterday he was experiencing some heart racing sensation. Currently patient denies any lightheadedness or dizziness, no headache or vision changes. Patient is not currently experiencing chest pain. No shortness of breath, nausea, vomiting, abdominal pain. No leg pain or swelling. No history of blood clots or clotting disorders. 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 HENT: Negative for congestion. Eyes: Negative for visual disturbance. Respiratory: Negative for cough and shortness of breath. Cardiovascular: Positive for chest pain and palpitations. Negative for leg swelling. Gastrointestinal: Negative for abdominal pain, nausea and vomiting. Genitourinary: Negative for difficulty urinating and flank pain. Musculoskeletal: Negative for arthralgias, back pain and myalgias. Skin: Negative for color change, pallor, rash and wound. Neurological: Positive for light-headedness. Negative for dizziness, tremors, seizures, syncope, speech difficulty, weakness, numbness and headaches. Psychiatric/Behavioral: Negative for agitation, behavioral problems and confusion. Physical Exam Vitals [01/15/25 1553] BP Pulse Temp Temp src Resp SpO2 Weight Height 134/95 (!) 101 36.4 ?C (97.6 ?F) Temporal 18 98 % (!) 158.8 kg (350 lb) 1.981 m (6' 6) Physical Exam Vitals and nursing note reviewed. Constitutional: General: He is not in acute distress. Appearance: He is not ill-appearing, toxic-appearing or diaphoretic. HENT: Head: Normocephalic and atraumatic. Nose: Nose normal. Mouth/Throat: Mouth: Mucous membranes are moist. Pharynx: Oropharynx is clear. Eyes: Conjunctiva/sclera: Conjunctivae normal. Neck: Vascular: No JVD. Cardiovascular: Rate and Rhythm: Normal rate and regular rhythm. Pulses: Radial pulses are 2+ on the right side and 2+ on the left side. Dorsalis pedis pulses are 2+ on the right side and 2+ on the left side. Heart sounds: Normal heart sounds. Heart sounds not distant. No murmur heard. No friction rub. No gallop. Pulmonary: Effort: Pulmonary effort is normal. No tachypnea, accessory muscle usage or respiratory distress. Breath sounds: Normal breath sounds. No stridor. No decreased breath sounds, wheezing, rhonchi or rales. Chest: Chest wall: No tenderness, crepitus or edema. Abdominal: Palpations: Abdomen is soft. Tenderness: There is no abdominal tenderness. There is no guarding. Musculoskeletal: General: Normal range of motion. Cerv (more content not included)... Normal [facility] ED Triage Noteon 01-15-2025 ED Triage Note HNO ID: [id number] Author: CHARISSA STRONG APRN.CNP Service: Emergency Medicine Author Type: Nurse Practitioner Type: ED Triage Notes Filed: 01/15/2025 15:54 Note Text: ED TRIAGE PROVIDER NOTE Patient Name: Malorie Foley Service Date: 01/15/25 BRIEF HPI: This is a 39 year old male who presents to the ED with: CP Started 2 days ago Left chest pain pressure than tight 3/10 NO cardiac, DVT/PE history No f/c No cough Shortness of Breath Recent travel via car to [place] and [place] No ABD NO n/v/d NO leg swelling BRIEF EXAM: NAD Awake and Alert Non labored breathing No focal neurological deficits INITIAL WORKUP AND DECISION MAKING: Orders Placed This Encounter XR CHEST 1V FRONTAL PORT MAGNESIUM BLD COMP METABOLIC PANEL (BMP+LFT) High Sensitivity Troponin T with Reflex for ED Chest Pain NT PRO BNP D-DIMER CBC + DIFF COVID AND Influenza A/B AND RSV PCR, Expedited ECG Complete 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 Normal [facility] EKGon 01-15-2025 Electrocardiogram Ventricular Rate : 8 9 BPM Atrial Rate : 89 BPM P-R Interval : 164 ms QRS Duration : 74 ms Q-T Interval : 356 ms QTC Calculation(Bazett) : 433 ms Calculated P [place] : 51 degrees Calculated R [place] : 44 degrees Calculated T [place] : 55 degrees NORMAL SINUS RHYTHM NORMAL ECG NO STEMI Confirmed by OMAR DOBSON DO ([id number]) on 01/15/2025 3:59:22 PM NAME : MALORIE FOLEY PID : [id number] : 1985 Gender : Male Race : ORD : Procedure Date : Jan 15 2025 15:51:31 Edit Date : Jan 15 2025 15:59:25 Diagnosis: NORMAL SINUS RHYTHM NORMAL ECG NO STEMI Confirmed by OMAR DOBSON DO ([id number]) on 01/15/2025 3:59:22 PM Test Reason : Location : 1 : ER Overread By : OMAR DOBSON DO Edited By : OMAR DOBSON DO Referred By : , Acquired by : [id number], Normal [facility] HIGH SENSITIVITY TROPONIN T (INITIAL)on 01-15-2025 Troponin T.cardiac High sensitivity method [Mass/Vol] <6 Normal <12 [facility] Comment on above: Order Comment: Judyi zeeshan Type: BLOOD SPECIMENOrdering Facility: [facility] Address: [address] [place] [address] Performed By: #### 2 4323-8, 90528-8, 52055-5, [id number] ####[facility] [id number] [address] OF [facility] HIGH SENSITIVITY TROPONIN T (SECOND)on 01-15-2025 Troponin T.cardiac High sensitivity method [Mass/Vol] <6 Normal <12 [facility] Comment on above: Order Comment: Speci men Type: BLOOD SPECIMENOrdering Facility: [facility] Address: [address] [place] [address] Performed By: #### L [id number] ####[facility] [id number] [place] [address] [facility] Magnesium [Mass/Vol] 2.3 mg/dL Normal 1.7-2.3 [facility] Comment on above: Order Comment: Speci [facility] Type: BLOOD SPECIMEN Ordering Facility: [facility] Address: [address] [place] [address] Performed By: #### 2 4323-8, 49484-6, 52618-4, [id number] #### [facility] CLIA [id number] [address] NT-proBNP [facility] 01-15 Natriuretic peptide.B prohormone N-Terminal [Mass/Vol] 45 pg/mL Normal <125 [facility] Comment on above: Order [facility]: [facility] Type: BLOOD SPECIMENOrdering Facility: [facility] Address: [address] [place] [address] Performed By: #### 2 4323-8, 53860-7, 55704-2, [id number] ####[facility] [id number] [address] XR CHEST 1V FRONTAL PORTon 0 01-15-2025 XR CHEST 1V FRONTAL PORT * * *Final Report* * * DATE OF EXAM: Jan 15 2025 4:10PM MDX [id number] - XR CHEST 1V FRONTAL PORT / PROCEDURE REASON: Chest pain * * * * Physician Interpretation * * * * EXAMINATION: CHEST RADIOGRAPH (PORTABLE SINGLE VIEW AP) Exam Date/Time: 01/15/2025 4:10 PM CLINICAL HISTORY: Chest pain MQ: XCPR_5 Comparison: 10/20/2018 RESULT: Lines, tubes, and devices: None. Lungs and pleura: No edema, infiltrates, pulmonary nodules or pleural effusions. No pneumothorax. Cardiomediastinal silhouette: Stable cardiomediastinal silhouette. Other: . IMPRESSION: No active disease Filament Tester: JOSE Transcribe Date/Time: Jan 15 2025 4:12P Dictated by : FLAKITO CALDERON MD This examination was interpreted and the report reviewed and electronically signed by: FLAKITO CALDERON MD on Jan 15 2025 4:12PM EST [id number] Normal [facility] Absolute lymphocyte countOrd ered By: Rupesh Obando on 11-16-2024 Lymphocytes Auto (Unsp spec) [#/Vol] 1.46 10*3/uL 0.83-4.51 [facility] Absolute neutrophil countOrd ered By: Rupesh Obando on 11-16-2024 Neutrophils (Bld) [#/Vol] 3.1 10*3/uL 2.0-7.7 [facility] Anion gap in Serum or Plasma Ordered By: Rupesh Obando on 11-16-2024 Anion gap [Moles/Vol] 12 mmol/L 5- [facility] Automated lymphocyte count a s percentage of total leukocytesOrdered By: Rupesh Obando on 11-16-2024 Lymphocytes/100 WBC Auto (Unsp spec) 28.9 % - [facility] BUN/creatinine ratioOrdered By: Rupesh Obando on 11-16-2024 Urea nitrogen/Creatinine [Mass ratio] 15.6 mg/mg 10- [facility] Basophil percentageOrdered B y: Rupesh Obando on 11-16-2024 Basophils/100 WBC (Bld) 0.6 % 0- [facility] Bilirubin, totalOrdered By: Rupesh Obando on 11-16-2024 Bilirubin [Mass/Vol] 0.67 mg/dL 0.00-1.30 [facility] CBC W/Diff, Automatedon 10-24 Absolute Lymph 1.46 X10 3/uL Normal 0.83-4.51 [facility] Comment on above: Order Comment: Order Date: 11/16/24 Order Info: 0184-1 - CBCD Performed By: #### L 100.0100, L500.4050, L501.9901, L500.4100 #### [facility] [address] [place], [place], [id number] Absolute Neut 3.1 X10 3/uL Normal 2.0-7.7 [facility] Comment on above: Order Comment: Order Date: 11/16/24 Order Info: 0184-1 - CBCD Performed By: #### L 100.0100, L500.4050, L501.9985, L500.4100 #### [facility] [address] [place], [address] Basophils/100 WBC (Bld) 0.6 % Normal 0-1 [facility] Comment on above: Order Comment: Order Date: 11/16/24 Order Info: 0184-1 - CBCD Performed By: #### L 100.0100, L500.4050, L501.9985, L500.4100 #### [facility] [address] [place], [address] Eosinophils/100 WBC (Bld) 2.6 % Normal 0-5 [facility] Comment on above: Order Comment: Order Date: 11/16/24 Order Info: 0184-1 - CBCD Performed By: #### L 100.0100, L500.4050, L501.9985, L500.4100 #### [facility] [address] [place], [address] Erythrocyte distribution width (RBC) [Ratio] 13.6 % Normal 11.6-14.6 [facility] Comment on above: Order Comment: Order Date: 11/16/24 Order Info: 0184-1 - CBCD Performed By: #### L 100.0100, L500.4050, L501.9985, L500.4100 #### [facility] [address] [place], [address] Hematocrit (Bld) [Volume fraction] 43.7 % Normal 40-54 [facility] Comment on above: Order Comment: Order Date: 11/16/24 Order Info: 0184-1 - CBCD Performed By: #### L 100.0100, L500.4050, L501.9985, L500.4100 #### [facility] [address] [place], [address] Hemoglobin (Bld) [Mass/Vol] 14.7 g/dL Normal 13.0-16.5 [facility] Comment on above: Order Comment: Order Date: 11/16/24 Order Info: 0184-1 - CBCD Performed By: #### L 100.0100, L500.4050, L501.9985, L500.4100 #### [facility] [address] [place], [address] IG% 0.600 Normal 0.0-0.9 [facility] Comment on above: Order Comment: Order Date: 11/16/24 Order Info: 0184-1 - CBCD Result Comment: IG% - Immature Granulocytes (promyelocytes, myelocytes and metamyelocytes) > 1% indicates that a LEFT SHIFT is Present. Performed By: #### L 100.0100, L500.4050, L501.9985, L500.4100 #### [facility] [address] [place], [address] Lymphocytes/100 WBC (Bld) 28.9 % Normal 19-41 [facility] Comment on above: Order Comment: Order Date: 11/16/24 Order Info: 0184-1 - CBCD Performed By: #### L 100.0100, L500.4050, L501.9985, L500.4100 #### [facility] [address] [place], [address] MCH (RBC) [Entitic mass] 27.4 pg Normal 27.0-32.0 [facility] Comment on above: Order Comment: Order Date: 11/16/24 Order Info: 0184-1 - CBCD Performed By: #### L 100.0100, L500.4050, L501.9985, L500.4100 #### [facility] [address] [place], [address] MCHC (RBC) [Mass/Vol] 33.6 g/dL Normal 32-36 [facility] Comment on above: Order Comment: Order Date: 11/16/24 Order Info: 0184-1 - CBCD Performed By: #### L 100.0100, L500.4050, L501.9985, L500.4100 #### [facility] [address] [place], [address] MCV (RBC) [Entitic vol] 81.5 fL Normal 80-94 [facility] Comment on above: Order Comment: Order Date: 11/16/24 Order Info: 0184-1 - CBCD Performed By: #### L 100.0100, L500.4050, L501.9985, L500.4100 #### [facility] [address] [place], [address] Monocytes/100 WBC (Bld) 5.5 % Normal 0-10 [facility] Comment on above: Order Comment: Order Date: 11/16/24 Order Info: 0184-1 - CBCD Performed By: #### L 100.0100, L500.4050, L501.9985, L500.4100 #### [facility] [address] [place], [address] Neutrophils/100 WBC (Bld) 61.8 % Normal 47-70 [facility] Comment on above: Order Comment: Order Date: 11/16/24 Order Info: 0184-1 - CBCD Performed By: #### L 100.0100, L500.4050, L501.9985, L500.4100 #### [facility] [address] [place], [address] Nucleated RBC (Bld) [#/Vol] 0 10*3/uL Normal 0-5 [facility] Comment on above: Order Comment: Order Date: 11/16/24 Order Info: 0184-1 - CBCD Performed By: #### L 100.0100, L500.4050, L501.9985, L500.4100 #### [facility] [address] [place], [address] Platelet mean volume (Bld) [Entitic vol] 9.0 fL Normal 6.2-12.0 [facility] Comment on above: Order Comment: Order Date: 11/16/24 Order Info: 0184-1 - CBCD Performed By: #### L 100.0100, L500.4050, L501.9985, L500.4100 #### [facility] [address] [place], [address] Platelets (Bld) [#/Vol] 189 10*3/uL Normal 150-450 [facility] Comment on above: Order Comment: Order Date: 11/16/24 Order Info: 0184-1 - CBCD Performed By: #### L 100.0100, L500.4050, L501.9985, L500.4100 #### [facility] [address] [place], [address] RBC (Bld) [#/Vol] 5.36 10*6/uL Normal 4.6-6.2 [facility] Comment on above: Order Comment: Order Date: 11/16/24 Order Info: 0184-1 - CBCD Performed By: #### L 100.0100, L500.4050, L501.9985, L500.4100 #### [facility] [address] [place], [address] RDW SD 40.1 fl Normal 35.1-43.9 [facility] Comment on above: Order Comment: Order Date: 11/16/24 Order Info: 0184-1 - CBCD Performed By: #### L 100.0100, L500.4050, L501.9985, L500.4100 #### [facility] [address] [place], [address] WBC (Bld) [#/Vol] 5.1 10*3/uL Normal 4.4-11.[address] [facility] Comment on above: Order Comment: Order Date: 11/16/24 Order Info: 0184-1 - CBCD Performed By: #### L 100.0100, L500.4050, L501.9985, L500.4100 #### [facility] [address] [place], [place], [address] Calculated very low density lipoprotein (VLDL) cholesterol measurementOrdered By: Rupesh Obando on 11-16-2024 Calculated very low density lipoprotein (VLDL) cholesterol measurement 15 mg/dL 5-40 [facility] Carbon dioxide, total [Moles /volume] in Central venous bloodOrdered By: Rupesh Obando on 11-16-2024 CO2 [Moles/Vol] 21.0 mmol/L 21.0-32.0 [facility] Chloride assayOrdered By: Genie Obando on 11-16-2024 Chloride [Moles/Vol] 106 mmol/L 98-108 [facility] Comprehensive Metabolic Prof ilon 11-16-2024 Albumin [Mass/Vol] 4.2 g/dL Normal 3.5-5.[address] [facility] Comment on above: Order Comment: Order Date: 11/16/24 Order Info: 0786-1 - CMP Order Info: [id number] - LIPID Performed By: #### L 100.0100, L500.4050, L501.9985, L500.4100 #### [facility] [address] [place], [place], [address] Albumin/Globulin [Mass ratio] 1.7 {ratio} Normal 0.9-2.4 [facility] Comment on above: Order Comment: Order Date: 11/16/24 Order Info: 0786-1 - CMP Order Info: [id number] - LIPID Performed By: #### L 100.0100, L500.4050, L501.9985, L500.4100 #### [facility] [address] [place], [address] ALK PHOS 79 U/L Normal 40-129 [facility] Comment on above: Order Comment: Order Date: 11/16/24 Order Info: 0786-1 - CMP Order Info: [id number] - LIPID Performed By: #### L 100.0100, L500.4050, L501.9985, L500.4100 #### [facility] [address] [place], [address] ALT [Catalytic activity/Vol] 50 U/L High <=46 [facility] Comment on above: Order Comment: Order Date: 11/16/24 Order Info: 0786-1 - CMP Order Info: [id number] - LIPID Performed By: #### L 100.0100, L500.4050, L501.9985, L500.4100 #### [facility] [address] [place], [address] AST [Catalytic activity/Vol] 26 U/L Normal <=37 [facility] Comment on above: Order Comment: Order Date: 11/16/24 Order Info: 0786- - CMP Order Info: [id number] - LIPID Performed By: #### L 100.0100, L500.4050, L501.9985, L500.4100 #### [facility] [address] [place], [address] Bilirubin [Mass/Vol] 0.67 mg/dL Normal 0.00-1.30 [facility] Comment on above: Order Comment: Order Date: 11/16/24 Order Info: 0786- - CMP Order Info: [id number] - LIPID Performed By: #### L 100.0100, L500.4050, L501.9985, L500.4100 #### [facility] [address] [place], [address] BUN/CRE 15.6 RATIO Normal 10-20 [facility] Comment on above: Order Comment: Order Date: 11/16/24 Order Info: 0786-1 - CMP Order Info: [id number] - LIPID Performed By: #### L 100.0100, L500.4050, L501.9985, L500.4100 #### [facility] [address] [place], [address] Calcium [Mass/Vol] 9.0 mg/dL Normal 7.6-11.[address] [facility] Comment on above: Order Comment: Order Date: 11/16/24 Order Info: 0786-1 - CMP Order Info: [id number] - LIPID Performed By: #### L 100.0100, L500.4050, L501.9985, L500.4100 #### [facility] [address] [place], [address] Chloride [Moles/Vol] 106 mmol/L Normal 98-108 [facility] Comment on above: Order Comment: Order Date: 11/16/24 Order Info: [id number] - CMP Order Info: [id number] - LIPID Performed By: #### L 100.0100, L500.4050, L501.9985, L500.4100 #### [facility] [address] [place], [address] CO2 [Moles/Vol] 21.0 mmol/L Normal 21.0-32.0 [facility] Comment on above: Order Comment: Order Date: 11/16/24 Order Info: [id number]- - CMP Order Info: [id number] - LIPID Performed By: #### L 100.0100, L500.4050, L501.9985, L500.4100 #### [facility] [address] [place], [address] Creatinine [Mass/Vol] 0.88 mg/dL Normal 0.70-1.20 [facility] Comment on above: Order Comment: Order Date: 11/16/24 Order Info: [id number]- - CMP Order Info: [id number] - LIPID Performed By: #### L 100.0100, L500.4050, L501.9985, L500.4100 #### [facility] [address] [place], [address] GAP 12 Normal 5-15 [facility] Comment on above: Order Comment: Order Date: 11/16/24 Order Info: [id number] - CMP Order Info: [id number] - LIPID Performed By: #### L 100.0100, L500.4050, L501.9985, L500.4100 #### [facility] [address] [place], [address] GFR/1.73 sq M.predicted among non-blacks MDRD (S/P/Bld) [Vol rate/Area] 114 mL/min/{1.73_m2} Normal >60 [facility] Comment on above: Order Comment: Order Date: 11/16/24 Order Info: [id number]- - CMP Order Info: [id number] - LIPID Result Comment: mL/m in/1.73m2 CKD-EPI Creatinine Equation (2020) Performed By: #### L 100.0100, L500.4050, L501.9985, L500.4100 #### [facility] [address] [place], [address] Globulin (S) [Mass/Vol] 2.5 g/dL Normal 2.2-4.2 [facility] Comment on above: Order Comment: Order Date: 11/16/24 Order Info: [id number] - CMP Order Info: [id number] - LIPID Performed By: #### L 100.0100, L500.4050, L501.9985, L500.4100 #### [facility] [address] [place], [address] Glucose [Mass/Vol] 133 mg/dL High 70-[address] [facility] Comment on above: Order Comment: Order Date: 11/16/24 Order Info: [id number] - CMP Order Info: [id number] - LIPID Performed By: #### L 100.0100, L500.4050, L501.9985, L500.4100 #### [facility] [address] [place], [address] Potassium [Moles/Vol] 3.9 mmol/L Normal 3.3-5.1 [facility] Comment on above: Order Comment: Order Date: 11/16/24 Order Info: [id number] - CMP Order Info: [id number] - LIPID Performed By: #### L 100.0100, L500.4050, L501.9985, L500.4100 #### [facility] [address] [place], [address] Sodium [Moles/Vol] 138 mmol/L Normal 133-[address] [facility] Comment on above: Order Comment: Order Date: 11/16/24 Order Info: [id number]- - CMP Order Info: [id number] - LIPID Performed By: #### L 100.0100, L500.4050, L501.9985, L500.4100 #### [facility] [address] [place], [address] T PROT 6.6 g/dL Normal 5.9-8.4 [facility] Comment on above: Order Comment: Order Date: 11/16/24 Order Info: [id number] - CMP Order Info: [id number] - LIPID Performed By: #### L 100.0100, L500.4050, L501.9985, L500.4100 #### [facility] [address] [place], [address] Urea nitrogen [Mass/Vol] 14 mg/dL Normal 4-19 [facility] Comment on above: Order Comment: Order Date: 11/16/24 Order Info: [id number] - CMP Order Info: [id number] - LIPID Performed By: #### L 100.0100, L500.4050, L501.9985, L500.4100 #### [facility] [address] [place], [address] Eosinophil percentageOrdered By: Rupesh Obando on 11-16-2024 Eosinophils/100 WBC (Bld) 2.6 % 0-5 [facility] Erythrocyte distribution wid th ratioOrdered By: Rupesh Obando on 11-16-2024 Erythrocyte distribution width (RBC) [Ratio] 13.6 % 11.6-14.6 [facility] Erythrocyte distribution wid th standard deviationOrdered By: Rupesh Obando on 11-16-2024 Erythrocyte distribution width (RBC) [Ratio] 40.1 fl 35.1-43.9 [facility] Glomerular filtration rate ( GFR) estimation/1.73 sq m using serum, plasma, or whole bOrdered By: Rupesh Obando on 11-16-2024 GFR/1.73 sq M.predicted among non-blacks MDRD (S/P/Bld) [Vol rate/Area] 114 mL/min/{1.73_m2} >60 [facility] Comment on above: mL/min/1.73m2 CKD-EP I Creatinine Equation (2020) Hematocrit Auto (Bld) [Volum e fraction]Ordered By: Rupesh Obando on 11-16-2024 Hematocrit (Bld) [Volume fraction] 43.7 % 40-54 [facility] Hemoglobin A1con 11-16-2024 HbA1c (Bld) [Mass fraction] 6.1 % High <=5.6 [facility] Comment on above: Order Comment: Order Date: 11/16/24 Order Info: [id number] - A1C Result Comment: Norm al < 5.7 % Prediabetic 5.7 - 6.4 % Diabetic >or= 6.5 % Please note range changes. Performed By: #### L 100.0100, L500.4050, L501.9985, L500.4100 #### [facility] [place], [address] Hemoglobin A1c percentageOrd ered By: Rupesh Obando on 11-16-2024 HbA1c (Bld) [Mass fraction] 6.1 % High <5.7 [facility] Comment on above: Normal < 5.7 % Predi abetic 5.7 - 6.4 % Diabetic >or= 6.5 % Please note range changes. Hemoglobin measurementOrdere d By: Rupesh Obando on 11-16-2024 Hemoglobin (Bld) [Mass/Vol] 14.7 g/dL 13.0-16.5 [facility] Immature granulocytes/100 WB C Auto (Bld)Ordered By: Rupesh Obando on 11-16-2024 Immature granulocytes/100 WBC (Bld) 0.600 % 0.0-0.9 [facility] Comment on above: IG% - Immature Granu locytes (promyelocytes, myelocytes and metamyelocytes) > 1% indicates that a LEFT SHIFT is Present. LDL calc ser/plasOrdered By: Rupesh Obando on 11-16-2024 Cholesterol in LDL [Mass/Vol] 59 mg/dL [facility] Comment on above: Diiywiserb=203-112 m g/dL & Higher Shql=507 mg/dL or greater Laboratory - Chemistry and C hemistry - challengeOrdered By: Rupesh Obando on 11-16-2024 AST [Catalytic activity/Vol] 26 U/L <38 [facility] Lipid Profileon 11-16-2024 CHOL:HDL 3.05 Normal [facility] Comment on above: Order Comment: Order Date: 11/16/24 Order Info: [id number] - CMP Order Info: [id number] - LIPID Performed By: #### L 100.0100, L500.4050, L501.9985, L500.4100 #### [facility] [address] [place], [address] Cholesterol [Mass/Vol] 111 mg/dL Normal <=200 [facility] Comment on above: Order Comment: Order Date: 11/16/24 Order Info: [id number] - CMP Order Info: [id number] - LIPID Result Comment: Chol esterol level, Desirable <200 mg/dL Borderline high cholesterol 200-239 mg/dL High cholesterol >=240 mg/dL Recommendations of the NCEP Adult Treatment Panel for the following risk-cutoff thresholds for the [place] population. Performed By: #### L 100.0100, L500.4050, L501.9985, L500.4100 #### [facility] [address] [place], [address] Cholesterol in HDL [Mass/Vol] 36 mg/dL Low [facility] Comment on above: Order Comment: Order Date: 11/16/24 Order Info: [id number] - CMP Order Info: [id number] - LIPID Result Comment: Honey onal Cholesterol Education Program (NCEP) guidelines: <40 mg/dL: Low HDL-cholesterol (major risk factor for CHD) >= 60 mg/dL: High HDL-cholesterol (negative risk factor for CHD) HDL-cholesterol is affected by a number of factors, e.g. smoking, exercise, hormones, sex and age. Performed By: #### L 100.0100, L500.4050, L501.9985, L500.4100 #### [facility] [address] [place], [address] Cholesterol in LDL [Mass/Vol] 59 mg/dL Normal [facility] Comment on above: Order Comment: Order Date: 11/16/24 Order Info: [id number] - CMP Order Info: [id number] - LIPID Result Comment: Bord iydolx=337-872 mg/dL Higher Upij=672 mg/dL or greater Performed By: #### L 100.0100, L500.4050, L501.9985, L500.4100 #### [facility] [address] [place], [address] Cholesterol in VLDL [Mass/Vol] 15 mg/dL Normal 5-40 [facility] Comment on above: Order Comment: Order Date: 11/16/24 Order Info: [id number] - CMP Order Info: [id number] - LIPID Performed By: #### L 100.0100, L500.4050, L501.9985, L500.4100 #### [facility] [address] [place], [address] Triglyceride [Mass/Vol] 76 mg/dL Normal [facility] Comment on above: Order Comment: Order Date: 11/16/24 Order Info: [id number] - CMP Order Info: [id number] - LIPID Result Comment: The drugs N-Acetylcysteine and Metamizole may falsely depress this assay. Normal range: <150 mg/dL Borderline High: 150-199 mg/dL High: 200-499 mg/dL Very High: >500 mg/dL Performed By: #### L 100.0100, L500.4050, L501.9985, L500.4100 #### [facility] [address] [place], [address] MCV (mean corpuscular volume ) determinationOrdered By: Rupesh Obando on 11-16-2024 MCV (RBC) [Entitic vol] 81.5 fL 80-94 [facility] Mean corpuscular hemoglobin (MCH) determinationOrdered By: Rupesh Obando on 11-16-2024 MCH (RBC) [Entitic mass] 27.4 pg 27.0-32.0 [facility] Mean corpuscular hemoglobin concentration (MCHC) determinationOrdered By: Rupesh Obando on 11-16-2024 MCHC (RBC) [Mass/Vol] 33.6 g/dL 32-36 [facility] Mean platelet volume determi nationOrdered By: Rupesh Obando on 11-16-2024 Platelet mean volume (Bld) [Entitic vol] 9.0 fL 6.2-12.0 [facility] Monocyte percentageOrdered B y: Rupesh Obando on 11-16-2024 Monocytes/100 WBC (Bld) 5.5 % 0-10 [facility] Neutrophil percentageOrdered By: Rupesh Obando on 11-16-2024 Neutrophils/100 WBC (Bld) 61.8 % 47-70 [facility] Nucleated red blood cell per centageOrdered By: Rupesh Obando on 11-16-2024 Nucleated RBC/100 WBC (Bld) [Ratio] 0 % 0-5 [facility] Platelet countOrdered By: Genie Obando on 11-16-2024 Platelets (Bld) [#/Vol] 189 10*3/uL 150-450 [facility] Potassium measurement (mass/ volume)Ordered By: Rupesh Obando on 11-16-2024 Potassium (Unsp spec) [Mass/Vol] 3.9 mmol/L 3.3-5.1 [facility] RBC Auto (Bld) [#/Vol]Ordere d By: Rupesh Obando on 11-16-2024 RBC (Bld) [#/Vol] 5.36 10*6/uL 4.6-6.2 [facility] Screening total cholesterol/ high density lipoprotein (HDL) cholesterol ratioOrdered By: Rupesh Obando on 11-16-2024 Cholesterol.total/Genny sterol in HDL [Mass ratio] 3.05 {ratio} [facility] Serum creatinine measurement (mass/volume)Ordered By: Rupesh Obando on 11-16-2024 Creatinine [Mass/Vol] 0.88 mg/dL 0.70-1.20 [facility] Serum globulin measurementOr dered By: Rupesh Obando on 11-16-2024 Globulin (S) [Mass/Vol] 2.5 g/dL 2.2-4.2 [facility] Serum glucose measurement (m ass/volume)Ordered By: Rupesh Obando on 11-16-2024 Glucose [Mass/Vol] 133 mg/dL High 70-[address] [facility] Serum or plasma alanine jiang otransferase (ALT) measurementOrdered By: Rupesh Obando on 11-16-2024 ALT [Catalytic activity/Vol] 50 U/L High <47 [facility] Serum or plasma albumin tamara urement (mass/volume)Ordered By: Rupesh Obando on 11-16-2024 Albumin [Mass/Vol] 4.2 g/dL 3.5-5.[address] [facility] Serum or plasma albumin/glob ulin mass ratioOrdered By: Rupesh Obando on 11-16-2024 Albumin/Globulin [Mass ratio] 1.7 {ratio} 0.9-2.4 [facility] Serum or plasma alkaline aniket sphatase measurementOrdered By: Rupesh Obando on 11-16-2024 ALP [Catalytic activity/Vol] 79 U/L 40-129 [facility] Serum or plasma calcium tamara urement (mass/volume)Ordered By: Rupesh Obando on 11-16-2024 Calcium [Mass/Vol] 9.0 mg/dL 7.6-11.[address] [facility] Serum or plasma cholesterol in HDL measurement (mass/volume)Ordered By: Rupesh Obando on 11-16-2024 Cholesterol in HDL [Mass/Vol] 36 mg/dL Low >40 [facility] Comment on above: National Cholesterol Education Program (NCEP) guidelines:<40 mg/dL: Low HDL-cholesterol (major risk factor for CHD)>= 60 mg/dL: High HDL-cholesterol (negative risk factor for CHD)HDL-cholesterol is affected by a number of factors, e.g. smoking, exercise, hormones, sex and age. Serum or plasma cholesterol measurement (mass/volume)Ordered By: Rupesh Obando on 11-16-2024 Cholesterol [Mass/Vol] 111 mg/dL <201 [facility] Comment on above: Cholesterol level, D esirable <200 mg/dLBorderline high cholesterol 200-239 mg/dLHigh cholesterol >=240 mg/dLRecommendations of the NCEP Adult Treatment Panel for the following risk-cutoff thresholds for the [place] population. Serum or plasma urea nitroge n measurement (mass/volume)Ordered By: Rupesh Obando on 11-16-2024 Urea nitrogen [Mass/Vol] 14 mg/dL 4-19 [facility] Sodium levelOrdered By: Rupesh Obando on 11-16-2024 Sodium [Moles/Vol] 138 mmol/L 133-[address] [facility] Total proteinOrdered By: Johnny Obando on 11-16-2024 Protein [Mass/Vol] 6.6 g/dL 5.9-8.[address] [facility] Triglycerides measurementOrd ered By: Rupesh Obando on 11-16-2024 Triglyceride [Mass/Vol] 76 mg/dL <199 [facility] Comment on above: The drugs N-Acetylcy steine and Metamizole may falsely depress this assay. Normal range: <150 mg/dLBorderline High: 150-199 mg/dLHigh: 200-499 mg/dLVery High: >500 mg/dL White blood cell (WBC) count Ordered By: Rupesh Obando on 11-16-2024 WBC (Bld) [#/Vol] 5.1 10*3/uL 4.4-11.[address] [facility] Albumin DL <= 20 mg/L (U) [M ass/Vol]Ordered By: Rupesh Obando on 08-10-2024 Urine Random Microalbumin < 12.0 mg/L NO RANGE EST. [facility] Anion gap in Serum or Plasma Ordered By: Rupesh Obando on 08-10-2024 Anion gap [Moles/Vol] 13 mmol/L 5- [facility] BUN/creatinine ratioOrdered By: Rupesh Obando on 08-10-2024 Urea nitrogen/Creatinine [Mass ratio] 11.9 mg/mg 10- [facility] Bilirubin, totalOrdered By: Rupesh Obando on 08-10-2024 Bilirubin [Mass/Vol] 0.47 mg/dL 0.00-1.30 [facility] Calculated very low density lipoprotein (VLDL) cholesterol measurementOrdered By: Rupesh Obando on 08-10-2024 Calculated very low density lipoprotein (VLDL) cholesterol measurement 47 mg/dL High 5- [facility] VLDL Cholesterol 47 mg/dL High [facility] Carbon dioxide, total [Moles /volume] in Central venous bloodOrdered By: Rupesh Obando on 08-10-2024 CO2 [Moles/Vol] 20.7 mmol/L Low 21.0-32.0 [facility] Chloride assayOrdered By: Genie Obando on 08-10-2024 Chloride [Moles/Vol] 104 mmol/L 98-108 [facility] Comprehensive Metabolic Prof ilon 08-10-2024 Albumin [Mass/Vol] 4.2 g/dL Normal 3.5-5.[address] [facility] Comment on above: Order Comment: Order Date: 08/10/24Order Info: [id number] - CMPOrder Info: [id number] - LIPID Performed By: #### L 501.9985, L500.4050, L500.4100 ####[facility] [address] [place], [place], [id number] Albumin/Globulin [Mass ratio] 1.6 {ratio} Normal 0.9-2.4 [facility] Comment on above: Order Comment: Order Date: 08/10/24Order Info: [id number] - CMPOrder Info: [id number] - LIPID Performed By: #### L 501.9985, L500.4050, L500.4100 ####[facility] [address] [place], [place], [id number] ALK PHOS 104 U/L Normal 40-129 [facility] Comment on above: Order Comment: Order Date: 08/10/24Order Info: [id number] - CMPOrder Info: [id number] - LIPID Performed By: #### L 501.9985, L500.4050, L500.4100 ####[facility] [address] [place], [address] ALT [Catalytic activity/Vol] 53 U/L High <=46 [facility] Comment on above: Order Comment: Order Date: 08/10/24Order Info: [id number] - CMPOrder Info: [id number] - LIPID Performed By: #### L 501.9985, L500.4050, L500.4100 ####[facility] [address] [place], [address] AST [Catalytic activity/Vol] 31 U/L Normal <=37 [facility] Comment on above: Order Comment: Order Date: 08/10/24Order Info: 07- - CMPOrder Info: [id number] - LIPID Performed By: #### L 501.9985, L500.4050, L500.4100 ####[facility] [address] [place], [address] Bilirubin [Mass/Vol] 0.47 mg/dL Normal 0.00-1.30 [facility] Comment on above: Order Comment: Order Date: 08/10/24Order Info: [id number]- - CMPOrder Info: [id number] - LIPID Performed By: #### L 501.9985, L500.4050, L500.4100 ####[facility] [address] [place], [address] BUN/CRE 11.9 RATIO Normal 10-20 [facility] Comment on above: Order Comment: Order Date: 08/10/24Order Info: [id number] - CMPOrder Info: [id number] - LIPID Performed By: #### L 501.9985, L500.4050, L500.4100 ####[facility] [address] [place], [address] Calcium [Mass/Vol] 9.0 mg/dL Normal 7.6-11.[address] [facility] Comment on above: Order Comment: Order Date: 08/10/24Order Info: [id number] - CMPOrder Info: [id number] - LIPID Performed By: #### L 501.9985, L500.4050, L500.4100 ####[facility] [address] [place], [address] Chloride [Moles/Vol] 104 mmol/L Normal 98-108 [facility] Comment on above: Order Comment: Order Date: 08/10/24Order Info: 07-1 - CMPOrder Info: [id number] - LIPID Performed By: #### L 501.9985, L500.4050, L500.4100 ####[facility] [address] [place], [address] CO2 [Moles/Vol] 20.7 mmol/L Low 21.0-32.0 [facility] Comment on above: Order Comment: Order Date: 08/10/24Order Info: [id number] - CMPOrder Info: [id number] - LIPID Performed By: #### L 501.9985, L500.4050, L500.4100 ####[facility] [address] [place], [address] Creatinine [Mass/Vol] 1.09 mg/dL Normal 0.70-1.20 [facility] Comment on above: Order Comment: Order Date: 08/10/24Order Info: [id number] - CMPOrder Info: [id number] - LIPID Performed By: #### L 501.9985, L500.4050, L500.4100 ####[facility] [address] [place], [address] GAP 13 Normal 5-15 [facility] Comment on above: Order Comment: Order Date: 08/10/24Order Info: [id number] - CMPOrder Info: [id number] - LIPID Performed By: #### L 501.9985, L500.4050, L500.4100 ####[facility] [address] [place], [address] GFR/1.73 sq M.predicted among non-blacks MDRD (S/P/Bld) [Vol rate/Area] 90 mL/min/{1.73_m2} Normal >60 [facility] Comment on above: Order Comment: Order Date: 08/10/24Order Info: [id number] - CMPOrder Info: [id number] - LIPID Result Comment: mL/m in/1.73m2 CKD-EPI Creatinine Equation (2020) Performed By: #### L 501.9985, L500.4050, L500.4100 ####[facility] [address] [place], [address] Globulin (S) [Mass/Vol] 2.7 g/dL Normal 2.2-4.2 [facility] Comment on above: Order Comment: Order Date: 08/10/24Order Info: [id number] - CMPOrder Info: [id number] - LIPID Performed By: #### L 501.9985, L500.4050, L500.4100 ####[facility] [address] [place], [address] Glucose [Mass/Vol] 177 mg/dL High 70-[address] [facility] Comment on above: Order Comment: Order Date: 08/10/24Order Info: [id number]- - CMPOrder Info: [id number] - LIPID Performed By: #### L 501.9985, L500.4050, L500.4100 ####[facility] [address] [place], [address] Potassium [Moles/Vol] 4.2 mmol/L Normal 3.3-5.1 [facility] Comment on above: Order Comment: Order Date: 08/10/24Order Info: [id number]- - CMPOrder Info: [id number] - LIPID Performed By: #### L 501.9985, L500.4050, L500.4100 ####[facility] [address] [place], [address] Sodium [Moles/Vol] 138 mmol/L Normal 133-[address] [facility] Comment on above: Order Comment: Order Date: 08/10/24Order Info: [id number] - CMPOrder Info: [id number] - LIPID Performed By: #### L 501.9985, L500.4050, L500.4100 ####[facility] [address] [place], [address] T PROT 6.9 g/dL Normal 5.9-8.4 [facility] Comment on above: Order Comment: Order Date: 08/10/24Order Info: [id number] - CMPOrder Info: [id number] - LIPID Performed By: #### L 501.9985, L500.4050, L500.4100 ####[facility] [address] [place], [address] Urea nitrogen [Mass/Vol] 13 mg/dL Normal 4-19 [facility] Comment on above: Order Comment: Order Date: 08/10/24Order Info: [id number] - CMPOrder Info: [id number] - LIPID Performed By: #### L 501.9985, L500.4050, L500.4100 ####[facility] [address] [place], [address] Creatinine Unsp time (U) [Ma ss/Vol]Ordered By: Rupesh Obando on 08-10-2024 Creatinine (U) [Mass/Vol] 226.00 mg/dL 39.00-259.00 [facility] GFR/1.73 sq M.predicted nga g non-blacks MDRD (S/P/Bld) [Vol rate/Area]Ordered By: Rupesh Obando on 08-10-2024 Estimated GFR (MDRD) Non-Af Amer 90 >60 [facility] Comment on above: mL/min/1.73m2 CKD-EP I Creatinine Equation (2020) Glomerular filtration rate ( GFR) estimation/1.73 sq m using serum, plasma, or whole bOrdered By: Rupesh Obando on 08-10-2024 GFR/1.73 sq M.predicted among non-blacks MDRD (S/P/Bld) [Vol rate/Area] 90 mL/min/{1.73_m2} >60 [facility] Comment on above: mL/min/1.73m2 CKD-EP I Creatinine Equation (2020) Hemoglobin A1con 08-10-2024 HbA1c (Bld) [Mass fraction] 6.7 % High <=5.6 [facility] Comment on above: Order Comment: Order Date: 08/10/24Order Info: [id number] - A1C Result Comment: Norm al < 5.7 % Prediabetic 5.7 - 6.4 % Diabetic >or= 6.5 % Please note range changes. Performed By: #### L 501.9985, L500.4050, L500.4100 ####[facility] [address] [place], [address] Hemoglobin A1c percentageOrd ered By: Rupesh Obando on 08-10-2024 HbA1c (Bld) [Mass fraction] 6.7 % High <5.7 [facility] Comment on above: Normal < 5.7 % Predi abetic 5.7 - 6.4 % Diabetic >or= 6.5 % Please note range changes. LDL calc ser/plasOrdered By: Rupesh Obando on 08-10-2024 Cholesterol in LDL [Mass/Vol] 67 mg/dL [facility] Comment on above: Xpnxxdhark=855-378 m g/dL & Higher Uheu=055 mg/dL or greater LDL Cholesterol, Calculated 67 mg/dL [facility] Comment on above: Tfyhlbyswi=254-609 m g/dL & Higher Xzqk=254 mg/dL or greater Laboratory - Chemistry and C hemistry - challengeOrdered By: Rupesh Obando on 08-10-2024 AST [Catalytic activity/Vol] 31 U/L <38 [facility] Lipid Profileon 08-10-2024 CHOL:HDL 4.69 Normal [facility] Comment on above: Order Comment: Order Date: 08/10/24Order Info: [id number] - CMPOrder Info: [id number] - LIPID Performed By: #### L 501.9985, L500.4050, L500.4100 ####[facility] [address] [place], [address] Cholesterol [Mass/Vol] 144 mg/dL Normal <=200 [facility] Comment on above: Order Comment: Order Date: 08/10/24Order Info: 07-1 - CMPOrder Info: [id number] - LIPID Result Comment: Chol esterol level, Desirable <200 mg/dL Borderline high cholesterol 200-239 mg/dL High cholesterol >=240 mg/dL Recommendations of the NCEP Adult Treatment Panel for the following risk-cutoff thresholds for the [place] population. Performed By: #### L 501.9985, L500.4050, L500.4100 ####[facility] [address] [place], [address] Cholesterol in HDL [Mass/Vol] 31 mg/dL Low [facility] Comment on above: Order Comment: Order Date: 08/10/24Order Info: [id number]- - CMPOrder Info: [id number] - LIPID Result Comment: Honey onal Cholesterol Education Program (NCEP) guidelines: <40 mg/dL: Low HDL-cholesterol (major risk factor for CHD) >= 60 mg/dL: High HDL-cholesterol (negative risk factor for CHD) HDL-cholesterol is affected by a number of factors, e.g. smoking, exercise, hormones, sex and age. Performed By: #### L 501.9985, L500.4050, L500.4100 ####[facility] [address] [place], [address] Cholesterol in LDL [Mass/Vol] 67 mg/dL Normal [facility] Comment on above: Order Comment: Order Date: 08/10/24Order Info: [id number] - CMPOrder Info: [id number] - LIPID Result Comment: Bord gosahr=185-998 mg/dL Higher Udrb=151 mg/dL or greater Performed By: #### L 501.9985, L500.4050, L500.4100 ####[facility] [address] [place], [address] Cholesterol in VLDL [Mass/Vol] 47 mg/dL High 5-40 [facility] Comment on above: Order Comment: Order Date: 08/10/24Order Info: 0786-1 - CMPOrder Info: [id number] - LIPID Performed By: #### L 501.9985, L500.4050, L500.4100 ####[facility] [address] [place], [address] Triglyceride [Mass/Vol] 234 mg/dL High [facility] [place] Comment on above: Order Comment: Order Date: 08/10/24Order Info: 0786-1 - CMPOrder Info: [id number] - LIPID Result Comment: The drugs N-Acetylcysteine and Metamizole may falsely depress this assay. Normal range: <150 mg/dL Borderline High: 150-199 mg/dL High: 200-499 mg/dL Very High: >500 mg/dL Performed By: #### L 501.9985, L500.4050, L500.4100 ####[facility] [address] [place], [address] Microalb:Creat Ratio,Random URon 08-10-2024 Creatinine [Mass/Vol] 226.00 mg/dL Normal 39.00-259.00 [facility] Comment on above: Order Comment: Order Date: 06/12/24Order Info: 0779-1 - MIACRE Performed By: #### L 502.0250 ####[facility] [address] [place], [address] MALB:CREAT UNABLE TO CALCULATE Normal [facility] Comment on above: Order Comment: Order Date: 06/12/24Order Info: 0779-1 - MIACRE Performed By: #### L 502.0250 ####[facility] [address] [place], [place], [address] MICROALBUMIN,UR < 12.0 Normal NO RANGE EST. [facility] Comment on above: Order Comment: Order Date: 06/12/24Order Info: 0779-1 - MIACRE Performed By: #### L 502.0250 ####[facility] [address] [place], [address] Microalbumin/creat ratio urO rdered By: Rupesh Obando on 08-10-2024 Urine Microalbumin/Creatinine Ratio UNABLE TO CALCULATE mg/g CRE [facility] Urine microalbumin/creatinine ratio measurement UNABLE TO CALCULATE mg/g CRE [facility] Potassium (Unsp spec) [Mass/ Vol]Ordered By: Rupesh Obando on 08-10-2024 Potassium [Moles/Vol] 4.2 mmol/L 3.3-5.1 [facility] Potassium measurement (mass/ volume)Ordered By: Rupesh Obando on 08-10-2024 Potassium (Unsp spec) [Mass/Vol] 4.2 mmol/L 3.3-5.1 [facility] Random urine creatinine tamara urement (mass/volume)Ordered By: Rupesh Obando on 08-10-2024 Creatinine Unsp time (U) [Mass/Vol] 226.00 mg/dL 39.00-259.00 [facility] Screening total cholesterol/ high density lipoprotein (HDL) cholesterol ratioOrdered By: Rupesh Obando on 08-10-2024 Cholesterol.total/Genny sterol in HDL [Mass ratio] 4.69 {ratio} [facility] Serum creatinine measurement (mass/volume)Ordered By: Rupesh Obando on 08-10-2024 Creatinine [Mass/Vol] 1.09 mg/dL 0.70-1.20 [facility] Serum globulin measurementOr dered By: Rupesh Obando on 08-10-2024 Globulin (S) [Mass/Vol] 2.7 g/dL 2.2-4.2 [facility] Serum glucose measurement (m ass/volume)Ordered By: Rupesh Obando on 08-10-2024 Glucose [Mass/Vol] 177 mg/dL High 70-[address] [facility] Serum or plasma alanine jiang otransferase (ALT) measurementOrdered By: Rupesh Obando on 08-10-2024 ALT [Catalytic activity/Vol] 53 U/L High <47 [facility] Serum or plasma albumin tamara urement (mass/volume)Ordered By: Rupesh Obando on 08-10-2024 Albumin [Mass/Vol] 4.2 g/dL 3.5-5.[address] [facility] Serum or plasma albumin/glob ulin mass ratioOrdered By: Rupesh Obando on 08-10-2024 Albumin/Globulin [Mass ratio] 1.6 {ratio} 0.9-2.4 [facility] Serum or plasma alkaline aniket sphatase measurementOrdered By: Rupesh Obando on 08-10-2024 ALP [Catalytic activity/Vol] 104 U/L 40-129 [facility] Serum or plasma calcium tamara urement (mass/volume)Ordered By: Rupesh Obadno on 08-10-2024 Calcium [Mass/Vol] 9.0 mg/dL 7.6-11.[address] [facility] Serum or plasma cholesterol in HDL measurement (mass/volume)Ordered By: Rupesh Obando on 08-10-2024 Cholesterol in HDL [Mass/Vol] 31 mg/dL Low >40 [facility] Comment on above: National Cholesterol Education Program (NCEP) guidelines:<40 mg/dL: Low HDL-cholesterol (major risk factor for CHD)>= 60 mg/dL: High HDL-cholesterol (negative risk factor for CHD)HDL-cholesterol is affected by a number of factors, e.g. smoking, exercise, hormones, sex and age. Serum or plasma cholesterol measurement (mass/volume)Ordered By: Rupesh Obando on 08-10-2024 Cholesterol [Mass/Vol] 144 mg/dL <201 [facility] Comment on above: Cholesterol level, D esirable <200 mg/dLBorderline high cholesterol 200-239 mg/dLHigh cholesterol >=240 mg/dLRecommendations of the NCEP Adult Treatment Panel for the following risk-cutoff thresholds for the [place] population. Serum or plasma urea nitroge n measurement (mass/volume)Ordered By: Rupesh Obando on 08-10-2024 Urea nitrogen [Mass/Vol] 13 mg/dL 4-19 [facility] Sodium levelOrdered By: Rupesh Obando on 08-10-2024 Sodium [Moles/Vol] 138 mmol/L 133-[address] [facility] Total proteinOrdered By: Johnny Obando on 08-10-2024 Protein [Mass/Vol] 6.9 g/dL 5.9-8.[address] [facility] Triglycerides measurementOrd ered By: Rupesh Obando on 08-10-2024 Triglyceride [Mass/Vol] 234 mg/dL High <199 [facility] Comment on above: The drugs N-Acetylcy steine and Metamizole may falsely depress this assay. Normal range: <150 mg/dLBorderline High: 150-199 mg/dLHigh: 200-499 mg/dLVery High: >500 mg/dL Urine albumin measurement wi detection limit of 20 mg/L or less (mass/volume)Ordered By: Rupesh Obando on 08-10-2024 Albumin DL <= 20 mg/L (U) [Mass/Vol] < 12.0 mg/L NO RANGE EST. [facility] Arterial study reportOrdered By: Tyrese Griffith on 08-07-2024 Noninvasive arteriosclerosis study report [facility] [address] [place] [address] Lower Ext Art Exam w/ Exercise 08/07/24 0803 MR#: [id number] Acct: [id number] Name: MALORIE FOLEY II Rep #:[id number] : 1985 38 From: Tyrese Stuart Attending Dr: Dr. Rupesh Obando MD Status: REG CLI Ordering Dr: Rupesh Obando MD Date: 08/07/24 Location: [facility] Sex: M C Admitted: Reason For [...] Physician: RUPESH OBANDO MD Performed By: Hector Carrillo RVT 08/07/241646 Date _ Tyrese Griffith MD CC: Dr. Rupesh Obando MD ~ Date Dictated: 08/07/24802 Date Transcribed: 08/07/241646 Filament Tester: Signed [facility] Work Phone: Lower Ext Art Exam w/ Exerci sebastián 08-07-2024 Lower Ext Art Exam w/ Exercise [facility] Cardi[facility] Services [facility] [place] [address] Lower Ext Art Exam w/ Exercise 08/07/24 0803 MR#: [id number] Acct: [id number] Name: MALORIE FOLEY II Rep #: [id number] : 1985 38 From: Tyrese Griffith MD Attending Dr: Dr. Rupesh Obando MD Status: R EG CLI Ordering Dr: Rupesh Obando MD Date: 08/07/24 Location: [facility] Sex: M C Admitted: Reason For [...] RUPESH OBANDO MD Performed By: Hector Carrillo, RVT 08/07/241646 Date Tyrese Griffith MD CC: Dr. Rupesh Obando MD Date Dictated: 08/07/24802 Date Transcribed: 08/07/241646 Filament Tester: Signed [facility] ED NOTEon 07-28-2024 ED NOTE HNO ID: [id number] Author: LULÚ MATOS RN Service: Emergency Medicine Author Type: Registered Nurse Type: ED Notes Filed: 07/28/2024 00:07 Note Text: Pt d/c home by staff - wound dressed and wrapped - pt and family states understanding of d/c, f/u and wound care instructions - nausea has improved - pt ambulatory without difficulty - no s/sx of distress noted [facility] ALLIED HEALTHon 07-27-2024 ALLIED HEALTH HNO ID: [id number] Author: VALERIY PALACIOS RT(R) Service: ? Author [...] PATIENT PRESENTS WITH AN IMPLANTABLE OR ATTACHED METAL MACHINIST: No RADIOLOGY DEPARTMENT: General X-ray: Exam(s) Completed: Upper Extremity X-Ray(s): Hand, right PERIPHERAL IV DATA: Not applicable SIGNED BY: Valeriy Palacios, RT(R) July 27, 2024 8:51 PM [facility] ED NOTEon 07-27-2024 ED NOTE HNO ID: [id number] Author: LUTHER MCKEON RN Service: Emergency Medicine Author Type: Registered Nurse Type: ED Notes Filed: 07/27/2024 21:12 Note Text: Cut palm of right hand on metal appliance, dressed in triage, bleeding controlled, [facility] ED PROV NOTEon 07-27-2024 ED PROV NOTE HNO ID: [id number] Author: MELISSA JACOME MD Service: Emergency Medicine [...] patient and discussed management with the resident physician/PA/STAVE SAW OPERATOR. I reviewed the resident/PA/STAVE SAW OPERATOR's note and agree with documented findings and plan of care, unless otherwise listed above. I supervised procedures performed by resident physician/PA/STAVE SAW OPERATOR. X-ray of the right hand was obtained [...] foreign body. MELISSA JACOME 07/28/24 0009 [facility] ED PROV NOTE HNO ID: [id number] Author: MELISSA JACOME MD Service: Emergency Medicine [...] 172.4 kg (380 lb) 1.981 m (6' 6) Physical Exam: Gen: Alert, well developed, well [...] Strict retu (more content not included)... [facility] XR HAND 3V PA/LAT/OBL RTon 0 07-27-2024 XR HAND 3V PA/LAT/OBL RT * * [...] gas compatible with patient's history of laceration. Filament Tester: PSCB Transcribe Date/Time: Jul 27 2024 10:31P Dictated by : KYLER RAUSCH MD This examination was interpreted and the report reviewed and electronically signed by: KYLER RAUSCH MD on Jul 27 2024 10:35PM EST [id number] [facility] CNOVon 07-13-2024 CNOV Office Visit (GENSWS ) MALORIE FOLEY ([id number]) 1985 M Date Time Provider Department 07/13/24 3:30 PM PATRICIA PETERS During your visit today, we recorded the following information about you: Temperature 97.9 degrees Patricia Peters APRN.CNP 07/13/2024 3:39 PM Signed SUBJECTIVE: Malorie Foley [...] incisional pain should follow up with Dr. Shha. Patricia Peters APRN.CNP Allergies As of Date: 07/13/2024 Noted Allergy Reaction ADHESIVE TAPE (ROSINS) 03/16/2011 16 - Unknown Date Reviewed: 07/13/2024 Reviewed by: Clif, Patricia, DATA REVIEWER.HEAD MECHANIC - Fully Assessed Reason for Visit: Follow [...] Encounter Status:Closed by PATRICIA PETERS on 07/13/24 [facility] ANES POSTPROC EVALon 025 ANES POSTPROC EVAL HNO ID: [id number] Author: LISSY FRANKLIN MD Service: Anesthesiology Author Type: Anesthesiologist Type: Anesthesia Postprocedure Evaluation Filed: 06/29/2024 13:40 Note Text: POST ANESTHESIA EVALUATION NOTE : 1985 Procedure Summary Date: 06/29/24 Room / Location: ND OR / ND OR Anesthesia Start: 1103 Anesthesia Stop: 1308 [...] June 29, 2024 TIME: 1:40 PM CSN: [id number] [facility] ANES PRE-OPon 06-29-2024 ANES PRE-OP HNO ID: [id number] Author: LISSY FRANKLIN MD Service: Anesthesiology Author Type: Anesthesiologist Type: Anesthesia Preprocedure Evaluation Filed: 06/29/2024 10:28 Note Text: ANESTHESIOLOGY DAY OF SURGERY NOTE : 1985 Procedure Information Date/Time: 06/29/24 1130 Procedure: LAPAROSCOPIC CHOLECYSTECTOMY POSSIBLE OPEN (Abdomen) Location: ND OR04 / ND OR Surgeons: Kadeem Shah MD Estimated body mass index is 44.95 kg/m? as calculated from the following: Height as of this encounter: 198.1 cm (6' 6). Weight as of this encounter: 176.4 kg [...] and consent discussed: yes. Patient / Responsible Republican agrees to proceed: yes Patient / Surrogate [...] June 29, 2024 TIME: 10:27 AM CSN: [id number] [facility] HISTORY PHYSICALon HISTORY PHYSICAL HNO ID: [id number] Author: KADEEM SHAH MD Service: General Surgery [...] ?C (97 ?F), height 198.1 cm (6' 6), weight (!) 176.6 kg (389 lb 6.4 [...] LAPAROSCOPIC CHOLECYSTECTOMY WITHOU (more content not included)... [facility] OPERATIVE NOon 06-29-2024 OPERATIVE NO HNO ID: [id number] Author: KADEEM SHAH MD Service: General Surgery Author Type: Physician Type: Operative Report Filed: 06/29/2024 12:57 Note Text: OPERATIVE/PROCEDURE REPORT LOG ID: [id number] SURGERY/PROCEDURE DATE: 06/29/2024 INCISION/PROCEDURE START TIME: 11:29 AM INCISION CLOSE/PROCEDURE END TIME: 12:47 PM SURGEON(S)/PROCEDURALIS T(S) AND CONTROL ROOM TENDER(S): Surgeons and Role: * Kadeem Shah MD - Primary Physician Corrugated Fastener Driver: Nasrin Jaime PA-C SURGERY/PROCEDURE(S): Laparoscopic cholecystectomy ANESTHESIA: [...] procedure well. Nasrin Jaime PA-C was my nurse assistant. She assisted with retraction, visualization and performed [...] DATE: June 29, 2024 TIME: 12:29 PM [facility] Pathology biopsy report Mervin (Tiss)on 06-29-2024 AP DISCLAIMER [facility] Comment on above: Order Comment: Speci men Type: TISSUE SPECIMENOrdering Facility: [facility] Address: [address] [place] [address] Result Comment: Marisol yates Developed Test (LDT) Disclaimer: Performance characteristics of immunohistochemical, immunofluorescent, and chromogenic in-situ hybridization tests have been determined by the performing laboratory within [facility]'s [facility] Pathology and Laboratory Medicine Department ([facility], [facility], [facility], [facility], [facility], [facility], or [facility]) in a manner consistent with CLIA requirements. One or more of these tests may not have been cleared or approved by the FDA. RT-PLM is regulated under CLIA as qualified to perform high-complexity testing. These tests are used for clinical purposes. These should not be regarded as investigational or for research. Positive and negative controls stain appropriately. Performed By: #### 6 6121-5 ####[facility] [id number] [address] [place] CASE REPORT [facility] Comment on above: Order Comment: Speci zeeshan Type: TISSUE SPECIMENOrdering Facility: [facility] Address: [address] [place] [address] Result Comment: Surg [facility] Pathology Report Case: [id number] Authorizing Provider: Kadeem Shah MD Collected: 06/29/2024 11:20 AM Ordering Location: [facility] Surgery Received: 06/29/2024 01:55 PM Pathologist: Maikel Crowell MD Specimen: Gallbladder Performed By: #### 6 6121-5 ####[facility] [id number] [place] [address] [place] CLINICAL HISTORY [facility] Comment on above: Order Comment: Speci men Type: TISSUE SPECIMENOrdering Facility: [facility] Address: [address] [place] [address] Result Comment: Pre- op diagnosis: Calculus of gallbladder with cholecystitis without biliary obstruction, unspecified cholecystitis acuity [K80.10] Performed By: #### 6 6121-5 ####[facility] [id number] [address] [place] FINAL DIAGNOSIS [facility] Comment on above: Order Comment: Speci men Type: TISSUE SPECIMENOrdering Facility: [facility] Address: [address] [place] [address] Result Comment: A. G allbladder, cholecystectomy: - Chronic cholecystitis with cholelithiasis. at 1120 EDT Performed By: #### 6 6121-5 ####[facility] [id number] [address] [place] FINAL PERFORMING LAB Normal [facility] Comment on above: Order Comment: Speci men Type: TISSUE SPECIMENOrdering Facility: [facility] Address: [address] [place] [address] Result Comment: Diag nostic interpretation performed at: [facility], [address] [place] [address], [facility] [place] [address] CLIA# [id number] Stock Saw Operator: Al Leyva MD Performed By: #### 6 6121-5 ####[facility] [id number] [address] [place] GROSS DESCRIPTION A. Gallbladder Normal [facility] Comment on above: Order Comment: Speci [facility] Type: TISSUE SPECIMENOrdering Facility: [facility] Address: [address] [place] [address] Result Comment: Rece ived in formalin labeled gallbladder is a 10.1 x 5.8 x 4.2 cm intact gallbladder with a yellow-owens serosa. The average wall thickness is 0.2 cm. The lumen contains yellow-green bile and multiple green choleliths measuring up to 2.4 cm. The mucosa is owens, granular with diffuse yellow stippling. The cystic duct margin is patent. No periductal lymph node is identified. High Wire Artist sections submitted labeled A1. LG June 29, 2024 4:31 PM Gross examination performed at [facility], [address] [place] [address] Performed By: #### 6 6121-5 ####[facility] [id number] [address] [place] CNPMarcia 06-27-2024 CNPN Telephone (GENSME) MALORIE FOLEY ([id number]) 1985 M Date Time Provider Department 06/27/24 KADEEM SHAH During your visit today, we recorded the following information about you: Charity Conner, DARLEEN 06/27/2024 11:52 AM Addendum FMLA paper work received from [employer] Filled out and signed by Provider. Reviewed [...] to return to work sooner. Faxed to [employer]. Confirmation received. Records sent to be scanned to chart. Encounter closed. Allergies As of Date: 06/27/2024 Noted Allergy Reaction ADHESIVE TAPE (ROSINS) 03/16/2011 16 - Unknown Date Reviewed: 06/25/2024 Reviewed by: Jerilyn Madrid, RN - Fully Assessed Reason for Visit: FMLA Paperwork [4185] Prescriptions as of 06/28/2024 - omeprazole (PRILOSEC) [...] Encounter Status:Closed by CHARITY CONNER on 06/28/24 [facility] CONFIRM BLOOD TYPEon 025 ABO O [facility] Comment on above: Order Comment: Speci men Type: BLOOD SPECIMENOrdering Facility: [facility] Address: [address] [place] [address] Performed By: #### C ONABO ####[facility] [employer] [id number] [address] STATES OF [facility] Rh Nom (Bld) Positive [facility] Comment on above: Order Comment: Speci men Type: BLOOD SPECIMENOrdering Facility: [facility] Address: [address] [place] [address] Performed By: #### C ONABO ####[facility] [employer] [id number] [address] OF [facility] ECG COMPLETEon 06-22-2024 ECG COMPLETE Ventricular Rate : 8 8 BPM Atrial Rate : 88 BPM P-R Interval : 154 ms QRS Duration : 80 ms Q-T Interval : 368 ms QTC Calculation(Bazett) : 445 ms Calculated P [place] : 51 degrees Calculated R [place] : 29 degrees Calculated T [place] : 39 degrees NORMAL SINUS RHYTHM NORMAL ECG NO PREVIOUS ECGS AVAILABLE Confirmed by SHEILA REYES MD ([id number]) on 06/22/2024 3:03:17 PM NAME : MALORIE FOLEY PID : [id number] : 1985 Gender : Male Race : ORD : [id number] Procedure Date : Jun 22 2024 13:18:48 Edit Date : Jun 22 2024 15:03:20 Diagnosis: NORMAL SINUS RHYTHM NORMAL ECG NO PREVIOUS ECGS AVAILABLE Confirmed by SHEILA REYES MD ([id number]) on 06/22/2024 3:03:17 PM Test Reason : HCS Location : : [facility] Overread By : SHEILA REYES MD Edited By : SHEILA REYES MD Referred By : SUNDAY CRANE Acquired by : KORY [facility] HbA1c (Bld)on 06-22-2024 Average glucose Estimated from glycated hemoglobin (Bld) [Mass/Vol] 151 mg/dL [facility] Comment on above: Order Comment: Ayde byers Type: BLOOD SPECIMEN Ordering [facility]: [facility] Address: [address] [place] [address] Result Comment: eAG: (Estimated average glucose) is a calculated value from HgbA1c and is community health program representative of the average blood glucose level in the last 2-3 month period. Performed By: #### 5 5454-3 #### [facility] CLIA [id number] [address] [place] [address] [place] HbA1c (Bld) [Mass fraction] 6.9 % High 4.3-5.6 [facility] Comment on above: Order Comment: Ayde byers Type: BLOOD SPECIMEN Ordering Facility: [facility] Address: [address] [place] [address] Result Comment: Amer [place] Diabetes Association guidelines indicate that patients with HgbA1c in the range 5.7-6.4% are at increased risk for development of diabetes, and intervention by lifestyle modification may be beneficial. HgbA1c greater or equal to 6.5% is considered diagnostic of diabetes. Performed By: #### 5 5454-3 #### [facility] CLIA [id number] [address] [place] [address] [place] TYPE AND SCREEN,30 DAYon ABO O [facility] Comment on above: Order Comment: Ayde byers Type: BLOOD SPECIMENOrdering Facility: [facility] Address: [address] [place] [address] [place] [address] Performed By: #### T SCR30 ####[facility] B[facility] [id number] [place] [address] [facility] Rh Nom (Bld) Positive [facility] Comment on above: Order Comment: Speci men Type: BLOOD SPECIMENOrdering Facility: [facility] Address: [address] [place] [id number] Performed By: #### T SCR30 ####[facility]ANK[facility] [id number] [place] [address] [place] HISTORY PHYSICALon HISTORY PHYSICAL HNO ID: [id number] Author: SUNDAY CRANE PA-C Service: ? Author Type: Physician Corrugated Fastener Driver Type: H&P Filed: 06/25/2024 12:35 Note Text: [...] Is on metformin Most recent A1c was just under 7 per pt on Tuesday Obesity, Class III, BMI >= 40 Assessment: Body mass index is 44.95 kg/m?. 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 A1c is 6.9. CONSULTS: Patient does not require consults for optimization at this time Planned Anesthetic: other anesthesia choice The Following Tests/Procedures Have Been Initiated: Orders Placed This Encounter Hemoglobin A1C Standing Status: Future Number of Occurrences: 1 Expected Date: 06/21/2024 Expiration Date: 09/20/2024 (more content not included)... Normal [facility] CNPMarcia 06-20-2024 CNPN Telephone (Content AnalyticsS) MALORIE FOLEY ([id number]) 1985 Date Time Provider Department 06/20/24 KADEEM SHAH GENYuenimeiS During your visit today, we recorded the following information about you: Mamadou Saab 06/20/2024 12:43 PM Signed 06-29-2024 Leonora Royal with double time and visiport Mamadou Saab Allergies As of Date: 06/20/2024 Noted Allergy Reaction ADHESIVE TAPE (ROSINS) 03/16/2011 16 - Unknown Date Reviewed: 06/19/2024 Reviewed by: Kiana Baker RN - Fully Assessed Reason for Visit: 06-29-2024 [...] Cholelithiasis [K80.20] 06/21/2019 Encounter Status:Closed by MAMADOU SAAB on 07/18/24 [facility] CNOVon 06-19-2024 CNOV Office Visit (GENSWS ) MALORIE FOLEY ([id number]) 1985 Date Time Provider Department 06/19/24 4:00 PM KADEEM SHAH During your visit today, we recorded the following information about you: Temperature Pulse Blood pressure Weight 97 degrees 113/minute 130/84 176.6 kg Height 1.981 m Kadeem Shah MD 06/26/2024 12:22 PM Signed HISTORY AND PHYSICAL Malorie Foley 1985 REFERRING [...] ?C (97 ?F), height 198.1 cm (6' 6), weight (!) 176.6 kg (389 lb 6.4 [...] The p (more content not included)... Normal [facility] Absolute neutrophil countOrd ered By: Rupesh Obando on 06-12-2024 Neutrophils (Bld) [#/Vol] 5.1 10*3/uL 2.0-7.7 [facility] Albumin to globulin ratioOrd ered By: Rupesh Obando on 06-12-2024 Albumin/Globulin [Mass ratio] 1.1 {ratio} 0.9-2.4 [facility] Basophil percentageOrdered B y: Rupesh Obando on 06-12-2024 Basophils/100 WBC (Bld) 0.6 % 0-1 [facility] [place] Bilirubin, totalOrdered By: Rupesh Obando on 06-12-2024 Bilirubin [Mass/Vol] 0.40 mg/dL 0.20-1.00 [facility] Comment on above: For patients on eltr ombopag therapy, use of Dimension [place] TBIL is not recommended. Blood urea nitrogen (BUN)/cr eatinine ratioOrdered By: Rupesh Obando on 06-12-2024 Urea nitrogen/Creatinine [Mass ratio] 21.0 mg/mg High 10-20 [facility] CBC W/Diff, Automatedon 05-26 Absolute Lymph 2.33 X10 3/uL Normal 0.83-4.51 [facility] Comment on above: Order Comment: Order Date: 06/12/24 Order Info: 0184-1 - CBCD Performed By: #### L 501.9985, L500.4050, L500.4100, L100.0100, L501.9520 #### [facility] [address] [place], [address] Absolute Neut 5.1 X10 3/uL Normal 2.0-7.7 [facility] Comment on above: Order Comment: Order Date: 06/12/24 Order Info: 0184- - CBCD Performed By: #### L 501.9985, L500.4050, L500.4100, L100.0100, L501.9520 #### [facility] [address] [place], [address] Basophils/100 WBC (Bld) 0.6 % Normal 0-1 [facility] [place] Comment on above: Order Comment: Order Date: 06/12/24 Order Info: 0184-1 - CBCD Performed By: #### L 501.9985, L500.4050, L500.4100, L100.0100, L501.9520 #### [facility] [address] [place], [address] Eosinophils/100 WBC (Bld) 1.4 % Normal 0-5 [facility] Comment on above: Order Comment: Order Date: 06/12/24 Order Info: 0184-1 - CBCD Performed By: #### L 501.9985, L500.4050, L500.4100, L100.0100, L501.9520 #### [facility] [address] [place], [address] Erythrocyte distribution width (RBC) [Ratio] 13.2 % Normal 11.6-14.6 [facility] Comment on above: Order Comment: Order Date: 06/12/24 Order Info: 0184-1 - CBCD Performed By: #### L 501.9985, L500.4050, L500.4100, L100.0100, L501.9520 #### [facility] [address] [place], [address] Hematocrit (Bld) [Volume fraction] 45.9 % Normal 40-54 [facility] Comment on above: Order Comment: Order Date: 06/12/24 Order Info: 0184 - CBCD Performed By: #### L 501.9985, L500.4050, L500.4100, L100.0100, L501.9520 #### [facility] [address] [place], [address] Hemoglobin (Bld) [Mass/Vol] 15.2 g/dL Normal 13.0-16.5 [facility] Comment on above: Order Comment: Order Date: 06/12/24 Order Info: 0184-1 - CBCD Performed By: #### L 501.9985, L500.4050, L500.4100, L100.0100, L501.9520 #### [facility] [address] [place], [address] IG% 0.500 Normal 0.0-0.9 [facility] Comment on above: Order Comment: Order Date: 06/12/24 Order Info: 0184- - CBCD Result Comment: IG% - Immature Granulocytes (promyelocytes, myelocytes and metamyelocytes) > 1% indicates that a LEFT SHIFT is Present. Performed By: #### L 501.9985, L500.4050, L500.4100, L100.0100, L501.9520 #### [facility] [address] [place], [address] Lymphocytes/100 WBC (Bld) 29.2 % Normal 19-41 [facility] Comment on above: Order Comment: Order Date: 06/12/24 Order Info: 0184-1 - CBCD Performed By: #### L 501.9985, L500.4050, L500.4100, L100.0100, L501.9520 #### [facility] [address] [place], [address] MCH (RBC) [Entitic mass] 27.5 pg Normal 27.0-32.0 [facility] Comment on above: Order Comment: Order Date: 06/12/24 Order Info: 018- - CBCD Performed By: #### L 501.9985, L500.4050, L500.4100, L100.0100, L501.9520 #### [facility] [address] [place], [address] MCHC (RBC) [Mass/Vol] 33.1 g/dL Normal 32-36 [facility] Comment on above: Order Comment: Order Date: 06/12/24 Order Info: 018- - CBCD Performed By: #### L 501.9985, L500.4050, L500.4100, L100.0100, L501.9520 #### [facility] [address] [place], [address] MCV (RBC) [Entitic vol] 83.2 fL Normal 80-94 [facility] [place] Comment on above: Order Comment: Order Date: 06/12/24 Order Info: 0184-1 - CBCD Performed By: #### L 501.9985, L500.4050, L500.4100, L100.0100, L501.9520 #### [facility] [address] [place], [address] Monocytes/100 WBC (Bld) 4.9 % Normal 0-10 [facility] [place] Comment on above: Order Comment: Order Date: 06/12/24 Order Info: 0184-1 - CBCD Performed By: #### L 501.9985, L500.4050, L500.4100, L100.0100, L501.9520 #### [facility] [address] [place], [address] Neutrophils/100 WBC (Bld) 63.4 % Normal 47-70 [facility] Comment on above: Order Comment: Order Date: 06/12/24 Order Info: 0184-1 - CBCD Performed By: #### L 501.9985, L500.4050, L500.4100, L100.0100, L501.9520 #### [facility] [address] [place], [address] Nucleated RBC (Bld) [#/Vol] 0 10*3/uL Normal 0-5 [facility] Comment on above: Order Comment: Order Date: 06/12/24 Order Info: 0184- - CBCD Performed By: #### L 501.9985, L500.4050, L500.4100, L100.0100, L501.9520 #### [facility] [address] [place], [address] Platelet mean volume (Bld) [Entitic vol] 8.9 fL Normal 6.2-12.0 [facility] Comment on above: Order Comment: Order Date: 06/12/24 Order Info: 0184-1 - CBCD Performed By: #### L 501.9985, L500.4050, L500.4100, L100.0100, L501.9520 #### [facility] [address] [place], [address] Platelets (Bld) [#/Vol] 247 10*3/uL Normal 150-450 [facility] Comment on above: Order Comment: Order Date: 06/12/24 Order Info: 0184-1 - CBCD Performed By: #### L 501.9985, L500.4050, L500.4100, L100.0100, L501.9520 #### [facility] [address] [place], [address] RBC (Bld) [#/Vol] 5.52 10*6/uL Normal 4.6-6.2 [facility] Comment on above: Order Comment: Order Date: 06/12/24 Order Info: 0184-1 - CBCD Performed By: #### L 501.9985, L500.4050, L500.4100, L100.0100, L501.9520 #### [facility] [address] [place], [place], [id number] RDW SD 39.3 fl Normal 35.1-43.9 [facility] Comment on above: Order Comment: Order Date: 06/12/24 Order Info: 0184-1 - CBCD Performed By: #### L 501.9985, L500.4050, L500.4100, L100.0100, L501.9520 #### [facility] [address] [place], [place], [id number] [phone] WBC (Bld) [#/Vol] 8.0 10*3/uL Normal 4.4-11.[address] [facility] Comment on above: Order Comment: Order Date: 06/12/24 Order Info: 0184-1 - CBCD Performed By: #### L 501.9985, L500.4050, L500.4100, L100.0100, L501.9520 #### [facility] [address] [place], [place], [id number] Carbon dioxide measurementOr dered By: Rupesh Obando on 06-12-2024 CO2 [Moles/Vol] 24.0 mmol/L 21.0-32.0 [facility] Chloride measurementOrdered By: Rupesh Obando on 06-12-2024 Chloride [Moles/Vol] 106 mmol/L 98-107 [facility] Comprehensive Metabolic Prof ilon 06-12-2024 Albumin [Mass/Vol] 3.8 g/dL Normal 3.2-5.[address] [facility] Comment on above: Order Comment: Order Date: 06/12/24 Order Info: 0786- - CMP Order Info: - LIPID Order Info: [id number] - TSH Performed By: #### L 501.9985, L500.4050, L500.4100, L100.0100, L501.9520 #### [facility] [address] [place], [address] Albumin/Globulin [Mass ratio] 1.1 {ratio} Normal 0.9-2.4 [facility] Comment on above: Order Comment: Order Date: 06/12/24 Order Info: 07 - CMP Order Info: - LIPID Order Info: [id number] - TSH Performed By: #### L 501.9985, L500.4050, L500.4100, L100.0100, L501.9520 #### [facility] [address] [place], [address] ALK P 95 U/L Normal 45-117 [facility] Comment on above: Order Comment: Order Date: 06/12/24 Order Info: 0786- - CMP Order Info: - LIPID Order Info: [id number] - TSH Performed By: #### L 501.9985, L500.4050, L500.4100, L100.0100, L501.9520 #### [facility] [address] [place], [address] ALT [Catalytic activity/Vol] 57 U/L Normal 16-61 [facility] Comment on above: Order Comment: Order Date: 06/12/24 Order Info: 0786- - CMP Order Info: - LIPID Order Info: [id number] - TSH Performed By: #### L 501.9985, L500.4050, L500.4100, L100.0100, L501.9520 #### [facility] [address] [place], [address] AST [Catalytic activity/Vol] 24 U/L Normal 15-37 [facility] Comment on above: Order Comment: Order Date: 06/12/24 Order Info: 07-1 - CMP Order Info: [id number] - LIPID Order Info: 3 - TSH Performed By: #### L 501.9985, L500.4050, L500.4100, L100.0100, L501.9520 #### [facility] [address] [place], [address] Bilirubin [Mass/Vol] 0.40 mg/dL Normal 0.20-1.00 [facility] Comment on above: Order Comment: Order Date: 06/12/24 Order Info: 785-04 - CMP Order Info: - LIPID Order Info: 3 - TSH Result Comment: For patients on eltrombopag therapy, use of Dimension [place] TBIL is not recommended. Performed By: #### L 501.9985, L500.4050, L500.4100, L100.0100, L501.9520 #### [facility] [address] [place], [address] BUN/CRE 21.0 RATIO High 10-20 [facility] Comment on above: Order Comment: Order Date: 06/12/24 Order Info: 785-04 - CMP Order Info: [id number] - LIPID Order Info: 3 - TSH Performed By: #### L 501.9985, L500.4050, L500.4100, L100.0100, L501.9520 #### [facility] [address] [place], [address] CA,Total 9.2 mg/dL Normal 8.5-10.1 [facility] Comment on above: Order Comment: Order Date: 06/12/24 Order Info: 785- - CMP Order Info: - LIPID Order Info: [id number] - TSH Performed By: #### L 501.9985, L500.4050, L500.4100, L100.0100, L501.9520 #### [facility] [address] [place], [address] Chloride [Moles/Vol] 106 mmol/L Normal 98-107 [facility] Comment on above: Order Comment: Order Date: 06/12/24 Order Info: 0786-1 - CMP Order Info: [id number] - LIPID Order Info: 3015-06 - TSH Performed By: #### L 501.9985, L500.4050, L500.4100, L100.0100, L501.9520 #### [facility] [address] [place], [address] CO2 [Moles/Vol] 24.0 mmol/L Normal 21.0-32.0 [facility] Comment on above: Order Comment: Order Date: 06/12/24 Order Info: 0786- - CMP Order Info: [id number] - LIPID Order Info: 3015-06 - TSH Performed By: #### L 501.9985, L500.4050, L500.4100, L100.0100, L501.9520 #### [facility] [address] [place], [address] Creatinine [Mass/Vol] 0.90 mg/dL Normal 0.70-1.30 [facility] Comment on above: Order Comment: Order Date: 06/12/24 Order Info: 0786-1 - CMP Order Info: [id number] - LIPID Order Info: [id number] - TSH Result Comment: The validity of the calculated GFR GFRAA in patients over 70 years has not been determined. Clinical correlation is essential. Performed By: #### L 501.9985, L500.4050, L500.4100, L100.0100, L501.9520 #### [facility] [address] [place], [address] EST GFR - AA 122 mL/min Normal >60 [facility] Comment on above: Order Comment: Order Date: 06/12/24 Order Info: 785-04 - CMP Order Info: - LIPID Order Info: [id number] - TSH Result Comment: Afri can Japanese GFR Calc Performed By: #### L 501.9985, L500.4050, L500.4100, L100.0100, L501.9520 #### [facility] [address] [place], [address] GAP 9 Normal 5-15 [facility] Comment on above: Order Comment: Order Date: 06/12/24 Order Info: 785-04 - CMP Order Info: - LIPID Order Info: [id number] - TSH Performed By: #### L 501.9985, L500.4050, L500.4100, L100.0100, L501.9520 #### [facility] [address] [place], [address] GFR/1.73 sq M.predicted among non-blacks MDRD (S/P/Bld) [Vol rate/Area] 101 mL/min/{1.73_m2} Normal >60 [facility] Comment on above: Order Comment: Order Date: 06/12/24 Order Info: 785-04 - CMP Order Info: - LIPID Order Info: [id number] - TSH Result Comment: Non- GFR Calc Performed By: #### L 501.9985, L500.4050, L500.4100, L100.0100, L501.9520 #### [facility] [address] [place], [address] Globulin (S) [Mass/Vol] 3.5 g/dL Normal 2.2-4.2 [facility] [place] Comment on above: Order Comment: Order Date: 06/12/24 Order Info: 785-04 - CMP Order Info: - LIPID Order Info: [id number] - TSH Performed By: #### L 501.9985, L500.4050, L500.4100, L100.0100, L501.9520 #### [facility] [address] [place], [address] Glucose [Mass/Vol] 104 mg/dL Normal 74-[address] [facility] Comment on above: Order Comment: Order Date: 06/12/24 Order Info: 0786-1 - CMP Order Info: [id number] - LIPID Order Info: 6-3 - TSH Result Comment: Fast ing Glucose result from 100 to 125 mg/dL suggests IMPAIRED HOMEOSTASIS per A.D.A. criteria. Performed By: #### L 501.9985, L500.4050, L500.4100, L100.0100, L501.9520 #### [facility] [address] [place], [address] Potassium [Moles/Vol] 3.9 mmol/L Normal 3.5-5.1 [facility] Comment on above: Order Comment: Order Date: 06/12/24 Order Info: 0786- - CMP Order Info: [id number] - LIPID Order Info: [id number] - TSH Performed By: #### L 501.9985, L500.4050, L500.4100, L100.0100, L501.9520 #### [facility] [address] [place], [address] Sodium [Moles/Vol] 139 mmol/L Normal 136-[address] [facility] Comment on above: Order Comment: Order Date: 06/12/24 Order Info: 0786-1 - CMP Order Info: [id number] - LIPID Order Info: 3016-3 - TSH Performed By: #### L 501.9985, L500.4050, L500.4100, L100.0100, L501.9520 #### [facility] [address] [place], [address] T PROT 7.3 g/dL Normal 6.4-8.2 [facility] Comment on above: Order Comment: Order Date: 06/12/24 Order Info: 0786-1 - CMP Order Info: [id number] - LIPID Order Info: [id number] - TSH Performed By: #### L 501.9985, L500.4050, L500.4100, L100.0100, L501.9520 #### [facility] [address] [place], [address] Urea nitrogen [Mass/Vol] 19 mg/dL High - [facility] Comment on above: Order Comment: Order Date: 06/12/24 Order Info: 0786-1 - CMP Order Info: [id number] - LIPID Order Info: [id number] - TSH Performed By: #### L 501.9985, L500.4050, L500.4100, L100.0100, L501.9520 #### [facility] [address] [place], [place], [address] Eosinophil percentageOrdered By: Rupesh Obando on 06-12-2024 Eosinophils/100 WBC (Bld) 1.4 % 0-5 [facility] Erythrocyte distribution wid th (RBC) [Ratio]Ordered By: Rupesh Obando on 06-12-2024 Erythrocyte distribution width (RBC) [Entitic vol] 39.3 fL 35.1-43.9 [facility] Erythrocyte distribution wid th ratioOrdered By: Rupesh Obando on 06-12-2024 Erythrocyte distribution width (RBC) [Ratio] 13.2 % 11.6-14.6 [facility] Estimated glomerular filtrat ion rate (GFR) AmericanOrdered By: Rupesh Obando on 06-12-2024 Estimated GFR (MDRD) Amer 122 mL/min >60 [facility] Comment on above: GFR Calc Glomerular filtration rate ( GFR) estimationOrdered By: Rupesh Obando on 06-12-2024 Estimated GFR (MDRD) Non-Af Amer 101 mL/min >60 [facility] Comment on above: Non- GFR Calc Glucose measurementOrdered B y: Rupesh Obando on 06-12-2024 Glucose [Mass/Vol] 104 mg/dL 74-[address] [facility] Comment on above: Fasting Glucose resu lt from 100 to 125 mg/dL suggests IMPAIRED HOMEOSTASIS per A.D.A. criteria. Hematocrit Auto (Bld) [Volum e fraction]Ordered By: Rupesh Obando on 06-12-2024 Hematocrit (Bld) [Volume fraction] 45.9 % 40-54 [facility] Hemoglobin A1con 06-12-2024 HbA1c (Bld) [Mass fraction] 7.0 % High 3.8-5.6 [facility] Comment on above: Order Comment: Order Date: 06/12/24 Order Info: [id number] - A1C Result Comment: Norm al < 5.7 % Prediabetic 5.7 - 6.4 % Diabetic >or= 6.5 % Please note range changes. Performed By: #### L 501.9985, L500.4050, L500.4100, L100.0100, L501.9520 #### [facility] [address] [facility] [place], [place], [id number] Hemoglobin A1c percentageOrd ered By: Rupesh Obando on 06-12-2024 HbA1c (Bld) [Mass fraction] 7.0 % High 3.8-5.6 [facility] Comment on above: Normal < 5.7 % Predi abetic 5.7 - 6.4 % Diabetic >or= 6.5 % Please note range changes. Hemoglobin measurementOrdere d By: Rupesh Obando on 06-12-2024 Hemoglobin (Bld) [Mass/Vol] 15.2 g/dL 13.0-16.5 [facility] High density lipoprotein (HD L) measurementOrdered By: Rupesh Obando on 06-12-2024 Cholesterol in HDL [Mass/Vol] 38 mg/dL Low >40 [facility] Comment on above: The drugs N-Acetylcy steine and Metamizole may falsely depress this assay. Reference Range HDL <40 mg/dL Low HDL Cholesterol HDL >or= 60 mg/dL High HDL Cholesterol Immature granulocytes/100 WB C Auto (Bld)Ordered By: Rupesh Obando on 06-12-2024 Immature granulocytes/100 WBC (Bld) 0.500 % 0.0-0.9 [facility] Comment on above: IG% - Immature Granu locytes (promyelocytes, myelocytes and metamyelocytes) > 1% indicates that a LEFT SHIFT is Present. Laboratory - Chemistry and C hemistry - challengeOrdered By: Rupesh Obando on 06-12-2024 AST [Catalytic activity/Vol] 24 U/L 15-37 [facility] Lipid Profileon 06-12-2024 Cholesterol [Mass/Vol] 132 mg/dL Normal 200 [facility] Comment on above: Order Comment: Order Date: 06/12/24Order Info: [id number] - CMPOrder Info: [id number] - LIPIDOrder Info: [id number] - TSH Result Comment: <200 mg/dL Desirable 200-240 mg/dL Borderline >240 mg/dL High Risk Performed By: #### L 501.9985, L500.4050, L500.4100, L100.0100, L501.9520 ####[facility] [address] [place], [address] Cholesterol in HDL [Mass/Vol] 38 mg/dL Low [facility] Comment on above: Order Comment: Order Date: 06/12/24Order Info: [id number] - CMPOrder Info: [id number] - LIPIDOrder Info: [id number] - TSH Result Comment: The drugs N-Acetylcysteine and Metamizole may falsely depress this assay. Reference Range HDL <40 mg/dL Low HDL Cholesterol HDL >or= 60 mg/dL High HDL Cholesterol Performed By: #### L 501.9985, L500.4050, L500.4100, L100.0100, L501.9520 ####[facility] [address] [place], [address] Cholesterol in LDL [Mass/Vol] 63 mg/dL Normal 0-130 [facility] Comment on above: Order Comment: Order Date: 06/12/24Order Info: [id number] - CMPOrder Info: [id number] - LIPIDOrder Info: [id number] - TSH Performed By: #### L 501.9985, L500.4050, L500.4100, L100.0100, L501.9520 ####[facility] [address] [place], [address] Cholesterol in VLDL [Mass/Vol] 31 mg/dL Normal 5-40 [facility] Comment on above: Order Comment: Order Date: 06/12/24Order Info: [id number] - CMPOrder Info: [id number] - LIPIDOrder Info: [id number] - TSH Performed By: #### L 501.9985, L500.4050, L500.4100, L100.0100, L501.9520 ####[facility] [address] [place], [address] Triglyceride [Mass/Vol] 157 mg/dL Normal [facility] Comment on above: Order Comment: Order Date: 06/12/24Order Info: [id number] - CMPOrder Info: [id number] - LIPIDOrder Info: [id number] - TSH Result Comment: The drugs N-Acetylcysteine and Metamizole may falsely depress this assay. Serum Triglycerides Reference Interval Normal <150 mg/dL Borderline high 150 - 199 mg/dL High 200 - 499 mg/dL Very High > or = 500 mg/dL Performed By: #### L 501.9985, L500.4050, L500.4100, L100.0100, L501.9520 ####[facility] [address] [place], [address] Low density lipoprotein (LDL ) cholesterol measurementOrdered By: Rupesh Obando on 06-12-2024 Cholesterol in LDL [Mass/Vol] 63 mg/dL 0-130 [facility] Lymphocytes Auto (Unsp spec) [#/Vol]Ordered By: Rupesh Obando on 06-12-2024 Lymphocytes (Bld) [#/Vol] 2.33 10*3/uL 0.83-4.51 [facility] Lymphocytes/100 WBC Auto (Un sp spec)Ordered By: Rupesh Obando on 06-12-2024 Lymphocytes/100 WBC (Bld) 29.2 % 19-41 [facility] MCV (mean corpuscular volume ) determinationOrdered By: Rupesh Obando on 06-12-2024 MCV (RBC) [Entitic vol] 83.2 fL 80-94 [facility] Mean corpuscular hemoglobin (MCH) determinationOrdered By: Rupesh Obando on 06-12-2024 MCH (RBC) [Entitic mass] 27.5 pg 27.0-32.0 [facility] Mean corpuscular hemoglobin concentration (MCHC) determinationOrdered By: Rupesh Obando on 06-12-2024 MCHC (RBC) [Mass/Vol] 33.1 g/dL 32-36 [facility] Mean platelet volume determi nationOrdered By: Rupesh Obando on 06-12-2024 Platelet mean volume (Bld) [Entitic vol] 8.9 fL 6.2-12.0 [facility] Monocyte percentageOrdered B y: Rupesh Obando on 06-12-2024 Monocytes/100 WBC (Bld) 4.9 % 0-10 [facility] Neutrophil percentageOrdered By: Rupesh Obando on 06-12-2024 Neutrophils/100 WBC (Bld) 63.4 % 47-70 [facility] Nucleated red blood cell per centageOrdered By: Rupesh Obando on 06-12-2024 Nucleated RBC/100 WBC (Bld) [Ratio] 0 % 0-5 [facility] Platelet countOrdered By: Genie Obando on 06-12-2024 Platelets (Bld) [#/Vol] 247 10*3/uL 150-450 [facility] Potassium measurementOrdered By: Rupesh Obando on 06-12-2024 Potassium [Moles/Vol] 3.9 mmol/L 3.5-5.1 [facility] RBC Auto (Bld) [#/Vol]Ordere d By: Rupesh Obando on 06-12-2024 RBC (Bld) [#/Vol] 5.52 10*6/uL 4.6-6.2 [facility] Serum anion gap measurementO rdered By: Rupesh Obando on 06-12-2024 Anion gap [Moles/Vol] 9 mmol/L 5-15 [facility] Serum globulin measurementOr dered By: Rupesh Obando on 06-12-2024 Globulin (S) [Mass/Vol] 3.5 g/dL 2.2-4.2 [facility] Serum or plasma alanine jiang otransferase (ALT) measurementOrdered By: Rupesh Obando on 06-12-2024 ALT [Catalytic activity/Vol] 57 U/L 16-61 [facility] Serum or plasma albumin tamara urement (mass/volume)Ordered By: Rupesh Obando on 06-12-2024 Albumin [Mass/Vol] 3.8 g/dL 3.2-5.[address] [facility] Serum or plasma alkaline aniket sphatase measurementOrdered By: Rupesh Obando on 06-12-2024 ALP [Catalytic activity/Vol] 95 U/L 45-117 [facility] Serum or plasma calcium tamara urement (mass/volume)Ordered By: Rupesh Obando on 06-12-2024 Calcium [Mass/Vol] 9.2 mg/dL 8.5-10.[address] [facility] Serum or plasma cholesterol measurement (mass/volume)Ordered By: Rupesh Obando on 06-12-2024 Cholesterol [Mass/Vol] 132 mg/dL <200 [facility] Comment on above: <200 mg/dL Desirable 200-240 mg/dL Borderline >240 mg/dL High Risk Serum or plasma creatinine m easurement (mass/volume)Ordered By: Rupesh Obando on 06-12-2024 Creatinine [Mass/Vol] 0.90 mg/dL 0.70-1.30 [facility] Comment on above: The validity of the calculated GFR & GFRAA in patients over 70 years has not been determined. Clinical correlation is essential. Serum or plasma urea nitroge n measurement (mass/volume)Ordered By: Rupesh Obando on 06-12-2024 Urea nitrogen [Mass/Vol] 19 mg/dL High -18 [facility] Sodium levelOrdered By: Rupesh Obando on 06-12-2024 Sodium [Moles/Vol] 139 mmol/L 136-[address] [facility] TSH QnOrdered By: Rupesh bryan on 06-12-2024 Thyroid Stimulating Hormone (TSH) 3.490 uIU/mL 0.358-3.740 [facility] Thyroid Stim Hormone (TSH)on 06-12-2024 TSH 3.490 uIU/mL Normal 0.358-3.740 [facility] Comment on above: Order Comment: Order Date: 06/12/24Order Info: [id number] - CMPOrder Info: [id number] - LIPIDOrder Info: [id number] - TSH Performed By: #### L 501.9985, L500.4050, L500.4100, L100.0100, L501.9520 ####[facility] [address] [place], [address] Total proteinOrdered By: Johnny Obando on 06-12-2024 Protein [Mass/Vol] 7.3 g/dL 6.4-8.[address] [facility] Triglycerides measurementOrd ered By: Rupesh Obando on 06-12-2024 Triglyceride [Mass/Vol] 157 mg/dL <199 [facility] Comment on above: The drugs N-Acetylcy steine and Metamizole may falsely depress this assay.Serum Triglycerides Reference Interval Normal <150 mg/dL Borderline high 150 - 199 mg/dL High 200 - 499 mg/dL Very High > or = 500 mg/dL Very low density lipoprotein (VLDL) cholesterol measurementOrdered By: Rupesh Obando on 06-12-2024 VLDL Cholesterol 31 mg/dL 5-40 [facility] White blood cell (WBC) count Ordered By: Rupesh Obando on 06-12-2024 WBC (Bld) [#/Vol] 8.0 10*3/uL 4.4-11.[address] [facility] ALLIED HEALTHon 06-06-2024 ALLIED HEALTH HNO ID: [id number] Author: FLORENCE MACKENZIE RT(R) Service: Radiology Author Type: Technologist Type: Allied Health Filed: 06/06/2024 13:54 Note Text: Radiology [...] PATIENT PRESENTS WITH AN IMPLANTABLE OR ATTACHED METAL MACHINIST: No RADIOLOGY DEPARTMENT: Ultrasound PERIPHERAL IV DATA: Not applicable SIGNED BY: RT Galina(R) June 06, 2024 1:54 PM Normal [facility] ALLIED HEALTH HNO ID: [id number] Author: ZOILA MADRID RT(R) Service: Radiology Author Type: Technologist [...] PATIENT PRESENTS WITH AN IMPLANTABLE OR ATTACHED METAL MACHINIST: No ALLERGIES: Reviewed and unchanged CONTRAST ALLERGY: [...] PERIPHERAL IV DATA: Inpatient - refer to LDA documentation RADIOLOGY DEPARTMENT: CT; Exam(s) Completed: Abdomen/Pelvis SIGNATURE: RT Samson(R) PATIENT NAME: Malorie Foley DATE: June 06, 2024 TIME: 1:03 PM Normal [facility] AMB POC COVID-19 COVon 06-06 Interpretation and review of laboratory results Normal [facility] SARS-CoV-2 (COVID-19) RNA WENDY+non-probe Ql (Nph) Negative Negative [facility] AMB POC RAPID INFLUENZA DNA/ RNAon 06-06-2024 Inflenza A Ag Negative [facility] Influenza B Ag Negative [facility] Interpretation and review of laboratory results Normal [facility] CBC W Auto Differential pane l (Bld)on 06-06-2024 Basophils (Bld) [#/Vol] 10*3/uL Normal <0.11 [facility] Comment on above: Order Comment: Speci men Type: BLOOD SPECIMENOrdering Facility: [facility] Address: [address] [place] [address] Performed By: #### 5 7021-8 ####[facility] LABCLIA [id number] [place] [address] [place] Basophils/100 WBC (Bld) 0.5 % Normal [facility] Comment on above: Order Comment: Speci men Type: BLOOD SPECIMENOrdering Facility: [facility] Address: [address] [place] [address] Performed By: #### 5 7021-8 ####[facility] LABCLIA [id number] [place] [id number] [place] Differential cell count method Nom (Bld) Auto Normal [facility] Comment on above: Order Comment: Speci men Type: BLOOD SPECIMENOrdering Facility: [facility] Address: [address] [place] [address] Performed By: #### 5 7021-8 ####[facility] [employer] LABCLIA [id number] [place] [address] [place] Eosinophils (Bld) [#/Vol] 0.06 10*3/uL Normal <0.46 [facility] Comment on above: Order Comment: Speci men Type: BLOOD SPECIMENOrdering Facility: [facility] Address: [address] [place] [address] Performed By: #### 5 7021-8 ####[facility] LABCLIA [id number] [place] [address] [place] Eosinophils/100 WBC (Bld) 1.5 % Normal [facility] Comment on above: Order Comment: Speci men Type: BLOOD SPECIMENOrdering Facility: [facility] Address: [address] [place] [address] Performed By: #### 5 7021-8 ####[facility] LABCLIA [id number] [place] [id number] [place] Erythrocyte distribution width (RBC) [Ratio] 12.8 % Normal 11.5-15.0 [facility] Comment on above: Order Comment: Speci men Type: BLOOD SPECIMENOrdering Facility: [facility] Address: [address] [place] [address] Performed By: #### 5 7021-8 ####[facility] LABCLIA [id number] [place] [id number] [place] Hematocrit (Bld) [Volume fraction] 47.7 % Normal 39.0-51.0 [facility] Comment on above: Order Comment: Speci men Type: BLOOD SPECIMENOrdering Facility: [facility] Address: [address] [place] [address] Performed By: #### 5 7021-8 ####[facility] LABCLIA [id number] [place] [id number] [place] Hemoglobin (Bld) [Mass/Vol] 16.0 g/dL Normal 13.0-17.0 [facility] Comment on above: Order Comment: Speci men Type: BLOOD SPECIMENOrdering Facility: [facility] Address: [address] [place] [address] Performed By: #### 5 7021-8 ####[facility] LABCLIA [id number] [place] [address] [place] Immature granulocytes (Bld) [#/Vol] 10*3/uL Normal <0.10 [facility] Comment on above: Order Comment: Speci men Type: BLOOD SPECIMENOrdering Facility: [facility] Address: [address] [place] [address] Performed By: #### 5 7021-8 ####[facility] LABCLIA [id number] [place] [address] [place] Immature granulocytes/100 WBC (Bld) 0.5 % Normal [facility] Comment on above: Order Comment: Speci men Type: BLOOD SPECIMENOrdering Facility: [facility] Address: [address] [place] [address] Performed By: #### 5 7021-8 ####[facility] LABCLIA [id number] [place] [address] [place] Lymphocytes (Bld) [#/Vol] 1.04 10*3/uL Normal 1.00-4.00 [facility] Comment on above: Order Comment: Speci men Type: BLOOD SPECIMENOrdering Facility: [facility] Address: [address] [place] [address] Performed By: #### 5 7021-8 ####[facility] LABCLIA [id number] [place] [address] [place] Lymphocytes/100 WBC (Bld) 26.5 % Normal [facility] Comment on above: Order Comment: Speci men Type: BLOOD SPECIMENOrdering Facility: [facility] Address: [address] [place] [address] Performed By: #### 5 7021-8 ####[facility] LABCLIA [id number] [place] [address] [place] MCH (RBC) [Entitic mass] 27.8 pg Normal 26.0-34.0 [facility] Comment on above: Order Comment: Speci men Type: BLOOD SPECIMENOrdering Facility: [facility] Address: [address] [place] [address] Performed By: #### 5 7021-8 ####[facility] LABCLIA [id number] [place] [address] [place] [facility] MCHC (RBC) [Mass/Vol] 33.5 g/dL Normal 30.5-36.0 [facility] Comment on above: Order Comment: Speci men Type: BLOOD SPECIMENOrdering Facility: [facility] Address: [address] [place] [address] Performed By: #### 5 7021-8 ####[facility] LABCLIA [id number] [place] [id number] [facility] MCV (RBC) [Entitic vol] 82.8 fL Normal 80.0-100.0 [facility] Comment on above: Order Comment: Speci men Type: BLOOD SPECIMENOrdering Facility: [facility] Address: [address] [place] [address] Performed By: #### 5 7021-8 ####[facility] LABCLIA [id number] [address] Monocytes (Bld) [#/Vol] 0.42 10*3/uL Normal <0.87 [facility] Comment on above: Order Comment: Speci men Type: BLOOD SPECIMENOrdering Facility: [facility] Address: [address] [place] [address] Performed By: #### 5 7021-8 ####[facility] LABCLIA [id number] [place] [id number] [facility] Monocytes/100 WBC (Bld) 10.7 % Normal A [facility] Comment on above: Order Comment: Speci men Type: BLOOD SPECIMENOrdering Facility: [facility] Address: [address] [place] [address] Performed By: #### 5 7021-8 ####[facility] LABCLIA [id number] [place] [address] [place] Neutrophils (Bld) [#/Vol] 2.36 10*3/uL Normal 1.45-7.50 [facility] Comment on above: Order Comment: Speci men Type: BLOOD SPECIMENOrdering Facility: [facility] Address: [facility] [place] [address] Performed By: #### 5 7021-8 ####[facility] LABCLIA [id number] [place] [address] [place] Neutrophils/100 WBC (Bld) 60.3 % Normal [facility] Comment on above: Order Comment: Speci men Type: BLOOD SPECIMENOrdering Facility: [facility] Address: [address] [place] [address] Performed By: #### 5 7021-8 ####[facility] LABCLIA [id number] [place] [address] [place] Nucleated RBC (Bld) [#/Vol] Normal [facility] Comment on above: Order Comment: Speci men Type: BLOOD SPECIMENOrdering Facility: [facility] Address: [address] [place] [address] Performed By: #### 5 7021-8 ####[facility] LABCLIA [id number] [place] [address] [place] Nucleated RBC/100 WBC (Bld) [Ratio] Normal [facility] Comment on above: Order Comment: Speci men Type: BLOOD SPECIMENOrdering Facility: [facility] Address: [address] [place] [address] Performed By: #### 5 7021-8 ####[facility] LABCLIA [id number] [place] [address] [place] Platelet mean volume (Bld) [Entitic vol] 8.1 fL Low 9.0-12.7 [facility] Comment on above: Order Comment: Speci men Type: BLOOD SPECIMENOrdering Facility: [facility] Address: [facility] [place] [address] Performed By: #### 5 7021-8 ####[facility] LABCLIA [id number] [place] [address] [place] Platelets (Bld) [#/Vol] 141 10*3/uL Low 150-400 [facility] Comment on above: Order Comment: Speci men Type: BLOOD SPECIMENOrdering Facility: [facility] Address: [address] [place] [address] Performed By: #### 5 7021-8 ####[facility] LABCLIA [id number] [place] [address] [place] RBC (Bld) [#/Vol] 5.76 10*6/uL Normal 4.20-6.00 [facility] Comment on above: Order Comment: Speci men Type: BLOOD SPECIMENOrdering Facility: [facility] Address: [address] [place] [address] Performed By: #### 5 7021-8 ####[facility] LABCLIA [id number] [place] [address] [facility] [place] WBC (Bld) [#/Vol] 3.92 10*3/uL Normal 3.70-11.00 [facility] Comment on above: Order Comment: Speci men Type: BLOOD SPECIMENOrdering Facility: [facility] Address: [address] [place] [address] Performed By: #### 5 7021-8 ####[facility] LABCLIA [id number] [place] [address] [facility] [place] CT ABD/PEL W IVCONon 025 CT ABD/PEL W IVCON * * *Final Report* * * DATE OF EXAM: Jun 06 2024 1:05PM [facility] 0530 - CT ABD/PEL W IVCON [...] Left-sided nephrolithiasis. No hydronephrosis. 5. Normal appendix. Filament Tester: JOSE Transcribe Date/Time: Jun 06 2024 1:11P Dictated by : TYREE HARMON MD This examination was interpreted and the report reviewed and electronically signed by: TYREE HARMON MD on Jun 06 2024 1:23PM EST [id number] Normal [facility] Comprehensive metabolic 2000 panelon 06-06-2024 Albumin [Mass/Vol] 4.4 g/dL Normal 3.9-4.9 [facility] Comment on above: Order Comment: Speci men Type: BLOOD SPECIMENOrdering Facility: [facility] Address: [address] [place] [address] Performed By: #### 2 4323-8, 3040-3 ####[facility] LABCLIA [id number] [place] [address] [place] ALP [Catalytic activity/Vol] 78 U/L Normal 38-113 [facility] Comment on above: Order Comment: Speci men Type: BLOOD SPECIMENOrdering Facility: [facility] Address: [address] [place] [id number] Performed By: #### 2 4323-8, 3040-3 ####[facility] LABCLIA [id number] [place] [address] [place] ALT [Catalytic activity/Vol] 58 U/L High 10-54 [facility] Comment on above: Order Comment: Speci men Type: BLOOD SPECIMENOrdering Facility: [facility] Address: [address] [place] [address] Performed By: #### 2 4323-8, 3040-3 ####[facility] LABCLIA [id number] [place] [address] [place] Anion gap [Moles/Vol] 8 mmol/L Normal 8-15 [facility] Comment on above: Order Comment: Speci men Type: BLOOD SPECIMENOrdering Facility: [facility] Address: [address] [place] [address] Performed By: #### 2 4323-8, 3040-3 ####[facility] LABCLIA [id number] [place] [address] [place] AST [Catalytic activity/Vol] 34 U/L Normal 14-40 [facility] Comment on above: Order Comment: Speci men Type: BLOOD SPECIMENOrdering Facility: [facility] Address: [address] [place] [address] Performed By: #### 2 4323-8, 3040-3 ####[facility] LABCLIA [id number] [place] [address] [place] Bilirubin [Mass/Vol] 0.9 mg/dL Normal 0.2-1.3 [facility] Comment on above: Order Comment: Speci men Type: BLOOD SPECIMENOrdering Facility: [facility] Address: [address] [place] [address] Result Comment: Use of this assay is not recommended for patients undergoing treatment with eltrombopag due to the potential for falsely elevated results. Performed By: #### 2 4323-8, 3040-3 ####[facility] LABCLIA [id number] [place] [address] [place] Calcium [Mass/Vol] 9.1 mg/dL Normal 8.5-10.2 [facility] Comment on above: Order Comment: Speci men Type: BLOOD SPECIMENOrdering Facility: [facility] Address: [address] [place] [address] Performed By: #### 2 4323-8, 0-3 ####[facility] LABCLIA [id number] [place] [address] [place] Chloride [Moles/Vol] 106 mmol/L Normal 98-107 [facility] Comment on above: Order Comment: Speci men Type: BLOOD SPECIMENOrdering Facility: [facility] Address: [address] [place] [address] Performed By: #### 2 4323-8, 0-3 ####[facility] LABCLIA [id number] [place] [address] [place] CO2 [Moles/Vol] 25 mmol/L Normal 22-30 [facility] Comment on above: Order Comment: Speci men Type: BLOOD SPECIMENOrdering Facility: [facility] Address: [address] [place] [address] Performed By: #### 2 4323-8, 3040-3 ####[facility] LABCLIA [id number] [place] [address] [place] Creatinine [Mass/Vol] 0.92 mg/dL Normal 0.73-1.22 [facility] Comment on above: Order Comment: Speci men Type: BLOOD SPECIMENOrdering Facility: [facility] Address: [address] [place] [address] Result Comment: Use of this assay is not recommended for patients undergoing treatment with phenindione, due to the potential for falsely depressed results. Performed By: #### 2 4323-8, 3039-3 ####[facility] LABCLIA [id number] [place] [address] [place] Creatinine and Glomerular filtration rate.predicted panel (S/P/Bld) 111 mL/min/1.73m??? Normal >=60 [facility] Comment on above: Order Comment: Ayde byers Type: BLOOD SPECIMENOrdering Facility: [facility] Address: [address] [place] [address] Result Comment: Maria A mated Glomerular Filtration [...] GFR. Performed By: #### 2 4323-8, 3039-3 ####[facility] LABIA [id number] [place] [address] [place] Glucose [Mass/Vol] 121 mg/dL High 74-99 [facility] Comment on above: Order Comment: Ayde byers Type: BLOOD SPECIMENOrdering Facility: [facility] Address: [address] [place] [address] Result Comment: The [place] Diabetes Association (ADA) provides guidance for cutoff [...] Standards of Medical Care in Diabetes 2016, [place] Diabetes Association. Diabetes Care. 2016.39(Suppl 1). Performed By: #### 2 4323-8, 3039-3 ####[facility] LABCLIA [id number] [place] [address] [place] Potassium [Moles/Vol] 4.0 mmol/L Normal 3.7-5.1 [facility] Comment on above: Order Comment: Speci men Type: BLOOD SPECIMENOrdering Facility: [facility] Address: [address] [place], [place] [address] Performed By: #### 2 4323-8, 3040-3 ####[facility] LABCLIA [id number] [place] [address] [place] Protein [Mass/Vol] 7.1 g/dL Normal 6.3-8.0 [facility] Comment on above: Order Comment: Speci men Type: BLOOD SPECIMENOrdering Facility: [facility] Address: [address] [place] [address] Performed By: #### 2 4323-8, 3040-3 ####[facility] LABCLIA [id number] [place] [address] [place] Sodium [Moles/Vol] 139 mmol/L Normal 136-144 [facility] Comment on above: Order Comment: Speci men Type: BLOOD SPECIMENOrdering Facility: [facility] Address: [address] [place] [address] Performed By: #### 2 4323-8, 3040-3 ####[facility] LABCLIA [id number] [place] [address] [place] Urea nitrogen [Mass/Vol] 11 mg/dL Normal 9-24 [facility] Comment on above: Order Comment: Speci men Type: BLOOD SPECIMENOrdering Facility: [facility] Address: [address] [place] [address] Performed By: #### 2 4323-8, 3040-3 ####[facility] LABCLIA [id number] [place] [address] [facility] [place] ED NOTEon 06-06-2024 ED NOTE HNO ID: [id number] Author: TORI ZAVALA RN Service: Emergency Medicine Author Type: Registered Nurse Type: ED Notes Filed: 06/06/2024 15:52 Note Text: Pt discharged from ED. Rn reviewed discharge, follow up instructions, and when to return to ED. Pt verbalizes understanding and denies any further questions or concerns. Normal [facility] ED NOTE HNO ID: [id number] Author: TORI ZAVALA RN Service: Emergency Medicine Author Type: Registered Nurse Type: ED Notes Filed: 06/06/2024 14:36 Note Text: Pt provided with clemente namrata, crackers, and pretzels for PO challenge. Normal [facility] ED NOTE HNO ID: [id number] Author: LENNIE HOWE RN Service: Nursing Author Type: Registered Nurse Type: ED Notes Filed: 06/06/2024 11:27 Note Text: Patient presents to the ED that started with N/V on Tuesday. He has had a fever and now progressed with diarrhea too. He c/o right sided abd pain. He was sent from [facility] and was tested for COVID19 and influenza, for which he is negative. Normal [facility] ED PROV NOTEon 06-06-2024 ED PROV NOTE HNO ID: [id number] Author: DENISA AMEZCUA MD Service: Emergency Medicine [...] surgery referral. DENISA AMEZCUA 06/06/24 1606 Normal [facility] ED PROV NOTE HNO ID: [id number] Author: DENISA AMEZCUA MD Service: Emergency Medicine [...] without so (more content not included)... Normal [facility] Lipase SerPl-cCncon 06-06-19 25 Lipase [Catalytic activity/Vol] 7 U/L Low 16-61 [facility] Comment on above: Order Comment: Speci men Type: BLOOD SPECIMENOrdering Facility: [facility] Address: [address] [place] [address] Performed By: #### 2 4323-8, 3040-3 ####[facility] LABCLIA [id number] [place] [address] [place] Office Visiton 06-06-2024 Follow-up visit [id number] Nikolas Foley rt 1985 M Date Provider Department Center 06/06/2024 [id number] MAJ[place] [facility] [place] None Family History Problem Relation Age of Onset Lung cancer Maternal Grandfather Cancer Paternal Grandmother Family Status - Relation Status Age at Mother Father Alive Brother Alive Maternal Grandmother Maternal Grandfather Paternal Grandmother Paternal Grandfather Daughter Alive Level of Service:62540 [place] OFFICE/OUTPATIENT ESTABLISHED SF MDM 10 MIN Reason for Visit and Comments: URI [115] - Fever Tuesday night /vomiting Tuesday /diarrhea since Tuesday night not been able to eat anything Normal [facility] Progress Noteon 06-06-2024 Progress Note Subjective: Patient: Maloire Foley is a 38 y.o. male Patient [...] ?C (97.9 ?F) Resp 18 Ht 6' 5 (1.956 m) Wt (!) [...] appendicitis. Patient states they will proceed to [facility]. Patient would like to drive private vehicle which I believe is reasonable and appropriate at this time as patient is not in acute distress. 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 Patient understands and agreeable to treatment plan. Rio Majano NP 06/06/24 11:27 AM If symptoms do not improve, worsen, or new sym (more content not included)... Normal [facility] Progress Note Patient/Parent consented to all provider testing Normal [facility] US ABD RIGHT UPPER QUADRANTo n 06-06-2024 [...] cholecystitis. No biliary dilation. 2. Hepatic steatosis. Filament Tester: JOSE Transcribe Date/Time: Jun 06 2024 2:00P Dictated by : TYREE HARMON MD This examination was interpreted and the report reviewed and electronically signed by: TYREE HARMON MD on Jun 06 2024 2:05PM EST [id number] Normal [facility] Urinalysis complete panel (U )on 06-06-2024 Bilirubin Ql (U) Negative Normal Negative [facility] Comment on above: Order Comment: Speci men Type: URINE SPECIMENOrdering Facility: [facility] Address: [address] [place] [address] Performed By: #### 2 4356-8 ####[facility] LABCLIA [id number] [place] [address] [place] Clarity (Unsp spec) Clear Normal Clear [facility] Comment on above: Order Comment: Speci men Type: URINE SPECIMENOrdering Facility: [facility] Address: [address] [place] [address] Performed By: #### 2 4356-8 ####[facility] LABCLIA [id number] [place] [address] [place] Color (U) Yellow Normal Yellow [facility] Comment on above: Order Comment: Speci men Type: URINE SPECIMENOrdering Facility: [facility] Address: [address] [place] [address] Performed By: #### 2 4356-8 ####[facility] LABCLIA [id number] [place] [address] [facility] [place] Epithelial cells LM.HPF (Urine sed) [#/Area] Moderate Normal [facility] Comment on above: Order Comment: Speci men Type: URINE SPECIMENOrdering Facility: [facility] Address: [address] [place] [address] Performed By: #### 2 4356-8 ####[facility] LABCLIA [id number] [place] [address] [place] Glucose Test strip (U) [Mass/Vol] Negative Normal Negative [facility] Comment on above: Order Comment: Speci men Type: URINE SPECIMENOrdering Facility: [facility] Address: [address] [place] [address] Performed By: #### 2 4356-8 ####[facility] LABCLIA [id number] [place] [address] [place] Hemoglobin Ql (U) Negative Normal Negative [facility] Comment on above: Order Comment: Speci men Type: URINE SPECIMENOrdering Facility: [facility] [facility] Address: [address] [place] [address] Performed By: #### 2 4356-8 ####[facility] LABCLIA [id number] [place] [address] [place] Ketones Ql (U) Negative Normal Negative [facility] Comment on above: Order Comment: Speci men Type: URINE SPECIMENOrdering Facility: [facility] Address: [address] [place] [address] Performed By: #### 2 4356-8 ####[facility] LABCLIA [id number] [place] [address] [facility] Leukocyte esterase Test strip Ql (U) Trace Abnormal Negative [facility] Comment on above: Order Comment: Speci men Type: URINE SPECIMENOrdering Facility: [facility] Address: [address] [place] [address] Performed By: #### 2 4356-8 ####[facility] LABCLIA [id number] [place] [address] [place] Nitrite Ql (U) Negative Normal Negative [facility] Comment on above: Order Comment: Speci men Type: URINE SPECIMENOrdering Facility: [facility] Address: [address] [place] [address] Performed By: #### 2 4356-8 ####[facility] LABCLIA [id number] [place] [address] [place] pH (U) 6.0 [pH] Normal 5.0-8.0 [facility] Comment on above: Order Comment: Speci men Type: URINE SPECIMENOrdering Facility: [facility] Address: [address] [place] [address] Performed By: #### 2 4356-8 ####[facility] LABCLIA [id number] [place] [address] [place] [facility] Protein (U) [Mass/Vol] Trace Abnormal Negative [facility] Comment on above: Order Comment: Speci men Type: URINE SPECIMENOrdering Facility: [facility] Address: [address] [place] [address] Performed By: #### 2 4356-8 ####[facility] LABCLIA [id number] [place] [address] [facility] [place] RBC LM.HPF (Urine sed) [#/Area] 3-5 /HPF Abnormal 0-3 /HPF [facility] Comment on above: Order Comment: Speci men Type: URINE SPECIMENOrdering Facility: [facility] Address: [address] [place] [address] Performed By: #### 2 4356-8 ####[facility] LABCLIA [id number] [place] [address] [facility] Specific gravity (U) [Rel density] >=1.030 High 1.005-1.030 [facility] Comment on above: Order Comment: Speci men Type: URINE SPECIMENOrdering Facility: [facility] Address: [address] [place] [address] Performed By: #### 2 4356-8 ####[facility] LABCLIA [id number] [place] [id number] [facility] Urobilinogen Ql (U) 1.0 EU/dL Normal 0.2-1.0 EU/dL [facility] Comment on above: Order Comment: Speci men Type: URINE SPECIMENOrdering Facility: [facility] Address: [address] [place] [address] Performed By: #### 2 4356-8 ####[facility] LABCLIA [id number] [place] [id number] [facility] WBC LM.HPF (Urine sed) [#/Area] 6-10 /HPF Abnormal 0-5 /HPF [facility] Comment on above: Order Comment: Speci men Type: URINE SPECIMENOrdering Facility: [facility] Address: [address] [place] [address] Performed By: #### 2 4356-8 ####[facility] LABCLIA [id number] [place] [address] [facility] [place] ED NOTEon 10-13-2023 ED NOTE HNO ID: [id number] Author: SARAH DAO, DARLEEN Service: Emergency Medicine Author Type: Registered Nurse Type: ED Notes Filed: 10/13/2023 17:58 Note Text: Discharge and follow up instructions given. Return precautions reviewed. Patient verbalized understanding. Patient denies need for wc. Patient ambulated out of the ER at this time in no distress. Normal [facility] ED PROV NOTEon 10-13-2023 ED PROV NOTE HNO ID: [id number] Author: KADEN SON PA-C Service: Emergency Medicine Author Type: Physician Corrugated Fastener Driver Type: ED Provider Notes Filed: 10/13/2023 18:00 [...] Keflex. F (more content not included)... Normal [facility] Absolute lymphocyte countOrd ered By: Rupesh Obando on 04-28-2023 Lymphocytes Auto (Unsp spec) [#/Vol] 1.50 10*3/uL 0.83-4.51 [facility] Basophil percentageOrdered B y: Rupesh Obando on 04-28-2023 Basophils/100 WBC (Bld) 0.6 % 0-1 [facility] [place] Bilirubin [Mass/Vol] 0.80 mg/dL 0.20-1.00 [facility] Comment on above: For patients on eltr ombopag therapy, use of Dimension [place] TBIL is not recommended. Chloride [Moles/Vol] 108 mmol/L 98-107 [facility] Eosinophils/100 WBC (Bld) 2.3 % 0-5 [facility] Glucose [Mass/Vol] 106 mg/dL 74-[address] [facility] Comment on above: Fasting Glucose resu lt from 100 to 125 mg/dL suggests IMPAIRED HOMEOSTASIS per A.D.A. criteria. Neutrophils (Bld) [#/Vol] 4.4 10*3/uL 2.0-7.7 [facility] Neutrophils/100 WBC (Bld) 67.7 % 47-70 [facility] Potassium [Moles/Vol] 4.1 mmol/L 3.5-5.1 [facility] Protein [Mass/Vol] 7.5 g/dL 6.4-8.[address] [facility] Sodium [Moles/Vol] 138 mmol/L 136-[address] [facility] WBC (Bld) [#/Vol] 6.4 10*3/uL 4.4-11.[address] [facility] Blood erythrocytes count (nu mber/volume)Ordered By: Rupesh Obando on 04-28-2023 RBC (Bld) [#/Vol] 5.96 10*6/uL 4.6-6.2 [facility] Blood hemoglobin measurement (mass/volume)Ordered By: Rupesh Obando on 04-28-2023 Hemoglobin (Bld) [Mass/Vol] 15.9 g/dL 13.0-16.5 [facility] Blood lymphocytes/100 leukoc ytesOrdered By: Rupesh Obando on 04-28-2023 Lymphocytes/100 WBC (Bld) 23.3 % 19-41 [facility] Blood monocytes/100 leukocyt esOrdered By: Rupesh Obando on 04-28-2023 Monocytes/100 WBC (Bld) 5.6 % 0-10 [facility] [place] Blood platelet mean volumeOr dered By: Rupesh Obando on 04-28-2023 Platelet mean volume (Bld) [Entitic vol] 9.2 fL 6.2-12.0 [facility] Determination of erythrocyte mean corpuscular volume (MCV)Ordered By: Rupesh Obando on 04-28-2023 MCV (RBC) [Entitic vol] 84.1 fL 80-94 [facility] [place] Hematocrit Auto (Bld) [Volum e fraction]Ordered By: Rupesh Obando on 04-28-2023 Hematocrit (Bld) [Volume fraction] 50.1 % 40-54 [facility] Laboratory - Chemistry and C hemistry - challengeOrdered By: Rupesh Obando on 04-28-2023 ALP [Catalytic activity/Vol] 85 U/L 45-117 [facility] ALT [Catalytic activity/Vol] 60 U/L 16-61 [facility] CO2 [Moles/Vol] 25.0 mmol/L 21.0-32.0 [facility] Globulin (S) [Mass/Vol] 3.7 g/dL 2.2-4.2 [facility] [place] Urea nitrogen/Creatinine [Mass ratio] 16.8 mg/mg 10-20 [facility] - Hematology and Cell countsOrdered By: Rupesh Obando on 04-28-2023 Erythrocyte distribution width (RBC) [Entitic vol] 38.4 fL 35.1-43.9 [facility] Erythrocyte distribution width (RBC) [Ratio] 12.6 % 11.6-14.6 [facility] Immature granulocytes/100 WBC (Bld) 0.500 % 0.0-0.9 [facility] Comment on above: IG% - Immature Granu locytes (promyelocytes, myelocytes and metamyelocytes) > 1% indicates that a LEFT SHIFT is Present. MCH (RBC) [Entitic mass] 26.7 pg 27.0-32.0 [facility] Nucleated RBC/100 WBC (Bld) [Ratio] 0 % 0-5 [facility] MCHC Auto (RBC) [Mass/Vol]Or dered By: Rupesh Obando on 04-28-2023 MCHC (RBC) [Mass/Vol] 31.7 g/dL 32-36 [facility] No Panel InformationOrdered By: Rupesh Obando on 04-28-2023 Estimated GFR (MDRD) Amer 147 mL/min >60 [facility] Comment on above: GFR Calc Estimated GFR (MDRD) Non-Af Amer 122 mL/min >60 [facility] Comment on above: Non- GFR Calc Urine Microalbumin/Creatinine Ratio 8.4 mg/g CRE <30 [facility] Platelets bldOrdered By: Johnny Obando on 04-28-2023 Platelets (Bld) [#/Vol] 213 10*3/uL 150-450 [facility] Serum or plasma albumin tamara urement (mass/volume)Ordered By: Rupesh Obando on 04-28-2023 Albumin [Mass/Vol] 3.8 g/dL 3.2-5.[address] [facility] Serum or plasma albumin/glob ulin mass ratioOrdered By: Rupesh Obando on 04-28-2023 Albumin/Globulin [Mass ratio] 1.0 {ratio} 0.9-2.4 [facility] Serum or plasma calcium tamara urement (mass/volume)Ordered By: Rupesh Obando on 04-28-2023 Calcium [Mass/Vol] 8.9 mg/dL 8.5-10.[address] [facility] Serum or plasma creatinine m easurement (mass/volume)Ordered By: Rupesh Obando on 04-28-2023 Creatinine [Mass/Vol] 0.77 mg/dL 0.70-1.30 [facility] Comment on above: The validity of the calculated GFR & GFRAA in patients over 70 years has not been determined. Clinical correlation is essential. Serum or plasma urea nitroge n measurement (mass/volume)Ordered By: Rupesh Obando on 04-28-2023 Urea nitrogen [Mass/Vol] 13 mg/dL 7-18 [facility] Thin prep Papanicolaou smear with manual screeningOrdered By: Rupesh Obando on 04-28-2023 Thin prep Papanicolaou smear with manual screening 26 U/L 15-37 [facility] Thin prep Papanicolaou smear with manual screening 5 5-15 [facility] Thin prep Papanicolaou smear with manual screening 8.9 mg/L NO RANGE EST. [facility] Urine creatinine measurement (mass/volume)Ordered By: Rupesh Obando on 04-28-2023 Creatinine (U) [Mass/Vol] 105.00 mg/dL NO RANGE EST. [facility] Whole blood hemoglobin A1c/t otal hemoglobin ratio (mass fraction)Ordered By: Rupesh Obando on 04-28-2023 HbA1c (Bld) [Mass fraction] 6.0 % 3.8-5.6 [facility] Comment on above: Normal < 5.7 % Predi abetic 5.7 - 6.4 % Diabetic >or= 6.5 % Please note range changes. Absolute lymphocyte countOrd ered By: Rupesh Obando on 01-21-2023 Lymphocytes Auto (Unsp spec) [#/Vol] 1.87 10*3/uL 0.83-4.51 [facility] Basophil percentageOrdered B y: Rupesh Obando on 01-21-2023 Basophil percentage 25-50 SEEN /hpf 0-5 [facility] Basophils/100 WBC (Bld) 0.4 % 0-1 [facility] [place] Bilirubin [Mass/Vol] 0.90 mg/dL 0.20-1.00 [facility] Comment on above: For patients on eltr ombopag therapy, use of [place] TBIL is not recommended. Chloride [Moles/Vol] 107 mmol/L 98-107 [facility] Cholesterol [Mass/Vol] 130 mg/dL <200 [facility] Comment on above: <200 mg/dL Desirable 200-240 mg/dL Borderline >240 mg/dL High Risk Eosinophils/100 WBC (Bld) 1.6 % 0-5 [facility] Glucose [Mass/Vol] 133 mg/dL 74-[address] [facility] Comment on above: Fasting Glucose resu lt greater than or equal to 126 mg/dL suggests DIABETES MELLITUS per A.D.A. criteria. Neutrophils (Bld) [#/Vol] 4.4 10*3/uL 2.0-7.7 [facility] Neutrophils/100 WBC (Bld) 65.1 % 47-70 [facility] Potassium [Moles/Vol] 3.7 mmol/L 3.5-5.1 [facility] Protein [Mass/Vol] 7.1 g/dL 6.4-8.[address] [facility] Sodium [Moles/Vol] 138 mmol/L 136-[address] [facility] Triglyceride [Mass/Vol] 124 mg/dL <199 [facility] [place] Comment on above: The drugs N-Acetylcy steine and Metamizole may falsely depress this assay.Serum Triglycerides Reference Interval Normal <150 mg/dL Borderline high 150 - 199 mg/dL High 200 - 499 mg/dL Very High > or = 500 mg/dL WBC (Bld) [#/Vol] 6.8 10*3/uL 4.4-11.[address] [facility] Bilirubin Test strip Ql (U)O rdered By: Rupesh Obando on 01-21-2023 Bilirubin Ql (U) Negative Negative [facility] Blood erythrocytes count (nu mber/volume)Ordered By: Rupesh Obando on 01-21-2023 RBC (Bld) [#/Vol] 5.38 10*6/uL 4.6-6.2 [facility] Blood hemoglobin measurement (mass/volume)Ordered By: Rupesh Obando on 01-21-2023 Hemoglobin (Bld) [Mass/Vol] 14.8 g/dL 13.0-16.5 [facility] Blood lymphocytes/100 leukoc ytesOrdered By: Rupesh Obando on 01-21-2023 Lymphocytes/100 WBC (Bld) 27.5 % 19-41 [facility] Blood monocytes/100 leukocyt esOrdered By: Rupesh Obando on 01-21-2023 Monocytes/100 WBC (Bld) 5.0 % 0-10 [facility] [place] Blood platelet mean volumeOr dered By: Rupesh Obando on 01-21-2023 Platelet mean volume (Bld) [Entitic vol] 9.2 fL 6.2-12.0 [facility] Determination of erythrocyte mean corpuscular volume (MCV)Ordered By: Rupesh Obando on 01-21-2023 MCV (RBC) [Entitic vol] 83.5 fL 80-94 [facility] [place] Hematocrit Auto (Bld) [Volum e fraction]Ordered By: Rupesh Obando on 01-21-2023 Hematocrit (Bld) [Volume fraction] 44.9 % 40-54 [facility] Ketones Test strip Ql (U)Ord ered By: Rupesh Obando on 01-21-2023 Ketones Ql (U) 5 mg/dl Negative [facility] - Chemistry and C hemistry - challengeOrdered By: Rupesh Obando on 01-21-2023 ALP [Catalytic activity/Vol] 109 U/L 45-117 [facility] ALT [Catalytic activity/Vol] 90 U/L 16-61 [facility] CO2 [Moles/Vol] 27.0 mmol/L 21.0-32.0 [facility] Cobalamin (Vitamin B12) [Mass/Vol] 654 pg/mL 211-911 [facility] Globulin (S) [Mass/Vol] 3.3 g/dL 2.2-4.2 [facility] [place] Magnesium [Mass/Vol] 2.4 mg/dL 1.6-2.6 [facility] Urea nitrogen/Creatinine [Mass ratio] 13.5 mg/mg 10-20 [facility] - Hematology and Cell countsOrdered By: Rupesh Obando on 01-21-2023 Erythrocyte distribution width (RBC) [Entitic vol] 37.7 fL 35.1-43.9 [facility] Erythrocyte distribution width (RBC) [Ratio] 12.6 % 11.6-14.6 [facility] Immature granulocytes/100 WBC (Bld) 0.400 % 0.0-0.9 [facility] Comment on above: IG% - Immature Granu locytes (promyelocytes, myelocytes and metamyelocytes) > 1% indicates that a LEFT SHIFT is Present. MCH (RBC) [Entitic mass] 27.5 pg 27.0-32.0 [facility] Nucleated RBC/100 WBC (Bld) [Ratio] 0 % 0-5 [facility] MCHC Auto (RBC) [Mass/Vol]Or dered By: Rupesh Obando on 01-21-2023 MCHC (RBC) [Mass/Vol] 33.0 g/dL 32-36 [facility] Mucus LM Ql (Urine sed)Order ed By: Rupesh Obando on 01-21-2023 Mucus Ql (Urine sed) RARE /hpf [facility] Nitrite Test strip Ql (U)Ord ered By: Rupesh Obando on 01-21-2023 Nitrite Ql (U) Negative Negative [facility] No Panel InformationOrdered By: Rupesh Obando on 01-21-2023 Estimated GFR (MDRD) Amer 125 mL/min >60 [facility] Comment on above: GFR Calc Estimated GFR (MDRD) Non-Af Amer 103 mL/min >60 [facility] Comment on above: Non- GFR Calc Thyroid Stimulating Hormone (TSH) 1.59 uIU/mL 0.358-3.74 [facility] Vitamin B6 Level 4.3 ug/L 3.4-65.2 [facility] Comment on above: Deficiency: <3.4 Mar ginal: 3.4 - 5.1 Adequate: >5.1 Whole Blood Vitamin B1 Level 147.3 nmol/L 66.5-200.0 [facility] Comment on above: Performed at: [address] [id number] Director: Amanda Gonzales MD, Phone: [phone] Platelets bldOrdered By: Johnny Obando on 01-21-2023 Platelets (Bld) [#/Vol] 185 10*3/uL 150-450 [facility] Protein Test strip Ql (U)Ord ered By: Rupesh Obando on 01-21-2023 Protein Ql (U) Negative Negative [facility] Serum or plasma albumin tamara urement (mass/volume)Ordered By: Rupesh Obando on 01-21-2023 Albumin [Mass/Vol] 3.8 g/dL 3.2-5.[address] [facility] Serum or plasma albumin/glob ulin mass ratioOrdered By: Rupesh Obando on 01-21-2023 Albumin/Globulin [Mass ratio] 1.2 {ratio} 0.9-2.4 [facility] Serum or plasma calcium tamara urement (mass/volume)Ordered By: Rupesh Obando on 01-21-2023 Calcium [Mass/Vol] 8.8 mg/dL 8.5-10.[address] [facility] Serum or plasma cholesterol in HDL measurement (mass/volume)Ordered By: Rupesh Obando on 01-21-2023 Cholesterol in HDL [Mass/Vol] 36 mg/dL >40 [facility] Comment on above: The drugs N-Acetylcy steine and Metamizole may falsely depress this assay. Reference Range HDL <40 mg/dL Low HDL Cholesterol HDL >or= 60 mg/dL High HDL Cholesterol Serum or plasma cholesterol in VLDL measurement (mass/volume)Ordered By: Rupesh Obando on 01-21-2023 Cholesterol in VLDL [Mass/Vol] 25 mg/dL 5-40 [facility] Serum or plasma creatinine m easurement (mass/volume)Ordered By: Rupesh Obando on 01-21-2023 Creatinine [Mass/Vol] 0.89 mg/dL 0.70-1.30 [facility] Comment on above: The validity of the calculated GFR & GFRAA in patients over 70 years has not been determined. Clinical correlation is essential. Serum or plasma low density lipoprotein (LDL) cholesterol measurement (mass/volume)Ordered By: Rupesh Obando on 01-21-2023 Cholesterol in LDL [Mass/Vol] 69 mg/dL 0-130 [facility] Serum or plasma urea nitroge n measurement (mass/volume)Ordered By: Rupesh Obando on 01-21-2023 Urea nitrogen [Mass/Vol] 12 mg/dL 7-18 [facility] Squamous epithelial cells de tection in urine sediment by light microscopyOrdered By: Rupesh Obando on 01-21-2023 Epithelial cells.squamous LM Ql (Urine sed) 0 SEEN /hpf 0-5 [facility] Thin prep Papanicolaou smear with manual screeningOrdered By: Rupesh Obando on 01-21-2023 Thin prep Papanicolaou smear with manual screening 36 U/L 15-37 [facility] Thin prep Papanicolaou smear with manual screening 4 5-15 [facility] Urine blood detectionOrdered By: Rupesh Obando on 01-21-2023 RBC Ql (U) Negative Negative [facility] RBC Ql (U) 0-5 SEEN /hpf 0-5 [facility] Urine clarityOrdered By: Johnny Obando on 01-21-2023 Clarity (U) Sl. Cloudy Clear [facility] Urine color determinationOrd ered By: Rupesh Obando on 01-21-2023 Color (U) Yellow Yellow [facility] Urine glucose detectionOrder ed By: Rupesh Obando on 01-21-2023 Glucose Ql (U) Normal mg/dl Normal [facility] Urine leukocyte esterase det ection by dipstickOrdered By: Rupesh Obando on 01-21-2023 Leukocyte esterase Test strip Ql (U) 100 /ul Negative [facility] Urine pHOrdered By: Rupehs apodaca on 01-21-2023 pH (U) 5.0 [pH] 5.0 - 8.0 [facility] Urine sediment bacteria coun t by microscopy (number/high power field)Ordered By: Rupesh Obando on 01-21-2023 Bacteria LM.HPF (Urine sed) [#/Area] RARE /hpf None Seen [facility] Urine specific gravity measu rementOrdered By: Rupesh Obando on 01-21-2023 Specific gravity (U) [Rel density] 1.025 1.002-1.030 [facility] Urobilinogen Auto test strip Ql (U)Ordered By: Rupesh Obando on 01-21-2023 Urobilinogen Ql (U) Normal mg/dl Normal [facility] Whole blood hemoglobin A1c/t otal hemoglobin ratio (mass fraction)Ordered By: Rupesh Obando on 01-21-2023 HbA1c (Bld) [Mass fraction] 7.3 % 3.8-5.6 [facility] Comment on above: Normal < 5.7 % Predi abetic 5.7 - 6.4 % Diabetic >or= 6.5 % Please note range changes. AMB POC RAPID STREP AOrdered By: Holly Vásquez on 12-14-2022 S. pyogenes Ag Ql (Throat) Negative Negative, None Detected [facility] AMB POC RAPID STREP Aon 05-0 Interpretation and review of laboratory results Normal [facility] S. pyogenes Ag Ql (Throat) Negative Negative, None Detected [facility] CT ABD/PEL W IVCONon 020 CT ABD/PEL W IVCON * * *Final Report* * * DATE OF EXAM: Jun 15 2019 7:30PM [facility] 0530 - CT ABD/PEL W IVCON [...] 4 mm hypodensity at the mid kidney. Filament Tester: JOSE Transcribe Date/Time: Jun 15 2019 7:55P Dictated by : JUSTICE CLEMENTE MD This examination was interpreted and the report reviewed and electronically signed by: JUSTICE CLEMENTE MD on Jun 15 2019 8:10PM EST Normal [facility] Comprehensive Panelon 2019 Albumin [Mass/Vol] 3.7 g/dL Normal 3.4-5.0 [facility] Comment on above: Performed By: #### M P14 #### [place] [address] ALP [Catalytic activity/Vol] 69 U/L Normal 46-116 [facility] Comment on above: Performed By: #### M P14 #### [place] [address] ALT-SGPT Blood 53 U/L Normal 12-78 [facility] Comment on above: Performed By: #### M P14 #### [place] [address] Anion gap [Moles/Vol] 16 mmol/L Normal 8-16 [facility] Comment on above: Performed By: #### M P14 #### [place] [address] AST-SGOT Blood 23 U/L Normal 15-46 [facility] Comment on above: Performed By: #### M P14 #### [address] [address] Bilirubin Ql (U) 0.7 mg/dL Normal 0.2-1.0 [facility] Comment on above: Performed By: #### M P14 #### [address] [address] Calcium [Mass/Vol] 8.9 mg/dL Normal 8.5-10.1 [facility] Comment on above: Performed By: #### M P14 #### [place] [address] Chloride [Moles/Vol] 104 mmol/L Normal 98-[address] [facility] Comment on above: Performed By: #### M P14 #### [address] [place], [place] [address] CO2 Blood 28 mEq/L Normal 21-32 [facility] Comment on above: Performed By: #### M P14 #### [facility] [address] [place], [place] [address] Creatinine [Mass/Vol] 0.93 mg/dL Normal 0.67-1.17 [facility] Comment on above: Result Comment: Use of this assay is not recommended for patients undergoing treatment with phenindione, due to the potential for falsely depressed results. Performed By: #### M P14 #### [facility] [address] [place] [address] Glucose [Mass/Vol] 96 mg/dL Normal 70-99 [facility] Comment on above: Performed By: #### M P14 #### [place] [address] Potassium [Moles/Vol] 3.6 mmol/L Normal 3.5-5.1 [facility] Comment on above: Performed By: #### M P14 #### [facility] [address] [place] [address] Protein [Mass/Vol] 7.3 g/dL Normal 6.4-8.2 [facility] Comment on above: Performed By: #### M P14 #### [place] [address] Sodium [Moles/Vol] 144 mmol/L Normal 136-145 [facility] Comment on above: Performed By: #### M P14 #### [address] [address] Urea nitrogen [Mass/Vol] 12 mg/dL Normal 7-18 [facility] Comment on above: Performed By: #### M P14 #### [facility] [address] [place] [address] Hemogram/Diffon 06-15-2019 Abs. Baso 0.02 thou/cmm Normal 0.00-0.08 [facility] Comment on above: Performed By: #### N CBCD #### [place] [address] Abs. Hickman 0.55 thou/cmm Normal 0.19-0.80 [facility] Comment on above: Performed By: #### N CBCD #### [facility] [address] [place], [place] [address] Abs. Neut (ANC) 6.79 thou/cmm Normal 1.35-7.21 [facility] Comment on above: Performed By: #### N CBCD #### [facility] [address] [place], [place] [address] Basophils/100 WBC (Bld) 0.2 % Normal [facility] Comment on above: Performed By: #### N CBCD #### [address] [address] Eosinophils (Bld) [#/Vol] 0.12 thou/cmm Normal 0.00-0.36 [facility] Comment on above: Performed By: #### N CBCD #### [place] [address] Eosinophils/100 WBC (Bld) 1.4 % Normal [facility] Comment on above: Performed By: #### N CBCD #### [place] [address] Erythrocyte distribution width (RBC) [Ratio] 13.4 % Normal 11.8-14.5 [facility] Comment on above: Performed By: #### N CBCD #### [place] [address] Hematocrit (Bld) [Volume fraction] 46.1 % Normal 39.6-50.7 [facility] Comment on above: Performed By: #### N CBCD #### [address] [address] Hemoglobin (Bld) [Mass/Vol] 15.7 g/dL Normal 13.2-17.4 [facility] Comment on above: Performed By: #### N CBCD #### [address] [address] Lymphocytes (Bld) [#/Vol] 1.39 thou/cmm Normal 0.68-2.93 [facility] Comment on above: Performed By: #### N CBCD #### [facility] [address] [place], [place] [address] Lymphocytes/100 WBC (Bld) 15.6 % Normal [facility] Comment on above: Performed By: #### N CBCD #### [facility] [address] [place], [place] [address] MCH (RBC) [Entitic mass] 27.8 pg Normal 27.4-32.8 [facility] Comment on above: Performed By: #### N CBCD #### [facility] [address] [place], [place] [address] MCHC (RBC) [Mass/Vol] 34.1 % Normal 31.9-35.6 [facility] Comment on above: Performed By: #### N CBCD #### [facility] [address] [place], [place] [address] MCV (RBC) [Entitic vol] 81.7 fL Low 81.8-95.6 [facility] Comment on above: Performed By: #### N CBCD #### [facility] [address] [place], [place] [address] Monocytes/100 WBC (Bld) 6.2 % Normal [facility] Comment on above: Performed By: #### N CBCD #### [facility] [address] [place] [address] Platelet mean volume (Bld) [Entitic vol] 8.6 fL Low 8.8-12.1 [facility] Comment on above: Performed By: #### N CBCD #### [facility] [address] [place], [place] [address] Platelets (Bld) [#/Vol] 246 thou/cmm Normal 150-370 [facility] Comment on above: Performed By: #### N CBCD #### [facility] [address] [place], [place] [address] RBC (Bld) [#/Vol] 5.64 mil/cmm Normal 4.22-5.80 [facility] Comment on above: Performed By: #### N CBCD #### [facility] [address] [place] [address] Seg Neutrophil 76.6 % Normal [facility] Comment on above: Performed By: #### N CBCD #### [facility] [address] [place], [place] [address] WBC (Bld) [#/Vol] 8.9 thou/cmm Normal 4.4-9.7 [facility] Comment on above: Performed By: #### N CBCD #### [facility] [address] [place] [id number] Lipase Bloodon 06-15-2019 Lipase Blood 59 U/L Low 73-393 [facility] Comment on above: Performed By: #### M FLU #### [facility] [address] [place] [id number] MDRD eGFRon 06-15-2019 GFR/1.73 sq M predicted among non-blacks MDRD (S/P/Bld) [Vol rate/Area] mL/min/{1.73_m2} Normal >60mL/min/1. 73m2 [facility] Comment on above: Result Comment: If t he patient is , multiply the result by 1.210. Performed By: #### M GFR #### [facility] [address] [place] [address] US ABD RIGHT UPPER QUADRANTo n 06-15-2019 [...] to penetrate. 3. Nonvisualization of the pancreas. Filament Tester: JOSE Transcribe Date/Time: Jun 15 2019 6:15P Dictated by : JUSTICE CLEMENTE MD This examination was interpreted and the report reviewed and electronically signed by: JUSTICE CLEMENTE MD on Jun 15 2019 6:17PM EST Normal [facility] Urinalysis Routineon 020 Appearance (U) CLEAR Normal [facility] Comment on above: Performed By: #### M FLU #### [place] [address] Color (U) YELLOW Normal [facility] Comment on above: Performed By: #### M FLU #### [place] [address] Ep Cells Urine 2-5 Normal 0-5 [facility] Comment on above: Performed By: #### M FLU #### [place] [address] RBC LM.HPF (Urine sed) [#/Area] 0-3 Normal 0-3 [facility] Comment on above: Performed By: #### M FLU #### [place] [address] WBC LM.HPF (Urine sed) [#/Area] 2-5 Normal 0-5 [facility] Comment on above: Performed By: #### M FLU #### [place] [address] Bilirubin Urine Negative Normal Negative [facility] Comment on above: Performed By: #### M FLU #### [place] [address] Glucose Ql (U) Negative Normal Negative [facility] Comment on above: Performed By: #### M FLU #### [place] [address] Hemoglobin,Urine Negative Normal Negative [facility] Comment on above: Performed By: #### M FLU #### [facility] [address] [place] [address] Ketone Urine 40 mg/dL Abnormal Negative [facility] Comment on above: Performed By: #### M FLU #### [facility] [address] [place] [address] Leukocytes Esterase Negative Normal Negative [facility] Comment on above: Performed By: #### M FLU #### [facility] [address] [place] [address] Nitrites Urine Negative Normal Negative [facility] Comment on above: Performed By: #### M FLU #### [facility] [address] [place] [address] pH (U) 5.0 [pH] Normal 5.0-8.0 [facility] Comment on above: Performed By: #### M FLU #### [place] [address] Protein (U) [Mass/Vol] Negative Normal Negative [facility] Comment on above: Performed By: #### M FLU #### [place] [address] Specific [place], Ur >=1.030 Normal 1.005-1.030 [facility] Comment on above: Performed By: #### M FLU #### [place] [address] Urobilinogen,Ur 0.2 EU/dL Normal 0.2-1.0 [facility] Comment on above: Performed By: #### M FLU #### [place] [address] Comprehensive Panelon 2019 Albumin [Mass/Vol] 3.8 g/dL Normal 3.4-5.0 [facility] Comment on above: Performed By: #### M P14 #### [place] [address] ALP [Catalytic activity/Vol] 80 U/L Normal 46-116 [facility] Comment on above: Performed By: #### M P14 #### [place] [address] ALT-SGPT Blood 45 U/L Normal 12-78 [facility] Comment on above: Performed By: #### M P14 #### [facility] [address] [place], [place] [address] Anion gap [Moles/Vol] 16 mmol/L Normal 8-16 [facility] Comment on above: Performed By: #### M P14 #### [facility] [address] [place], [place] [address] AST-SGOT Blood 19 U/L Normal 15-46 [facility] Comment on above: Performed By: #### M P14 #### [facility] [address] [place] [address] Bilirubin Ql (U) 0.7 mg/dL Normal 0.2-1.0 [facility] Comment on above: Performed By: #### M P14 #### [facility] [address] [place] [address] Calcium [Mass/Vol] 8.9 mg/dL Normal 8.5-10.1 [facility] Comment on above: Performed By: #### M P14 #### [facility] [address] [place] [address] Chloride [Moles/Vol] 105 mmol/L Normal 98-[address] [facility] Comment on above: Performed By: #### M P14 #### [facility] [address] [place] [address] CO2 Blood 24 mEq/L Normal 21-32 [facility] Comment on above: Performed By: #### M P14 #### [place] [address] Creatinine [Mass/Vol] 0.90 mg/dL Normal 0.67-1.17 [facility] Comment on above: Result Comment: Use of this assay is not recommended for patients undergoing treatment with phenindione, due to the potential for falsely depressed results. Performed By: #### M P14 #### [facility] [address] [place], [place] [address] Glucose [Mass/Vol] 148 mg/dL High 70-99 [facility] Comment on above: Performed By: #### M P14 #### [place] [address] Potassium [Moles/Vol] 4.0 mmol/L Normal 3.5-5.1 [facility] Comment on above: Performed By: #### M P14 #### [facility] [address] [place] [address] Protein [Mass/Vol] 7.5 g/dL Normal 6.4-8.2 [facility] Comment on above: Performed By: #### M P14 #### [facility] [address] [place] [address] Sodium [Moles/Vol] 141 mmol/L Normal 136-145 [facility] Comment on above: Performed By: #### M P14 #### [place] [address] Urea nitrogen [Mass/Vol] 14 mg/dL Normal 7-18 [facility] Comment on above: Performed By: #### M P14 #### [place] [address] Hemogram/Diffon 06-01-2019 Abs. Baso 0.03 thou/cmm Normal 0.00-0.08 [facility] Comment on above: Performed By: #### N CBCD #### [place] [address] Abs. Hickman 0.66 thou/cmm Normal 0.19-0.80 [facility] Comment on above: Performed By: #### N CBCD #### [place] [address] Abs. Neut (ANC) 8.73 thou/cmm High 1.35-7.21 [facility] Comment on above: Performed By: #### N CBCD #### [place] [address] Basophils/100 WBC (Bld) 0.3 % Normal [facility] Comment on above: Performed By: #### N CBCD #### [place] [address] Eosinophils (Bld) [#/Vol] 0.12 thou/cmm Normal 0.00-0.36 [facility] Comment on above: Performed By: #### N CBCD #### [facility] [address] [place], [place] [address] Eosinophils/100 WBC (Bld) 1.1 % Normal [facility] Comment on above: Performed By: #### N CBCD #### [facility] [address] [place], [place] [address] Erythrocyte distribution width (RBC) [Ratio] 13.2 % Normal 11.8-14.5 [facility] Comment on above: Performed By: #### N CBCD #### [facility] [address] [place], [place] [address] Hematocrit (Bld) [Volume fraction] 45.5 % Normal 39.6-50.7 [facility] Comment on above: Performed By: #### N CBCD #### [facility] [address] [place] [address] Hemoglobin (Bld) [Mass/Vol] 15.8 g/dL Normal 13.2-17.4 [facility] Comment on above: Performed By: #### N CBCD #### [facility] [address] [place] [address] Lymphocytes (Bld) [#/Vol] 1.33 thou/cmm Normal 0.68-2.93 [facility] Comment on above: Performed By: #### N CBCD #### [facility] [address] [place], [place] [address] Lymphocytes/100 WBC (Bld) 12.2 % Normal [facility] Comment on above: Performed By: #### N CBCD #### [facility] [address] [place] [address] MCH (RBC) [Entitic mass] 27.6 pg Normal 27.4-32.8 [facility] Comment on above: Performed By: #### N CBCD #### [facility] [address] [place], [place] [address] MCHC (RBC) [Mass/Vol] 34.7 % Normal 31.9-35.6 [facility] Comment on above: Performed By: #### N CBCD #### [facility] [address] [place] [address] MCV (RBC) [Entitic vol] 79.5 fL Low 81.8-95.6 [facility] Comment on above: Performed By: #### N CBCD #### [facility] [address] [place] [address] Monocytes/100 WBC (Bld) 6.1 % Normal [facility] Comment on above: Performed By: #### N CBCD #### [facility] [address] [place] [address] Platelet mean volume (Bld) [Entitic vol] 8.4 fL Low 8.8-12.1 [facility] Comment on above: Performed By: #### N CBCD #### [place] [address] Platelets (Bld) [#/Vol] 240 thou/cmm Normal 150-370 [facility] Comment on above: Performed By: #### N CBCD #### [place] [address] RBC (Bld) [#/Vol] 5.72 mil/cmm Normal 4.22-5.80 [facility] Comment on above: Performed By: #### N CBCD #### [place] [address] Seg Neutrophil 80.3 % Normal [facility] Comment on above: Performed By: #### N CBCD #### [place] [address] WBC (Bld) [#/Vol] 10.9 thou/cmm High 4.4-9.[address] [facility] Comment on above: Performed By: #### N CBCD #### [facility] [address] [place] [address] Lipase Bloodon 06-01-2019 Lipase Blood 67 U/L Low 73-393 [facility] Comment on above: Performed By: #### M LIP #### [place] [address] MDRD eGFRon 06-01-2019 GFR/1.73 sq M predicted among non-blacks MDRD (S/P/Bld) [Vol rate/Area] mL/min/{1.73_m2} Normal >60mL/min/1. 73m2 [facility] Comment on above: Result Comment: If t he patient is , multiply the result by 1.210. Performed By: #### M GFR #### [place] [address] Influenza A and B by PCRon 0 05-24-2019 Influenza A by PCR Negative Normal Negative [facility] Comment on above: Performed By: #### M FLU #### [place] [address] Influenza B by PCR Negative Normal Negative [facility] Comment on above: Performed By: #### M FLU #### [place] [address] Strep A by PCRon 05-24-2019 Strep A by PCR Negative Normal Negative [facility] Comment on above: Performed By: #### M SPCR #### [place] [address] EDREPTon 11-05-2016 EDREPT [facility] Admit Date: 11/05/16 /Age: 0711/11/1985/30/M ED Physician: Ryder Garcia DO Med Rec #: [id number] - Physician AddendumAddendum:Diagno sis acute left otalgia 11/20/16 [id number]: 11/20/16 0023T: 11/20/16 0023Addendum ID# 2 AD DENDUMAddendum- Physician AddendumAddendum:This correction is to address medical records voice recognition software errorover the last weekthe patient has had right ear pressureThis dictation was generated by voicerecognSellaround. Although all attempts are made to edit the dictation for accuracy,there may be errorsin the jockey agent that are not intended. 11/20/16 [id number]: 11/20/16 0022T: 11/20/16 0022Addendum ID# 1 Hi [...] dysfunction. I did advise outpatient followupwith primary care.[facility] referral given. Return if worse in any way.Disposition: HOME/SELF CARE ROUTINECondition: Stable 11/05/16 [id number]: 11/05/16 1322T: 11/05/16 1322Job #: [id number]: Normal [facility] Vital Signs Date Time Vital Sign Value Performing Clinician Edwini manohar 07-13-2024 15:02-0400 Body temperature 97.9 [degF] Patricia Peters APRN.CNP Work Phone: [facility] 06-21-2024 13:25-0500 Body height 198.1 cm Pacc 2 Work Phone: [facility] 06-21-2024 13:25-0500 Body mass index (BMI) [Ratio] 44.95 kg/m2 Pacc 2 Work Phone: [facility] 06-21-2024 13:25-0500 Body weight 176.45 kg Pacc 2 Work Phone: [facility] 06-21-2024 13:25-0500 Heart rate 92 /min Pacc 2 Work Phone: [facility] 06-21-2024 13:25-0500 Respiratory rate 18 /min Pacc 2 Work Phone: [facility] 06-19-2024 15:33-0500 Body height 198.1 cm Kadeem Shah MD Work Phone: [facility] 06-19-2024 15:33-0500 Body mass index (BMI) [Ratio] 45 kg/m2 Kadeem Shah MD Work Phone: [facility] 06-19-2024 15:33-0500 Body temperature 97 [degF] Kadeem Shah MD Work Phone: [facility] 06-19-2024 15:33-0500 Body weight 176.63 kg Kadeem Shah MD Work Phone: [facility] 06-19-2024 15:33-0500 Diastolic blood pressure 84 mm[Hg] Kadeem Shah MD Work Phone: [facility] 06-19-2024 15:33-0500 Heart rate 113 /min Kadeem Shah MD Work Phone: [facility] 06-19-2024 15:33-0500 SaO2% (BldA) [Mass fraction] 97 % Kadeem Shah MD Work Phone: [facility] 06-19-2024 15:33-0500 Systolic blood pressure 130 mm[Hg] Kadeem Shah MD Work Phone: [facility] 06-06-2024 10:23-0500 Diastolic blood pressure 88 mm[Hg] Rio Majano STAVE SAW OPERATOR Work Phone: [facility] 06-06-2024 10:23-0500 Heart rate 92 /min Rio Majano STAVE SAW OPERATOR Work Phone: [facility] 06-06-2024 10:23-0500 Systolic blood pressure 121 mm[Hg] Rio Majano STAVE SAW OPERATOR Work Phone: [facility] 06-06-2024 10:16-0500 Body height 195.6 cm Rio Majano STAVE SAW OPERATOR Work Phone: [facility] 06-06-2024 10:16-0500 Body mass index (BMI) [Ratio] 46.48 kg/m2 Rio Majano STAVE SAW OPERATOR Work Phone: [facility] 06-06-2024 10:16-0500 Body temperature 97.9 [degF] Rio Majano STAVE SAW OPERATOR Work Phone: [facility] 06-06-2024 10:16-0500 Body weight 177.81 kg Rio Majano STAVE SAW OPERATOR Work Phone: [facility] 06-06-2024 10:16-0500 Respiratory rate 18 /min Rio Majano STAVE SAW OPERATOR Work Phone: [facility] 06-06-2024 10:16-0500 SaO2% (BldA) [Mass fraction] 97 % Rio Majano STAVE SAW OPERATOR Work Phone: [facility] 12-14-2022 11:19-0400 Body height 195.6 cm Agnes Cuadra DO Work Phone: [facility] 12-14-2022 11:19-0400 Body mass index (BMI) [Ratio] 46.48 kg/m2 Agnes Cuadra DO Work Phone: [facility] 12-14-2022 11:19-0400 Body temperature 97.81 [degF] Agnes Cuadra DO Work Phone: [facility] 12-14-2022 11:19-0400 Body weight 177.81 kg Agnes Cuadra DO Work Phone: [facility] 12-14-2022 11:19-0400 Diastolic blood pressure 88 mm[Hg] Agnes Cuadra DO Work Phone: [facility] 12-14-2022 11:19-0400 Heart rate 107 /min Agnes Cuadra DO Work Phone: [facility] 12-14-2022 11:19-0400 SaO2% (BldA) [Mass fraction] 98 % Agnes Cuadra DO Work Phone: [facility] 12-14-2022 11:19-0400 Systolic blood pressure 129 mm[Hg] Agnes Cuadra DO Work Phone: [facility] 08-24-2022 14:18-0400 Body height 190.5 cm Agnes Cuadra DO Work Phone: [facility] 08-24-2022 14:18-0400 Body temperature 98.1 [degF] Agnes Donford DO Work Phone: [facility] 08-24-2022 14:18-0400 Diastolic blood pressure 87 mm[Hg] Agnes Donford DO Work Phone: [facility] 08-24-2022 14:18-0400 Heart rate 102 /min Agnes Cuadra DO Work Phone: [facility] 08-24-2022 14:18-0400 Respiratory rate 18 /min Agnes Cuadra DO Work Phone: [facility] 08-24-2022 14:18-0400 SaO2% (BldA) [Mass fraction] 98 % Agnes Cuadra DO Work Phone: [facility] 08-24-2022 14:18-0400 Systolic blood pressure 145 mm[Hg] Agnes Cuadra DO Work Phone: [facility] Encounters Encounter Date Encounter Type Care Provider Facility Start: 04-05-2025 ambulatory Kennedy Taylor Facility: [facility] Start: 02-25-2025 ambulatory Cecile Blade Facility:[facility] Start: 02-25-2025 End: 02-25-2025 ambulatory Rupesh Obando Facility:[facility] Start: 02-21-2025 ambulatory Kennedy Taylor Facility: [facility] Start: 02-14-2025 End: 02-14-2025 ambulatory Rupesh Obando Facility[facility] Start: 01-18-2025 End: 01-18-[address] Rupesh Obando MD Work Phone: -[facility] Start: 01-18-2025 End: 01-18-[address] Rupesh Obando MD -[facility] Start: 01-18-2025 End: 01-18-2025 ambulatory Rupesh Obando Facility:[facility] Start: 01-15-2025 End: 01-15-2025 Emergency department patient visit RUPESH OBANDO Facility:[facility] Start: 11-16-2024 End: 11-16-[address] Rupesh Obando MD Work Phone: -[facility] Start: 11-16-2024 End: 11-16-[address] Rupesh Obando MD -[facility] Start: 11-16-2024 End: 11-16-2024 ambulatory Rupesh Obando Facility:[facility] Start: 08-10-2024 End: 08-10-[address] Rupesh Obando MD Work Phone: [facility] Work Phone: Start: 08-10-2024 End: 08-10-[address] Rupesh Obando MD -Laboratory, [facility] Start: 08-10-2024 End: 08-10-2024 ambulatory Rupesh Obando Facility:[facility] Start: 08-07-2024 Non-patient / Non-visit Dr. Tyrese bermudez MD -[facility] Start: 08-07-2024 End: 08-07-[address] Rupesh Obando MD Work Phone: [facility] Work Phone: Start: 08-07-2024 End: 08-07-[address] Rupesh Obando MD -[facility] Work Phone: Start: 08-07-2024 End: 08-07-2024 ambulatory Rupesh Obando Facility:[facility] Start: 07-27-2024 End: 07-28-2024 Emergency department patient visit RUPESH OBANDO Facility:[facility] Start: 07-13-2024 End: 07-13-2024 ambulatory PATRICIA PETERS Facility:[facility] Start: 07-13-2024 End: 07-13-2024 Patient encounter procedure Patricia Peters DATA REVIEWER.HEAD MECHANIC Work Phone: General Surgery Comment on above: Calculus of gallblad jose with cholecystitis without biliary obstruction, unspecified cholecystitis acuity (Primary Dx) Start: 06-29-2024 End: 06-29-2024 ambulatory KADEEM SHAH Facility:[facility] Start: 06-27-2024 End: 06-28-2024 Telephone encounter Kadeem Shah MD Work Phone: General Surgery Comment on above: FMLA Paperwork Start: 06-22-2024 End: 06-22-2024 ambulatory SUNDAY CRANE Facility:[facility] Start: 06-22-2024 Encounter for other preprocedural examination RUPESH OBANDO [facility] Start: 06-21-2024 End: 06-21-2024 Admission to establishment [facility] [place] [employer] [facility] Work Phone: Pre Anesthesia Start: 06-21-2024 End: 06-21-2024 Anesthesia consultation [facility] [employer] Work Phone: Pre Anesthesia Comment on above: Pre-op evaluation (P rimary Dx); Gastroesophageal reflux disease, unspecified whether esophagitis present; Fatty liver; History of asthma; Type 2 diabetes mellitus without complication, without long-term current use of insulin (HCC); Obesity, Class III, BMI >= 40; Sarcoidosis Start: 06-21-2024 End: 06-21-2024 Evaluation and management of inpatient KADEEM SHAH Facility:[facility] Start: 06-21-2024 End: 06-21-2024 Preprocedural examination done [facility] [employer] Work Phone: [facility] Start: 06-20-2024 End: 07-18-2024 Telephone encounter Kadeem Shah MD Work Phone: General Surgery Comment on above: 06-29-2024 Lap Genny Start: 06-19-2024 End: 06-19-2024 ambulatory KADEEM SHAH Facility:[facility] Start: 06-19-2024 End: 06-19-2024 Patient encounter procedure Kadeem Shah MD Work Phone: General Surgery Comment on above: Calculus of gallblad jose with cholecystitis without biliary obstruction, unspecified cholecystitis acuity (Primary Dx) Start: 06-12-2024 End: 06-12-[address] Rupesh Obando MD -Laboratory, [facility] Start: 06-12-2024 End: 06-12-2024 ambulatory Rupesh Obando Facility:[facility] Start: 06-06-2024 End: 06-06-2024 Emergency department patient visit RUPESH OBANDO Facility:[facility] Start: 06-06-2024 End: 06-06-2024 Office outpatient visit 10 minutes Rio Majano NP Work Phone: [facility] Comment on above: Nausea and vomiting, unspecified vomiting type (Primary Dx); Viral gastroenteritis Start: 06-06-2024 End: 06-06-2024 ambulatory [facility] Start: 10-13-2023 End: 10-13-2023 Emergency department patient visit RUPESH Rodriguez TOPHER Facility:[facility] Start: 04-28-2023 End: 04-28-2023 ambulatory [facility] Work Phone: Start: 04-28-2023 End: 04-28-2023 Patient encounter procedure [facility] Start: 01-21-2023 End: 01-21-2023 Patient encounter procedure [facility] Work Phone: Start: 12-14-2022 End: 12-14-2022 Office outpatient visit 15 minutes Agnes Donford DO Work Phone: [facility] Comment on above: URI with cough and c ongestion (Primary Dx); Close exposure to COVID-19 virus Start: 08-24-2022 End: 08-24-2022 Office outpatient new 30 minutes Agnes Narciso Jooix DO Work Phone: [facility] Comment on above: Upper respiratory tr act infection, unspecified type (Primary Dx) Start: 11-05-2016 End: 11-05-2016 Emergency department patient visit Ryder Conte Radha Facility:[facility] Procedures Date Procedure Procedure Detail Performing Clinician Start: 06-22-2024 Antibody screen RUPESH GODINEZ Comment on above: Order Comment: Speci men Type: BLOOD SPECIMENOrdering Facility: [facility] Address: [address] [place] [id number] Performed By: #### T [id number] ####[facility]ANKCL[facility] [id number] [place] [address] [place] Start: 06-06-2024 Sars-cov-2 detection by dna/rna Rio Majano STAVE SAW OPERATOR Work Phone: Start: 06-06-2024 Infectious agent dna /rna influenza 1st 2 types Rio Majano STAVE SAW OPERATOR Work Phone: Start: 12-14-2022 [employer] streptococ cus group a Agnes Cuadra DO Work Phone: Start: 08-24-2022 [employer] streptococ cus group a Agnes Cuadra DO Work Phone: Start: 05-24-2019 Throat culture Comment on above: Performed By: #### C THRT #### [place] [address] Plan of Treatment Date Care Activity Detail Author Start: 11-10-2062 RSV Immunization for Adults (1 - 1-dose 75+ series) RSV Immunization for Adults (1 - 1-dose 75+ series) [facility] Start: 11-10-2037 Zoster Vaccines (1 of 2) Zoster Vacc dre (1 of 2) [facility] Start: 05-26-2033 DTaP/Tdap/Td Vaccine s (2 - Td or Tdap) DTaP/Tdap/Td Vaccines (2 - Td or Tdap) [facility] Start: 05-26-2033 Urine microalbumin profile DTaP,Tdap,Td Vaccine (2 - Td or Tdap) [facility] Start: 12-20-2024 Hemoglobin A1c measurement HbA1C [facility] Start: 07-13-2024 End: 07-13-2024 Patient encounter procedure 07/13/2024 3:30 PM EDT Office Visit General Surgery [address] [place], [place] [id number] Patricia Peters APRN.HEAD MECHANIC [address] [place] [address] Post Op Lap Genny 06/28/24 General Surgery Comment on above: Post Op Lap Genny 06/28/24 Start: 06-29-2024 End: 06-29-2024 Admission to same day surgery center 06/29/2024 11:30 AM EST - 06/29/2024 2:20 PM EST Surgery [facility] Surgery [address] [place] [id number] Kadeem Shah MD [address] [place] [address] LAPAROSCOPIC CHOLECYSTECTOMY POSSIBLE OPEN [facility] Comment on above: LAPAROSCOPIC CHOLECY STECTOMY POSSIBLE OPEN Start: 06-29-2024 End: 06-29-2024 Laparoscopy surg cholecystectomy LAPAROSCOPIC CHOLECYSTECTOMY POSSIBLE OPEN Calculus of gallbladder with cholecystitis without biliary obstruction, unspecified cholecystitis acuity 06/29/2024 11:30 AM EST ME OR Start: 06-29-2024 Subsequent hospital visit by physician 06/29/2024 11:30 AM EST Hospital Encounter [facility] [address] [place] [address] Kadeem Shah MD [address] [place] [address] Calculus of gallbladder with cholecystitis without biliary obstruction, unspecified cholecystitis acuity [K80.10] [facility] Comment on above: Calculus of gallblad jsoe with cholecystitis without biliary obstruction, unspecified cholecystitis acuity [K80.10] Start: 06-22-2024 End: 06-22-2024 Patient encounter procedure 06/22/2024 1:30 PM EST Office Visit Pre Anesthesia [address] [place] [address] [place], Ekg Pacc [address] [place] [address] EKG Pre Anesthesia Comment on above: EKG Start: 06-21-2024 End: 09-20-2024 CONFIRM BLOOD TYPE CONFIRM BLOOD TYPE Blood Bank Routine Gastroesophageal reflux disease, unspecified whether esophagitis present Fatty liver History of asthma Type 2 diabetes mellitus without complication, without long-term current use of insulin (HCC) Obesity, Class III, BMI >= 40 Sarcoidosis Pre-op evaluation Expected: 06/21/2024, Expires: 09/20/2024 [facility] Work Phone: Comment on above: Expected: 06/21/2024 , Expires: 09/20/2024 Start: 06-21-2024 End: 09-20-2024 Hemoglobin A1c in Blood HEMOGLOBIN A1C Lab Routine Gastroesophageal reflux disease, unspecified whether esophagitis present Fatty liver History of asthma Type 2 diabetes mellitus without complication, without long-term current use of insulin (HCC) Obesity, Class III, BMI >= 40 Sarcoidosis Pre-op evaluation Expected: 06/21/2024, Expires: 09/20/2024 [facility] Comment on above: Expected: 06/21/2024 , Expires: 09/20/2024 Start: 06-21-2024 End: 09-20-2024 TYPE AND SCREEN,30 DAY TYPE AND SCREEN,30 DAY Blood Bank Routine Gastroesophageal reflux disease, unspecified whether esophagitis present Fatty liver History of asthma Type 2 diabetes mellitus without complication, without long-term current use of insulin (HCC) Obesity, Class III, BMI >= 40 Sarcoidosis Pre-op evaluation Expected: 06/21/2024, Expires: 09/20/2024 [facility] Comment on above: Expected: 06/21/2024 , Expires: 09/20/2024 Start: 12-25-2023 COVID-19 Vaccine ( season) COVID-19 Vaccine ( season) [facility] Start: 12-25-2023 Influenza vaccination Influenza Vacc ine (#1) [facility] Start: 12-24-2022 Influenza vaccination S [facility] Start: 11-10-2022 Lipid panel Lipid Screening [facility] Start: 06-19-2013 Glaucoma screening Dilated Retinal E xam [facility] Start: 05-24-2013 Pneumococcal vaccination Pneum ococcal Vaccine (2 of 2 - PCV) [facility] Start: 05-24-2013 Pneumococcal Vaccine : Pediatrics (0 to 5 Years) and At-Risk Patients (6 to 49 Years) (2 of 2 - PCV) Pneumococcal Vaccine: Pediatrics (0 to 5 Years) and At-Risk Patients (6 to 49 Years) (2 of 2 - PCV) [facility] Start: 11-10-2006 DTaP/Tdap/Td Vaccine s (1 - Tdap) DTaP/Tdap/Td Vaccines (1 - Tdap) [facility] Start: 11-10-2005 Annual PCP Team Lunch Cook meenu Disease Visit Annual PCP Team Chronic Disease Visit [facility] Start: 11-10-2005 Anxiety Screening Anxiety Screening [facility] Start: 11-10-2005 Depression Screening Depression Scre ening [facility] Start: 11-10-2005 Diabetes: Estimated Glomerular Filtration Rate for Kidney Health Diabetes: Estimated Glomerular Filtration Rate for Kidney Health [facility] Start: 11-10-2005 Diabetes: Urine Albumin-Creatinine Ratio for Kidney Health Diabetes: Urine Albumin-Creatinine Ratio for Kidney Health [facility] Start: 11-10-2005 Hepatitis B surface antibody level LDL Cholesterol [facility] Start: 11-10-2005 Hepatitis C screening Hepatitis C Sc reening [facility] Start: 01-03-2001 Hepatitis B Vaccines (2 of 3 - 3-dose series) Hepatitis B Vaccines (2 of 3 - 3-dose series) [facility] Start: 11-10-2000 Varicella vaccination Varicell a Vaccines (1 of 2 - 13+ 2-dose series) [facility] Start: 1999 Depression Screening Depression Scre ening [facility] Start: 11-10-1997 Diabetic foot examination [facility] Start: 11-10-1997 Glaucoma screening Diabetes: R etinopathy Screening [facility] Start: 11-10-1997 Hepatitis B screening Urine Al bumin:Creatinine Ratio [facility] Start: 11-10-1997 Preventive dental service Diabetes: Dental Exam [facility] Start: 11-10-1992 Hemoglobin A1c measurement HbA1C [facility] Start: 11-10-1988 MMR Vaccines (1 of 1 - Standard series) MMR Vaccines (1 of 1 - Standard series) [facility] Start: 11-10-1988 Varicella vaccination Varicell a Vaccines (1 of 2 - 2-dose childhood series) [facility] Start: 05-13-1988 COVID-19 Vaccine (#1) COVID-19 Vacci ne (#1) [facility] Start: 1987 Hemoglobin A1c measurement Diabetes: Hemoglobin A1C [facility] Start: 1987 Hepatitis B Vaccines (1 of 3 - 3-dose series) Hepatitis B Vaccines (1 of 3 - 3-dose series) [facility] Start: 1987 HIV screening HIV Screening [facility] Start: 1987 Lipid panel Lipid Panel [facility] End: 06-21-2025 ECG COMPLETE ECG COMPLETE ECG Routine Gastroesophageal reflux disease, unspecified whether esophagitis present Fatty liver History of asthma Type 2 diabetes mellitus without complication, without long-term current use of insulin (HCC) Obesity, Class III, BMI >= 40 Sarcoidosis Pre-op evaluation 1 Occurrences starting 06/21/2024 until 06/21/2025 [facility] Comment on above: 1 Occurrences starti ng 06/21/2024 until 06/21/2025 SARS-CoV-2, Flu A/B, and RSV Combo SARS-CoV-2, Flu A/B, and RSV Combo Microbiology Routine URI with cough and congestion Ordered: 12/14/2022 [facility] Work Phone: Comment on above: Ordered: 12/14/2022 STREPTOCOCCUS, GROUP A CULTURE ([facility]) Streptococcus, Group A Culture ([facility]) Lab Routine Upper respiratory tract infection, unspecified type Ordered: 08/24/2022 [facility] Work Phone: Comment on above: Ordered: 08/24/2022 STREPTOCOCCUS, GROUP A CULTURE ([facility]) Streptococcus, Group A Culture ([facility]) Lab Routine URI with cough and congestion [facility] above: Ordered: 12/14/2022 Immunizations Immunization Date Immunization Notes Care Provider Gaurang moseley 05-26-2023 tetanus toxoid, redu mauro diphtheria toxoid, and acellular pertussis vaccine, adsorbed Pacc 2 Work Phone: [facility] 05-24-2012 pneumococcal polysaccharide vaccine, 23 valent Pacc 2 Work Phone: [facility] 05-24-2012 influenza virus vacc ine, unspecified formulation Agnes Cuadra DO Work Phone: [facility] 03-17-2011 influenza virus vacc ine, unspecified formulation Pacc 2 Work Phone: [facility] Payers Date Payer Category Payer Unknown [id number] 2024 Self-pay 2023 [facility] PPO [id number] 2023 [employer] Managed Care - O ANTHEM BLUE CROSS [id number] 2023 Unknown [id number] 2023 Private Health Insurance [facility] [id number] 2020 Private Health Insurance KORY CORDERO [id number] 2020-Present [address] [place] [address] Commercial [id number] Private Health Insurance [employer] [address] [id number] Unknown SANTA [id number] Unknown [id number] Unknown [id number] Unknown [id number] Unknown [id number] Unknown [id number] Unknown [id number] Unknown [id number] Unknown [id number] Unknown [id number] Unknown [id number] Unknown [id number] Social History Date Type Detail Facility Start: 07-26-2018 End: 08-24-2022 Tobacco smoking status KYIS Never smoked tobacco [facility] Start: 08-20-2018 End: 08-24-2022 Tobacco use and exposure Smokeless tobacco non-user [facility] Start: 08-24-2022 End: 06-19-2024 Alcohol intake Current drinker of alcohol (finding) [facility] Start: 1985 Sex Assigned At Not on file [facility] Start: 08-14-2022 End: 12-14-2022 Exposure to SARS-CoV-2 (event) Not sure [facility] Start: 12-14-2022 End: 06-07-2024 History of Social function [facility] Start: 12-14-2022 End: 06-07-2024 Tobacco use panel [facility] Start: 07-26-2018 Tobacco smoking status KYIS Unknown if ever smoked [facility] Start: 1985 Sex Assigned At Male [facility] Start: 11-23-2021 End: 08-16-2024 Sex Male (finding) [facility] How hard is it for you to pay for the very basics like food, housing, medical care, and heating Not hard at all [facility] (I/We) worried whether (my/our) food would run out before (I/we) got money to buy more. Never true [facility] Start: 06-21-2024 Alcohol Comment Maybe 6 beers in 6 months [facility] Start: 05-12-2012 Alcohol Comment 3x yearly [facility] Start: 06-25-2024 Alcohol Comment Occasional, Ma ybe 6 beers in 6 months [facility] NEGATED: Highlighted rowStart: VICTOR MANUELF History of tobacco use Passive smoker [facility] Medical Equipment Procedure Code Equipment Code Equipment Origin al Text Equipment Identifier Dates 1 (ONE) STRIP DA ANU EVERY MORNING, TEST BLOOD SUGAR EVERY MORNING VIA FINGERSTICK Start: 08-27-2023 Diy-Zg-D-Kind Implant - [id number] Start: 03-16-2011 Comment on above: Description: SorbaFi x Absorbable Fixation Sysm Mesh Srg Pco Opt im 8x6in - [id number] Start: 03-16-2011 Comment on above: Description: mesh Functional Status Date Assessment Result Facility 06-21-2019 Are you deaf, or do you have serious difficulty hearing No 06/21/2019 2:45 PM Dano Palumbo APRN.HEAD MECHANIC No [facility] Work Phone: 06-21-2019 Are you blind, or do you have serious difficulty seeing, even when wearing glasses No 06/21/2019 2:45 PM Dano Palumbo, MOSHE.HEAD MECHANIC No [facility] 06-21-2019 Do you have serious difficulty walking or climbing stairs No 06/21/2019 2:45 PM Dano Palumbo, MOSHE.HEAD MECHANIC No [facility] 06-21-2019 Do you have difficul ty dressing or bathing No 06/21/2019 2:45 PM Dano Palumbo, DATA REVIEWER.HEAD MECHANIC No [facility] 06-21-2019 Because of a physica l, mental, or emotional condition, do you have difficulty doing errands alone such as visiting a physician's office or shopping No 06/21/2019 2:45 PM Dano Palumbo, MOSHE.HEAD MECHANIC No [facility] Mental Status Date Assessment Result Facility 06-21-2019 Because of a physica l, mental, or emotional condition, do you have serious difficulty concentrating, remembering, or making decisions No 06/21/2019 2:45 PM Dano Palumbo APRN.HEAD MECHANIC No [facility] Clinical Notes 08-24-2022 to 07-13-2024 Patricia Peters APRN.HEAD MECHANIC - 07/13/2024 3:30 PM EDTTelephone Encounter - [...] up with Dr. Shah. Patricia Peters APRN.CNP documented in this encounter [facility] 07-13-2024 Note HNO ID: [id number] Author: PATRICIA PETERS APRN.CNP Service: ? Author Type: Nurse Practitioner Type: [...] follow up with Dr. Shah. Patricia Peters APRN.[facility] 06-29-2024 Note HNO ID: [id number] Author: BHUPENDRA FRANKS APRN.CRNA Service: Anesthesiology Author Type: Nurse Oracle Application Architect Type: Anesthesia Procedure Notes Filed: 06/29/2024 11:31 Note Text: ANESTHESIOLOGY PROCEDURE NOTE Airway General Information Procedure Start Time/Medication Administration: 06/29/2024 11:11 AM Procedure End Time: 06/29/2024 11:13 AM Patient location during procedure: OR Timeout Performed Pre-procedure: timeout performed Consent Obtained: Yes Patient identity confirmed: arm band Staffing TRANSFUSION AIDE: Bhupendra Franks APRN.TRANSFUSION AIDE Performed by: TRANSFUSION AIDE Indications and Patient Condition Indications for airway [...] June 29, 2024 TIME: 11:30 AM CSN: [id number] [facility] 06-29-2024 Note HNO ID: [id number] Author: ANGE NATION RN Service: Nursing Author Type: Registered Nurse Type: Nursing Progress Note Filed: 06/29/2024 10:13 Note Text: Other: pt ready for OR, call light in reach, family called to bedside [facility] 06-27-2024 Telephone encounter Note FMLA paper work received from [employer] Filled out and signed by Provider. Reviewed [...] to return to work sooner. Faxed to [employer]. Confirmation received. Records sent to be scanned to chart. Encounter closed. [facility] 06-27-2024 Miscellaneous Notes FMLA paper work received from [employer] Filled out and signed by Provider. Reviewed [...] to return to work sooner. Faxed to [employer]. Confirmation received. Records sent to be scanned to chart. Encounter closed. documented in this encounter [facility] 06-26-2024 Note HNO ID: [id number] Author: KADEEM SHAH MD Service: ? Author [...] ?C (97 ?F), height 198.1 cm (6' 6), weight (!) 176.6 kg (389 lb 6.4 [...] Procedure: LAPAROSCOPIC CHOLECYSTECTOMY WITHOUT INTRAOPERATIVE CHOLEANGIOGRAM - 01375-601 Planned antibiotic: Ancef 2gm IVPB interventional technologist to OR SCDs ne (more content not included)... [facility] 06-26-2024 History of Presen t illness Narrative HISTORY AND PHYSICAL Malorie Foley 1985 REFERRING [...] C (97 F), height 198.1 cm (6' 6), weight (!) 176.6 kg (389 lb 6.4 [...] Procedure: LAPAROSCOPIC CHOLECYSTECTOMY WITHOUT INTRAOPERATIVE CHOLEANGIOGRAM - 83373-153 Planned antibiotic: Ancef 2gm IVPB interventional technologist to OR SCDs needed - Yes Corrugated Fastener Driver Needed - Yes Diagnoses: (K80.10) Calculus of gallbladder with cholecystitis without biliary obstruction, unspecified cholecystitis acuity (primary encounter diagnosis) A letter was sent to Dr. Rupesh Obando MD, MD indicating the above finding for this patient. Kadeem Shah III, MD documented in this encounter [facility] 06-21-2024 Instructions Sunday Crane PA-C - 06/21/2024 1:46 PM EST PATIENT PREOPERATIVE INSTRUCTIONS Kadeem Shah MD has scheduled you for your procedure at this surgery center: [facility]: [phone] -- [address] [address]. Arrival Time for Surgery: - The Surgery [...] Procedures: - YOU MUST HAVE A RESPONSIBLE RETIREMENT SALES CONSULTANT TAKE YOU HOME. A IT SOFTWARE DEVELOPER OR STUDENT LIFE VICE PRESIDENT CANNOT BE MADE A RESPONSIBLE RETIREMENT SALES CONSULTANT. 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 [facility] or Procedure:: [place] Status of surgery/procedure:: Scheduled Date of surgery/procedure:: 06/29/2024 ECG COMPLETE Standing Status: Future Expiration Date: 06/21/2025 This is a virtual visit using [employer] video visit. It required patient-provider interaction for [...] rated at 7/10 and is described as like it is pulling. Pain will occasionally radiate to his shoulder. Pain is worse with eating particular foods. Patient denies any other specific radiating, alleviating or aggravating factors. This is a virtual visit. The visit was conducted using [employer] video visit. It required patient-provider interaction for the medical decision making as documented below. I have communicated my name and active licensure. The patient's identity and physical location were verified at the time of this visit. Either the patient or their legal community health program representative has been informed of the risks and benefits of and alternatives to treatment through a remote evaluation and consents to proceed with the evaluation remotely. REVIEW OF SYSTEMS: General: No weight loss, malaise or fevers. Neurological: No history of TIA's, stroke, SPACE CONTROL SUPERVISOR tumor, impaired sensorium, hemiplegia, paraplegia or quadraplegia. No neurological symptoms or problems. Respiratory: Positive for: asthma. Negative for: COPD, dyspnea, orthopnea, pneumonia within 6 weeks and URI < 2 weeks. Cardiovascular: No history of HTN requiring medication, no history of angina, CHF, MN, cardiac surgery or stents. Denies rest pain, [...] - feeling well[ Resp 18 Ht 6' 6 (1.98m) Wt 389 lb (176.4kg) BMI 44.96 [...] within date range. No results found for: HBA1C No results found for this or any previous visit (from the past 8760 hours). No results found for this or any previous visit (from the past 14706 hours). Instructions Given to Patient: Instructions located in the after visit summary. Patient given verbal and written preop instructions and voices comprehension and compliance. 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 [facility] or Procedure:: [place] Status of surgery/procedure:: Scheduled Date of surgery/procedure:: 06/29/2024 ECG COMPLETE Standing Status: Future Expiration Date: 06/21/2025 This is a virtual visit using [employer] video visit. It required patient-provider interaction for [...] Immunization Status Current Care Gaps Covid-19 Vaccine () Never done No completion, postpone, frequency change, [...] rated at 7/10 and is described as like it is pulling. Pain will occasionally radiate to his shoulder. Pain is worse with eating particular foods. Patient denies any other specific radiating, alleviating or aggravating factors. This is a virtual visit. The visit was conducted using [employer] video visit. It required patient-provider interaction for the medical decision making as documented below. I have communicated my name and active licensure. The patient's identity and physical location were verified at the time of this visit. Either the patient or their legal community health program representative has been informed of the risks and benefits of and alternatives to treatment through a remote evaluation and consents to proceed with the evaluation remotely. REVIEW OF SYSTEMS: General: No weight loss, malaise or fevers. Neurological: No history of TIA's, stroke, SPACE CONTROL SUPERVISOR tumor, impaired sensorium, hemiplegia, paraplegia or quadraplegia. No neurological symptoms or problems. Respiratory: Positive for: asthma. Negative for: COPD, dyspnea, orthopnea, pneumonia within 6 weeks and URI < 2 weeks. Cardiovascular: No history of HTN requiring medication, no history of angina, CHF, MN, cardiac surgery or stents. Denies rest pain, [...] - feeling well[ Resp 18 Ht 6' 6 (1.98m) Wt 389 lb (176.4kg) BMI 44.96 [...] within date range. No results found for: HBA1C No results found for this or any previous visit (from the past 8760 hours). No results found for this or any previous visit (from the past 62772 hours). Instructions Given to Patient: Instructions located in the after visit summary. Patient given verbal and written preop instructions and voices comprehension and compliance. SIGNATURE: Sunday Crane PA-C PATIENT NAME: Malorie Foley DATE: June 21, 2024 TIME: 1:16 PM PAGER/CONTACT #: documented in this encounter [facility] 06-20-2024 Telephone encounter Note 06-29-2024 Leonora Royal with double time and visiport Mamadou Saab [facility] 06-20-2024 Miscellaneous Notes 06-29-2024 Lap Genny with double time and visiport Mamadou Saab documented in this encounter [facility] 06-06-2024 History of Presen t illness [...] C (97.9 F) Resp 18 Ht 6' 5 (1.956 m) Wt (!) [...] appendicitis. Patient states they will proceed to [facility]. Patient would like to drive private vehicle which I believe is reasonable and appropriate at this time as patient is not in acute distress. 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 Patient understands and agreeable to treatment plan. Rio Majano NP 06/06/24 11:27 AM If symptoms do not improve, worsen, or new symptoms develop, see PCP for further evaluation. documented in this encounter [facility] 12-14-2022 History of Presen t illness Narrative [...] to Visit Medication Sig Dispense Refill [DISCONTINUED] [id number] (DAYQUIL PO) Take by mouth. No current [...] and is agreeable. documented in this encounter [facility] 12-14-2022 Instructions Agnes Cuadra DO - 12/14/2022 [...] Everywhere.Viral Upper Respiratory Infection Discharge Instructions, Adult (Yakut)documented in this encounter [facility] 12-14-2022 Miscellaneous Notes Addended by: AGNES CUADRA on: 12/14/2022 01:21 PM Modules accepted: Orders documented in this encounter [facility] 12-14-2022 Note Addended by: AGNES PEREZ on: 12/14/2022 01:21 PM Modules accepted: Orders [facility] 08-24-2022 History of Presen t illness Narrative [...] and is agreeable documented in this encounter [facility] 08-24-2022 Instructions Agnes Cuadra DO - 08/24/2022 [...] Everywhere.Bacterial Upper Respiratory Infection Discharge Instructions, Adult (Yakut)documented in this encounter [facility] Evaluation note Diagnosis Upper respiratory tract infection, unspecified type- Primary documented in this encounter [facility]* Diagnosis URI with cough and congestion- Primary Close exposure to COVID-19 virus documented [facility] this [facility] noteNo assessment information availableWKing[facility] Work Phone: Evaluation note* Diagnosis Nausea and vomiting, unspecified vomiting type- Primary Viral gastroenteritis Intestinal infection due to other organism, NEC [facility] Diagnosis Pre-op evaluation- Primary Preoperative [...] Is on metformin Most recent A1c was just under 7 per pt on Tuesday * Assessment & [...] Follow[facility] with PCP [facility] Diagnosis Calculus of gallbladder with cholecystitis [...] unspecified cholecystitis acuity [facility] Diagnosis Pre-op evaluation- Primary Preoperative examination, [...] cholecystitis acuity- Primary [facility] (narrative)No reason for referral information availableWKing's Daughters [facility] [place] Work Phone: Summary Purpose Family History No Family History Records FoundNo Family History Records FoundNo Family History Records FoundNo Family History Records FoundNo Family History Records FoundNo Family History Records FoundNo Family History Records Found Advance Directives No Advanced Directives Records Found Advance Directive Response Recorded Date/ Time Living Will No July 17, 2018 6:33am Power of [employer]orer [employer] Yes July 17 6:33am Chief Complaint and [...] section and content) DATE CREATED AUTHOR 10/19/2017 [facility] DATE CREATED AUTHOR AUTHOR'S ORGANIZ ATION 01/20/2020 [facility] DATE CREATED AUTHOR AUTHOR'S ORGANIZ ATION 06/08/2024 [facility] DATE CREATED AUTHOR AUTHOR'S ORGANIZ ATION 08/03/2024 [facility] DATE CREATED AUTHOR AUTHOR'S ORGANIZ ATION 08/30/2024 [facility] DATE CREATED AUTHOR AUTHOR'S ORGANIZ ATION 01/16/2025 [facility] DATE CREATED AUTHOR AUTHOR'S ORGANIZ ATION 03/07/[address] [facility] Reason for Visit (unrecogniz ed section [...] Reason Comments Follow Up Reason Comments 06-29-2024 [facility] Care Teams (unrecognized sec tion and content) Glue Sprayer Relationship Specialty Start Date End Date [facility] [address] [place] [id number] PCP - General 12/14/22 Team Status: Active [...] Primary Care Provider, Attend ing Provider Active Glue Sprayer Relationship Specialty Start Date End Date [facility] [address] [place] [address] PCP - General 12/14/22 Glue Sprayer Relationship Specialty Start Date End Date Rupesh Obando MD [address] [facility] [address] [place] [address] PCP - General Family Medicine 05/26/23 Glue Sprayer Relationship Specialty Start Date End Date Rupesh Obando MD [address] [facility] [address] [place] [address] PCP - General Family Medicine 05/26/23 Glue Sprayer Relationship Specialty Start Date End Date Rupesh Obando MD [address] [facility] [address] [place] [address] PCP - General Family Medicine 05/26/23 Glue Sprayer Relationship Specialty Start Date End Date Rupesh Obando MD [address] [facility] [address] [place] [address] PCP - General Family Medicine 05/26/23 Glue Sprayer Relationship Specialty Start Date End Date Rupesh Obando MD [address] [facility] [address] [place] [address] PCP - General Family Medicine 05/26/23 Team [...] August 10, 2024 End: August 10, 2024 Team Status: Active Member Role/Relationship Status Dates Dr. Rupesh Obando MD Primary Care Provider Active Team Status: Inactive Member Role/Relationship Status Dates Dr. Rupesh Obando MD Primary Care Provider Active Start: August 07, 2024 End: August 07, 2024 Dr. Rupesh Obando MD Attending Provider Active Start: August 07, 2024 End: August 07, 2024 Dr. Rupesh Obando MD Referring Provider Active Start: August 07, 2024 End: August 07, 2024 Team Status: Active Member Role/Relationship Status Dates Dr. Rupesh Obando MD Primary Care Provider Active Start: August 07, 2024 Dr. Rupesh Obando MD Referring Provider Active Start: August 07, 2024 Dr. Tyrese Griffith MD Attending Provider Active S tart: August 07, 2024 Team Status: Inactive Member Role/Relationship Status Dates Dr. Rupesh Obando MD Primary Care Provider Active Start: August 10, 2024 End: August 10, 2024 Dr. Rupesh Obando MD Attending Provider Active Start: August 10, 2024 End: August 10, 2024 Dr. Rupesh Obando MD Referring Provider Active Start: August 10, 2024 End: August 10, 2024 Team Status: Inactive Member Role/Relationship Status Dates Dr. Rupesh Obando MD Primary Care Provider Active Start: November 16, 2024 End: November 16, 2024 Dr. Rupesh Obando MD Attending Provider Active Start: November 16, 2024 End: November 16, 2024 Dr. Rupesh Obando MD Referring Provider Active Start: November 16, 2024 End: November 16, 2024 Team Status: Active Member Role/Relationship Status Dates Dr. Rupesh Obando MD Primary care physician Active Team Status: Inactive Member Role/Relationship Status Dates Dr. Rupesh Obando MD Primary care physician Active Start: November 16, 2024 End: November 16, 2024 Dr. Rupesh Obando MD Attending physician Active Start: November 16, 2024 End: November 16, 2024 Dr. Rupesh Obando MD Referring Provider Active Start: November 16, 2024 End: November 16, 2024 Team Status: Inactive Member Role/Relationship Status Dates Dr. Rupesh Obando MD Primary care physician Active Start: January 18, 2025 End: January 18, 2025 Dr. Rupesh Obando MD Attending physician Active Start: January 18, 2025 End: January 18, 2025 Dr. Rupesh Obando MD Referring Provider Active Start: January 18, 2025 End: January 18, 2025 Goals (unrecognized section and content) Goals may [...] or prosecute any alcohol or drug abuse patient.[facility] the event this information is protected by the Federal Confidentiality of Alcohol and Drug Abuse Patient Records regulations: The Federal rules restrict any use of the information to criminally investigate or prosecute any alcohol or drug abuse patient.[facility] the event this information is protected by the Federal Confidentiality of Alcohol and Drug Abuse Patient Records regulations: The Federal rules restrict any use of the information to criminally investigate or prosecute any alcohol or drug abuse patient.[facility] the event this information is protected by the Federal Confidentiality of Alcohol and Drug Abuse Patient Records regulations: The Federal rules restrict any use of the information to criminally investigate or prosecute any alcohol or drug abuse patient.[facility] Hospital[facility] the event this information is protected by the Federal Confidentiality of Alcohol and Drug Abuse Patient Records regulations: The Federal rules restrict any use of the information to criminally investigate or prosecute any alcohol or drug abuse patient.[facility] FOR RECORDS PERTAINING TO PATIENTS WHO [...] BE BASED ON THE PRIMARY CLINICAL RECORDS. [facility] [employer] [facility]. provides no warranty or guarantee of the accuracy or completeness of information in this document.
[2025-04-05] MEDS: 0.9% Saline Lock 10 ML Syringe IV (12:45)
[2025-04-05 12:50] VITALS: BP 136/87; PULSE 79
[2025-04-05] MEDS: Nitroglycerin SL (ED/IMG/CATH) 0.4 MG TABLET SL (12:50)
[2025-04-05 13:02] LABS: CREATININE FINGERSTICK < 1.0 mg/dL (0.70-1.30); EGFR FINGERSTICK > 60.0000 mL/min (>60)
[2025-04-05 13:09] VITALS: BP 136/87; PULSE 79; RESP 18; O2SAT 100
--- NOTE | 2025-04-10 07:31 | CCTA.WCONT ---
CCTA w/Cont Coronary Arteries Date of Study:: 04/05/25 Chest pain Coronary Calcium Scoring: High-resolution Computed Tomographic imaging of the chest was performed on [04/05/2025], with particular attention paid to the coronary arteries. Intravenous contrast agent was administered per protocol and images reconstructed and displayed. LEFT MAIN CORONARY ARTERY: Arises from the left coronary cusp with no significant stenosis present bifurcates the left anterior descending and left circumflex artery [] LEFT ANTERIOR DESCENDING CORONARY ARTERY: Arises from the left main coronary artery with no significant stenosis present. [] LEFT CIRCUMFLEX CORONARY ARTERY: Nondominant vessel with no angiographically significant stenosis present [] RIGHT CORONARY ARTERY: Dominant right coronary artery with no angiographically significant stenosis present. [] THORACIC AORTA: [] PULMONARY ARTERY: [] LEFT ATRIUM/APPENDAGE: [] MITRAL VALVE: [] AORTIC VALVE: [] LEFT VENTRICLE: [] CORONARY CALCIUM SCORE: 0 [] Findings Coronary Artery Left Main (LM): 0 Left Anterior Descending (LAD): 0 Left Circumflex (LCX): 0 Right Coronary Artery (RCA): 0 Total Agatston Score: 0 Percentile Rankin Calcium Scoring Interpretation: Different methods to categorize the overall amount of coronary plaque. Overall amount CAC SIS Visual of coronary plaque P1 Mild -100 <2 1-2 vessels with mild amount of plaque P2 Moderate 101-300 3-4 1-2 vessels with moderate amount, 3 vessels with mild amount of plaque P3 Severe 301-999 5-7 3 vessels with moderate amount, 1 vessel with severe amount of plaque P4 Extensive >1000 >8 2-3 vessels with severe amount of plaque Conclusion: No coronary calcification or angiographically significant stenosis present.
== END | disposition home or self-care (01) ==
PROVIDERS: PCP Family Medicine; Referring Provider Student in an Organized Health Care Education/Training Program; Visit Provider Student in an Organized Health Care Education/Training Program
DX: R07.9 Chest pain, unspecified (principal)
CPT/HCPCS: 75571; 75574; 76380; Q9967; A4216